=== PATIENT | male | born 1945 | race Caucasian/White ===

== ENCOUNTER 2022-01-10 14:11 | Inpatient (IN) ==
[2022-01-10 14:42] LABS: Basophils # (auto) 0.02 K/uL (0-0.2); Basophils % (auto) 0.2 %; Eosinophils % (auto) 1.1 %; Hematocrit (blood only) 39.7 % (40.1-51.0); Hemoglobin 13.6 g/dl (14.0-18.0); Immature Granulocytes # (auto) 0.04 K/uL (0.00-0.02); Immature Granulocytes % (auto) 0.4 %; Lymphocytes # (auto) 1.36 K/uL (1.2-3.4); Lymphocytes % (auto) 14.9 %; Mean Corpuscular Hemoglobin 31.8 pg (25.0-34.0); Mean Corpuscular Hgb Conc 34.3 g/dL (32.0-36.0); Mean Corpuscular Volume 92.8 fL (80.0-100.0); Mean Platelet Volume 9.6 fL (9.4-12.4); Monocytes # (auto) 0.68 K/uL (0.24-0.82); Monocytes % (auto) 7.5 %; Neutrophils # (auto) 6.92 K/uL (1.4-6.5); Neutrophils % (auto) 75.9 %; Platelet Count 264 K/uL (130-400); RDW Coefficient of Variation 13.1 % (11.5-14.5); RDW Standard Deviation 44.2 fL (36.4-46.3); Red Blood Count 4.28 M/uL (4.63-6.08); White Blood Count 9.12 K/ul (4.8-10.8)
[2022-01-10 15:02] LABS: Albumin Globulin Ratio 1.5 (0.9-2); Albumin Level 4.2 gm/dl (3.4-5.0); BUN Creatinine Ratio 21.1 (10-20); Bilirubin,Total 0.6 mg/dl (0.2-1.0); Calcium 9.7 mg/dl (8.5-10.1); Creatinine Clr Calc Pharmacy 28.6 ml/min; Est GFR (African American) 26.2 ml/min; Est GFR (Non-African American) 22.6 ml/min; Globulin 2.8 gm/dl (2.5-4.0); Potassium 4.6 mmol/L (3.5-5.1)
[2022-01-10] MEDS ORDERED: SODIUM CHLORIDE 0.9% 1000ML 1,000 ML IV ONE (15:07)
[2022-01-10 15:09] LABS: Troponin I High Sensitivity 10.5 pg/ml (0-20)
--- NOTE | 2022-01-10 15:34 | Emergency Department Note ---
Impression & Plan Changes in vision, WILLIAM (acute kidney injury), Dizziness ED Provider Note Provider: Migue Love MD DATE OF SERVICE: 01/10/2022 CHIEF COMPLAINT: Transient visual change, dizziness HISTORY OF PRESENT ILLNESS: Patient is a 76-year-old gentleman history of hypertension on a baby aspirin presenting with today after an episode this afternoon. Around 130 or so for a minute or so had some transient bilateral visual loss with initially some color change and then blacking out. Patient den ies loss of conscious however. There is no slurred speech reported. Patient states this quickly resolved but then had some ongoing dizziness for a period. This is resolved now. Denies any numbness or weakness earlier or now in the extremities. No facial droop or speech issues reported. Denies chest pain or palpitations. Denies other recent illness. No eye pain or headache reported. States he has been eating okay. REVIEW OF SYSTEMS: A total of 10 review of systems was obtained and negative except as stated above in the HPI. PAST MEDICAL HISTORY: As noted above MEDICATIONS: Reviewed home medications. Patient is on a baby aspirin daily. 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 PERRL, EOMI. NECK: Trachea midline. Supple. ENT: Mucous membranes pink and moist. Pharynx without erythema or exudate. LUNGS: Airway patent. No retractions. Breath sounds clear with good air entry bilaterally. HEART: Regular rate and rhythm. No chest wall tenderness ABDOMEN: Soft and non-tender, without guarding or rebound. SKIN: Acyanotic, warm, dry, without rashes EXTREMITIES: Without swelling, tenderness or deformity NEUROLOGICAL: No focal deficits. No aphasia. No facial droop or slurred speech. Tongue midline. Normal strength and tone in the extremities. No leg drift. 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 Sensation to gross touch normal. Ambulatory. EK bpm sinus bradycardia with first-degree AV block. No PVC noted. No acute ST segment elevation or depression. QTc 399. CONTINUOUS CARDIAC MONITORING: was ordered and showed a heart rate of 50s-70s bpm in normal sinus rhythm to sinus bradycardia with a first-degree AV block Patient's laboratory studies and imaging reviewed. Differential includes Infection, dehydration, metabolic abnormality, hypo/hyperglycemia, electrolyte disturbance, anemia, hypoxia, cardiac sources, intracerebral event, toxicologic, neurologic, as well as other pathologies. IMPRESSION/MEDICAL DECISION MAKING: Patient with symptoms concerning for possible TIA given the bilateral visual change noted. CT of the head to be completed. No other significant neurological findings or symptoms at this point. No pain to the eyes or unilateral nature of significance indicative of primary oncological process versus retinal detachment or GCA. Symptoms have resolved at this point. Denies other systemic symptoms such as palpitations or chest pain. Not made a stroke alert because of resolution of symptoms at this point. Blood work here completed without significant abnormality other than significant worsening of his renal function compared to blood work here in September and in the outpatient setting in October. Was recently started on Crestor several weeks ago but no other significant new renal medication started. States he has been drinking okay. Given some IV fluids here. Given worsened renal function in conjunction with the transient neurological visual changes as well as some dizziness although improving and this may represent TIA feel that further evaluation and care here at the hospital was indicated. CT of the head report does interestingly show chronic tiny lacunar infarct in the right cerebellum but no prior CTs are in our system for comparison. DIAGNOSIS: Transient visual changes, dizziness, WILLIAM DISPOSITION: Hospitalist will evaluate Patient was agreeable with this plan. Past Med/Surg History Medical History (Updated 01/10/22 @ 16:20 by Dinah Stanley PA-C) Carotid stenosis DM II (diabetes mellitus, type II), controlled HLD (hyperlipidemia) HTN (hypertension) Surgical History (Updated 01/10/22 @ 16:20 by Dinah Stanley PA-C) History of meniscectomy of left knee Hx laparoscopic cholecystectomy Hx of arthroscopy of shoulder Family History (Updated 01/10/22 @ 16:21 by Dinah Stanley PA-C) Father Cancer Mother Stroke Sister Stroke Social History Smoking Status: Never smoker Preferred Language: Armenian Feels Safe at Home: Yes Allergies Allergies Allergy/AdvReac Type Severity Reaction Status Date / Time No Known Allergies Allergy Mild Verified 01/10/22 16:03 Home Meds Home Medications Medication Instructions Recorded Confirmed amlodipine 5 mg tablet 5 mg PO DAILY 10/15/21 01/10/22 aspirin 81 mg tablet,delayed 81 mg PO DAILY 10/15/21 01/10/22 release lisinopril 20 mg tablet 20 mg PO DAILY 10/15/21 01/10/22 omeprazole 20 mg capsule,delayed 20 mg PO DAILY 10/15/21 01/10/22 release Results & Data (ED) Vital Signs Vital Signs - 24 hr 01/10/22 14:17 01/10/22 15:11 01/10/22 15:11 Temperature 36.8 C Temperature Source Temporal Artery Scan Pulse Rate 85 Pulse Rate [Finger] 77 Pulse Rhythm [Finger] Regular Pulse Strength [Finger] Normal Respiratory Rate 20 18 Respiratory Effort / Characteristics Non-Labored Non-Labored Respiratory Depth Normal Normal Respiratory Pattern Regular Blood Pressure 105/71 Blood Pressure [Right Arm] 107/63 Blood Pressure Mean 82 Blood Pressure Mean [Right Arm] 77 Blood Pressure Position [Right Arm] Lying Pulse Oximetry 96 95 95 Oxygen Delivery Method Room Air Room Air Room Air Sepsis Recent Fever Within 48 Hours No Sepsis New/Unexplained Change in Mental Status N/A Sepsis Action Taken by Nursing No Action Required Laboratory Data Result diagrams: 01/10/22 14:33 01/10/22 14:33 Lab Results 01/10/22 01/10/22 01/10/22 Range/Units 14:32 14:33 14:33 WBC 9.12 (4.8-10.8) K/ul RBC 4.28 L (4.63-6.08) M/uL Hgb 13.6 L (14.0-18.0) g/dl Hct 39.7 L (40.1-51.0) % MCV 92.8 (80.0-100.0) fL MCH 31.8 (25.0-34.0) pg MCHC 34.3 (32.0-36.0) g/dL RDW Std Deviation 44.2 (36.4-46.3) fL RDW Coeff of Yasmine 13.1 (11.5-14.5) % Plt Count 264 (130-400) K/uL MPV 9.6 (9.4-12.4) fL Immature Gran % (Auto) 0.4 % Neut % (Auto) 75.9 % Lymph % (Auto) 14.9 % Sanborn % (Auto) 7.5 % Eos % (Auto) 1.1 % Baso % (Auto) 0.2 % Neut # (Auto) 6.92 H (1.4-6.5) K/uL Lymph # (Auto) 1.36 (1.2-3.4) K/uL Sanborn # (Auto) 0.68 (0.24-0.82) K/uL Eos # (Auto) 0.10 (0-0.50) K/uL Baso # (Auto) 0.02 (0-0.2) K/uL Immature Gran # (Auto) 0.04 H (0.00-0.02) K/uL Sodium 134 L (136-145) mmol/L Potassium 4.6 (3.5-5.1) mmol/L Chloride 104 (98-107) mmol/L Carbon Dioxide 22 (21-32) mmol/L Anion Gap 8 (3-11) BUN 56 H (6-23) mg/dl Creatinine 2.65 H (0.6-1.4) mg/dl Est Cr Clr Drug Dosing 28.6 ml/min Est GFR ( Amer) 26.2 ml/min Est GFR (Non-Af Amer) 22.6 ml/min BUN/Creatinine Ratio 21.1 H (10-20) Glucose 158 H (70-99(Fasting)) mg/dl POC Glucose 166 H (70-99) mg/dl Calcium 9.7 (8.5-10.1) mg/dl Total Bilirubin 0.6 (0.2-1.0) mg/dl AST 22 (13-39) U/L ALT 20 (7-52) U/L Alkaline Phosphatase 54 (34-104) U/L Troponin I High Sens 10.5 (0-20) pg/ml Total Protein 7.0 (6.0-8.3) gm/dl Albumin 4.2 (3.4-5.0) gm/dl Globulin 2.8 (2.5-4.0) gm/dl Albumin/Globulin Ratio 1.5 (0.9-2) TSH (0.300-4.500) uIu/ml SARS-CoV-2, RNA, NAAT (NEGATIVE) 01/10/22 01/10/22 Range/Units 14:33 16:00 WBC (4.8-10.8) K/ul RBC (4.63-6.08) M/uL Hgb (14.0-18.0) g/dl Hct (40.1-51.0) % MCV (80.0-100.0) fL MCH (25.0-34.0) pg MCHC (32.0-36.0) g/dL RDW Std Deviation (36.4-46.3) fL RDW Coeff of Yasmine (11.5-14.5) % Plt Count (130-400) K/uL MPV (9.4-12.4) fL Immature Gran % (Auto) % Neut % (Auto) % Lymph % (Auto) % Sanborn % (Auto) % Eos % (Auto) % Baso % (Auto) % Neut # (Auto) (1.4-6.5) K/uL Lymph # (Auto) (1.2-3.4) K/uL Sanborn # (Auto) (0.24-0.82) K/uL Eos # (Auto) (0-0.50) K/uL Baso # (Auto) (0-0.2) K/uL Immature Gran # (Auto) (0.00-0.02) K/uL Sodium (136-145) mmol/L Potassium (3.5-5.1) mmol/L Chloride (98-107) mmol/L Carbon Dioxide (21-32) mmol/L Anion Gap (3-11) BUN (6-23) mg/dl Creatinine (0.6-1.4) mg/dl Est Cr Clr Drug Dosing ml/min Est GFR ( Amer) ml/min Est GFR (Non-Af Amer) ml/min BUN/Creatinine Ratio (10-20) Glucose (70-99(Fasting)) mg/dl POC Glucose (70-99) mg/dl Calcium (8.5-10.1) mg/dl Total Bilirubin (0.2-1.0) mg/dl AST (13-39) U/L ALT (7-52) U/L Alkaline Phosphatase (34-104) U/L Troponin I High Sens (0-20) pg/ml Total Protein (6.0-8.3) gm/dl Albumin (3.4-5.0) gm/dl Globulin (2.5-4.0) gm/dl Albumin/Globulin Ratio (0.9-2) TSH 0.659 (0.300-4.500) uIu/ml SARS-CoV-2, RNA, NAAT NEGATIVE (NEGATIVE) Administered Medications Discontinued Medications Aspirin (Aspirin 81 Mg Chew) 243 mg PO NOW STA Stop: 01/10/22 15:53 Last Admin: 01/10/22 16:22 Dose: 243 mg Documented By: MINDY Sodium Chloride (Nss 1000ml) 1,000 mls @ 999 mls/hr IV .Q1H1M ONE Stop: 01/10/22 16:07 Last Infusion: 01/10/22 16:19 Dose: 0 mls/hr Documented By: Admin: 01/10/22 15:13 Dose: 999 mls/hr Documented By: [facility] Imaging Data Radiologist's Impression: Head CT 01/10/22 15:07 CT SCAN OF THE BRAIN WITHOUT IV CONTRAST CLINICAL HISTORY: Dizziness. Transient vision loss. COMPARISON STUDY: No priors. TECHNIQUE: Unenhanced axial CT scan of the brain is performed from the vertex to the skull base. A dose lowering technique was utilized adhering to the principles of ALARA. CT DOSE: 2071.62 mGycm FINDINGS: Brain parenchyma: There is age-related involutional change noting mild subcortical and periventricular microangiopathic disease. There is no hemorrhage, mass effect, or evidence of acute territorial ischemia by CT criteria. A tiny chronic lacunar infarct is noted in the right cerebellar hemisphere. Carlson-white matter differentiation is preserved. No extra-axial fluid collection is seen. Ventricles, sulci, cisterns: Prominent secondary to involutional change. Intracranial vasculature: There is atherosclerotic calcification of the cavernous carotid and vertebral arteries. Calvarium: Unremarkable. Sinuses and mastoids: The visualized paranasal sinuses are clear. The mastoid air cells are well pneumatized. Orbits: The bony orbits are grossly intact. IMPRESSION: There is no hemorrhage, mass effect, or evidence of acute territorial ischemia by CT criteria. ACT 112: Negative or not required by law. Electronically signed by: Armando Chandler M.D. 01/10/2022 3:50 PM Discharge Plan Visit Data Chief Complaint: Dizziness Stated Complaint: LOST VISION, DIZZINESS ED Provider: Migue Love Discharge Problem: Changes in vision, WILLIAM (acute kidney injury), Dizziness Patient Disposition: Being Evaluated by Hospitalist Forms Stand Alone Forms: [facility] Prescriptions Prescriptions: No Action lisinopril 20 mg tablet 20 mg PO DAILY amlodipine 5 mg tablet 5 mg PO DAILY aspirin 81 mg Tablet,Delayed Release (Dr/Ec) 81 mg PO DAILY omeprazole 20 mg capsule,delayed release(DR/EC) 20 mg PO DAILY Referrals Referrals: Justin Hanson DO [Primary Care Provider] -
--- NOTE | 2022-01-10 15:51 | CT Scan Report ---
CT SCAN OF THE BRAIN WITHOUT IV CONTRAST CLINICAL HISTORY: Dizziness. Transient vision loss. COMPARISON STUDY: No priors. TECHNIQUE: Unenhanced axial CT scan of the brain is performed from the vertex to the skull base. A do se lowering technique was utilized adhering to the principles of ALARA. CT DOSE: 2071.62 mGycm FINDINGS: Brain parenchyma: There is age-related involutional change noting mild subcortical and periventricula r microangiopathic disease. There is no hemorrhage, mass effect, or evidence of acute territorial isc hemia by CT criteria. A tiny chronic lacunar infarct is noted in the right cerebellar hemisphere. Gra y-white matter differentiation is preserved. No extra-axial fluid collection is seen. Ventricles, sulci, cisterns: Prominent secondary to involutional change. Intracranial vasculature: There is atherosclerotic calcification of the cavernous carotid and vertebr al arteries. Calvarium: Unremarkable. Sinuses and mastoids: The visualized paranasal sinuses are clear. The mastoid air cells are well pneu matized. Orbits: The bony orbits are grossly intact. IMPRESSION: There is no hemorrhage, mass effect, or evidence of acute territorial ischemia by CT ricky stevens. ACT 112: Negative or not required by law. Electronically signed by: Armando Chandler M.D. 01/10/2022 3:50 PM
[2022-01-10] MEDS ORDERED: ASPIRIN 81 MG CHEW PO STA (15:52)
--- NOTE | 2022-01-10 15:54 | Electrocardiogram Report ---
Test Reason : Blood Pressure : / mmHG Vent. Rate : 056 BPM Atrial Rate : 056 BPM P-R Int : 212 ms QRS Dur : 104 ms QT Int : 414 ms P-R-T Axes : 066 016 033 degrees QTc Int : 399 ms Sinus bradycardia with 1st degree A-V block Septal infarct , age undetermined Abnormal ECG When compared with ECG of 15-OCT-2021 21:32, No significant change was found Confirmed by Messi Ferreira ([id number]) on 01/10/2022 3:54:45 PM Referred By: Confirmed By:Messi Ferreira
--- NOTE | 2022-01-10 16:17 | History & Physical Report ---
Date of Service January 10, 2022 History of Present Illness Chief Complaint: Visual loss, dizziness Primary Care Provider: Justin Hanson, This is a 76 yo M with PMHx of HTN Allergies Allergy/AdvReac Type Severity Reaction Status Date / Time No Known Allergies Allergy Mild Verified 01/10/22 16:03 Home Medications Medication Instructions Recorded Confirmed Type amlodipine 5 mg tablet 5 mg PO DAILY 10/15/21 01/10/22 History aspirin 81 mg tablet,delayed 81 mg PO DAILY 10/15/21 01/10/22 History release lisinopril 20 mg tablet 20 mg PO DAILY 10/15/21 01/10/22 History omeprazole 20 mg capsule,delayed 20 mg PO DAILY 10/15/21 01/10/22 History release Past Med/Surg History Social History Smoking Status: Never smoker Preferred Language: Grenadian Feels Safe at Home: Yes Results & Data Results & Data ([facility]) Vital Signs (Past 12 Hours) Vital Signs Temp Pulse Pulse Resp BP BP Pulse Ox 01/10/22 15:11 77 18 107/63 95 01/10/22 15:11 95 01/10/22 14:17 36.8 C 85 20 105/71 96 O2 Del Method 01/10/22 15:11 Room Air 01/10/22 15:11 Room Air 01/10/22 14:17 Room Air
--- NOTE | 2022-01-10 16:27 | History & Physical Report ---
Date of Service January 10, 2022 Assessment & Plan (1) Changes in vision: (2) Dizziness: Plan: - Concern that this is secondary to hypoperfusion TIA due to WILLIAM with Cr increase from 1.10 in September to 2.65, today BUN 56. Trend labs. - Admit to PCU - Stroke order set completed, no indication for thrombolytic - CT head wo contrast reviewed and is negative - MRI brain wo contrast ordered - cannot do with contrast due to WILLIAM - Continue baby aspirin as he is on at home, await neuro recs if need to start another antiplatelet such as plavix - BP is borderline low, continue with NSS at 125 ml/hr - Neurology consulted - Dr. Moss aware - Will keep on bedrest overnight and re-eval in the morning pending BP is improved and Cr./BUN improved - PT/OT consults placed (3) WILLIAM (acute kidney injury): Plan: - Cr. 2.65, BUN 56 compared to 10/15/21 when was 1.10/ - Nephro consulted - Holding nephrotoxins and continue NSS at 125 ml/hr - Trend labs - Consider another alternative for BP meds - may need to discuss with cardiology vs PCP prior to dc (4) HTN (hypertension): Plan: - Ekg reviewed, no chest pain, BP is soft on admission, continue fluids as above - Holding amlodipine, lisinopril, chlorthalidone due to WILLIAM as above (5) HLD (hyperlipidemia): Plan: - Rosuvastain 5 mg daily can continue - monitor response. Pt notes dizziness but this is likely more from diuretic and BP medications - Last lipid panel in September, elevated levels, repeat with AM labs (6) Carotid stenosis: Plan: - hx of such, outpatient is from most recent carotid ultrasound reviewed showing left and right with less than 50% stenosis -No carotid bruits on exam (7) DM II (diabetes mellitus, type II), controlled: Plan: -Last A1c 6.3 in September, recheck with a.m. labs as part of stroke order set -ISS with Rosa MariauLani [facility] -Pt is not on medication outpt, diet controlled DVT ppx: - teds, scds, baby aspirin CODE: Full code Dispo: From home, likely to remain in the hospital x 1-2 days History of Present Illness Chief Complaint: visual changes, dizziness Primary Care Provider: Justin Hanson, This is a 76 yo M with PMHx of HTN, HLD, carotid stenosis less than 50% bilaterally, DM II with last A1C 6.3 on 11/05/21, obesity with BMI of 31.8, who presents to the ER after report of loss of vision bilaterally earlier this afternoon around 1:15 pm. His , Carmel, is present at bedside and supports the history. He developed visual loss in both eyes and dizziness, which lasted about 20-30 seconds. Reports his left eye vision came back first, and then the right eye, which completely resolved within 15 minutes. Denies weakness in his arms, legs, no changes in speech. Around 11:30-12 pm he had just finished participating in the [employer] to salute the . He participates in this about once a day for the past 6 days and it can last 45 min to an hour. Today the service he participated in lasted about 15 minutes. He reports having increased dizziness since the the beginning of the month. The dizziness on and off, and it occurs when he is sitting still. He seems to think this is worse about 3 hours after taking medications including chlorthali done, lisinopril, amlodipine and rosuvastatin. More recently, new medications since the end of November includ the chlorthalidone and rosuvastatin. He is concerned that maybe these medications are causing the dizziness. On a daily basis he takes morning meds at 6am and dizziness occurs nearly daily around 9- 10a since starting them. Pt reports having strong family history of stroke and was very concerned about this, therefore came to the ER. His son from massive stroke at age 43. Mother also of stroke. Allergies Allergy/AdvReac Type Severity Reaction Status Date / Time No Known Allergies Allergy Mild Verified 01/10/22 16:03 Home Medications Medication Instructions Recorded Confirmed Type amlodipine 5 mg tablet 5 mg PO DAILY 10/15/21 01/10/22 History aspirin 81 mg tablet,delayed 81 mg PO DAILY 10/15/21 01/10/22 History release lisinopril 20 mg tablet 20 mg PO DAILY 10/15/21 01/10/22 History omeprazole 20 mg capsule,delayed 20 mg PO DAILY 10/15/21 01/10/22 History release chlorthalidone 25 mg tablet 25 mg PO DAILY 01/10/22 01/10/22 History rosuvastatin 5 mg tablet 5 mg PO DAILY 01/10/22 01/10/22 History Past Med/Surg History Medical History (Updated 01/10/22 @ 16:20 by Dinah Stanley PA-C) Carotid stenosis DM II (diabetes mellitus, type II), controlled HLD (hyperlipidemia) HTN (hypertension) Surgical History (Updated 01/10/22 @ 16:20 by Dinah Stanley PA-C) History of meniscectomy of left knee Hx laparoscopic cholecystectomy Hx of arthroscopy of shoulder Family History (Updated 01/10/22 @ 16:21 by Dinah Stanley PA-C) Father Cancer Mother Stroke Sister Stroke Social History Smoking Status: Never smoker Hx Alcohol Use: No Hx Substance Use: No Preferred Language: Nauruan Assistant Superintendent Required: No Beliefs That Will Affect Care: None Current Living Situation: Spouse Other Information That Helps Us Care for You: No Feels Safe at Home: Yes Safety Concerns: Feels Safe At This Time Assistive Devices: Denture - Upper Review of Systems Review of Systems: Constitutional: No fever, sweats or chills Eyes: As per HPI, currently no visual disturbances, No diplopia, no worsening or blurred vision ENT: normal hearing, no trouble swallowing Respiratory: No cough, sputum, dyspnea at rest or on exertion Cardiovascular: No chest pain, tightness or palpitations Abdomen: No pain, nausea, vomiting, diarrhea or constipation Musculoskeletal: No joint pain, calf pain, swelling Neurologic: No weakness, numbness/tingling, or balance problems Psychiatric: No anxiety or depression Skin: No rash or itch Physical Exam Physical Exam: General: awake, alert, no apparent distress, + appears younger than stated age, physically fit Head: Normocephalic, atraumatic ENT: PERRL, EOMI, visual brown intact, able to see from 20 feet away, no pharyngeal exudate, mucous membranes moist Chest: Clear to auscultation, on room air, no adventitious breath sounds Cardiac: Regular rate and rhythm, no murmur, no JVD, normal peripheral pulses, good capillary refill Abdominal: NABS x 4 quadrants, soft, nondistended, nontender to palpation, no rebound or guarding Extremities: Normal inspection, no peripheral edema or erythema, calfs nontender to palpation Psych: Normal mood and affect Neuro: AAO x 3, strength intact bilaterally and rated 5/5, no motor deficits, speech is clear, no peripheral sensory deficits Results & Data Results & Data ([facility]) Vital Signs (Past 12 Hours) Vital Signs Temp Pulse Pulse Resp BP BP Pulse Ox 01/10/22 15:11 77 18 107/63 95 01/10/22 15:11 95 01/10/22 14:17 36.8 C 85 20 105/71 96 O2 Del Method 01/10/22 15:11 Room Air 01/10/22 15:11 Room Air 01/10/22 14:17 Room Air Laboratory Results 01/10/22 01/10/22 01/10/22 16:00 14:33 14:33 WBC RBC Hgb Hct MCV MCH MCHC RDW Std Deviation RDW Coeff of Yasmine Plt Count MPV Immature Gran % (Auto) Neut % (Auto) Lymph % (Auto) [place] % (Auto) Eos % (Auto) Baso % (Auto) Neut # (Auto) Lymph # (Auto) [place] # (Auto) Eos # (Auto) Baso # (Auto) Immature Gran # (Auto) Sodium 134 L Potassium 4.6 Chloride 104 Carbon Dioxide 22 Anion Gap 8 BUN 56 H Creatinine 2.65 H Est Cr Clr Drug Dosing 28.6 Est GFR ( Amer) 26.2 Est GFR (Non-Af Amer) 22.6 BUN/Creatinine Ratio 21.1 H Glucose 158 H POC Glucose Calcium 9.7 Total Bilirubin 0.6 AST 22 ALT 20 Alkaline Phosphatase 54 Troponin I High Sens 10.5 Total Protein 7.0 Albumin 4.2 Globulin 2.8 Albumin/Globulin Ratio 1.5 TSH 0.659 SARS-CoV-2, RNA, NAAT NEGATIVE 01/10/22 01/10/22 14:33 14:32 WBC 9.12 RBC 4.28 L Hgb 13.6 L Hct 39.7 L MCV 92.8 MCH 31.8 MCHC 34.3 RDW Std Deviation 44.2 RDW Coeff of Yasmine 13.1 Plt Count 264 MPV 9.6 Immature Gran % (Auto) 0.4 Neut % (Auto) 75.9 Lymph % (Auto) 14.9 [place] % (Auto) 7.5 Eos % (Auto) 1.1 Baso % (Auto) 0.2 Neut # (Auto) 6.92 H Lymph # (Auto) 1.36 [place] # (Auto) 0.68 Eos # (Auto) 0.10 Baso # (Auto) 0.02 Immature Gran # (Auto) 0.04 H Sodium Potassium Chloride Carbon Dioxide Anion Gap BUN Creatinine Est Cr Clr Drug Dosing Est GFR ( Amer) Est GFR (Non-Af Amer) BUN/Creatinine Ratio Glucose POC Glucose 166 H Calcium Total Bilirubin AST ALT Alkaline Phosphatase Troponin I High Sens Total Protein Albumin Globulin Albumin/Globulin Ratio TSH SARS-CoV-2, RNA, NAAT Diagnostic Findings Head CT 01/10/22 15:07 CT SCAN OF THE BRAIN WITHOUT IV CONTRAST CLINICAL HISTORY: Dizziness. Transient vision loss. COMPARISON STUDY: No priors. TECHNIQUE: Unenhanced axial CT scan of the brain is performed from the vertex to the skull base. A dose lowering technique was utilized adhering to the principles of ALARA. CT DOSE: 2071.62 mGycm FINDINGS: Brain parenchyma: There is age-related involutional change noting mild subcortical and periventricular microangiopathic disease. There is no hemorrhage, mass effect, or evidence of acute territorial ischemia by CT criteria. A tiny chronic lacunar infarct is noted in the right cerebellar hemisphere. Carlson-white matter differentiation is preserved. No extra-axial fluid collection is seen. Ventricles, sulci, cisterns: Prominent secondary to involutional change. Intracranial vasculature: There is atherosclerotic calcification of the cavernous carotid and vertebral arteries. Calvarium: Unremarkable. Sinuses and mastoids: The visualized paranasal sinuses are clear. The mastoid air cells are well pneumatized. Orbits: The bony orbits are grossly intact. IMPRESSION: There is no hemorrhage, mass effect, or evidence of acute parker torial ischemia by CT criteria. ACT 112: Negative or not required by law. Electronically signed by: Armando Chandler M.D. 01/10/2022 3:50 PM ECG Additional Comments: Test Reason : Blood Pressure : / mmHG Vent. Rate : 056 BPM Atrial Rate : 056 BPM P-R Int : 212 ms QRS Dur : 104 ms QT Int : 414 ms P-R-T Axes : 066 016 033 degrees QTc Int : 399 ms Sinus bradycardia with 1st degree A-V block Septal infarct , age undetermined Abnormal ECG When compared with ECG of 15-OCT-2021 21:32, No significant change was found Confirmed by Messi Ferreira ([id number]) on 01/10/2022 3:54:45 PM Code Status & VTE Plan Code Status Full code Supervising Physician Co-Signing Physician Notes Attending Addendum: care coordinated with [] please refer to her notes for full details, I agree with her notes patient seen and examined, records reviewed by myself as well on exam, patient [] no other symptoms VS noted and reviewed oriented , not in distress, speaks in sentences with no effort nor accessory muscle use normal rate, regular rhythm, no murmurs clear breath sounds bilaterally non distended, soft, nontender no bipedal edema, erythema, warmth no neuro deficits WBC Hg Crea ASSESSMENT AND PLAN other diagnoses and plan of care as per [] Koko Vallejo MD
[2022-01-10] MEDS ORDERED: GLUCAGON FOR INJ 1 MG VIAL SQ PRN (18:14)
[2022-01-10] MEDS ORDERED: PHARMACIST DISCHARGE MED REC CONSULT PRN (18:14)
[2022-01-10] MEDS ORDERED: GLUCOSE 10 TAB/TUBE PO PRN (18:14)
[2022-01-10] MEDS ORDERED: DEXTROSE 50% 50 ML SYRINGE IV PRN (18:14)
[2022-01-10] MEDS ORDERED: GLUCOSE 40% GEL 15 GM TUBE PO PRN (18:14)
[2022-01-10] MEDS ORDERED: CARBOHYDRATES FOR HYPOGLYCEMIA PO PRN (18:14)
[2022-01-10 20:11] LABS: Appearance Urine Clear (Clear); Bilirubin Urine Negative (Negative); Blood Urine Negative (Negative); Color Urine Yellow; Glucose Urine UA Negative (Negative); Ketones Urine Negative (Negative); Leukocyte Esterase Urine Negative (Negative); Nitrite Urine Negative (Negative); Protein Urine Negative (Negative); Specific Gravity Urine 1.011 (1.000-1.030); Urobilinogen Urine Negative (Negative)
--- NOTE | 2022-01-10 20:26 | XRay Report ---
ORBIT RADIOGRAPHS 3 VIEWS HISTORY: pre-MRI screening. COMPARISON: None. FINDINGS: There are no radiopaque foreign bodies identified within the orbits. IMPRESSION: No radiopaque foreign bodies identified within the orbits. ACT 112: Negative or not required by law. Electronically signed by: Peter Flor M.D. 01/10/2022 8:25 PM
--- NOTE | 2022-01-10 21:06 | Magnetic Resonance Report ---
Brain MRI WITHOUT CONTRAST HISTORY: Loss of vision. Assess for stroke. TECHNIQUE: Multiplanar multisequence MRI of the brain was performed without the use of contrast. COMPARISON STUDY: Head CT 01/10/2022. FINDINGS: There is no mass, hematoma, midline shift, or acute infarct. The paranasal sinuses are dina r. The mastoid air cells are clear. The ventricles and sulci demonstrate mild age-related involutiona l changes. Scattered foci of T2 hyperintensity seen within the periventricular and subcortical white matter are nonspecific but suggestive of mild microvascular ischemic changes. The major vascular flow voids at the skull base are well-maintained. There are old punctate lacunar infarcts within the bila teral cerebellar hemispheres. IMPRESSION: No acute intracranial abnormality. ACT 112: Negative or not required by law. Electronically signed by: Peter Flor M.D. 01/10/2022 9:04 PM
[2022-01-10] MEDS: SODIUM CHLORIDE 0.9% 1000ML 1,000 ML IV SCH (21:42)
[2022-01-10] MEDS: INSULIN ASPART PER UNIT SC SCH (21:42)
--- NOTE | 2022-01-10 22:14 | Neurology Consultation ---
Date of Consultation January 10, 2022 Assessment & Plan (1) Changes in vision: Impression: The patient had short lasting binocular vision loss with dizziness, which was likely due to hypotension in temporary cerebral hypoperfusion. The patient reports having episodes of dizziness with blurred vision since he was started on new blood pressure medication, chlorthalidone. He has been on multiple blood pressure medications. He has been also having diarrhea since he was started on rosuvastatin, which might contribute to the patient's symptoms. There is no history or radiologic abnormalities to suggest TIA/CVA. Plan: Adjustment of blood pressure medications. Consider switching to another statin. Management of acute kidney injury. The patient is neurologically stable and can be discharged home after stabilizing medically. (2) WILLIAM (acute kidney injury): Impression: Labs are suggestive of acute kidney injury. (3) Dizziness: Impression: The patient has been having episodes of dizziness, since his blood pressure medications were adjusted. He was started on new blood pressure medication in November 2021. Plan: Adjustment of blood pressure medications. (4) HTN (hypertension): Impression: Patient has long history of hypertension. He is on multiple blood pressure medications and chlorthalidone was added to treatment last month. The patient reports having low blood pressures with low heart rate at times. (5) Carotid stenosis: Impression: Due to symptoms of dizziness, carotid duplex in a year. Study was done recently, which showed less than 50% of stenosis of bilateral carotid arteries. Plan: Follow-up carotid US in a year. Plan As seen above. Thank you for the consultation. We will sign off. History of Present Illness Reason for Consultation: Temporary visual impairment and dizziness Requesting Physician: Dinah Stanley MD Attending Physician: Koko Vallejo MD History of Present Illness The patient is a very pleasant 76-year-old gentleman, who presented emergency d [facility] today, after she had short lasting loss of vision with dizziness. The patient reports that he has been physically more active for last 1 week and today, he did not eat much. He was setting in passenger seat, and suddenly felt dizzy, with impaired vision in both eyes, which lasted for 20 to 30 seconds. Vision resumed back to normal. The patient did not notice diplopia or monocular vision loss. Dizziness lasted for additional 1 hour. The patient denied having additional neurological symptoms. He was not having diaphoresis, dizziness, or sweating. In emergency department, the patient was symptom-free. He was not considered a candidate for thrombolytic treatment. Head CT without contrast was negative for acute event. BUN and creatinine were elevated, suggestive of acute kidney injury. Apparently, the patient has been on multiple blood pressure medications. He reports that after he was started on chlorthalidone and rosuvastatin in November 2021, he has been having episodes of dizziness and diarrhea. The patient has been on daily low-dose aspirin. Since admission, the patient has been symptom-free. Brain MRI was completed recently, which did not show acute pathology including cerebrovascular accident. Reportedly, the patient had carotid Doppler study recently, which showed less than 50% stenosis of bilateral carotid arteries. The patient denies similar symptoms including dizziness, or vision changes prior to starting on new blood pressure medication. I have reviewed the patient's chart and visualized imaging studies personally. I have discussed the case with the patient and answered his questions in detail. Allergies Allergy/AdvReac Type Severity Reaction Status Date / Time No Known Allergies Allergy Mild Verified 01/10/22 16:03 Home Medications Medication Instructions Recorded Confirmed Type amlodipine 5 mg tablet 5 mg PO DAILY 10/15/21 01/10/22 History aspirin 81 mg tablet,delayed 81 mg PO DAILY 10/15/21 01/10/22 History release lisinopril 20 mg tablet 20 mg PO DAILY 10/15/21 01/10/22 History omeprazole 20 mg capsule,delayed 20 mg PO DAILY 10/15/21 01/10/22 History release chlorthalidone 25 mg tablet 25 mg PO DAILY 01/10/22 01/10/22 History rosuvastatin 5 mg tablet 5 mg PO DAILY 01/10/22 01/10/22 History Patient History Medical History Carotid stenosis DM II (diabetes mellitus, type II), controlled HLD (hyperlipidemia) HTN (hypertension) Surgical History History of meniscectomy of left knee Hx laparoscopic cholecystectomy Hx of arthroscopy of shoulder Family History Father Cancer Mother Stroke Sister Stroke Social History Smoking Status: Never smoker Hx Alcohol Use: No Hx Substance Use: No Preferred Language: [place] Islander [employer] Required: No Beliefs That Will Affect Care: None Current Living Situation: Spouse Other Information That Helps Us Care for You: No Feels Safe at Home: Yes Safety Concerns: Feels Safe At This Time Assistive Devices: Denture - Upper Review of Systems Review of Systems: All systems reviewed & are unremarkable except as noted in HPI & below Physical Exam Physical Exam: General Examination: Constitutional: Well developed person in no acute distress. HENT: Normal exam with inspection. CV: Hearth rhtyhm is regular. Neck: Supple, no carotid bruits. Lungs: Non-labored and comfortable breathing. Abdomen: Soft, non-tender, non-distended. Skin: No rash or ecchymosis. Extremities: No edema or cyanosis NEUROLOGICAL EXAMINATION: Mental Status: Alert and oriented to place, person and time. Cranial Nerves: II-XII are intact. No nystagmus. Funduscopy: Normal looking optic discs. Motor: 5/5 in all extremities without asymmetry. Tone: Normal without spasticity or rigidity. Sensory: Intact to all sensory modalities except decreased vibratory sensation in feet. Coordination: No dysmetria with FTN testing. Speech: Fluent. Comprehension is intact. Gait: Normal. No ataxia or abnormal walking pattern. Musculoskeletal: Normal muscle bulk, no atrophy. Results & Data ([facility]) Vital Signs (Past 12 Hours) Vital Signs Temp Pulse Pulse Resp BP BP Pulse Ox 01/10/22 19:29 36.3 C L 54 L 18 128/83 94 01/10/22 18:15 36.7 C 60 16 115/84 94 01/10/22 17:00 79 18 116/78 96 01/10/22 15:11 77 18 107/63 95 01/10/22 15:11 95 01/10/22 14:17 36.8 C 85 20 105/71 96 O2 Del Method 01/10/22 19:29 Room Air 01/10/22 18:15 Room Air 01/10/22 17:00 Room Air 01/10/22 15:11 Room Air 01/10/22 15:11 Room Air 01/10/22 14:17 Room Air Laboratory Results Laboratory Results - last 24 hr 01/10/22 01/10/22 01/10/22 14:32 14:33 14:33 WBC 9.12 RBC 4.28 L Hgb 13.6 L Hct 39.7 L MCV 92.8 MCH 31.8 MCHC 34.3 RDW Std Deviation 44.2 RDW Coeff of Yasmine 13.1 Plt Count 264 MPV 9.6 Immature Gran % (Auto) 0.4 Neut % (Auto) 75.9 Lymph % (Auto) 14.9 Monroe % (Auto) 7.5 Eos % (Auto) 1.1 Baso % (Auto) 0.2 Neut # (Auto) 6.92 H Lymph # (Auto) 1.36 Monroe # (Auto) 0.68 Eos # (Auto) 0.10 Baso # (Auto) 0.02 Immature Gran # (Auto) 0.04 H Sodium 134 L Potassium 4.6 Chloride 104 Carbon Dioxide 22 Anion Gap 8 BUN 56 H Creatinine 2.65 H Est Cr Clr Drug Dosing 28.6 Est GFR ( Amer) 26.2 Est GFR (Non-Af Amer) 22.6 BUN/Creatinine Ratio 21.1 H Glucose 158 H POC Glucose 166 H Calcium 9.7 Total Bilirubin 0.6 AST 22 ALT 20 Alkaline Phosphatase 54 Troponin I High Sens 10.5 Total Protein 7.0 Albumin 4.2 Globulin 2.8 Albumin/Globulin Ratio 1.5 TSH Urine Color Urine Appearance Urine pH Ur Specific Bourbon Urine Protein Urine Glucose (UA) Urine Ketones Urine Blood Urine Nitrite Urine Bilirubin Urine Urobilinogen Ur Leukocyte Esterase SARS-CoV-2, RNA, NAAT 01/10/22 01/10/22 01/10/22 14:33 16:00 17:20 WBC RBC Hgb Hct MCV MCH MCHC RDW Std Deviation RDW Coeff of Yasmine Plt Count MPV Immature Gran % (Auto) Neut % (Auto) Lymph % (Auto) Monroe % (Auto) Eos % (Auto) Baso % (Auto) Neut # (Auto) Lymph # (Auto) Monroe # (Auto) Eos # (Auto) Baso # (Auto) Immature Gran # (Auto) Sodium Potassium Chloride Carbon Dioxide Anion Gap BUN Creatinine Est Cr Clr Drug Dosing Est GFR ( Amer) Est GFR (Non-Af Amer) BUN/Creatinine Ratio Glucose POC Glucose Calcium Total Bilirubin AST ALT Alkaline Phosphatase Troponin I High Sens Total Protein Albumin Globulin Albumin/Globulin Ratio TSH 0.659 Urine Color Yellow Urine Appearance Clear Urine pH 5.0 Ur Specific Bourbon 1.011 Urine Protein Negative Urine Glucose (UA) Negative Urine Ketones Negative Urine Blood Negative Urine Nitrite Negative Urine Bilirubin Negative Urine Urobilinogen Negative Ur Leukocyte Esterase Negative SARS-CoV-2, RNA, NAAT NEGATIVE 01/10/22 21:16 WBC RBC Hgb Hct MCV MCH MCHC RDW Std Deviation RDW Coeff of Yasmine Plt Count MPV Immature Gran % (Auto) Neut % (Auto) Lymph % (Auto) Monroe % (Auto) Eos % (Auto) Baso % (Auto) Neut # (Auto) Lymph # (Auto) Monroe # (Auto) Eos # (Auto) Baso # (Auto) Immature Gran # (Auto) Sodium Potassium Chloride Carbon Dioxide Anion Gap BUN Creatinine Est Cr Clr Drug Dosing Est GFR ( Amer) Est GFR (Non-Af Amer) BUN/Creatinine Ratio Glucose POC Glucose 106 H Calcium Total Bilirubin AST ALT Alkaline Phosphatase Troponin I High Sens Total Protein Albumin Globulin Albumin/Globulin Ratio TSH Urine Color Urine Appearance Urine pH Ur Specific Bour[place] Urine Protein Urine Glucose (UA) Urine Ketones Urine Blood Urine Nitrite Urine Bilirubin Urine Urobilinogen Ur Leukocyte Esterase SARS-CoV-2, RNA, NAAT Diagnostic Findings Head CT 01/10/22 15:07 CT SCAN OF THE BRAIN WITHOUT IV CONTRAST CLINICAL HISTORY: Dizziness. Transient vision loss. COMPARISON STUDY: No priors. TECHNIQUE: Unenhanced axial CT scan of the brain is performed from the vertex to the skull base. A dose lowering technique was utilized adhering to the principles of ALARA. CT DOSE: 2071.62 mGycm FINDINGS: Brain parenchyma: There is age-related involutional change noting mild subcortical and periventricular microangiopathic disease. There is no hemorrhage, mass effect, or evidence of acute territorial ischemia by CT criteria. A tiny chronic lacunar infarct is noted in the right cerebellar hemisphere. Carlson-white matter differentiation is preserved. No extra-axial fluid collection is seen. Ventricles, sulci, cisterns: Prominent secondary to involutional change. Intracranial vasculature: There is atherosclerotic calcification of the cavernous carotid and vertebral arteries. Calvarium: Unremarkable. Sinuses and mastoids: The visualized paranasal sinuses are clear. The mastoid air cells are well pneumatized. Orbits: The bony orbits are grossly intact. IMPRESSION: There is no hemorrhage, mass effect, or evidence of acute territorial ischemia by CT criteria. ACT 112: Negative or not required by law. Electronically signed by: Armando Chandler M.D. 01/10/2022 3:50 PM Brain MRI 01/10/22 17:00 Brain MRI WITHOUT CONTRAST HISTORY: Loss of vision. Assess for stroke. TECHNIQUE: Multiplanar multisequence MRI of the brain was performed without the use of contrast. COMPARISON STUDY: Head CT 01/10/2022. FINDINGS: There is no mass, hematoma, midline shift, or acute infarct. The paranasal sinuses are clear. The mastoid air cells are clear. The ventricles and sulci demonstrate mild age-related involutional changes. Scattered foci of T2 hyperintensity seen within the periventricular and subcortical white matter are nonspecific but suggestive of mild microvascular ischemic changes. The major vascular flow voids at the skull base are well-maintained. 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 IMPRESSION: No acute intracranial abnormality. ACT 112: Negative or not required by law. Electronically signed by: Peter Flor M.D. 01/10/2022 9:04 PM Orbit X-Ray 01/10/22 17:21 ORBIT RADIOGRAPHS 3 VIEWS HISTORY: pre-MRI screening. COMPARISON: None. FINDINGS: There are no radiopaque foreign bodies identified within the orbits. IMPRESSION: No radiopaque foreign bodies identified within the orbits. ACT 112: Negative or not required by law. Electronically signed by: Peter Flor M.D. 01/10/2022 8:25 PM
[2022-01-11] MEDS: SODIUM CHLORIDE 0.9% 1000ML 1,000 ML IV SCH (05:31)
[2022-01-11 06:49] LABS: Basophils # (auto) 0.02 K/uL (0-0.2); Basophils % (auto) 0.3 %; Eosinophils # (auto) 0.21 K/uL (0-0.50); Eosinophils % (auto) 2.9 %; Hematocrit (blood only) 37.1 % (40.1-51.0); Immature Granulocytes # (auto) 0.02 K/uL (0.00-0.02); Immature Granulocytes % (auto) 0.3 %; Lymphocytes # (auto) 1.62 K/uL (1.2-3.4); Lymphocytes % (auto) 22.4 %; Mean Corpuscular Hemoglobin 31.8 pg (25.0-34.0); Mean Corpuscular Volume 90.7 fL (80.0-100.0); Mean Platelet Volume 9.9 fL (9.4-12.4); Monocytes # (auto) 0.59 K/uL (0.24-0.82); Monocytes % (auto) 8.2 %; Neutrophils # (auto) 4.77 K/uL (1.4-6.5); Neutrophils % (auto) 65.9 %; Platelet Count 244 K/uL (130-400); RDW Standard Deviation 42.3 fL (36.4-46.3); Red Blood Count 4.09 M/uL (4.63-6.08); White Blood Count 7.23 K/ul (4.8-10.8)
[2022-01-11 07:12] LABS: BUN Creatinine Ratio 25.3 (10-20); Calcium 9.2 mg/dl (8.5-10.1); Chol HDL Ratio 4.1 (0-5); Creatinine Clr Calc Pharmacy 41.4 ml/min; Est GFR (African American) 41.2 ml/min; Est GFR (Non-African American) 35.5 ml/min; Potassium 4.8 mmol/L (3.5-5.1)
[2022-01-11 08:13] LABS: Estimated Average Glucose 143 mg/dl; Hemoglobin A1C 6.6 % (4.5-5.6)
[2022-01-11] MEDS: INSULIN ASPART PER UNIT SC SCH ×4 (08:45→20:50)
[2022-01-11] MEDS: PANTOprazole 40 MG TAB PO SCH (08:47)
[2022-01-11] MEDS: ASPIRIN 81 MG ECTAB PO SCH (08:47)
--- NOTE | 2022-01-11 10:55 | Hospitalist Progress Note ---
Date of Service January 11, 2022 Assessment & Plan (1) Changes in vision: (2) Dizziness: Plan: - Concern that this is secondary to hypoperfusion TIA - Stroke order set completed, no indication for thrombolytic - CT head wo contrast reviewed and is negative - MRI brain wo contrast ordered - cannot do with contrast due to WILLIAM FINDINGS: There is no mass, hematoma, midline shift, or acute infarct. The paranasal sinuses are clear. The mastoid air cells are clear. The ventricles and sulci demonstrate mild age-related involutional changes. Scattered foci of T2 hyperintensity seen within the periventricular and subcortical white matter are nonspecific but suggestive of mild microvascular ischemic changes. The major vascular flow voids at the skull base are well-maintained. 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 IMPRESSION: No acute intracranial abnormality. - Neurology consulted - Dr. Moss There is no history or radiologic abnormalities to suggest TIA/CVA. The patient had short lasting binocular vision loss with dizziness, which was likely due to hypotension in temporary cerebral hypoperfusion. The patient reports having episodes of dizziness with blurred vision since he was started on new blood pressure medication, chlorthalidone. He has been on multiple blood pressure medications. - Continue baby aspirin - pt's BP still on lower side despite IVF and holding BP meds - cont. to moniotr -clinically pt feels much improved and is inquiring about going home (3) WILLIAM (acute kidney injury): Plan: - Cr. 2.65, BUN 56 compared to 10/15/21 when was 1.10/ - now Cr improved to 1.9 after IVF and holding BP meds - maybe prerenal vs ischemic ATN - Nephrology consulted - Holding nephrotoxins and continue IVF, switch to normosol - monitor BMP - at this point holding BP meds as BP still on lower side - Consider another alternative for BP meds - may need to discuss with cardiology vs PCP (4) HTN (hypertension): Plan: - Ekg reviewed, no chest pain, BP is soft on admission, continue fluids as above - Holding amlodipine, lisinopril, chlorthalidone due to WILLIAM as above (5) HLD (hyperlipidemia): Plan: - Rosuvastain 5 mg daily at home. Pt notes dizziness but this is likely more from diuretic and BP medications - Last lipid panel in September, elevated levels - current LDL 62, TC 112 (6) Carotid stenosis: Plan: - hx of such, outpatient is from most recent carotid ultrasound reviewed showing left and right with less than 50% stenosis - per neuro, recommend to repeat in a year (7) DM II (diabetes mellitus, type II), controlled: Plan: -Last A1c 6.3 in September, current 6.6% -ISS with Accu-Cheks ACHS -Pt is not on medication outpt, diet controlled DVT ppx: - teds, scds, baby aspirin CODE: Full code Dispo: From home, likely to remain in the hospital x 1-2 days Admission and Anticipated Discharge Date Admission Date: January 10, 2022 Subjective Patient is a follow-up of dizziness, vision loss/now resolved, secondary to hypotension, WILLIAM Brain MRI, no CVA/TIA Patient seen by neurology yesterday Cr improved to 1.9 BP still on lower side after IVF Currently lying in bed, in no acute distress Reports symptoms all resolved. No visual disturbances. Denies any headache, chest pain, shortness of breath, dizziness or lightheadedness. Reports that he has been urinating without any difficulty. Review of Systems Review of Systems: All systems reviewed & are unremarkable except as noted in Subjective Physical Exam Physical Exam: General: awake, alert, no apparent distress Head: Normocephalic, atraumatic ENT: PERRL, EOMI, visual brown intact,no pharyngeal exudate, mucous membranes moist Chest: Clear to auscultation, on room air, no adventitious breath sounds Cardiac: Regular rate and rhythm, no murmur, no JVD, normal peripheral pulses, good capillary refill Abdominal: NABS x 4 quadrants, soft, nondistended, nontender to palpation, no rebound or guarding Extremities: Normal inspection, no peripheral edema or erythema, calves nontender to palpation Psych: Normal mood and affect Neuro: AAO x 3, strength intact bilaterally and rated 5/5, no motor deficits, speech is clear, no peripheral sensory deficits Results & Data Results & Data ([facility]) Vital Signs (Past 12 Hours) Vital Signs Temp Pulse Pulse Resp BP Pulse Ox O2 Del Method 01/11/22 08:04 79 01/11/22 07:59 36.6 C 55 L 18 100/67 96 Room Air 01/11/22 03:41 36.7 C 56 L 16 106/68 94 Room Air 01/10/22 23:12 36.5 C 54 L 18 117/76 96 Room Air Laboratory Results 01/11/22 01/11/22 01/11/22 Range/Units 07:41 06:13 06:13 WBC (4.8-10.8) K/ul RBC (4.63-6.08) M/uL Hgb (14.0-18.0) g/dl Hct (40.1-51.0) % MCV (80.0-100.0) fL MCH (25.0-34.0) pg MCHC (32.0-36.0) g/dL RDW Std Deviation (36.4-46.3) fL RDW Coeff of Yasmine (11.5-14.5) % Plt Count (130-400) K/uL MPV (9.4-12.4) fL Immature Gran % (Auto) % Neut % (Auto) % Lymph % (Auto) % Knox % (Auto) % Eos % (Auto) % Baso % (Auto) % Neut # (Auto) (1.4-6.5) K/uL Lymph # (Auto) (1.2-3.4) K/uL Knox # (Auto) (0.24-0.82) K/uL Eos # (Auto) (0-0.50) K/uL Baso # (Auto) (0-0.2) K/uL Immature Gran # (Auto) (0.00-0.02) K/uL Sodium 137 (136-145) mmol/L Potassium 4.8 (3.5-5.1) mmol/L Chloride 108 H (98-107) mmol/L Carbon Dioxide 23 (21-32) mmol/L Anion Gap 6 (3-11) BUN 46 H (6-23) mg/dl Creatinine 1.82 H D (0.6-1.4) mg/dl Est Cr Clr Drug Dosing 41.4 ml/min Est GFR ( Amer) 41.2 ml/min Est GFR (Non-Af Amer) 35.5 ml/min BUN/Creatinine Ratio 25.3 H (10-20) Glucose 103 H (70-99(Fasting)) mg/dl POC Glucose 100 H (70-99) mg/dl Estimat Average Glucose 143 mg/dl Hemoglobin A1c 6.6 H (4.5-5.6) % Calcium 9.2 (8.5-10.1) mg/dl Total Bilirubin (0.2-1.0) mg/dl AST (13-39) U/L ALT (7-52) U/L Alkaline Phosphatase (34-104) U/L Troponin I High Sens (0-20) pg/ml Total Protein (6.0-8.3) gm/dl Albumin (3.4-5.0) gm/dl Globulin (2.5-4.0) gm/dl Albumin/Globulin Ratio (0.9-2) Triglycerides 126 (0-150) mg/dl Cholesterol 115 (0-200) mg/dl LDL Cholesterol, Calc 62 mg/dl VLDL Cholesterol, Calc 25 (0-30) mg/dl HDL Cholesterol 28 mg/dl Cholesterol/HDL Ratio 4.1 (0-5) TSH (0.300-4.500) uIu/ml Urine Color Urine Appearance (Clear) Urine pH (4.5-7.5) Ur Specific Shipman (1.000-1.030) Urine Protein (Negative) Urine Glucose (UA) (Negative) Urine Ketones (Negative) Urine Blood (Negative) Urine Nitrite (Negative) Urine Bilirubin (Negative) Urine Urobilinogen (Negative) Ur Leukocyte Esterase (Negative) SARS-CoV-2, RNA, NAAT (NEGATIVE) 01/11/22 01/10/22 01/10/22 Range/Units 06:13 21:16 17:20 WBC 7.23 (4.8-10.8) K/ul RBC 4.09 L (4.63-6.08) M/uL Hgb 13.0 L (14.0-18.0) g/dl Hct 37.1 L (40.1-51.0) % MCV 90.7 (80.0-100.0) fL MCH 31.8 (25.0-34.0) pg MCHC 35.0 (32.0-36.0) g/dL RDW Std Deviation 42.3 (36.4-46.3) fL RDW Coeff of Yasmine 13.0 (11.5-14.5) % Plt Count 244 (130-400) K/uL MPV 9.9 (9.4-12.4) fL Immature Gran % (Auto) 0.3 % Neut % (Auto) 65.9 % Lymph % (Auto) 22.4 % Knox % (Auto) 8.2 % Eos % (Auto) 2.9 % Baso % (Auto) 0.3 % Neut # (Auto) 4.77 (1.4-6.5) K/uL Lymph # (Auto) 1.62 (1.2-3.4) K/uL Knox # (Auto) 0.59 (0.24-0.82) K/uL Eos # (Auto) 0.21 (0-0.50) K/uL Baso # (Auto) 0.02 (0-0.2) K/uL Immature Gran # (Auto) 0.02 (0.00-0.02) K/uL Sodium (136-145) mmol/L Potassium (3.5-5.1) mmol/L Chloride (98-107) mmol/L Carbon Dioxide (21-32) mmol/L Anion Gap (3-11) BUN (6-23) mg/dl Creatinine (0.6-1.4) mg/dl Est Cr Clr Drug Dosing ml/min Est GFR ( Amer) ml/min Est GFR (Non-Af Amer) ml/min BUN/Creatinine Ratio (10-20) Glucose (70-99(Fasting)) mg/dl POC Glucose 106 H (70-99) mg/dl Estimat Average Glucose mg/dl Hemoglobin A1c (4.5-5.6) % Calcium (8.5-10.1) mg/dl Total Bilirubin (0.2-1.0) mg/dl AST (13-39) U/L ALT (7-52) U/L Alkaline Phosphatase (34-104) U/L Troponin I High Sens (0-20) pg/ml Total Protein (6.0-8.3) gm/dl Albumin (3.4-5.0) gm/dl Globulin (2.5-4.0) gm/dl Albumin/Globulin Ratio (0.9-2) Triglycerides (0-150) mg/dl Cholesterol (0-200) mg/dl LDL Cholesterol, Calc mg/dl VLDL Cholesterol, Calc (0-30) mg/dl HDL Cholesterol mg/dl Cholesterol/HDL Ratio (0-5) TSH (0.300-4.500) uIu/ml Urine Color Yellow Urine Appearance Clear (Clear) Urine pH 5.0 (4.5-7.5) Ur Specific Shipman 1.011 (1.000-1.030) Urine Protein Negative (Negative) Urine Glucose (UA) Negative (Negative) Urine Ketones Negative (Negative) Urine Blood Negative (Negative) Urine Nitrite Negative (Negative) Urine Bilirubin Negative (Negative) Urine Urobilinogen Negative (Negative) Ur Leukocyte Esterase Negative (Negative) SARS-CoV-2, RNA, NAAT (NEGATIVE) 01/10/22 01/10/22 01/10/22 Range/Units 16:00 14:33 14:33 WBC (4.8-10.8) K/ul RBC (4.63-6.08) M/uL Hgb (14.0-18.0) g/dl Hct (40.1-51.0) % MCV (80.0-100.0) fL MCH (25.0-34.0) pg MCHC (32.0-36.0) g/dL RDW Std Deviation (36.4-46.3) fL RDW Coeff of Yasmine (11.5-14.5) % Plt Count (130-400) K/uL MPV (9.4-12.4) fL Immature Gran % (Auto) % Neut % (Auto) % Lymph % (Auto) % Knox % (Auto) % Eos % (Auto) % Baso % (Auto) % Neut # (Auto) (1.4-6.5) K/uL Lymph # (Auto) (1.2-3.4) K/uL Knox # (Auto) (0.24-0.82) K/uL Eos # (Auto) (0-0.50) K/uL Baso # (Auto) (0-0.2) K/uL Immature Gran # (Auto) (0.00-0.02) K/uL Sodium 134 L (136-145) mmol/L Potassium 4.6 (3.5-5.1) mmol/L Chloride 104 (98-107) mmol/L Carbon Dioxide 22 (21-32) mmol/L Anion Gap 8 (3-11) BUN 56 H (6-23) mg/dl Creatinine 2.65 H (0.6-1.4) mg/dl Est Cr Clr Drug Dosing 28.6 ml/min Est GFR ( Amer) 26.2 ml/min Est GFR (Non-Af Amer) 22.6 ml/min BUN/Creatinine Ratio 21.1 H (10-20) Glucose 158 H (70-99(Fasting)) mg/dl POC Glucose (70-99) mg/dl Estimat Average Glucose mg/dl Hemoglobin A1c (4.5-5.6) % Calcium 9.7 (8.5-10.1) mg/dl Total Bilirubin 0.6 (0.2-1.0) mg/dl AST 22 (13-39) U/L ALT 20 (7-52) U/L Alkaline Phosphatase 54 (34-104) U/L Troponin I High Sens 10.5 (0-20) pg/ml Total Protein 7.0 (6.0-8.3) gm/dl Albumin 4.2 (3.4-5.0) gm/dl Globulin 2.8 (2.5-4.0) gm/dl Albumin/Globulin Ratio 1.5 (0.9-2) Triglycerides (0-150) mg/dl Cholesterol (0-200) mg/dl LDL Cholesterol, Calc mg/dl VLDL Cholesterol, Calc (0-30) mg/dl HDL Cholesterol mg/dl Cholesterol/HDL Ratio (0-5) TSH 0.659 (0.300-4.500) uIu/ml Urine Color Urine Appearance (Clear) Urine pH (4.5-7.5) Ur Specific Shipman (1.000-1.030) Urine Protein (Negative) Urine Glucose (UA) (Negative) Urine Ketones (Negative) Urine Blood (Negative) Urine Nitrite (Negative) Urine Bilirubin (Negative) Urine Urobilinogen (Negative) Ur Leukocyte Esterase (Negative) SARS-CoV-2, RNA, NAAT NEGATIVE (NEGATIVE) 01/10/22 01/10/22 Range/Units 14:33 14:32 WBC 9.12 (4.8-10.8) K/ul RBC 4.28 L (4.63-6.08) M/uL Hgb 13.6 L (14.0-18.0) g/dl Hct 39.7 L (40.1-51.0) % MCV 92.8 (80.0-100.0) fL MCH 31.8 (25.0-34.0) pg MCHC 34.3 (32.0-36.0) g/dL RDW Std Deviation 44.2 (36.4-46.3) fL RDW Coeff of Yasmine 13.1 (11.5-14.5) % Plt Count 264 (130-400) K/uL MPV 9.6 (9.4-12.4) fL Immature Gran % (Auto) 0.4 % Neut % (Auto) 75.9 % Lymph % (Auto) 14.9 % Knox % (Auto) 7.5 % Eos % (Auto) 1.1 % Baso % (Auto) 0.2 % Neut # (Auto) 6.92 H (1.4-6.5) K/uL Lymph # (Auto) 1.36 (1.2-3.4) K/uL Knox # (Auto) 0.68 (0.24-0.82) K/uL Eos # (Auto) 0.10 (0-0.50) K/uL Baso # (Auto) 0.02 (0-0.2) K/uL Immature Gran # (Auto) 0.04 H (0.00-0.02) K/uL Sodium (136-145) mmol/L Potassium (3.5-5.1) mmol/L Chloride (98-107) mmol/L Carbon Dioxide (21-32) mmol/L Anion Gap (3-11) BUN (6-23) mg/dl Creatinine (0.6-1.4) mg/dl Est Cr Clr Drug Dosing ml/min Est GFR ( Amer) ml/min Est GFR (Non-Af Amer) ml/min BUN/Creatinine Ratio (10-20) Glucose (70-99(Fasting)) mg/dl POC Glucose 166 H (70-99) mg/dl Estimat Average Glucose mg/dl Hemoglobin A1c (4.5-5.6) % Calcium (8.5-10.1) mg/dl Total Bilirubin (0.2-1.0) mg/dl AST (13-39) U/L ALT (7-52) U/L Alkaline Phosphatase (34-104) U/L Troponin I High Sens (0-20) pg/ml Total Protein (6.0-8.3) gm/dl Albumin (3.4-5.0) gm/dl Globulin (2.5-4.0) gm/dl Albumin/Globulin Ratio (0.9-2) Triglycerides (0-150) mg/dl Cholesterol (0-200) mg/dl LDL Cholesterol, Calc mg/dl VLDL Cholesterol, Calc (0-30) mg/dl HDL Cholesterol mg/dl Cholesterol/HDL Ratio (0-5) TSH (0.300-4.500) uIu/ml Urine Color Urine Appearance (Clear) Urine pH (4.5-7.5) Ur Specific Shipman (1.000-1.030) Urine Protein (Negative) Urine Glucose (UA) (Negative) Urine Ketones (Negative) Urine Blood (Negative) Urine Nitrite (Negative) Urine Bilirubin (Negative) Urine Urobilinogen (Negative) Ur Leukocyte Esterase (Negative) SARS-CoV-2, RNA, NAAT (NEGATIVE) Medications Administered Current Inpatient Medications Aspirin (Aspirin 81 Mg Ectab) 81 mg PO DAILY JESSI Stop: 02/10/22 08:59 Last Admin: 01/11/22 08:47 Dose: 81 mg Dextrose (Dextrose 50% 50 Ml Syringe) 25 - 50 ml IV UD PRN; Protocol PRN Reason: Hypoglycemia Protocol Stop: 02/09/22 18:13 Glucagon (Glucagon For Inj 1 Mg Vial) 1 mg SQ UD PRN; Protocol PRN Reason: Hypoglycemia Protocol Stop: 02/09/22 18:13 Glucose (Glucose 40% Gel 15 Gm Tube) 15 - 30 gm PO UD PRN; Protocol PRN Reason: Hypoglycemia Protocol Stop: 02/09/22 18:13 Glucose (Glucose 10 Tab/Tube) 4 - 8 tab PO UD PRN; Protocol PRN Reason: Hypoglycemia Treatment Stop: 02/09/22 18:13 Insulin Aspart (Insulin Aspart Per Unit) 0 units SC ACHS JESSI Stop: 02/09/22 20:59 Last Admin: 01/11/22 08:45 Dose: 2 units Miscellaneous (Carbohydrates For Hypoglycemia ) 15 - 30 gm PO UD PRN PRN Reason: Hypoglycemia Protocol Stop: 02/09/22 18:13 Miscellaneous Information (Pharmacist Discharge Med Rec Consult) 1 each N/A UD PRN PRN Reason: Consult Stop: 02/09/22 18:13 Pantoprazole Sodium (Pantoprazole 40 Mg Tab) 40 mg PO DAILY JESSI; Protocol Stop: 02/10/22 08:59 Last Admin: 01/11/22 08:47 Dose: 40 mg
--- NOTE | 2022-01-11 15:32 | Nephrology Consultation ---
Date of Consultation January 11, 2022 Assessment & Plan (1) WILLIAM (acute kidney injury): improving nonoliguric stage 2 WILLIAM w/ acceptable chemistries and volume status -cont to hold ACEI, TZ diuretics -monitor bp -daily bmp -continue IVF but change to normosol (2) Dizziness: improved; attributed to lower blood pressures and to transient cerebral hypoperfusion which is plausible. however his blood pressures are no different now than at arrival which is unexpected -at least one -2 sets of positional VS if not already done -carotid duplex per neuro recs History of Present Illness Reason for Consultation: WILLIAM Requesting Physician: Dr Vallejo Attending Physician: Nato Gray MD History of Present Illness 76 y/o M whom I'm asked to see for WILLIAM was admitted yesterday for evaluation of dizziness and transient binocular vision loss. Noted on admission to have WILLIAM w/ creatinine 2.7, up from baseline 1.1 on 2 checks in September. Today his creatinine is down to 1.8. PMH includes HTN, HL, diet controlled DM, obesity, <50% carotid stenosis. Strong FH of stroke: son d/o stroke age 43; M d/o stroke as well. He has been on lisinopril and amlodipine at doses below since at least late September 2021. He was in fact seen x 2 in ER here this spring for uncontrolled HTN. In early November his [facility] [place] die repairer trimmer dies started him on chlorthalidone; the pt noted intermittent but brief spells of dizziness or blurry vision. Dizziness often comes on mid/late morinings. However yesterday he developed malaise and while out driving he lost his vision completely. All of his bp meds were held at admission and he was given NS about 2.5 L. Today his pressures are running in the 100-110s systolic; they have been in this range since presentation. Neurology evaluation favors transient cerebral hypoperfusion and no concerns for TIA or stroke or other active neurologic process at this time. Pt's dizziness/ visual changes have not recurred since admission. he denies gai t instability/falls, sob, chest pain/pressure, palpitations, edema, new/worrisome voiding sx, F or rash. Allergies Allergy/AdvReac Type Severity Reaction Status Date / Time No Known Allergies Allergy Mild Verified 01/10/22 16:03 Home Medications Medication Instructions Recorded Confirmed Type amlodipine 5 mg tablet 5 mg PO DAILY 10/15/21 01/10/22 History aspirin 81 mg tablet,delayed 81 mg PO DAILY 10/15/21 01/10/22 History release lisinopril 20 mg tablet 20 mg PO DAILY 10/15/21 01/10/22 History omeprazole 20 mg capsule,delayed 20 mg PO DAILY 10/15/21 01/10/22 History release chlorthalidone 25 mg tablet 25 mg PO DAILY 01/10/22 01/10/22 History rosuvastatin 5 mg tablet 5 mg PO DAILY 01/10/22 01/10/22 History Patient History Medical History Carotid stenosis DM II (diabetes mellitus, type II), controlled HLD (hyperlipidemia) HTN (hypertension) Surgical History History of meniscectomy of left knee Hx laparoscopic cholecystectomy Hx of arthroscopy of shoulder Family History Father Cancer Mother Stroke Sister Stroke Social History Smoking Status: Never smoker Hx Alcohol Use: No Hx Substance Use: No Preferred Language: Setswana [employer]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 Beliefs That Will Affect Care: None Current Living Situation: Spouse Other Information That Helps Us Care for You: No Feels Safe at Home: Yes Safety Concerns: Feels Safe At This Time Assistive Devices: Denture - Upper Review of Systems Review of Systems: All systems reviewed & are unremarkable except as noted in HPI & below Physical Exam Constitutional: well developed, well nourished and cooperative; no acute distress Eyes: EOM intact bilaterally ENMT: Ears: no external ear abnormality Nose: no external nose abnormality Mouth: + dry oral mucous membranes Neck: no nuchal rigidity Respiratory: normal respiratory effort Auscultation: + diminished lung sounds Cardiovascular: RRR, no murmur, no edema Vessels: no carotid bruit and + abdominal aortic pulse abnormal Gastrointestinal (Abdomen): Inspection/Auscultation: normal bowel sounds Percussion/Palpation: abdomen soft; abdomen nontender Musculoskeletal: Extremities: strength 5/5 throughout Skin: no rashes, warm and dry Neurologic: bah, fluent speech, no tremor Psychiatric: Orientation: oriented x 3 Speech: normal rate/rhythm/volume of speech Insight: good insight Judgement: good judgement Results & Data ([facility]) Vital Signs (Past 12 Hours) Vital Signs Temp Pulse Pulse Resp BP Pulse Ox O2 Del Method 01/11/22 15:08 60 01/11/22 13:09 68 109/71 01/11/22 12:12 36.9 C 56 L 18 116/76 97 Room Air 01/11/22 08:04 79 01/11/22 07:59 36.6 C 55 L 18 100/67 96 Room Air 01/11/22 03:41 36.7 C 56 L 16 106/68 94 Room Air Laboratory Results 01/11/22 06:13 01/11/22 06:13 UA clear yellow 1011 indices negative Diagnostic Findings TTE moderate CLVH, sigmoid septum, grade I diastolic dysfunction, valves/WM ok Head CT/brain MRI ok
[2022-01-11] MEDS: NORMOSOL-R 1,000 ML IV SCH (16:20)
[2022-01-12] MEDS: NORMOSOL-R 1,000 ML IV SCH (04:22)
[2022-01-12 06:15] LABS: Basophils # (auto) 0.01 K/uL (0-0.2); Basophils % (auto) 0.2 %; Eosinophils # (auto) 0.22 K/uL (0-0.50); Eosinophils % (auto) 3.5 %; Hematocrit (blood only) 35.3 % (40.1-51.0); Hemoglobin 12.3 g/dl (14.0-18.0); Immature Granulocytes # (auto) 0.01 K/uL (0.00-0.02); Immature Granulocytes % (auto) 0.2 %; Lymphocytes # (auto) 1.47 K/uL (1.2-3.4); Lymphocytes % (auto) 23.1 %; Mean Corpuscular Hemoglobin 31.9 pg (25.0-34.0); Mean Corpuscular Hgb Conc 34.8 g/dL (32.0-36.0); Mean Corpuscular Volume 91.5 fL (80.0-100.0); Mean Platelet Volume 9.6 fL (9.4-12.4); Monocytes # (auto) 0.56 K/uL (0.24-0.82); Monocytes % (auto) 8.8 %; Neutrophils # (auto) 4.08 K/uL (1.4-6.5); Neutrophils % (auto) 64.2 %; Platelet Count 210 K/uL (130-400); RDW Coefficient of Variation 12.7 % (11.5-14.5); RDW Standard Deviation 42.2 fL (36.4-46.3); Red Blood Count 3.86 M/uL (4.63-6.08); White Blood Count 6.35 K/ul (4.8-10.8)
[2022-01-12 06:44] LABS: BUN Creatinine Ratio 21.5 (10-20); Creatinine Clr Calc Pharmacy 47.7 ml/min; Est GFR (African American) 48.9 ml/min; Est GFR (Non-African American) 42.2 ml/min; Magnesium 1.7 mg/dl (1.7-2.4); Potassium 4.6 mmol/L (3.5-5.1)
[2022-01-12] MEDS: ASPIRIN 81 MG ECTAB PO SCH (08:40)
[2022-01-12] MEDS: INSULIN ASPART PER UNIT SC SCH ×2 (08:47→12:06)
--- NOTE | 2022-01-12 08:51 | Nephrology Progress Note ---
Date of Service January 12, 2022 Assessment & Plan (1) WILLIAM (acute kidney injury): Plan: improving very slowly nonoliguric stage 2 WILLIAM w/ acceptable chemistries and volu me status >> favor ischemic ATN given slowness of his response, minimal improvement w/ IVF >>suspect mild bradycardia has possibly some role in slow recovery yet no cause for this found and on no rate control agents -cont to hold ACEI, TZ diuretics -monitor bp -daily bmp -continue normosol while in house BUT b/c for possible d/c today will stop normosol and observe x 4-6 hrs for bp changes, functional status Will sign off NEPHRO d/c recommendations -hold all bp meds at d/c -HOSPITAL D/C appt w/ Iman Tinajero fruit harvester in 2-3 wks after d/c -weekly bmp to be ordered by nephro RN at d/c x 3 -pt to bring home bp cuff for validation to neph appt -continue home bp log at d/c -plan 24 hr ambulatory bp in 1-2 wks after d/c through nephrology -pcp/hospitalist to consider longer term heart monitor 1-2 wks duration -recommend appropriate MR study of brain/neck blood vessels once renal function further improved as OP Had >10 min discussion w/ pt on above; also coordinated care w/ Dr Gray (2) Dizziness: Plan: improved; attributed to lower blood pressures and to transient cerebral hypoperfusion which is plausible. however his blood pressures are no different now than at arrival which is unexpected. also rather bradycardic on no meds to promote this -low threshold for extended HR/rhythm monitor (such as 1-2 wks rather than 1-2 days) at d/c -at least one -2 sets of positional VS if not already done -carotid duplex per neuro recs Admission and Anticipated Discharge Date Admission Date: January 10, 2022 Subjective no acute interval events; HR remains 50s; ambulates w/o issue; no sob, no edema, no lightheadedness, no further near blackout Review of Systems Review of Systems: All systems reviewed & are unremarkable except as noted in Subjective Physical Exam Constitutional: well developed, well nourished and cooperative; no acute distress Eyes: EOM intact bilaterally ENMT: Ears: no external ear abnormality Nose: no external nose abnormality Mouth: + dry oral mucous membranes Neck: no nuchal rigidity Respiratory: normal respiratory effort Auscultation: + diminished lung sounds Cardiovascular: RRR, no murmur, no edema Vessels: no carotid bruit and + ab dominal aortic pulse abnormal Gastrointestinal (Abdomen): Inspection/Auscultation: normal bowel sounds Percussion/Palpation: abdomen soft; abdomen nontender Musculoskeletal: Extremities: strength 5/5 throughout Skin: no rashes, warm and dry Psychiatric: Orientation: oriented x 3 Speech: normal rate/rhythm/volume of speech Insight: good insight Judgement: good judgement Results & Data ([facility] [place]) Vital Signs (Past 12 Hours) Vital Signs Temp Pulse Pulse Resp BP Pulse Ox O2 Del Method 01/12/22 07:20 36.7 C 53 L 18 122/77 96 Room Air 01/12/22 07:08 55 L 01/12/22 03:00 36.7 C 52 L 18 106/66 97 Room Air 01/11/22 23:25 36.6 C 57 L 16 115/73 97 Room Air 01/11/22 23:15 52 L Laboratory Results 01/12/22 05:41 01/12/22 05:41
[2022-01-12] MEDS: PANTOprazole 40 MG TAB PO SCH (09:20)
--- NOTE | 2022-01-12 09:35 | Hospitalist Progress Note ---
Date of Service January 12, 2022 Assessment & Plan (1) Changes in vision: (2) Dizziness: Plan: - Concern that this is secondary to hypoperfusion vs. TIA - Stroke order set completed, no indication for thrombolytic - CT head wo contrast reviewed and is negative - MRI brain wo contrast ordered - cannot do with contrast due to WILLIAM FINDINGS: There is no mass, hematoma, midline shift, or acute infarct. The paranasal sinuses are clear. The mastoid air cells are clear. The ventricles and sulci demonstrate mild age-related involutional changes. Scattered foci of T2 hyperintensity seen within the periventricular and subcortical white matter are nonspecific but suggestive of mild microvascular ischemic changes. The major vascular flow voids at the skull base are well-maintained. 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 IMPRESSION: No acute intracranial abnormality. - Neurology consulted - Dr. Moss There is no history or radiologic abnormalities to suggest TIA/CVA. The patient had short lasting binocular vision loss with dizziness, which was likely due to hypotension in temporary cerebral hypoperfusion. The patient reports having episodes of dizziness with blurred vision since he was started on new blood pressure medication, chlorthalidone. He has been on multiple blood pressure medications. - Continue baby aspirin - pt's BP still on lower side yesterday despite IVF and holding BP meds -clinically pt feels much improved and is inquiring about going home - given normosol yesterday, now stopped. No IVF for several hrs - BP 122/77 -Orthostatics normal (3) WILLIAM (acute kidney injury): Plan: - Cr. 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 in 2-3 wks after d/c -weekly bmp to be ordered by nephro RN at d/c x 3 -pt to bring home bp cuff for validation to neph appt -continue home bp log at d/c -plan 24 hr ambulatory bp in 1-2 wks after d/c through nephrology -pcp/hospitalist to consider longer term heart monitor 1-2 wks duration -recommend appropriate MR study of brain/neck blood vessels once renal function further improved as OP (4) HTN (hypertension): Plan: - Ekg reviewed, no chest pain, BP is soft on admission, continue fluids as above - Holding amlodipine, lisinopril, chlorthalidone due to WILLIAM as above (5) HLD (hyperlipidemia): Plan: - Rosuvastain 5 mg daily at home. Pt notes dizziness but this is likely more from diuretic and BP medications - Last lipid panel in September, elevated levels - current LDL 62, TC 112 - discuss statin choice w/ PCP/ community outreach coordinator (6) Carotid stenosis: Plan: - hx of such, outpatient is from most recent carotid ultrasound reviewed showing left and right with less than 50% stenosis - per neuro, recommend to repeat in a year (7) DM II (diabetes mellitus, type II), controlled: Plan: -Last A1c 6.3 in September, current 6.6% -ISS with Accu-Cheks ACHS -Pt is not on medication outpt, diet controlled DVT ppx: - teds, scds, baby aspirin CODE: Full code Dispo:Plan to DC home Admission and Anticipated Discharge Date Admission Date: January 10, 2022 Subjective Patient seen in a follow-up of dizziness, vision loss/now resolved, secondary to hypotension, WILLIAM Brain MRI, no CVA/TIA Patient seen by neurology Cr improved to 1.6 Currently sitting up in bed, in no acute distress Pt's at the bedside. Pt reports symptoms all resolved. No visual disturbances. Denies any headache, chest pain, shortness of breath, dizziness or lig htheadedness. Reports that he has been urinating without any difficulty. Review of Systems Review of Systems: All systems reviewed & are unremarkable except as noted in Subjective Physical Exam Physical Exam: General: awake, alert, no apparent distress Head: Normocephalic, atraumatic ENT: PERRL, EOMI, visual brown intact,no pharyngeal exudate, mucous membranes moist Chest: Clear to auscultation, on room air, no adventitious breath sounds Cardiac: Regular rate and rhythm, no murmur, no JVD Abdominal: NABS x 4 quadrants, soft, nondistended, nontender to palpation, no rebound or guarding Extremities: Normal inspection, no peripheral edema or erythema, calves nontender to palpation Psych: Normal mood and affect Neuro: AAO x 3, strength intact bilaterally and rated 5/5, no motor deficits, speech is clear, no peripheral sensory deficits Results & Data Results & Data ([facility]) Vital Signs (Past 12 Hours) Vital Signs Temp Pulse Pulse Resp BP Pulse Ox O2 Del Method 01/12/22 07:20 36.7 C 53 L 18 122/77 96 Room Air 01/12/22 07:08 55 L 01/12/22 03:00 36.7 C 52 L 18 106/66 97 Room Air 01/11/22 23:25 36.6 C 57 L 16 115/73 97 Room Air 01/11/22 23:15 52 L Laboratory Results 01/12/22 01/12/22 01/12/22 Range/Units 07:42 05:41 05:41 WBC 6.35 (4.8-10.8) K/ul RBC 3.86 L (4.63-6.08) M/uL Hgb 12.3 L (14.0-18.0) g/dl Hct 35.3 L (40.1-51.0) % MCV 91.5 (80.0-100.0) fL MCH 31.9 (25.0-34.0) pg MCHC 34.8 (32.0-36.0) g/dL RDW Std Deviation 42.2 (36.4-46.3) fL RDW Coeff of Yasmine 12.7 (11.5-14.5) % Plt Count 210 (130-400) K/uL MPV 9.6 (9.4-12.4) fL Immature Gran % (Auto) 0.2 % Neut % (Auto) 64.2 % Lymph % (Auto) 23.1 % Valencia % (Auto) 8.8 % Eos % (Auto) 3.5 % Baso % (Auto) 0.2 % Neut # (Auto) 4.08 (1.4-6.5) K/uL Lymph # (Auto) 1.47 (1.2-3.4) K/uL Valencia # (Auto) 0.56 (0.24-0.82) K/uL Eos # (Auto) 0.22 (0-0.50) K/uL Baso # (Auto) 0.01 (0-0.2) K/uL Immature Gran # (Auto) 0.01 (0.00-0.02) K/uL Sodium 137 (136-145) mmol/L Potassium 4.6 (3.5-5.1) mmol/L Chloride 107 (98-107) mmol/L Carbon Dioxide 25 (21-32) mmol/L Anion Gap 5 (3-11) BUN 34 H (6-23) mg/dl Creatinine 1.58 H (0.6-1.4) mg/dl Est Cr Clr Drug Dosing 47.7 ml/min Est GFR ( Amer) 48.9 ml/min Est GFR (Non-Af Amer) 42.2 ml/min BUN/Creatinine Ratio 21.5 H (10-20) Glucose 110 H (70-99(Fasting)) mg/dl POC Glucose 111 H (70-99) mg/dl Calcium 9.0 (8.5-10.1) mg/dl Magnesium 1.7 (1.7-2.4) mg/dl 01/11/22 01/11/22 01/11/22 Range/Units 20:17 16:43 11:33 WBC (4.8-10.8) K/ul RBC (4.63-6.08) M/uL Hgb (14.0-18.0) g/dl Hct (40.1-51.0) % MCV (80.0-100.0) fL MCH (25.0-34.0) pg MCHC (32.0-36.0) g/dL RDW Std Deviation (36.4-46.3) fL RDW Coeff of Yasmine (11.5-14.5) % Plt Count (130-400) K/uL MPV (9.4-12.4) fL Immature Gran % (Auto) % Neut % (Auto) % Lymph % (Auto) % Valencia % (Auto) % Eos % (Auto) % Baso % (Auto) % Neut # (Auto) (1.4-6.5) K/uL Lymph # (Auto) (1.2-3.4) K/uL Valencia # (Auto) (0.24-0.82) K/uL Eos # (Auto) (0-0.50) K/uL Baso # (Auto) (0-0.2) K/uL Immature Gran # (Auto) (0.00-0.02) K/uL Sodium (136-145) mmol/L Potassium (3.5-5.1) mmol/L Chloride (98-107) mmol/L Carbon Dioxide (21-32) mmol/L Anion Gap (3-11) BUN (6-23) mg/dl Creatinine (0.6-1.4) mg/dl Est Cr Clr Drug Dosing ml/min Est GFR ( Amer) ml/min Est GFR (Non-Af Amer) ml/min BUN/Creatinine Ratio (10-20) Glucose (70-99(Fasting)) mg/dl POC Glucose 123 H 106 H 109 H (70-99) mg/dl Calcium (8.5-10.1) mg/dl Magnesium (1.7-2.4) mg/dl Medications Administered Current Inpatient Medications Aspirin (Aspirin 81 Mg Ectab) 81 mg PO DAILY JESSI Stop: 02/10/22 08:59 Last Admin: 01/12/22 08:40 Dose: 81 mg Dextrose (Dextrose 50% 50 Ml Syringe) 25 - 50 ml IV UD PRN; Protocol PRN Reason: Hypoglycemia Protocol Stop: 02/09/22 18:13 Glucagon (Glucagon For Inj 1 Mg Vial) 1 mg SQ UD PRN; Protocol PRN Reason: Hypoglycemia Protocol Stop: 02/09/22 18:13 Glucose (Glucose 40% Gel 15 Gm Tube) 15 - 30 gm PO UD PRN; Protocol PRN Reason: Hypoglycemia Protocol Stop: 02/09/22 18:13 Glucose (Glucose 10 Tab/Tube) 4 - 8 tab PO UD PRN; Protocol PRN Reason: Hypoglycemia Treatment Stop: 02/09/22 18:13 Parenteral Electrolytes (Normosol-R) 1,000 mls @ 80 mls/hr IV .[id number] JESSI Stop: 02/10/22 15:59 Last Admin: 01/12/22 04:22 Dose: 80 mls/hr Insulin Aspart (Insulin Aspart Per Unit) 0 units SC ACHS JESSI Stop: 02/09/22 20:59 Last Admin: 01/12/22 08:47 Dose: 3 units Miscellaneous (Carbohydrates For Hypoglycemia ) 15 - 30 gm PO UD PRN PRN Reason: Hypoglycemia Protocol Stop: 02/09/22 18:13 Miscellaneous Information (Pharmacist Discharge Med Rec Consult) 1 each N/A UD PRN PRN Reason: Consult Stop: 02/09/22 18:13 Pantoprazole Sodium (Pantoprazole 40 Mg Tab) 40 mg PO DAILY [facility]; Protocol Stop: 02/10/22 08:59 Last Admin: 01/12/22 09:20 Dose: 40 mg
[2022-01-12] MEDS ORDERED: STROKE PATIENT DISCHARGE STA (16:17)
--- NOTE | 2022-01-12 16:23 | Discharge Summary ---
Date of Service January 12, 2022 Admission HPI Per Admitting Provider This is a 76 yo M with PMHx of HTN, HLD, carotid stenosis less than 50% bilaterally, DM II with last A1C 6.3 on 11/05/21, obesity with BMI of 31.8, who presents to the ER after report of loss of vision bilaterally earlier this afternoon around 1:15 pm. His , Carmel, is present at bedside and supports the history. He developed visual loss in both eyes and dizziness, which lasted about 20-30 seconds. Reports his left eye vision came back first, and then the right eye, which completely resolved within 15 minutes. Denies weakness in his arms, legs, no changes in speech. Around 11:30-12 pm he had just finished participating in the [employer] to salute the . He participates in this about once a day for the past 6 days and it can last 45 min to an hour. Today the service he participated in lasted about 15 minutes. He reports having increased dizziness since the the beginning of the month. The dizziness on and off, and it occurs when he is sitting still. He seems to think this is worse about 3 hours after taking medications including chlorthalidone, lisinopril, amlodipine and rosuvastatin. More recently, new medications since the end of November includ the chlorthalidone and rosuvastatin. He is concerned that maybe these medications are causing the dizziness. On a daily basis he takes morning meds at 6am and dizziness occurs nearly daily around 9-10a since starting them. Pt reports having strong family history of stroke and was very concerned about this, therefore came to the ER. His son from massive stroke at age 43. Mother also of stroke. Admission Exam Per Admitting Provider General: awake, alert, no apparent distress, + appears younger than stated age, physically fit Head: Normocephalic, atraumatic ENT: PERRL, EOMI, visual brown intact, able to see from 20 feet away, no pharyngeal exudate, mucous membranes moist Chest: Clear to auscultation, on room air, no adventitious breath sounds Cardiac: Regular rate and rhythm, no murmur, no JVD, normal peripheral pulses, good capillary refill Abdominal: NABS x 4 quadrants, soft, nondistended, nontender to palpation, no rebound or guarding Extremities: Normal inspection, no peripheral edema or erythema, calfs nontender to palpation Psych: Normal mood and affect Neuro: AAO x 3, strength intact bilaterally and rated 5/5, no motor deficits, speech is clear, no peripheral sensory deficits Principal Diagnosis Temporary visual loss, secondary to hypoperfusion, hypotension, WILLIAM Discharge Exam General: awake, alert, no apparent distress Head: Normocephalic, atraumatic ENT: PERRL, EOMI, visual brown intact,no pharyngeal exudate, mucous membranes moist Chest: Clear to auscultation, on room air, no adventitious breath sounds Cardiac: Regular rate and rhythm, no murmur, no JVD Abdominal: NABS x 4 quadrants, soft, nondistended, nontender to palpation, no rebound or guarding Extremities: Normal inspection, no peripheral edema or erythema, calves nontender to palpation Psych: Normal mood and affect Neuro: AAO x 3, strength intact bilaterally and rated 5/5, no motor deficits, speech is clear, no peripheral sensory deficits Discharge Data Allergies Allergy/AdvReac Type Severity Reaction Status Date / Time No Known Allergies Allergy Mild Verified 01/10/22 16:03 Consultations 01/10/22 16:04 ED Decision to Admit Stat 01/10/22 16:29 Consult Neurology Routine 01/10/22 17:24 Consult Nephrology Routine Ordered Studies 01/10/22 15:07 CT head/brain wo con Stat FINDINGS: Brain parenchyma: There is age-related involutional change noting mild subcortical and periventricular microangiopathic disease. There is no hemorrhage, mass effect, or evidence of acute territorial ischemia by CT criteria. A tiny chronic lacunar infarct is noted in the right cerebellar hemisphere. Carlson-white matter differentiation is preserved. No extra-axial fluid collection is seen. Ventricles, sulci, cisterns: Prominent secondary to involutional change. Intracranial vasculature: There is atherosclerotic calcification of the cavernous carotid and vertebral arteries. Calvarium: Unremarkable. Sinuses and mastoids: The visualized paranasal sinuses are clear. The mastoid air cells are well pneumatized. Orbits: The bony orbits are grossly intact. IMPRESSION: There is no hemorrhage, mass effect, or evidence of acute territorial ischemia by CT criteria. 01/10/22 17:00 MRI Brain [MR brain wo con] Stat FINDINGS: There is no mass, hematoma, midline shift, or acute infarct. The paranasal sinuses are clear. The mastoid air cells are clear. The ventricles and sulci demonstrate mild age-related involutional changes. Scattered foci of T2 hyperintensity seen within the periventricular and subcortical white matter are nonspecific but suggestive of mild microvascular ischemic changes. The major vascular flow voids at the skull base are well-maintained. 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 IMPRESSION: No acute intracranial abnormality. Hospital Course (1) Changes in vision: (2) Dizziness: - Concern that this is secondary to hypoperfusion vs. TIA - Stroke order set completed, no indication for thrombolytic - CT head wo contrast reviewed and is negative - MRI brain wo contrast ordered - cannot do with contrast due to WILLIAM FINDINGS: There is no mass, hematoma, midline shift, or acute infarct. The paranasal sinuses are clear. The mastoid air cells are clear. The ventricles and sulci demonstrate mild age-related involutional changes. Scattered foci of T2 hyperintensity seen within the periventricular and subcortical white matter are nonspecific but suggestive of mild microvascular ischemic changes. The major vascular flow voids at the skull base are well-maintained. 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 IMPRESSION: No acute intracranial abnormality. - Neurology consulted - Dr. Moss There is no history or radiologic abnormalities to suggest TIA/CVA. The patient had short lasting binocular vision loss with dizziness, which was likely due to hypotension in temporary cerebral hypoperfusion. The patient reports having episodes of dizziness with blurred vision since he was started on new blood pressure medication, chlorthalidone. He has been on multiple blood pressure medications. - Continue baby aspirin - pt's BP still on lower side yesterday despite IVF and holding BP meds -clinically pt feels much improved and is inquiring about going home - given normosol yesterday, now stopped. No IVF for several hrs - BP 122/77 -Orthostatics normal (3) WILLIAM (acute kidney injury): - Cr. 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 in 2-3 wks after d/c -weekly bmp to be ordered by nephro RN at d/c x 3 -pt to bring home bp cuff for validation to neph appt -continue home bp log at d/c -plan 24 hr ambulatory bp in 1-2 wks after d/c through nephrology -pcp/hospitalist to consider longer term heart monitor 1-2 wks duration -recommend appropriate MR study of brain/neck blood vessels once renal function further improved as OP (4) HTN (hypertension): - Ekg reviewed, no chest pain, BP is soft on admission, continue fluids as above - Holding amlodipine, lisinopril, chlorthalidone due to WILLIAM as above (5) HLD (hyperlipidemia): - Rosuvastain 5 mg daily at home. Pt notes dizziness but this is likely more from diuretic and BP medications - Last lipid panel in September, elevated levels - current LDL 62, TC 112 - discuss statin choice w/ PCP/ automation operator (6) Carotid stenosis: - hx of such, outpatient is from most recent carotid ultrasound reviewed showing left and right with less than 50% stenosis - per neuro, recommend to repeat in a year (7) DM II (diabetes mellitus, type II), controlled: -Last A1c 6.3 in September, current 6.6% -ISS with Accu-Cheks ACHS -Pt is not on medication outpt, diet controlled DVT ppx: - teds, scds, baby aspirin Total Time Total Time Spent Total Time Spent (In Minutes): 40 Discharge Plan Discharge Items Patient Disposition: Home - Self-Care Reason For Visit: DIZZINESS, VISUAL CHANGES, WILLIAM Discharge Diagnosis: Temporary visual loss, secondary to hypoperfusion, hypotension, WILLIAM Activity: Per Instructions section Non-emergency contact: Primary Care Provider Call non-emergency contact if: you have any medication questions and your symptoms worsen Follow-up/Referrals: Justin Hanson DO [Primary Care Provider] - Diet: Heart Healthy Addtl Attending Provider Instructions: Follow-up with primary care doctor within 1 week. At this point, DO NOT take any of your blood pressure medications, specifically chlorthalidone, amlodipine, lisinopril. Monitor blood pressure at home, write down those numbers. Discuss your numbers with your healthcare providers. Your healthcare providers will tell you if/when you can restart your medications. You will need a blood work, BMP done, to monitor your kidney function. You will also need to follow-up with kidney doctor in 2 to 3 weeks. Pending Studies at Discharge: No Stand-Alone Forms: My [facility], Smoking Cessation Medications and DC Order Prescriptions: Continued chlorthalidone 25 mg tablet 25 mg PO DAILY rosuvastatin 5 mg tablet 5 mg PO DAILY lisinopril 20 mg tablet 20 mg PO DAILY amlodipine 5 mg tablet 5 mg PO DAILY aspirin 81 mg Tablet,Delayed Release (Dr/Ec) 81 mg PO DAILY omeprazole 20 mg capsule,delayed release(DR/EC) 20 mg PO DAILY Discharge Orders: Discharge Order (Routine); Ordered 01/12/22 Ordered By: Nato Gray Admission Data Admit Date/Time: 01/10/22 16:29 Attending Provider: Nato Gray Admit Provider: Koko Vallejo Primary Care Provider: Justin Hanson Other Providers: Koko Vallejo ; Vin Moss
== END 2022-01-12 17:02 | disposition home or self-care (01) | DRG 684 ==
LOC: ED 14:11 → SUATTDRO 16:29 → 2N 16:29
DX: I10 Essential (primary) hypertension; E78.5 Hyperlipidemia, unspecified; E66.9 Obesity, unspecified; I65.23 Occlusion and stenosis of bilateral carotid arteries; Z82.3 Family history of stroke; E11.9 Type 2 diabetes mellitus without complications; Z68.31 Body mass index [BMI] 31.0-31.9, adult; Z79.82 Long term (current) use of aspirin; H53.8 Other visual disturbances; N17.0 Acute kidney failure with tubular necrosis

== ENCOUNTER 2024-04-10 08:54 | Inpatient (IN) ==
--- OUTSIDE RECORDS SUMMARY | 2024-04-10 09:00 | External Medical Summary | Summary of Care ---
Author Name Unknown Organization [facility] Address [address] [place] [address] Phone [phone] Care Team Providers Care Esthetician Name Role Phone Mona Hanson DO Primary Care Provider Reason for Visit * Reason Comments Follow Up Encounter Details Date Type Department Care Team (Late st Contact Info) Description 12/23/2023 9:00 AM EDT Office Visit Urology, [facility] [address] [facility] [place] [address] Tanner Smalls MD [address] [place] [address] Hematuria, gross*; Bladder stones; BPH with obstruction/lower urinary tract symptoms Allergies Active Allergy Reactions Criticality Noted Date Comments Atorvastatin Medium 01/15/2015 Simply felt overall poorly documented as of this encounter (statuses as of 01/06/2024) Medications Medication Sig Dispensed Refills Start Date End Date Status ASPIRIN 81 MG PO TABS 1 TABLET DAILY Active Blood Pressure Cuff cHECK B/P DAILY 1 Each 01/17/2022 Active Sildenafil Citrate 20 MG Oral Tablet (Revatio) Take 3 tablets 1 hour prior to sexual activity 30 Tablet 5 05/29/2022 Active Additional Information Patient not taking.Reported on 12/23/2023 Lisinopril 20 MG Oral Tablet (Prinivil) take 1 tablet by mouth every morning 90 Tablet 3 05/19/2023 Active amLODIPine Besylate 10 MG Oral Tablet (Norvasc) Take 1 Tablet by mouth in the morning. 90 Tablet 3 06/01/2023 Active Rosuvastatin Calcium 10 MG Oral Tablet (Crestor) Take 1 Tablet by mouth daily. 90 Tablet 3 08/27/2023 Active Finasteride 5 MG Oral Tablet (Proscar) take 1 tablet by mouth every morning 90 Tablet 3 12/10/2023 Active Hospital, Clinic, or Other Facility Administered Medication Ordered Dose Route Frequency Start Date End Date Status sulfamethoxazole-trimethopr im DS (Bactrim DS) 800-160 MG 1 TabletIndications:Hematuria , gross,BPH with obstruction/lower urinary tract symptoms 1 Tablet OR ONCE 12/23/2023 12/23/2023 Ended documented as of this encounter (statuses as of 01/06/2024) Active Problems Problem Noted Date Diagnosed Date Aneurysm of ascending aorta without rupture 10/2022 Chronic kidney disease, stage 3a 09/01/2022 Overview: Per CKD protocol 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 08/04/2022 Overview: Per CKD protocol Cerebral microvascular disease 03/18/2022 WILLIAM (acute kidney injury) 01/17/2022 History of agent [place] exposure 01/17/2022 Type 2 diabetes mellitus wit h hemoglobin A1c goal of less than 8.0% 01/02/2021 Dyslipidemia, goal LDL below 70 05/01/2009 Overview: Per Lipid Taxonomy. Essential hypertension with goal blood pressure less than 130/80 03/30/2009 Overview: Modified per HTN Taxonomy. CAROTID STENOSIS, NON-SYMPTOMATIC 11/09/2008 Overview: Modified per Carotid Stenosis protocol #10 ADVANCE DIRECTIVE INFORMATION 03/27/2006 Overview: No, Advance Directive brochure given to patient. HYPERTENSIVE RESPONSE- TREADMILL 02/20/1997 Esophageal reflux Osteoarthritis of spine with radiculopathy, cerv ical region documented as of this encounter (statuses as of 01/06/2024) Resolved Problems Problem Noted Date Diagnosed Date Resolved Date Diabetes mellitus with stage 3 chronic kidney disease 07/07/2022 08/06/2022 Overview: Per CKD protocol Kidney disease, chronic, sta ge III (GFR 30-59 ml/min) 02/14/2022 07/09/2022 Overview: Per CKD protocol Prediabetes 08/30/2018 02/07/2021 Overview: Per Prediabetes protocol #1 Carotid Stenosis, non-symptomatic 09/24/2005 11/09/2008 Overview: Modified per Carotid Stenosis protocol #10 BENIGN HYPERTENSION 02/28/2003 03/30/20 Overview: Modified per HTN Taxonomy. PURE HYPERCHOLESTEROLEM 02/28/200212/2008 Overview: Per Lipid Taxonomy. documented as of this encounter (statuses as of 01/06/2024) Immunizations Name Administration Dates Next Due COVID-19 mRNA, LNP-s, No Pre serve, 2-Dose Series (Moderna) 07/30/2020,07/02/2020 COVID-19, mRNA, LNP-s, PF, B ooster, 100mcg/0.5mg (Moderna) 05/08/2021 Pneumococcal Conjugate Vacc, 13 Valent (Prevnar) 08/19/2016,01/15/2015 Pneumococcal Polysaccharide PPV23 (Pneumovax) 06/24/2012,05/25/2011 Season Influenza, Quad, PF, Adjuvanted, 65+ Yrs, IM (FLUAD) 03/03/2020 Seasonal Influenza, Quadriva lent Hd (Fluzone Hd) 04/28/2023 Seasonal Influenza, Split, I IV3, With Preserve, Inj 03/13/2021 Seasonal Influenza, Trivalen t, Adjuvanted, 65+ yrs 02/26/2022,03/23/2021 TD, Preservative Free 08/26/2004 TDAP (age 10 and older)(Boostrix) 09/01/2023, Varicella Zoster Vaccine (Adult) 12/23/2012,05/2011 Zoster Vaccine Recombinant (Shingrix) 12/18/2020 ,08/18/2020,06/21/2020 documented as of this encounter Social History Tobacco Use Types Packs/Day Years Used Date Smoking Tobacco: Never Smokeless Tobacco: Never Alcohol Use Standard Drinks/Week Comments Yes 0 (1 standard drink = 0.6 oz pur e alcohol) socially/ocasionally PHQ-2 Answer Date Recorded PHQ Adult Total Score 0 01/20/2022 Hunger Vital Sign Answer Date Recorded Within the past 12 months, y ou worried that your food would run out before you got the money to buy more. Never true 01/21/20 22 Within the past 12 months, t he food you bought just didn't last and you didn't have money to get more. Never true 01/20/2022 Sex and Gender Information Value Date Recorded Sex Assigned at Male 01/18/2021 8:02 AM EDT Gender Identity Male 01/18/2021 8:02 AM EDT Sexual Orientation Straight 01/18/2021 8: 02 AM EDT Job Start Date Occupation Industry Not on file Not on file Not on file documented as of this encounter Progress Notes * Tanner Smalls MD - 12/23/2023 9:17 AM EDT Images from the original note were not included. [id number] PCP: MONA HANSON [address] [place] [address] [phone] Yogesh Candelario is a 78 year old male, who presents for six-month follow-up of his history of urinary retention. Patient's past notes are reviewed. It has been a year since his surgical intervention. Renal ultrasound findings reviewed. Radiologist's concern over the possibility of urothelial malignancy, apparently more consistent with BPH regrowth to myself is noted. Patient is satisfied with his voiding. BPH: Patient is being seen for BPH today. He has had the following symptoms: nocturia x 1-2 . Severity is moderate. Bladder stones present. Specimen Source BLADDER STONE Component 1 SEE BELOW Comment: Uric Acid Dihydrate 80% Calcium Oxalate Monohydrate ([place]) 20% He has tried finasteride and tamsulosin, latter stopped since surgery. He has previously had officecystoscopy done. GLTURP and cystolitholapaxy Dec 2022. Male status and dilation February 2023. Problem has been present for years. Problem is getting better. Renal US Nov 2023: IMPRESSION: 1. 19 x 10 x 20 mm irregular posterior bladder lesion concerning for malignancy with follow-up recommended. 2. Subcentimeter nonobstructive right nephrolithiasis. PSA Results: Lab Results Component Value Date/Time PSA - [facility] 1.38 04/13/2023 07:20 AM PSA - [facility] 4.04 11/05/2021 08:30 AM PSA - [facility] 3.11 01/15/2015 10:21 AM PSA - [facility] 1.58 09/28/2002 08:21 AM PSA - [facility] 1.65 08/24/2001 11:08 AM PSA SCREENING 4.15 (H) 12/26/2013 08:29 AM PSA SCREENING 2.18 10/11/2007 08:15 AM PSA SCREENING 1.66 09/28/2006 08:38 AM Creatinine Results: Lab Results Component Value Date/Time CREATININE - [facility] 1.2 09/01/2023 11:29 AM CREATININE - [facility] 1.3 (H) 04/13/2023 07:20 AM CREATININE - [facility] 1.2 10/24/2022 09:49 AM CREATININE - [facility] 1.0 08/27/2018 08:13 AM CREATININE - [facility] 0.9 01/15/2015 10:21 AM CREATININE - [facility] 1.0 12/26/2013 08:29 AM CREATININE, RANDOM URINE - [facility] 78 09/01/2023 11:40 AM CREATININE, RANDOM URINE - [facility] 59 10/24/2022 09:49 AM CREATININE, RANDOM URINE - [facility] 67 04/01/2022 07:26 AM CREATININE-OUTSIDE LAB 1.3 01/20/2022 12:00 AM CREATININE-OUTSIDE LAB 1.2 12/13/2020 12:00 AM Current Outpatient Medications Medication Sig Dispense Refill ASPIRIN 81 MG PO TABS 1 TABLET DAILY Lisinopril 20 MG Oral Tablet (Prinivil) take 1 tablet by mouth every morning 90 Tablet 3 amLODIPine Besylate 10 MG Oral Tablet (Norvasc) Take 1 Tablet by mouth in the morning. 90 Tablet 3 Rosuvastatin Calcium 10 MG Oral Tablet (Crestor) Take 1 Tablet by mouth daily. 90 Tablet 3 Finasteride 5 MG Oral Tablet (Proscar) take 1 tablet by mouth every morning 90 Tablet 3 Blood Pressure Cuff cHECK B/P DAILY 1 Each 0 Sildenafil Citrate 20 MG Oral Tablet (Revatio) Take 3 tablets 1 hour prior to sexual activity (Patient not taking: Reported on 12/23/2023) 30 Tablet 5 No current facility-administered medications for this visit. Review of patient's allergies indicates: Allergen Reactions Atorvastatin Simply felt overall poorly Social History: Social History Tobacco Use Smoking status: Never Smokeless tobacco: Never Substance Use Topics Alcohol use: Yes Comment: socially/ocasionally Vaping/E-Cigarette Use Vaping/E-Cigarette Use Never User Vaping/E-Cigarette Substances Vaping/E-Cigarette Devices Family History Problem Relation Name Age of Onset Cancer Father of lung cancer- age 74 Stroke Mother of CVA in her late 60's Stroke Sister recent CVA- age 58 No Past Hx Sister good health No Past Hx Brother good health Past Surgical History: Procedure Laterality Date COLONOSCOPY 12/28 diverticulae only; repeat in 10 years CYSTOSCOPY 04/17/2009 KNEE ARTHROSCOPY, DIAGNOSTIC Left knee PROSTATE, LASER VAPORIZATION N/A 01/12/2023 LASER VAPORIZATION PROSTATE performed by Tanner Smalls MD at OR [facility] REMOVAL OF PROSTATE (TURP) N/A 01/12/2023 TRANSURETHRAL RESECTION PROSTATE ELECTROSURGICAL performed by Tanner Smalls MD at OR [facility] REMOVE GALLBLADDER Cholecystectomy REMOVE KNEE CARTILAGE, MED/LATERAL Knee meniscectomy, arthroscopic REMOVE LARGE BLADDER STONE, COMPLIC N/A 01/12/2023 LITHOLAPAXY COMPLICATED performed by Tanner Smalls MD at OR [facility] SHOULDER ARTHROSCOPY/REMOVE OBJECT Shoulder Surgery, Arthroscopic VAS DUPLEX CAROTID BILAT 09/27 right: lower end of 16-49%; left- upper end of 16-49% VASC DUPLEX CAROTID BILAT 12/2013 < 50% bilaterally Past Medical History: Diagnosis Date Benign paroxysmal vertigo 01/26/97 SEEN AT [facility] HTN, goal below 140/90 Hypertension, benign Patient Active Problem List Diagnosis Esophageal reflux Osteoarthritis of spine with radiculopathy, cervical region HYPERTENSIVE RESPONSE- TREADMILL ADVANCE DIRECTIVE INFORMATION CAROTID STENOSIS, NON-SYMPTOMATIC Essential hypertension with goal blood pressure less than 130/80 Dyslipidemia, goal LDL below 70 Type 2 diabetes mellitus with hemoglobin A1c goal of less than 8.0% (HCC) WILLIAM (acute kidney injury) (HCC) History of agent [place] exposure Cerebral microvascular disease Type 2 diabetes mellitus with stage 3a chronic kidney disease (HCC) Chronic kidney disease, stage 3a (HCC) Aneurysm of ascending aorta without rupture (HCC) Constitutional: (-) fever and (-) chills Male : see HPI Musculoskeletal: (+) joint pain Neurology: (-) negative: no focal neurologic defect Psychiatry: (-) negative: no depression or anxiety Physical Exam Nursing note reviewed. Constitutional: General: He is not in acute distress. Appearance: Normal appearance. He is obese. He is not ill-appearing or toxic-appearing. HENT: Head: Normocephalic and atraumatic. Right Ear: External ear normal. Left Ear: External ear normal. Nose: Nose normal. Mouth/Throat: Mouth: Mucous membranes are moist. Eyes: Extraocular Movements: Extraocular movements intact. Cardiovascular: Pulses: Normal pulses. Pulmonary: Effort: Pulmonary effort is normal. No respiratory distress. Abdominal: Palpations: Abdomen is soft. Tenderness: There is no abdominal tenderness. Musculoskeletal: Cervical back: Normal range of motion and neck supple. Lymphadenopathy: Cervical: No cervical adenopathy. Skin: Coloration: Skin is not cyanotic or pale. Neurological: Mental Status: He is alert and oriented to person, place, and time. Motor: No weakness. Gait: Gait normal. Psychiatric: Attention and Perception: Attention normal. Mood and Affect: Mood and affect normal. Cystoscopy procedure note Patient was properly identified and appropriate consent was confirmed. Risks and benefits of the procedure were reviewed and the patient was prepped and draped in the standard fashion for the procedure. A well lubricated 16 Croatian flexible cystoscope was introduced through the meatus into the urethra. Urethra demonstrated at risk areas of stricture disease, able to be bypassed with scope . Prostatic urethra demonstrated prior TUR defect and open fossa with some median lobe regrowth at the bladder neck . Bladder neck was visualized and bladder was entered. Sterile saline irrigation was used todistend the bladder which was noted to have no tumors, stones or mucosal abnormalities and excellent emptying with grade 3 trabeculation. Bladder was completely inspected including retroflexion of the scope. Ureteral orifices were noted to be in the normal anatomic position bilaterally. After this was completed the cystoscope was removed. Patient tolerated the procedure well without complicationsor difficulties. Perioperative Bactrim was provided. Impression/Plan: 78-year-old male with history of urinary retention, bladder lesion. Seen the patient's ultrasound findings he is offered cystoscopy today, accepts. Findings as noted above, no urothelial malignancy. We are pleased with the patient's overall progress. Will move out toyearly visits. PSA and repeat renal ultrasound in a year's time. Patient can certainly contact us sooner with any other difficulties. Continue indefinite finasteride. Tanner Smalls MD 9:17 AM 12/23/2023 documented in this encounter Nursing Notes * Franchesca Crockett LPN - 12/23/2023 8:40 AM EDT 6 month ret. Patient presents alone. No complaints. Taking finasteride. Not taking sildenafil. 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 PSA Results: Lab Results Component Value Date/Time PSA - [facility] 1.38 04/13/2023 07:20 AM PSA - [facility] 4.04 11/05/2021 08:30 AM PSA - [facility] 3.11 01/15/2015 10:21 AM PSA - [facility] 1.58 09/28/2002 08:21 AM PSA - [facility] 1.65 08/24/2001 11:08 AM PSA SCREENING 4.15 (H) 12/26/2013 08:29 AM PSA SCREENING 2.18 10/11/2007 08:15 AM PSA SCREENING 1.66 09/28/2006 08:38 AM documented in this encounter Plan of Treatment Upcoming Encounters Date Type Department Care Team (Late st Contact Info) Description 04/26/2024 8:00 AM EST Imaging Radiology [address] [place] [address] 06/16/2024 6:20 PM EST Office Visit Family Practice [facility] [address] [place] [id number] Mona Hanson DO [address] [place] [address] 12/19/2024 8:15 AM EDT Imaging Radiology [facility] [address] [facility] [place] [address] 12/28/2024 8:45 AM EDT Office Visit Urology, [facility] [address] [place] [address] Tanner Smalls MD [address] [place] [address] Scheduled Orders Name Type Priority Associated Diagnoses Orde r Schedule US RENAL Medical Imaging Routine Hematuria, gross BPH with obstruction/lower urinary tract symptoms Expected: 12/19/2024 (Approximate), Expires: 01/22/2025 PSA Lab Routine Hematuria, gross BPH with obstruction/lower urinary tract symptoms Expected: 11/21/2024, Expires: 12/22/2024 CYSTOSCOPY Procedures Routine BPH with obstruction/lower urinary tract symptoms Ordered: 12/23/2023 Health Maintenance Due Date Last Done Comments Diabetic Eye Exam 01/15/2022 01/15/2021 Adult Wellness Visit 01/18/2022 01/18/2021 Depression Screening 01/20/2023 01/20/2022 COVID-19 Vaccine ( season) 2023 05/08/2021, 07/30/2020, 07/02/2020 CKD HGB USE SMARTSET 12473 10/25/202310/24, 10/24/2022, 04/01/2022, Additional history exists Influenza Vaccine (FLU shot) (#1) 2024 04/28/2023, 02/26/2022, 03/23/2021, Additional history exists GFR 03/02/2024 09/01/2023, 03/26, 10/24/2022, Additional history exists HbA1c 03/02/2024 09/01/2023, 03/26, 10/24/2022, Additional history exists Albumin/Creatinine Ratio 08/31/2024 024, 10/24/2022, 04/01/2022, Additional history exists CKD PHOS USE SMARTSET 36663 08/31/2024 04/0 01/2024, 06/26/2022, 04/01/2022 Diabetic Foot Exam 08/31/2024 09/01/2023, 05/12/2022 DTaP,Tdap,and Td Vaccines (3 - Td or Tdap) 08/31/2033 09/01/2023, 06/24/2012, 08/26/2004 Pneumococcal Vaccine: 65+ Years Completed 08/19/2016, 01/15/2015, 06/24/2012, Additional history exists Zoster Vaccines Completed 12/18/2020, 07/24, 06/21/2020, Additional history exists HPV (Gardasil) Vaccine Aged Out No lo nger eligible based on patient's age to complete this topic Hepatitis B Vaccine Aged Out No longe r eligible based on patient's age to complete this topic MENINGOCOCCAL (MENACTRA/MENVEO) Aged Out No longer eligible based on patient's age to complete this topic documented as of this encounter Medical Devices Not on filedocumented as of this encounter Visit Diagnoses Diagnosis Hematuria, gross- Primary Gross hematuria Bladder stones Other calculus in bladder BPH with obstruction/lower urinary tract symptoms Hypertrophy of prostate with urinary obstruction and other lower urinary tract symptoms (LUTS) documented in this encounter Advance Directives * Full Code (Latest Code Status on File) Date Activated Date Inactivated Comments 01/12/2023 12:17 PM 01/12/2023 5:44 PM This order reflects the patients wishes and were consensually agreed upon. Question Answer Comments Discussion of Advance Directives occurred with: Patient * Full Code Date Activated Date Inactivated Comments 01/12/2023 8:37 AM 01/12/2023 12:17 PM This order reflects the patients wishes and were consensually agreed upon. Question Answer Comments Discussion of Advance Directives occurred with: Patient Care Teams Esthetician Relationship Specialty Start Date End Date Mona Hanson DO [address] [place] [address] PCP - General Family Medicine 08/16/18 documented as of this encounter
--- OUTSIDE RECORDS SUMMARY | 2024-04-10 09:01 | External Medical Summary | Summary of Care ---
Author Name Unknown Organization [facility] Address [address] [place] [address] Phone [phone] Care Team Providers Care Circuit Court Clerk Name Role Phone Justin Hanson DO Primary Care Provider Reason for Visit * Reason Onset Date Comments Health Maintenance 12/03/2023 Encounter Details Date Type Department Care Team (Late st Contact Info) Description 12/03/2023 Telephone Family Practice [facility] [address] [place] [address] Justin Hanson DO [address] [place] [address] Health Maintenance Allergies Active Allergy Reactions Criticality Noted Date Comments Atorvastatin Medium 01/15/2015 Simply felt overall poorly documented as of this encounter (statuses as of 12/03/2023) Medications Medication Sig Dispensed Refills Start Date End Date Status ASPIRIN 81 MG PO TABS 1 TABLET DAILY Active Blood Pressure Cuff cHECK B/P DAILY 1 Each 01/17/2022 Active Sildenafil Citrate 20 MG Oral Tablet (Revatio) Take 3 tablets 1 hour prior to sexual activity 30 Tablet 5 05/29/2022 Active Finasteride 5 MG Oral Tablet (Proscar) Take 1 Tablet by mouth in the morning. 90 Tablet 3 12/24/2022 Active Lisinopril 20 MG Oral Tablet (Prinivil) take 1 tablet by mouth every morning 90 Tablet 3 05/19/2023 Active amLODIPine Besylate 10 MG Oral Tablet (Norvasc) Take 1 Tablet by mouth in the morning. 90 Tablet 3 06/01/2023 Active Rosuvastatin Calcium 10 MG Oral Tablet (Crestor) Take 1 Tablet by mouth daily. 90 Tablet 3 08/27/2023 Active Vitamin D3 1.25 MG (39110 UT) Oral Capsule (Cholecalciferol)In dications:Vitamin D deficiency Take 1 Capsule by mouth once a week. 12 Capsule 09/14/2023 12/13/2023 Active documented as of this encounter (statuses as of 12/03/2023) Active Problems Problem Noted Date Diagnosed Date Aneurysm of ascending aorta without rupture 10/2022 Chronic kidney disease, stage 3a 09/01/2022 Overview: Per CKD protocol 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 08/04/2022 Overview: Per CKD protocol Cerebral microvascular disease 03/18/2022 WILLIAM (acute kidney injury) 01/17/2022 History of agent [place] exposure 01/17/2022 Type 2 diabetes mellitus wit [...] as of this encounter (statuses as of 12/03/2023) Resolved Problems Problem Noted Date Diagnosed Date Resolved Date Diabetes mellitus with stage 3 chronic kidney disease 07/07/2022 08/06/2022 Overview: Per CKD protocol Kidney disease, chronic, sta ge III (GFR 30-59 ml/min) 02/14/2022 07/09/2022 Overview: Per CKD protocol Prediabetes 08/30/2018 02/07/2021 Overview: Per Prediabetes protocol #1 Carotid Stenosis, non-symptomatic 09/24/2005 11/09/2008 Overview: Modified per Carotid Stenosis protocol #10 BENIGN HYPERTENSION 02/28/2003 03/30/20 09 Overview: Modified per HTN Taxonomy. PURE HYPERCHOLESTEROLEM 02/28/200212/2008 Overview: Per Lipid Taxonomy. documented as of this encounter (statuses as of 12/03/2023) Immunizations Name Administration Dates Next Due COVID-19 [...] Influenza, Trivalen t, Adjuvanted, 65+ yrs 02/26/2022,03/23/2021 TDAP (age 10 and older)(Boostrix) 09/01/2023, Varicella [...] on file documented as of this encounter Miscellaneous Notes * Telephone Encounter - Annie Matias LPN - 12/03/2023 9:33 AM EDT Care Gaps Comprehensive Care Outreach Last Office/Telemedicine Visit: 09/01/2023 (in office), Visit date not found (telemedicine) Next Office Visit: 06/16/2024 Hemoglobin AIC Results: Lab Results Component Value Date/Time HEMOGLOBIN A1C - [facility] 7.2 (H) 09/01/2023 11:29 AM HEMOGLOBIN A1C - [facility] 6.7 (H) 04/13/2023 07:20 AM HEMOGLOBIN A1C - [facility] 7.0 (H) 10/24/2022 09:49 AM HEMOGLOBIN A1C - [facility] 6.2 (H) 08/27/2018 08:13 AM BP Readings from Last 1 Encounters: 10/26/23 126/80 Reviewed Health Maintenance below: Health Maintenance Topic Date Due Diabetic Eye Exam 01/15/2022 Depression Screening 01/20/2023 COVID-19 Vaccine ( season) 2023 CKD HGB USE SMARTSET 28347 10/25/2023 Influenza Vaccine (FLU shot) (1) 01/24/2024 HbA1c 03/02/2024 GFR 03/02/2024 Labs Eye [facility] Care Gap Outreach Action Taken: Left message documented in this encounter Plan of Treatment Upcoming Encounters Date Type Department Care Team (Late st Contact Info) Description 12/17/2023 7:15 AM EDT Imaging Radiology [facility] 132 [facility] [place] [address] 12/23/2023 9:00 AM EDT Office Visit Urology, [facility] [address] [facility] [place] [address] Tanner Smalls MD [address] [place] [address] 04/26/2024 8:00 AM EST Imaging Radiology [facility] [address] [facility] [address] [facility] [place] [address] 06/16/2024 6:20 PM EST Office Visit Family Practice [facility] [address] [facility] [place] [address] Justin Hanson, 132 [facility] [place] [address] Health Maintenance Due Date Last Done Comments Diabetic Eye Exam 01/15/2022 01/15/2021 Depression Screening 01/20/2023 01/20/2022 COVID-19 Vaccine ( season) 2023 05/08/2021, 07/30/2020, 07/02/2020 CKD HGB USE SMARTSET [id number] 10/25/202310/24, 10/24/2022, 04/01/2022, Additional history exists Influenza Vaccine (FLU shot) (#1) 2024 04/28/2023, 02/26/2022, 03/23/2021, Additional history exists GFR 03/02/2024 09/01/2023, 03/26, 10/24/2022, Additional history exists HbA1c 03/02/2024 09/01/2023, 03/26, 10/24/2022, Additional history exists Albumin/Creatinine Ratio 08/31/2024 024, 10/24/2022, 04/01/2022, Additional history exists CKD PHOS USE SMARTSET 53906 08/31/2024 04/0 01/2024, 06/26/2022, 04/01/2022 Diabetic Foot [...] Not on filedocumented as of this encounter Advance Directives * Full Code [...] Advance Directives occurred with: Patient Care Teams Circuit Court Clerk Relationship Specialty Start Date End Date Justin Hanson DO [address] [place] [address] PCP - General Family Medicine 08/16/18 documented as of this encounter
--- OUTSIDE RECORDS SUMMARY | 2024-04-10 09:01 | External Medical Summary | Summary of Care ---
Author Name Unknown Organization [facility] Address [address] [place] [address] Phone [phone] Care Team Providers Care Automatic Drilling Machine Operator Name Role Phone Mona Hanson DO Primary Care Provider Reason for Visit * Reason Comments Follow Up Encounter Details Date Type Department Care Team (Late st Contact Info) Description 12/23/2023 9:00 AM EDT Office Visit Urology, [facility] [address] [facility] [place] [address] Tanner Smalls MD [address] [place] [id number] Hematuria, gross*; Bladder stones; BPH with obstruction/lower urinary tract symptoms Allergies Active Allergy Reactions Criticality Noted Date Comments Atorvastatin Medium 01/15/2015 Simply felt overall poorly documented as of this encounter (statuses as of 12/23/2023) Medications Medication Sig Dispensed Refills Start Date [...] symptoms 1 Tablet OR ONCE 12/23/2023 12/23/2023 Active documented as of this encounter (statuses as of 12/23/2023) Active Problems Problem Noted Date Diagnosed Date Aneurysm of ascending aorta without rupture 10/2022 Chronic kidney disease, stage 3a 09/01/2022 Overview: Per CKD protocol 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 08/04/2022 Overview: Per CKD protocol Cerebral microvascular disease 03/18/2022 WILLIAM (acute kidney injury) 01/17/2022 History of agent [place] exposure 01/17/2022 Type 2 diabetes mellitus wit [...] as of this encounter (statuses as of 12/23/2023) Resolved Problems Problem Noted Date Diagnosed Date [...] as of this encounter (statuses as of 12/23/2023) Immunizations Name Administration Dates Next Due COVID-19 [...] from the original note were not included. [id number] PCP: MONA HANSON [address] [facility] [place] [address] [phone] Yogesh Candelario is a 78 year old [...] performed by Tanner Smalls MD at OR [facility] REMOVAL OF PROSTATE (TURP) N/A 01/12/2023 TRANSURETHRAL RESECTION PROSTATE ELECTROSURGICAL performed by Tanner Smalls MD at OR [facility] REMOVE GALLBLADDER Cholecystectomy REMOVE KNEE CARTILAGE, MED/LATERAL Knee meniscectomy, arthroscopic REMOVE LARGE BLADDER STONE, COMPLIC N/A 01/12/2023 LITHOLAPAXY COMPLICATED performed by Tanner Smalls MD at OR [facility] SHOULDER ARTHROSCOPY/REMOVE OBJECT Shoulder Surgery, Arthroscopic VASC DUPLEX CAROTID BILAT 09/27 right: lower end of 16-49%; left- upper end of 16-49% VASC DUPLEX CAROTID BILAT 12/2013 < 50% bilaterally Past Medical History: Diagnosis Date Benign paroxysmal vertigo 01/26/97 SEEN AT [facility]-ED HTN, goal below 140/90 Hypertension, benign [...] (acute kidney injury) (HCC) History of agent [place] exposure Cerebral microvascular disease Type 2 diabetes [...] for the procedure. A well lubricated 16 [place] flexible cystoscope was introduced through the meatus [...] No complaints. Taking finasteride. Not taking sildenafil. PSA Results: Lab Results Component Value Date/Time [...] Description 04/26/2024 8:00 AM EST Imaging Radiology [address] [place] [address] 06/16/2024 6:20 PM EST Office Visit Family Practice [facility] [address] [place] [address] Mona Hanson, [address] [place] [address] 12/19/2024 8:15 AM EDT Imaging Radiology [facility] [address] [place] [address] 12/28/2024 8:45 AM EDT Office Visit Urology, [facility] 132 [facility] [place] [address] Tanner Smalls MD [address] [place] [address] Scheduled Orders Name Type Priority Associated Diagnoses [...] 05/08/2021, 07/30/2020, 07/02/2020 CKD HGB USE SMARTSET 89976 10/25/202310/24, 10/24/2022, 04/01/2022, Additional history exists Influenza Vaccine (FLU shot) (#1) 2024 04/28/2023, 02/26/2022, 03/23/2021, Additional history exists GFR 03/02/2024 09/01/2023, 03/26, 10/24/2022, Additional history exists HbA1c 03/02/2024 09/01/2023, 03/26, 10/24/2022, Additional history exists Albumin/Creatinine Ratio 08/31/2024 024, 10/24/2022, 04/01/2022, Additional history exists CKD PHOS USE SMARTSET [id number] 08/31/2024 04/0 01/2024, 06/26/2022, 04/01/2022 Diabetic Foot [...] Advance Directives occurred with: Patient Care Teams Automatic Drilling Machine Operator Relationship Specialty Start Date End Date Mona Hanson DO [address] [place] [address] PCP - General Family Medicine 08/16/18 documented as of this encounter
--- OUTSIDE RECORDS SUMMARY | 2024-04-10 09:01 | External Medical Summary | Summary of Care ---
Author Name Unknown Organization [facility] Address [address] [place] [address] Phone [phone] Care Team Providers Care Golf Range Attendant Name Role Phone Justin Hanson DO Primary Care Provider Reason for Visit * Reason Comments eRx-Medication Refill Encounter Details Date Type Department Care Team (Late st Contact Info) Description 12/10/2023 Refill Urology, [facility] 132 [facility] [place] [address] Tanner Singer MD 27 [facility] [place] [address] Allergies Active Allergy Reactions Criticality Noted Date Comments Atorvastatin Medium 01/15/2015 Simply felt overall poorly documented as of this encounter (statuses as of 12/10/2023) Medications Medication Sig Dispensed Refills Start Date End Date Status ASPIRIN 81 MG PO TABS 1 TABLET DAILY Active Blood Pressure Cuff cHECK B/P DAILY 1 Each 01/17/2022 Active Sildenafil Citrate 20 MG Oral Tablet (Revatio) Take 3 tablets 1 hour prior to sexual activity 30 Tablet 5 05/29/2022 Active Lisinopril 20 MG Oral Tablet (Prinivil) take 1 tablet by mouth every morning 90 Tablet 3 05/19/2023 Active amLODIPine Besylate 10 MG Oral Tablet (Norvasc) Take 1 Tablet by mouth in the morning. 90 Tablet 3 06/01/2023 Active Rosuvastatin Calcium 10 MG Oral Tablet (Crestor) Take 1 Tablet by mouth daily. 90 Tablet 3 08/27/2023 Active Vitamin D3 1.25 MG (04763 UT) Oral Capsule (Cholecalciferol )Indications:Vit villatoro D deficiency Take 1 Capsule by mouth once a week. 12 Capsule 09/14/2023 12/13/2023 Active Finasteride 5 MG Oral Tablet (Proscar) take 1 tablet by mouth every morning 90 Tablet 3 12/10/2023 Active Finasteride 5 MG Oral Tablet (Proscar) Take 1 Tablet by mouth in the morning. 90 Tablet 3 12/24/2022 12/10/2023 Discontinued documented as of this encounter (statuses as of 12/10/2023) Active Problems Problem Noted Date Diagnosed Date Aneurysm of ascending aorta without rupture 10/2022 Chronic kidney disease, stage 3a 09/01/2022 Overview: Per CKD protocol 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 08/04/2022 Overview: Per CKD protocol Cerebral microvascular disease 03/18/2022 WILLIAM (acute kidney injury) 01/17/2022 History of agent [place] exposure 01/17/2022 Type 2 diabetes mellitus wit [...] as of this encounter (statuses as of 12/10/2023) Resolved Problems Problem Noted Date Diagnosed Date [...] as of this encounter (statuses as of 12/10/2023) Immunizations Name Administration Dates Next Due COVID-19 [...] encounter Miscellaneous Notes * Telephone Encounter - Tanner Singer MD - 12/10/2023 1:49 PM EDTSigned Prescriptions: Disp Refills Finasteride 5 MG Oral Tablet (Proscar) 90 Tab*3 Sig: take 1 tablet by mouth every morning Authorizing Provider: TANNER SINGER * Telephone Encounter - Franchesca Crockett LPN - 12/10/2023 9:57 AM EDT Pending Prescriptions: Disp Refills Finasteride 5 MG Oral Tablet [Pharmacy Med*90 Tab*3 Sig: take 1 tablet by mouth every morning * Telephone Encounter - Franchesca Crockett LPN - 12/10/2023 9:57 AM EDT Refill of Finasteride requested. Last appt: 02/03/2023 (in office), Visit date not found (telemedicine) Next appt: 12/23/2023 Review of patient's allergies indicates: Allergen Reactions Atorvastatin Simply felt overall poorly Thank you, Flaca documented in this encounter Plan of Treatment Upcoming Encounters Date Type Department Care Team (Late st Contact Info) Description 12/17/2023 7:15 AM EDT Imaging Radiology [facility] [address] [place] [address] 12/23/2023 9:00 AM EDT Office Visit Urology, [facility] [address] [place] [address] Tanner Singer MD [address] [place] [address] 04/26/2024 8:00 AM EST Imaging Radiology [facility] 1st Floor, [place] [address] [place] [address] 06/16/2024 6:20 PM EST Office Visit Family Practice [facility] [address] [place] [address] Justin Hanson, [address] [place] [address] Health Maintenance Due Date Last Done Comments Diabetic Eye Exam 01/15/2022 01/15/2021 Depression Screening 01/20/2023 01/20/2022 COVID-19 Vaccine ( season) 2023 05/08/2021, 07/30/2020, 07/02/2020 CKD HGB USE SMARTSET 08022 10/25/202310/24, 10/24/2022, 04/01/2022, Additional history exists Influenza Vaccine (FLU shot) (#1) 2024 04/28/2023, 02/26/2022, 03/23/2021, Additional history exists GFR 03/02/2024 09/01/2023, 03/26, 10/24/2022, Additional history exists HbA1c 03/02/2024 09/01/2023, 03/26, 10/24/2022, Additional history exists Albumin/Creatinine Ratio 08/31/2024 024, 10/24/2022, 04/01/2022, Additional history exists CKD PHOS USE SMARTSET [id number] 08/31/2024 040 01/2024, 06/26/2022, 04/01/2022 Diabetic Foot Exam 08/31/2024 [...] Advance Directives occurred with: Patient Care Teams Golf Range Attendant Relationship Specialty Start Date End Date Justin Hanson DO [address] [place] [address] PCP - General Family Medicine 08/16/18 documented as of this encounter
[2024-04-10] MEDS: ASPIRIN 81 MG CHEW PO STA (09:27)
[2024-04-10] MEDS: OPTIRAY 320 125ml IV ONE (09:35)
[2024-04-10 09:42] LABS: Basophils # (auto) 0.03 K/uL (0.00-0.20); Basophils % (auto) 0.3 %; Eosinophils % (auto) 2.1 %; Hematocrit (blood only) 47.2 % (42.0-52.0); Hemoglobin 16.7 g/dl (14.0-18.0); Immature Granulocytes # (auto) 0.03 K/uL (0.01-0.20); Immature Granulocytes % (auto) 0.3 %; Lymphocytes # (auto) 1.79 K/uL (1.20-3.40); Lymphocytes % (auto) 18.7 %; Mean Corpuscular Hemoglobin 31.7 pg (25.0-34.0); Mean Corpuscular Hgb Conc 35.4 g/dL (32.0-36.0); Mean Corpuscular Volume 89.7 fL (80.0-100.0); Mean Platelet Volume 9.8 fL (9.4-12.4); Monocytes # (auto) 0.67 K/uL (0.11-0.59); Neutrophils # (auto) 6.87 K/uL (1.40-6.50); Neutrophils % (auto) 71.6 %; Platelet Count 275 K/uL (130-400); RDW Coefficient of Variation 12.3 % (11.5-14.5); RDW Standard Deviation 40.3 fL (36.4-46.3); Red Blood Count 5.26 M/uL (4.70-6.10); White Blood Count 9.59 K/ul (4.8-10.8)
[2024-04-10 09:43] LABS: iSTAT Creatinine 1.4 mg/dl (0.6-1.3); iSTAT Hemoglobin 16.7 g/dl (14.0-18.0); iSTAT Ionized Calcium 1.17 mmol/l (1.12-1.32); iSTAT Potassium 4.6 mmol/L (3.3-5.0)
--- NOTE | 2024-04-10 09:43 | Emergency Department Note ---
Impression & Plan BELTRAN (dyspnea on exertion) ED Provider Note Provider: Migue Love MD CHIEF COMPLAINT: Shortness of breath, leg heaviness HISTORY OF PRESENT ILLNESS: Patient is a 79-year-old gentleman history of diabetes, hyperlipidemia,, hypertension presenting with stating over the past 2 days since Thursday he has been experiencing some lightheadedness and shortness of breath but with exertion. Maybe little bit indigestion at times no chest pain or indigestion now. No syncope but has felt a little bit dizzy with exertion. No significant cardiac history reported. Denies rolan chest pain at any time. States his legs feel very heavy but then optically swollen. No recent travel outside the area. No fever or cold symptoms reported. No real history of similar. Did take his morning meds including baby aspirin this morning but given symptoms were persisting and even walking up a small grade near his house was causing symptoms came here for evaluation. PAST MEDICAL HISTORY: As noted above MEDICATIONS: Reviewed home medications include baby aspirin SOCIAL HISTORY: Non-smoker PHYSICAL EXAM: GENERAL: alert and oriented in no acute distress on stretcher Head: normocephalic and atraumatic EYES: No injection, discharge or icterus. NECK: Trachea midline. Supple. ENT: Mucous membranes pink and moist. LUNGS: Airway patent. No retractions. Breath sounds clear without crackles in the bases HEART: Regular rate and rhythm. No chest wall tenderness ABDOMEN: Soft and non-tender, without guarding or rebound. SKIN: Acyanotic, warm, dry, without rashes EXTREMITIES: Without swelling, tenderness or deformity NEUROLOGICAL: No focal deficits. No aphasia. No facial droop or slurred speech. Ambulatory. EK bpm normal sinus rhythm little bit artifact but no PVC or PAC. No acute ST segment elevation or depression. QTc 426. CONTINUOUS CARDIAC MONITORING: was ordered and showed a heart rate of 80s-90s bpm in normal sinus rhythm Patient's laboratory studies and imaging reviewed. Differential includes Cardiac ischemia, aortic dissection, pulmonary embolism, pneumothorax, pneumonia, pericarditis, myocarditis, esophageal rupture, GERD, cholecystitis, pancreatitis, musculoskeletal, as well as other pathologies. IMPRESSION/MEDICAL DECISION MAKING: Reviewed EKG and disagree with computer I do not see evidence of ST segment elevation, depression, or reciprocal changes. Is having some concerning history however some shortness of breath and leg heaviness and may be some indigestion at times but not currently. No active chest pain. Blood work obtained. Not hypoxic here tachycardic. Does have per report some history of thoracic aortic aneurysm. Not having significant back or chest pain again. He is somewhat hypertensive. Given full dose aspirin. Will send for CT scan to exclude PE or evaluate for any gross aortic malformation of concern at this time. Doubt any abdominal issues at this point. Additionally we exclude any underlying pulmonary pathology but not having true infectious symptoms. Basic blood work obtained. No significant swelling I doubt CHF at this point Blood work without significant anemia leukocytosis. Doubt infection. No significant electrolyte abnormality signs of renal function creatinine 1.3 appears baseline for him. No significant LFT abnormalities or evidence of hepatitis or pancreatitis. CT of the chest without evidence of PE, pneumonia, pulmonary pathology, or aortic dissection. Troponin returned normal surprisingly. Reassessed the patient is not having any pain or shortness of breath at rest here. Discussed with patient given his symptoms bring in for further cardiac evaluation. Discussed with the patient and he was agreeable and hospitalist team was consulted. Will defer any further anticoagulation to the inpatient team as it seems almost to be an unstable anginal picture. DIAGNOSIS: Dyspnea on exertion DISPOSITION: Hospitalist will evaluate Patient was agreeable with this plan. 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 Urinary retention Carotid stenosis HLD (hyperlipidemia) HTN (hypertension) DM II (diabetes mellitus, type II), controlled Changes in vision (Acute) WILLIAM (acute kidney injury) (Acute) Dizziness (Acute) Surgical History Hx of arthroscopy of shoulder History of meniscectomy of left knee Hx laparoscopic cholecystectomy Family History Father Cancer Mother Stroke Sister Stroke Social History Smoking Status: Never smoker Hx Alcohol Use: No Hx Substance Use: No Preferred Language: Maori Area Counselor Required: No Beliefs That Will Affect Care: None Current Living Situation: Spouse Feels Safe at Home: Yes Assistive Devices: Denture - Upper Allergies Allergies Allergy/AdvReac Type Severity Reaction Status Date / Time No Known Allergies Allergy Mild Verified 04/10/24 11:54 Home Meds Home Medications Medication Instructions Recorded Confirmed aspirin 81 mg tablet,delayed 81 mg PO DAILY 10/15/21 04/10/24 release lisinopril 20 mg tablet 20 mg PO DAILY 10/15/21 04/10/24 amlodipine 10 mg tablet 10 mg PO QAM 04/10/24 04/10/24 finasteride 5 mg tablet 5 mg PO QAM 04/10/24 04/10/24 rosuvastatin 10 mg tablet 10 mg PO HS 04/10/24 04/10/24 Results & Data (ED) Vital Signs Vital Signs - 24 hr 04/10/24 09:06 04/10/24 09:20 04/10/24 09:20 Temperature 37.0 C Temperature Source Temporal Artery Scan Pulse Rate 85 Pulse Rate [Apical] Pulse Rate from SpO2 Sensor Pulse Rhythm Pulse Rhythm [Apical] Pulse Strength [Apical] Respiratory Rate 18 Respiratory Effort / Characteristics Non-Labored Spontaneous Non-Labored Spontaneous Respiratory Depth Normal Normal Respiratory Pattern Regular Blood Pressure 123/85 Blood Pressure [Left Arm] Blood Pressure Mean 97 Blood Pressure Mean [Left Arm] Blood Pressure Position Sitting Blood Pressure Position [Left Arm] Pulse Oximetry 96 99 Oxygen Delivery Method Room Air Room Air Sepsis Recent Fever Within 48 Hours No Sepsis New/Unexplained Change in Mental Status N/A Sepsis Action Taken by Nursing No Action Required 04/10/24 09:20 04/10/24 09:20 04/10/24 09:30 Temperature Temperature Source Pulse Rate 90 99 H Pulse Rate [Apical] 90 Pulse Rate from SpO2 Sensor Pulse Rhythm Regular Pulse Rhythm [Apical] Regular Pulse Strength [Apical] Normal Respiratory Rate 22 22 24 Respiratory Effort / Characteristics Non-Labored Spontaneous Respiratory Depth Normal Respiratory Pattern Regular Blood Pressure 125/102 H Blood Pressure [Left Arm] 140/102 H Blood Pressure Mean 108 Blood Pressure Mean [Left Arm] 114 Blood Pressure Position Blood Pressure Position [Left Arm] Lying Pulse Oximetry 96 98 95 Oxygen Delivery Method Room Air Room Air Sepsis Recent Fever Within 48 Hours Sepsis New/Unexplained Change in Mental Status Sepsis Action Taken by Nursing 04/10/24 09:37 04/10/24 10:00 04/10/24 10:30 Temperature Temperature Source Pulse Rate 93 H 89 88 Pulse Rate [Apical] Pulse Rate from SpO2 Sensor 85 83 Pulse Rhythm Pulse Rhythm [Apical] Pulse Strength [Apical] Respiratory Rate 16 23 Respiratory Effort / Characteristics Respiratory Depth Respiratory Pattern Blood Pressure 137/100 130/103 H Blood Pressure [Left Arm] Blood Pressure Mean 108 111 Blood Pressure Mean [Left Arm] Blood Pressure Position Blood Pressure Position [Left Arm] Pulse Oximetry 95 95 Oxygen Delivery Method Sepsis Recent Fever Within 48 Hours Sepsis New/Unexplained Change in Mental Status Sepsis Action Taken by Nursing 04/10/24 10:40 04/10/24 10:45 04/10/24 11:00 Temperature Temperature Source Pulse Rate 88 89 Pulse Rate [Apical] 85 Pulse Rate from SpO2 Sensor 87 83 Pulse Rhythm Pulse Rhythm [Apical] Regular Pulse Strength [Apical] Normal Respiratory Rate 20 15 26 H Respiratory Effort / Characteristics Non-Labored Spontaneous Respiratory Depth Normal Respiratory Pattern Regular Blood Pressure 133/96 135/103 H Blood Pressure [Left Arm] 130/103 H Blood Pressure Mean 108 111 Blood Pressure Mean [Left Arm] 112 Blood Pressure Position Blood Pressure Position [Left Arm] Semi-fowlers Pulse Oximetry 96 94 96 Oxygen Delivery Method Room Air Sepsis Recent Fever Within 48 Hours Sepsis New/Unexplained Change in Mental Status Sepsis Action Taken by Nursing 04/10/24 11:30 04/10/24 12:00 04/10/24 12:52 Temperature Temperature Source Pulse Rate 90 95 H Pulse Rate [Apical] 98 H Pulse Rate from SpO2 Sensor 89 90 Pulse Rhythm Pulse Rhythm [Apical] Regular Pulse Strength [Apical] Normal Respiratory Rate 24 23 23 Respiratory Effort / Characteristics Non-Labored Respiratory Depth Normal Respiratory Pattern Regular Blood Pressure 137/101 H 138/94 Blood Pressure [Left Arm] 142/100 H Blood Pressure Mean 110 115 Blood Pressure Mean [Left Arm] 114 Blood Pressure Position Blood Pressure Position [Left Arm] Lying Pulse Oximetry 96 99 98 Oxygen Delivery Method Sepsis Recent Fever Within 48 Hours Sepsis New/Unexplained Change in Mental Status Sepsis Action Taken by Nursing Laboratory Data 04/10/24 09:25 04/10/24 09:25 Lab Results 04/10/24 04/10/24 Range/Units 09:25 09:31 WBC 9.59 (4.8-10.8) K/ul RBC 5.26 (4.70-6.10) M/uL Hgb 16.7 (14.0-18.0) g/dl POC Hgb 16.7 (14.0-18.0) g/dl Hct 47.2 (42.0-52.0) % POC Hct 49 (42-52) % MCV 89.7 (80.0-100.0) fL MCH 31.7 (25.0-34.0) pg MCHC 35.4 (32.0-36.0) g/dL RDW Std Deviation 40.3 (36.4-46.3) fL RDW Coeff of Yasmine 12.3 (11.5-14.5) % Plt Count 275 (130-400) K/uL MPV 9.8 (9.4-12.4) fL Immature Gran % (Auto) 0.3 % Neut % (Auto) 71.6 % Lymph % (Auto) 18.7 % [place] % (Auto) 7.0 % Eos % (Auto) 2.1 % Baso % (Auto) 0.3 % Neut # (Auto) 6.87 H (1.40-6.50) K/uL Lymph # (Auto) 1.79 (1.20-3.40) K/uL [place] # (Auto) 0.67 H (0.11-0.59) K/uL Eos # (Auto) 0.20 (0.00-0.50) K/uL Baso # (Auto) 0.03 (0.00-0.20) K/uL Immature Gran # (Auto) 0.03 (0.01-0.20) K/uL PT 10.9 (9.0-12.0) Seconds INR 1.0 (0.9-1.1) APTT 28 (21-31) Seconds PTT Ratio 1.0 POC Sodium 137 (135-144) mmol/L Sodium 135 L (136-145) mmol/L POC Potassium 4.6 (3.3-5.0) mmol/L Potassium 4.7 (3.5-5.1) mmol/L POC Chloride 101 (101-112) mmol/L Chloride 104 (98-107) mmol/L Carbon Dioxide 24 (21-32) mmol/L POC Total CO2 21 L (24-31) mmol/L Anion Gap 7 (3-11) POC Anion Gap 20.0 (16-25) mmol/L POC BUN 24 H (7-18) mg/dl BUN 22 (6-23) mg/dl Creatinine 1.37 (0.6-1.4) mg/dl POC Creatinine 1.4 H (0.6-1.3) mg/dl Est Cr Clr Drug Dosing 53.0 ml/min eGFR 52.80 BUN/Creatinine Ratio 16.1 (10-20) Glucose 256 H (70-99(Fasting)) mg/dl POC Glucose (other) 249 H (70-99) mg/dl Estimat Average Glucose 209 mg/dl Hemoglobin A1c 8.9 H (4.5-5.6) % Calcium 9.7 (8.6-10.3) mg/dl POC Ioniz Calcium Lianet 1.17 (1.12-1.32) mmol/l Total Bilirubin 0.7 (0.2-1.0) mg/dl AST 24 (13-39) U/L ALT 24 (7-52) U/L Alkaline Phosphatase 70 (34-104) U/L Troponin I High Sens 10.5 (0-20) pg/ml Total Protein 7.1 (6.0-8.3) gm/dl Albumin 4.3 (3.4-5.0) gm/dl Globulin 2.8 (2.5-4.0) gm/dl Albumin/Globulin Ratio 1.5 (0.9-2) Lipase 25 (11-82) U/L Administered Medications Discontinued Medications Aspirin (Aspirin 81 Mg Chew) 243 mg PO NOW STA Stop: 04/10/24 09:22 Last Admin: 04/10/24 09:27 Dose: 243 mg Documented By: Hydralazine HCl (Hydralazine 10 Mg Tab) 10 mg PO NOW STA Stop: 04/10/24 11:38 Last Admin: 04/10/24 12:25 Dose: 10 mg Documented By: KARAN Ioversol (Optiray 320 125ml) 112 ml IV ONCE ONE Stop: 04/10/24 09:36 Last Admin: 04/10/24 09:35 Dose: 112 ml Documented By: NIMA Imaging Data Radiologist's Impression: Chest CTA 04/10/24 09:20 CT angio chest PE protocol CT DOSE: 1038.35 mGy.cm HISTORY: 79 years-old Male with PE, SOB, CP, hx of ascending aneurysm. Acute chest pain and shortness of breath TECHNIQUE: Multiple CTA images of the chest were obtained after the intravenous administration of 112 ml Optiray. Coronal and sagittal MIPS were obtained from the axial data set and were submitted for review. All measurements were obtained according to NASCET criteria. A dose lowering technique was utilized adhering to the principles of ALARA. COMPARISON: Chest radiograph 11/27/2023 FINDINGS: CTA: Mild cardiomegaly. Moderate coronary artery calcifications. Fusiform dilation of the ascending thoracic aorta at the level of main pulmonary artery, 4.5 x 4.5 cm without dissection. There is patency of the imaged vessels. No pulmonary emboli identified, however respiratory motion artifact limits the segmental and subsegmental branches. CT CHEST: Multinodular thyroid goiter. No pathologically enlarged lymph nodes. There is no pneumothorax, pleural effusion, airspace consolidation or pulmonary edema. There is mild subsegmental bibasilar atelectasis. No suspicious pulmonary nodules or masses. Central airways appear patent. Calcified granulomata of the spleen. Small hiatal hernia with mild mid to distal esophageal wall thickening. Cholecystectomy. Asymmetric mild atrophy of the right kidney. Unremarkable soft tissues. No acute fracture identified. IMPRESSION: 1. Mild cardiomegaly with fusiform aneurysmal dilation of the ascending thoracic aorta, 4.5 x 4.5 cm. No dissection identified. 2. No pulmonary emboli. 3. No pleural effusion or airspace consolidation typical for pneumonia. ACT 112: Negative or not required by law. The above report was generated using voice recognition software. It may contain grammatical, syntax or spelling errors. Electronically signed by: Irwin Kwok M.D. 04/10/2024 10:00 AM Discharge Plan Visit Data Chief Complaint: Shortness of Breath/Dyspnea Stated Complaint: DIZZY, LEGS FEEL VERY HEAVY, SOB ED Provider: Migue Love Discharge Problem: BELTRAN (dyspnea on exertion) Patient Disposition: Being Evaluated by Hospitalist Forms Stand Alone Forms: My [facility] Summer Set NextUser Prescriptions Prescriptions: No Action lisinopril 20 mg tablet 20 mg PO DAILY aspirin 81 mg Tablet,Delayed Release (Dr/Ec) 81 mg PO DAILY amlodipine 10 mg tablet 10 mg PO QAM finasteride 5 mg tablet 5 mg PO QAM rosuvastatin 10 mg tablet 10 mg PO HS Referrals Referrals: Justin Hanson DO [Primary Care Provider] -
--- NOTE | 2024-04-10 10:01 | CT Scan Report ---
CT angio chest PE protocol CT DOSE: 1038.35 mGy.cm HISTORY: 79 years-old Male with PE, SOB, CP, hx of ascending aneurysm. Acute chest pain and shortne ss of breath TECHNIQUE: Multiple CTA images of the chest were obtained after the intravenous administration of 112 ml Optiray. Coronal and sagittal MIPS were obtained from the axial data set and were submitted for review. All measurements were obtained according to NASCET criteria. A dose lowering technique was u tilized adhering to the principles of ALARA. COMPARISON: Chest radiograph 11/27/2023 FINDINGS: CTA: Mild cardiomegaly. Moderate coronary artery calcifications. Fusiform dilation of the ascending thorac ic aorta at the level of main pulmonary artery, 4.5 x 4.5 cm without dissection. There is patency of the imaged vessels. No pulmonary emboli identified, however respiratory motion artifact limits the se gmental and subsegmental branches. CT CHEST: Multinodular thyroid goiter. No pathologically enlarged lymph nodes. There is no pneumothorax, pleura l effusion, airspace consolidation or pulmonary edema. There is mild subsegmental bibasilar atelectas is. No suspicious pulmonary nodules or masses. Central airways appear patent. Calcified granulomata of the spleen. Small hiatal hernia with mild mid to distal esophageal wall thic kening. Cholecystectomy. Asymmetric mild atrophy of the right kidney. Unremarkable soft tissues. No a cute fracture identified. IMPRESSION: 1. Mild cardiomegaly with fusiform aneurysmal dilation of the ascending thoracic aorta, 4.5 x 4.5 cm. No dissection identified. 2. No pulmonary emboli. 3. No pleural effusion or airspace consolidation typical for pneumonia. ACT 112: Negative or not required by law. The above report was generated using voice recognition software. It may contain grammatical, syntax o r spelling errors. Electronically signed by: Irwin Kwok M.D. 04/10/2024 10:00 AM
[2024-04-10 10:04] LABS: Albumin Globulin Ratio 1.5 (0.9-2); Albumin Level 4.3 gm/dl (3.4-5.0); BUN Creatinine Ratio 16.1 (10-20); Bilirubin,Total 0.7 mg/dl (0.2-1.0); Calcium 9.7 mg/dl (8.6-10.3); Globulin 2.8 gm/dl (2.5-4.0); Potassium 4.7 mmol/L (3.5-5.1); Total Protein 7.1 gm/dl (6.0-8.3)
[2024-04-10 10:05] LABS: Partial Thromboplastin Time 28 Seconds (21-31); Prothrombin Time 10.9 Seconds (9.0-12.0)
[2024-04-10 10:18] LABS: Troponin I High Sensitivity 10.5 pg/ml (0-20)
--- NOTE | 2024-04-10 10:53 | History & Physical Report ---
Date of Service April 10, 2024 Assessment & Plan (1) BELTRAN (dyspnea on exertion): Plan: Concern for anginal equivalent Will repeat EKG and troponin Will schedule Lexiscan nuclear stress test for tomorrow. Continue albuteral prn. Not sure why he is on that per review of hi medical record in [facility] Last Echo was done in August of this year. I can't see the full report. His EF was 60%. Given the pt has a hx of and now rather severe BELTRAN and dizziness will repeat the TTE. Consult Cardiology (2) Carotid stenosis: Plan: After review of records cannot see when the last duplex scan was. We will repeat given his dizziness (3) HLD (hyperlipidemia): Plan: Continue his statin. His last LDL was 59, Chol 130 and HDL 45 on 09/01/23 (4) HTN (hypertension): Plan: BP up in ED. He is a bit stressed. He did take his meds today. Continue to monitor. Hydralzine given x 1 (5) DM II (diabetes mellitus, type II), controlled: Plan: He says he is diet controlled. His last Hb A1C was 7.2 on 09/01/23. 4 mos prior it was 6.7. Continue HHD, CCD Repeat Hgb A1c (6) Dizziness: Plan: W/U as above Plan Pt is a full code VTE prevention: Lovenox A total of 78 minutes spent in the care, review of data, examination and care coordination of this patient. History of Present Illness Chief Complaint: BELTRAN, CP and epigastric pain with exertion Primary Care Provider: DO Germain Bourgeois Kodak is is a 79-year-old male with a PMHX significant for DM II with neuropath(diet controlled), hyperlipidemia, carotid stenosis, (last echo done 07/09/23 with LVEF of 60%), hypertension presenting with stating over the past 2 days since Thursday he has been experiencing some lightheadedness and shortness of breath with exertion. He has some indigestion with this but no rolan chest pain He denies indigestion or CP now. No syncope but has feels dizzy with exertion. No true subjective or objective vertigo. No associated brenda phoresis, nausea or radiation of discomfort. No significant cardiac history reported. His risk factors are DM and HTN. Also has a family hx of CAD. Denies rolan chest pain at any time. States his legs feel very heavy when ambulating the last two days. No edema. Has a hx of neuropathy. No fever or cold symptoms reported. No real history of similar. Did take his morning meds including baby aspirin this morning but given symptoms were persisting and even walking up a small grade near his house was causing symptoms came to the ED for evaluation. BPs have been elevated in the ED. Troponin is negative. EKG reviewed. Agree with the ED provider. I do not see ST elevation as per the computer reading. Computer notes junctional rhythm but monitor is showing SR. Allergies Allergy/AdvReac Type Severity Reaction Status Date / Time No Known Allergies Allergy Mild Verified 04/10/24 11:54 Home Medications Medication Instructions Recorded Confirmed Type aspirin 81 mg tablet,delayed 81 mg PO DAILY 10/15/21 04/10/24 History release lisinopril 20 mg tablet 20 mg PO DAILY 10/15/21 04/10/24 History amlodipine 10 mg tablet 10 mg PO QAM 04/10/24 04/10/24 History finasteride 5 mg tablet 5 mg PO QAM 04/10/24 04/10/24 History rosuvastatin 10 mg tablet 10 mg PO HS 04/10/24 04/10/24 History 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 Urinary retention Carotid stenosis HLD (hyperlipidemia) HTN (hypertension) DM II (diabetes mellitus, type II), controlled Changes in vision (Acute) WILLIAM (acute kidney injury) (Acute) Dizziness (Acute) Surgical History Hx of arthroscopy of shoulder History of meniscectomy of left knee Hx laparoscopic cholecystectomy Family History Father Cancer Mother Stroke Sister Stroke Social History Smoking Status: Never smoker Hx Alcohol Use: No Hx Substance Use: No Preferred Language: Salvadorean Prototype Carpenter Required: No Beliefs That Will Affect Care: None Current Living Situation: Spouse Feels Safe at Home: Yes Assistive Devices: Denture - Upper Review of Systems Review of Systems: As per HPI. All other ROS are negative Physical Exam Physical Exam: General- adult male seen at ED bedside. His is present. Head- atraumatic Eyes- PERRL, EOMI, anicteric ENT- oropharynx clear Neck- supple, no JVD, no adenopathy, no thyromegaly; carotids +2/2, no bruits appreciated Lungs- clear to auscultation and percussion Heart- regular rhythm; no murmur, no gallop, no rub appreciated Abdomen- normal bowel sounds, soft, nontender, no masses or hepatosplenomegaly Extremities- no pretibial edema, no calf tenderness; peripheral pulses intact Neuro- alert, oriented x 3; PERRL, EOMI; no facial palsy; no dysarthria; motor 5/5 bilaterally; Skin- warm & dry Results & Data Results & Data Vital Signs (Past 12 Hours) Vital Signs Temp Pulse Pulse Resp BP BP Pulse Ox 04/10/24 10:40 85 20 130/103 H 96 04/10/24 09:37 93 H 04/10/24 09:20 90 22 98 04/10/24 09:20 90 22 140/102 H 96 04/10/24 09:20 99 04/10/24 09:06 37.0 C 85 18 123/85 96 O2 Del Method 04/10/24 10:40 Room Air 04/10/24 09:37 04/10/24 09:20 Room Air 04/10/24 09:20 Room Air 04/10/24 09:20 Room Air 04/10/24 09:06 Room Air Diagnostic Findings Laboratory Results WBC 9.59 K/ul (4.8-10.8) 04/10/24 09:25 RBC 5.26 M/uL (4.70-6.10) 04/10/24 09:25 Hgb 16.7 g/dl (14.0-18.0) 04/10/24 09:25 POC Hgb 16.7 g/dl (14.0-18.0) 04/10/24 09:31 Hct 47.2 % (42.0-52.0) 04/10/24 09:25 POC Hct 49 % (42-52) 04/10/24 09:31 MCV 89.7 fL (80.0-100.0) 04/10/24 09:25 MCH 31.7 pg (25.0-34.0) 04/10/24 09: MCHC 35.4 g/dL (32.0-36.0) 04/10/24 09:25 RDW Std Deviation 40.3 fL (36.4-46.3) 04/10/24: RDW Coeff of Yasmine 12.3 % (11.5-14.5) 04/10/24 09:25 Plt Count 275 K/uL (130-400) 04/10/24 09:25 MPV 9.8 fL (9.4-12.4) 04/10/24:25 Immature Gran % (Auto) 0.3 % 04/10/24 09:25 Neut % (Auto) 71.6 % 04/10/24:25 Lymph % (Auto) 18.7 % 04/10/24 09:25 [place] % (Auto) 7.0 % 04/10/24:25 Eos % (Auto) 2.1 % 04/10/24 09:25 Baso % (Auto) 0.3 % 04/10/24:25 Neut # (Auto) 6.87 K/uL (1.40-6.50) H 04/10/24 09:25 Lymph # (Auto) 1.79 K/uL (1.20-3.40) 04/10/24 09:25 [place] # (Auto) 0.67 K/uL (0.11-0.59) H 04/10/24 09:25 Eos # (Auto) 0.20 K/uL (0.00-0.50) 04/10/24 09:25 Baso # (Auto) 0.03 K/uL (0.00-0.20) 04/10/24 09:25 Immature Gran # (Auto) 0.03 K/uL (0.01-0.20) 04/10/24 09:25 PT 10.9 Seconds (9.0-12.0) 04/10/24 09:25 INR 1.0 (0.9-1.1) 04/10/24:25 APTT 28 Seconds (21-31) 04/10/24 09:25 PTT Ratio 1.0 04/10/24 09:25 POC Sodium 137 mmol/L (135-144) 04/10/24 09:31 Sodium 135 mmol/L (136-145) L 04/10/24 09:25 POC Potassium 4.6 mmol/L (3.3-5.0) 04/10/24 09:31 Potassium 4.7 mmol/L (3.5-5.1) 04/10/24 09:25 POC Chloride 101 mmol/L (101-112) 04/10/24 09: Chloride 104 mmol/L (98-107) 04/10/24 09:25 Carbon Dioxide 24 mmol/L (21-32) 04/10/24 09:25 POC Total CO2 21 mmol/L (24-31) L 04/10/24 09:31 Anion Gap 7 (3-11) 04/10/24 09:25 POC Anion Gap 20.0 mmol/L (16-25) 04/10/24 09:31 POC BUN 24 mg/dl (7-18) H 04/10/24 09:31 BUN 22 mg/dl (6-23) 04/10/24 09:25 Creatinine 1.37 mg/dl (0.6-1.4) 04/10/24 09:25 POC Creatinine 1.4 mg/dl (0.6-1.3) H 04/10/24 09:31 Est Cr Clr Drug Dosing 53.0 ml/min 04/10/24 09:25 eGFR 52.80 04/10/24 09:25 BUN/Creatinine Ratio 16.1 (10-20) 04/10/24 09:25 Glucose 256 mg/dl (70-99(Fasting)) H 04/10/24 09:25 POC Glucose (other) 249 mg/dl (70-99) H 04/10/24 09:31 Calcium 9.7 mg/dl (8.6-10.3) 04/10/24 09:25 POC Ioniz Calcium Lianet 1.17 mmol/l (1.12-1.32) 04/10/24 09:31 Total Bilirubin 0.7 mg/dl (0.2-1.0) 04/10/24 09:25 AST 24 U/L (13-39) 04/10/24 09:25 ALT 24 U/L (7-52) 11/17/24 09:25 Alkaline Phosphatase 70 U/L (34-104) 04/10/24 09:25 Troponin I High Sens 10.5 pg/ml (0-20) 04/10/24 09:25 Total Protein 7.1 gm/dl (6.0-8.3) 04/10/24 09:25 Albumin 4.3 gm/dl (3.4-5.0) 04/10/24 09:25 Globulin 2.8 gm/dl (2.5-4.0) 04/10/24 09:25 Albumin/Globulin Ratio 1.5 (0.9-2) 04/10/24 09:25 Lipase 25 U/L (11-82) 04/10/24 09:25 Impressions Chest CTA 04/10/24 09:20 CT angio chest PE protocol CT DOSE: 1038.35 mGy.cm HISTORY: 79 years-old Male with PE, SOB, CP, hx of ascending aneurysm. Acute chest pain and shortness of breath TECHNIQUE: Multiple CTA images of the chest were obtained after the intravenous administration of 112 ml Optiray. Coronal and sagittal MIPS were obtained from the axial data set and were submitted for review. All measurements were obtained according to NASCET criteria. A dose lowering technique was utilized adhering to the principles of ALARA. COMPARISON: Chest radiograph 11/27/2023 FINDINGS: CTA: Mild cardiomegaly. Moderate coronary artery calcifications. Fusiform dilation of the ascending thoracic aorta at the level of main pulmonary artery, 4.5 x 4.5 cm without dissection. There is patency of the imaged vessels. No pulmonary emboli identified, however respiratory motion artifact limits the segmental and subsegmental branches. CT CHEST: Multinodular thyroid goiter. No pathologically enlarged lymph nodes. There is no pneumothorax, pleural effusion, airspace consolidation or pulmonary edema. There is mild subsegmental bibasilar atelectasis. No suspicious pulmonary nodules or masses. Central airways appear patent. Calcified granulomata of the spleen. Small hiatal hernia with mild mid to distal esophageal wall thickening. Cholecystectomy. Asymmetric mild atrophy of the right kidney. Unremarkable soft tissues. No acute fracture identified. IMPRESSION: 1. Mild cardiomegaly with fusiform aneurysmal dilation of the ascending thoracic aorta, 4.5 x 4.5 cm. No dissection identified. 2. No pulmonary emboli. 3. No pleural effusion or airspace consolidation typical for pneumonia. ACT 112: Negative or not required by law. The above report was generated using voice recognition software. It may contain grammatical, syntax or spelling errors. Electronically signed by: Irwin Kwok M.D. 04/10/2024 10:00 AM
[2024-04-10] MEDS: hydrALAZINE 10 MG TAB PO STA (12:25)
[2024-04-10 12:53] LABS: Estimated Average Glucose 209 mg/dl; Hemoglobin A1C 8.9 % (4.5-5.6)
[2024-04-10] MEDS ORDERED: PHARMACY GLYCEMIC MGMT CONSULT PRN (14:14)
[2024-04-10] MEDS ORDERED: POLYETHYLENE (MIRALAX) 17 GM PACK PO PRN (14:14)
[2024-04-10] MEDS ORDERED: CARBOHYDRATES FOR HYPOGLYCEMIA PO PRN (14:14)
[2024-04-10] MEDS ORDERED: NITROGLYCERIN SL 0.4 MG/TAB TAB SL PRN (14:14)
[2024-04-10] MEDS ORDERED: GLUCAGON FOR INJ 1 MG VIAL SQ PRN (14:14)
[2024-04-10] MEDS ORDERED: ALBUTEROL HFA 8 GM INHALER INH PRN (14:14)
[2024-04-10] MEDS ORDERED: MAGNESIUM HYDROXIDE SUSP 30 ML UDC PO PRN (14:14)
[2024-04-10] MEDS ORDERED: GLUCOSE 40% GEL 15 GM TUBE PO PRN (14:14)
[2024-04-10] MEDS ORDERED: DEXTROSE 50% 50 ML SYRINGE IV PRN (14:14)
[2024-04-10] MEDS ORDERED: GLUCOSE 10 TAB/TUBE PO PRN (14:14)
[2024-04-10] MEDS ORDERED: ACETAMINOPHEN 325 MG TAB PO PRN (14:14)
[2024-04-10 14:49] LABS: Hematocrit (blood only) 42.8 % (42.0-52.0); Hemoglobin 15.5 g/dl (14.0-18.0); Mean Corpuscular Hgb Conc 36.2 g/dL (32.0-36.0); Mean Corpuscular Volume 88.4 fL (80.0-100.0); Mean Platelet Volume 9.9 fL (9.4-12.4); Platelet Count 242 K/uL (130-400); RDW Coefficient of Variation 12.2 % (11.5-14.5); RDW Standard Deviation 39.9 fL (36.4-46.3); Red Blood Count 4.84 M/uL (4.70-6.10); White Blood Count 7.69 K/ul (4.8-10.8)
[2024-04-10 15:04] LABS: BUN Creatinine Ratio 16.1 (10-20); Calcium 9.2 mg/dl (8.6-10.3); Creatinine Clr Calc Pharmacy 57.8 ml/min; Potassium 4.4 mmol/L (3.5-5.1)
[2024-04-10 15:11] LABS: Troponin I High Sensitivity 8.9 pg/ml (0-20)
[2024-04-10] MEDS: ENOXAPARIN INJ 40 MG/0.4 ML SYR SQ SCH (15:20)
--- NOTE | 2024-04-10 15:41 | Cardiology Consultation ---
Date of Consultation April 10, 2024 Assessment & Plan (1) Crescendo angina: (2) BELTRAN (dyspnea on exertion): (3) HLD (hyperlipidemia): (4) HTN (hypertension): (5) DM II (diabetes mellitus, type II), controlled: (6) Obesity: Plan 79-year-old male admitted to [facility] with complaints of exertional chest tightness associated with shortness of breath, dizziness, leg weakness. History suggests crescendo angina. Patient with multiple cardiac risk factors including hypertension, dyslipidemia, type 2 diabetes mellitus, carotid artery stenosis. Imaging this admission notable for CTA revealing coronary atherosclerosis at least in the LAD and left circumflex. EKG without acute change. Troponin negative thus far. Echo as detailed below. Options of management discussed with patient. We specifically discussed medical management, referral for stress testing, and referral for diagnostic cardiac catheterization. Risks and benefits discussed. Via shared decision making, will proceed with diagnostic cardiac catheterization in AM. NPO after midnight. Add beta-ang. Initiate IV heparin. Continue aspirin and statin. Pending inpatient workup, may need to consider referral for outpatient Cardiac MRI noting echo findings. Supervising Physician Co-Signing Physician Notes I spent a total of 50 minutes on the date of service in preparation, delivery, and documentation of the care provided to this patient, excluding any time spent in the performance of separately billed services. I have personally performed a history and physical examination on the patient. I have reviewed the advance practitioner's documentation, and I agree with, and take responsibility for the plan of care. History of Present Illness Reason for Consultation: Worsening dyspnea on exertion. History of aortic stenosis. Requesting Physician: Dr. Neeraj Solo DO Attending Physician: Dr. Neeraj Solo DO History of Present Illness Mr. Yogesh Candelario is a 79 year old male who, for the past 2 weeks has been experiencing exertional chest tightness associated with shortness of breath, dizziness, and leg heaviness. Symptoms are brought on by activity and relieved by rest. No resting or nocturnal symptoms. Patient concern regarding possible " blockage." EKG on presentation revealed sinus rhythm with a first-degree AV block, without acute ST segment change. High-sensitivity troponin negative x 2. Resting echocardiography with preserved LV systolic function, without regional wall motion abnormality. Chest x-ray without acute process. CTA notable for coronary atherosclerosis involving the left anterior descending and left circumflex (RCA not well-visualized, degraded by motion artifact), 4.5 x 4.5 cm ascending thoracic aortic aneurysm without dissection. No pulmonary emboli observed. No pleural effusion or airspace consolidation typical for pneumonia. Past Medical and Surgical History Hypertension Ascending aortic aneurysm Abdominal aortic ectasia Dyslipidemia Type 2 diabetes mellitus Mild bilateral carotid artery disease GERD Vertigo Osteoarthritis Laser vaporization of the prostate TURP Gallbladder Arthroscopic knee surgery Shoulder surgery Family History: Father with CAD, passing with lung cancer, black lung. Mother following a CVA. Social History: Never smoker. No smokeless tobacco. No illegal drug use. No significant alcohol. [place] , [employer], with exposure to agent orange. x 34 years. 1 living child. 1 son had a stroke at 44, later shot by his . Lives in [place]. Allergies Allergy/AdvReac Type Severity Reaction Status Date / Time No Known Allergies Allergy Mild Verified 04/10/24 11:54 Home Medications Medication Instructions Recorded Confirmed Type aspirin 81 mg tablet,delayed 81 mg PO DAILY 10/15/21 04/10/24 History release lisinopril 20 mg tablet 20 mg PO DAILY 10/15/21 04/10/24 History amlodipine 10 mg tablet 10 mg PO QAM 04/10/24 04/10/24 History finasteride 5 mg tablet 5 mg PO QAM 04/10/24 04/10/24 History rosuvastatin 10 mg tablet 10 mg PO HS 04/10/24 04/10/24 History Patient History Surgical History Hx of arthroscopy of shoulder History of meniscectomy of left knee Hx laparoscopic cholecystectomy Family History Father Cancer Mother Stroke Sister Stroke Social History Smoking Status: Unknown if ever smoked Hx Alcohol Use: No Hx Substance Use: No Preferred Language: St Helenian Communication Ability: Effective M1 Armor Crewman Required: No Beliefs That Will Affect Care: None Current Living Situation: Spouse Other Information That Helps Us Care for You: No Feels Safe at Home: Yes Safety Concerns: Feels Safe At This Time Assistive Devices: Denture - Upper Review of Systems Review of Systems: Complete Review of System is as stated above, negative, or noncontributory. Physical Exam Physical Exam: General: A&Ox3. NAD. HENT: Normocephalic. Atraumatic. Eyes: PER. Conjunctiva pink, sclera clear. Neck: Bilateral carotid bruits. No JVD. No HJR. Heart: RRR, 90 bpm. Soft systolic murmur. No diastolic murmur. No rub. Lungs: Clear to auscultation. Abdomen: +BS. Soft. Nontender. No masses or organomegaly. Extremities: No clubbing, cyanosis, or edema. Limited neurological examination is without focal deficits. Pulses: radial=2/4, posterior tibial=2/4. Results & Data Vital Signs (Past 12 Hours) Vital Signs Temp Pulse Pulse Resp BP BP Pulse Ox 04/10/24 14:18 36.9 C 92 H 18 131/95 95 04/10/24 14:14 36.9 C 92 H 17 131/95 95 04/10/24 13:30 87 04/10/24 12:52 98 H 23 142/100 H 98 04/10/24 12:00 95 H 23 138/94 99 04/10/24 11:30 90 24 137/101 H 96 04/10/24 11:00 89 26 H 135/103 H 96 04/10/24 10:45 88 15 133/96 94 04/10/24 10:40 85 20 130/103 H 96 04/10/24 10:30 88 23 130/103 H 95 04/10/24 10:00 89 16 137/100 95 04/10/24 09:37 93 H 04/10/24 09:30 99 H 24 125/102 H 95 04/10/24 09:20 90 22 98 04/10/24 09:20 90 22 140/102 H 96 04/10/24 09:20 99 04/10/24 09:06 37.0 C 85 18 123/85 96 O2 Del Method 04/10/24 14:18 Room Air 04/10/24 14:14 Room Air 04/10/24 13:30 04/10/24 12:52 04/10/24 12:00 04/10/24 11:30 04/10/24 11:00 04/10/24 10:45 04/10/24 10:40 Room Air 04/10/24 10:30 04/10/24 10:00 04/10/24 09:37 04/10/24 09:30 04/10/24 09:20 Room Air 04/10/24 09:20 Room Air 04/10/24 09:20 Room Air 04/10/24 09:06 Room Air Laboratory Results Cardiac Enzymes 04/10/24 04/10/24 Range/Units 09:25 14:23 AST 24 (13-39) U/L Troponin I High Sens 10.5 8.9 (0-20) pg/ml Coagulation 04/10/24 Range/Units 09:25 PT 10.9 (9.0-12.0) Seconds APTT 28 (21-31) Seconds CBC 04/10/24 04/10/24 Range/Units 09:25 14:23 WBC 9.59 7.69 (4.8-10.8) K/ul RBC 5.26 4.84 (4.70-6.10) M/uL Hgb 16.7 15.5 (14.0-18.0) g/dl Hct 47.2 42.8 (42.0-52.0) % Plt Count 275 242 (130-400) K/uL Neut # (Auto) 6.87 H (1.40-6.50) K/uL Lymph # (Auto) 1.79 (1.20-3.40) K/uL [place] # (Auto) 0.67 H (0.11-0.59) K/uL Eos # (Auto) 0.20 (0.00-0.50) K/uL Baso # (Auto) 0.03 (0.00-0.20) K/uL Comprehensive Metabolic Panel 04/10/24 04/10/24 Range/Units 09:25 14:23 Sodium 135 L 136 (136-145) mmol/L Potassium 4.7 4.4 (3.5-5.1) mmol/L Chloride 104 106 (98-107) mmol/L Carbon Dioxide 24 23 (21-32) mmol/L BUN 22 20 (6-23) mg/dl Creatinine 1.37 1.24 (0.6-1.4) mg/dl Glucose 256 H 166 H (70-99(Fasting)) mg/dl Calcium 9.7 9.2 (8.6-10.3) mg/dl AST 24 (13-39) U/L ALT 24 (7-52) U/L Alkaline Phosphatase 70 (34-104) U/L Total Protein 7.1 (6.0-8.3) gm/dl Albumin 4.3 (3.4-5.0) gm/dl Intake and Output 04/10/24 04/10/24 04/10/24 06:59 14:59 22:59 Other: Weight 98.759 kg Weight Measurement Method Built in [facility] Patient Weight 04/11/24 06:59 Weight 98.759 kg Diagnostic Findings April 10, 2024 TTE ([facility]): EF 55-60%. Moderate LVH with asymmetric component in the basal septum suggestive of possible sigmoid septum versus hypertrophic cardiomyopathy (no resting gradient is noted) normal RV size and function noted. Aortic valve sclerosis observed without significant stenosis. Telemetry: Sinus/sinus tachycardia, occasional PVC's
--- NOTE | 2024-04-10 17:15 | Ultrasound Report ---
EXAM: US Duplex Bilateral Extracranial Arteries INDICATION: Dizziness. TECHNIQUE: Real-time duplex ultrasound scan of the extracranial arteries integrating B-mode two-dimensional vascular structure, Doppler spectral analysis and color flow Doppler imaging. COMPARISON: None. FINDINGS: Right common carotid artery: Peak systolic velocity 50 cm/s. No occlusion or segmental stenosis on color flow and spectral Doppler imaging. Mild distal plaque. Right internal carotid artery moderate to severe mixed: Largely calcified proximal plaque noted. Peak systolic velocity 70 cm/s. No occlusion or segmental stenosis on color flow and spectral Doppler imaging. Right external carotid artery: No abnormality noted. No occlusion or segmental stenosis on color flow and spectral Doppler imaging. Right vertebral artery: No abnormality noted. Antegrade flow. Right ICA/CCA ratio: 1.4. Left common carotid artery: Peak systolic velocity 55 cm/s. No occlusion or segmental stenosis on color flow and spectral Doppler imaging. Left internal carotid artery: Peak systolic velocity 78 cm/s tortuous. No occlusion or segmental stenosis on color flow and spectral Doppler imaging. Left external carotid artery: No abnormality noted. No occlusion or segmental stenosis on color flow and spectral Doppler imaging. Left vertebral artery: No abnormality noted. Antegrade flow. Left ICA/CCA ratio: No abnormality noted. 1.4 moderate mixed proximal plaque. Lymph nodes: No abnormality noted. No lymphadenopathy. CAROTID STENOSIS REFERENCE USING SRU CRITERIA: Mild - <50% stenosis. ICA PSV is less than 125 cm/second and plaque or intimal thickening is visible. Moderate - 50-69% stenosis. ICA PSV is 125 to 230 cm/second and plaque is visible. Severe - 70-94% stenosis. ICA PSV is more than 230 cm/second and visible plaque with lumen narrowing is seen. Near occlusion - 95-99% stenosis. ICA PSV is variable and significant plaque with luminal narrowing is seen. Occluded - 100% stenosis. No flow identified. IMPRESSION: 1. There is less than 50% bilateral internal carotid stenosis. 2. Distal carotid and internal carotid atherosclerosis moderate to severe in degree most notably involving the right proximal ICA. ACT 112: Negative or not required by law. Electronically signed by Mag Lu 04-10-2024 5:15 PM
[2024-04-10] MEDS: HEPARIN SODIUM/DEXTROSE 25,000 UNITS/500 ML BAG IV SCH (17:20)
[2024-04-10] MEDS: Heparin IV Adult Wt-Based Low-Dose *NO* INITIAL Bolus Protocol IV STA (17:22)
[2024-04-10] MEDS: INSULIN ASPART PER UNIT CHARGE SC SCH (17:27)
[2024-04-10] MEDS: METOPROLOL SUCC 25MG EXT REL TAB PO SCH (17:34)
[2024-04-10] MEDS: LANTUS PER UNIT CHARGE SC SCH (20:48)
[2024-04-11 00:20] LABS: ANTI-Xa, UFH(UnfractionatedHep 0.61 IU/ml (0.3-0.7)
[2024-04-11] MEDS: INSULIN ASPART PER UNIT CHARGE SC SCH ×2 (06:00→17:37)
--- NOTE | 2024-04-11 06:20 | Electrocardiogram Report ---
Test Reason : Blood Pressure : */* mmHG Vent. Rate : 86 BPM Atrial Rate : 86 BPM P-R Int : 216 ms QRS Dur : 86 ms QT Int : 356 ms P-R-T Axes : * -4 -3 degrees QTcB Int : 426 ms Poor data quality, interpretation may be adversely affected Sinus rhythm with 1st degree A-V block Possible Septal infarct When compared with ECG of 27-Nov-2023 16:13, Possible Septal infarct is now Present Confirmed by Dennis Skinner ([id number]) on 04/11/2024 6:19:30 AM Referred By: Confirmed By: Dennis Skinner
[2024-04-11 07:00] LABS: Hematocrit (blood only) 43.5 % (42.0-52.0); Hemoglobin 15.1 g/dl (14.0-18.0); Mean Corpuscular Hemoglobin 31.1 pg (25.0-34.0); Mean Corpuscular Hgb Conc 34.7 g/dL (32.0-36.0); Mean Corpuscular Volume 89.5 fL (80.0-100.0); Mean Platelet Volume 10.1 fL (9.4-12.4); Platelet Count 250 K/uL (130-400); RDW Coefficient of Variation 12.4 % (11.5-14.5); RDW Standard Deviation 40.2 fL (36.4-46.3); Red Blood Count 4.86 M/uL (4.70-6.10); White Blood Count 7.76 K/ul (4.8-10.8)
--- NOTE | 2024-04-11 07:06 | Pre Anesthesia Assessment ---
Date of Service April 11, 2024 Pre Sedation Assessment Vital Signs Temp Pulse Pulse Resp BP BP Pulse Ox 04/11/24 03:06 98.2 F 89 18 120/81 94 04/10/24 22:43 98.2 F 96 H 18 117/65 96 04/10/24 22:03 94 H 04/10/24 19:44 98.1 F 86 18 123/83 93 04/10/24 14:18 98.4 F 92 H 18 131/95 95 04/10/24 14:14 98.4 F 92 H 17 131/95 95 04/10/24 13:30 87 04/10/24 12:52 98 H 23 142/100 H 98 04/10/24 12:00 95 H 23 138/94 99 04/10/24 11:30 90 24 137/101 H 96 04/10/24 11:00 89 26 H 135/103 H 96 04/10/24 10:45 88 15 133/96 94 04/10/24 10:40 85 20 130/103 H 96 04/10/24 10:30 88 23 130/103 H 95 04/10/24 10:00 89 16 137/100 95 04/10/24 09:37 93 H 04/10/24 09:30 99 H 24 125/102 H 95 04/10/24 09:20 90 22 98 04/10/24 09:20 90 22 140/102 H 96 04/10/24 09:20 99 04/10/24 09:06 98.6 F 85 18 123/85 96 O2 Del Method 04/11/24 03:06 Room Air 04/10/24 22:43 Room Air 04/10/24 22:03 04/10/24 19:44 Room Air 04/10/24 14:18 Room Air 04/10/24 14:14 Room Air 04/10/24 13:30 04/10/24 12:52 04/10/24 12:00 04/10/24 11:30 04/10/24 11:00 04/10/24 10:45 04/10/24 10:40 Room Air 04/10/24 10:30 04/10/24 10:00 04/10/24 09:37 04/10/24 09:30 04/10/24 09:20 Room Air 04/10/24 09:20 Room Air 04/10/24 09:20 Room Air 04/10/24 09:06 Room Air Cardiovascular + regular rate Respiratory + respiratory effort normal Pre-Sedation Airway Assessment Smoking Status: Unknown if ever smoked Hx Sleep Apnea: No Hx Difficult Intubation: No Short, Thick Neck: No Thyromental Distance: < 3.5 Finger Breadths Oral Cavity: + WNL Mallampati Class: III ASA: ASA3 Procedure Planning Contraindications for Sedation: none Current Medications Reviewed: Yes Notes The planned sedation has been discussed with the patient. Informed Consent was obtained. I have identified the patient, determined the appropriateness of sedation and have assessed the patient immediately prior to the procedure. All medicine(s) and interventions are by my order.
[2024-04-11 07:16] LABS: BUN Creatinine Ratio 15.1 (10-20); Creatinine Clr Calc Pharmacy 49.1 ml/min; Potassium 4.7 mmol/L (3.5-5.1)
[2024-04-11 07:23] LABS: ANTI-Xa, UFH(UnfractionatedHep 0.55 IU/ml (0.3-0.7)
[2024-04-11] MEDS: LIDOCAINE 1% LOCAL 20 ML VIAL ONE (07:28)
[2024-04-11] MEDS: NITROGLYCERIN/D5W 100MCG/ML 20ML SYR ONE (07:29)
[2024-04-11] MEDS: niCARdipine 2,000 MCG/20 ML SYR ONE (07:29)
[2024-04-11] MEDS: ASPIRIN 81 MG CHEW ONE (07:32)
[2024-04-11 07:54] LABS: Estimated Average Glucose 212 mg/dl
[2024-04-11] MEDS: fentaNYL citrate PF 100 MCG/2 ML VIAL ONE (09:01)
[2024-04-11] MEDS: HEPARIN (PORCINE) 1000 UNIT/ML 10 ML (CATH LAB USE ONLY) ONE (09:01)
[2024-04-11] MEDS: ADENOSINE IV SOLN 3 MG/ML 20 ML VIAL IV ONE (09:01)
[2024-04-11] MEDS: MIDAZOLAM HCL 1 MG/ML 2ML VIAL ONE (09:01)
[2024-04-11] MEDS: CLOPIDOGREL BISULFATE 300 MG TAB ONE (09:02)
[2024-04-11] MEDS: IODIXANOL (VISIPAQUE) 320 MG/ML 100ML IV ONE (09:03)
--- NOTE | 2024-04-11 09:26 | Post Anesthesia Assessment ---
Date of Service April 11, 2024 Post Sedation Assessment Vital Signs Temp Pulse Pulse Resp BP BP Pulse Ox 04/11/24 09:13 92 H 14 126/92 98 04/11/24 05:32 88 04/11/24 03:06 98.2 F 89 18 120/81 94 04/10/24 22:43 98.2 F 96 H 18 117/65 96 04/10/24 22:03 94 H 04/10/24 19:44 98.1 F 86 18 123/83 93 04/10/24 14:18 98.4 F 92 H 18 131/95 95 04/10/24 14:14 98.4 F 92 H 17 131/95 95 04/10/24 13:30 87 04/10/24 12:52 98 H 23 142/100 H 98 04/10/24 12:00 95 H 23 138/94 99 04/10/24 11:30 90 24 137/101 H 96 04/10/24 11:00 89 26 H 135/103 H 96 04/10/24 10:45 88 15 133/96 94 04/10/24 10:40 85 20 130/103 H 96 04/10/24 10:30 88 23 130/103 H 95 04/10/24 10:00 89 16 137/100 95 04/10/24 09:37 93 H 04/10/24 09:30 99 H 24 125/102 H 95 O2 Del Method 04/11/24 09:13 Room Air 04/11/24 05:32 04/11/24 03:06 Room Air 04/10/24 22:43 Room Air 04/10/24 22:03 04/10/24 19:44 Room Air 04/10/24 14:18 Room Air 04/10/24 14:14 Room Air 04/10/24 13:30 04/10/24 12:52 04/10/24 12:00 04/10/24 11:30 04/10/24 11:00 04/10/24 10:45 04/10/24 10:40 Room Air 04/10/24 10:30 04/10/24 10:00 04/10/24 09:37 04/10/24 09:30 Recovery Score Activity: Moves 4 extremities Respiration: Deep Breath/Cough Circulation: +/-20% PreAnes Value Consciousness: Fully Awake Oxygen Saturation: > 92% On Room Air Post Anesthesia Score: 10 Discharge Sedation Level of Care: Fast Track Phase II Post Sedation Plan On clinical assessment, the patient appears to have tolerated the sedation without complications. Patient is recovering as anticipated. Patient will continue to be monitored by nursing and may be discharged when sedation discharge criteria are met per below protocol. Upon Completions of procedure up to 15 minutes continue every 5 minute vital signs and the P.A.R. score; then discharge to a Phase I or Fast Track to Phase II per the following guidelines: * Discharge Patient to appropriate Phase II area if PAR is 8 or greater or return to pre- procedure baseline. The post - procedure orders will be as directed. * If PAR score is less than 8 or not return to pre-procedure baseline then patient will follow Phase I monitoring till PAR is reached for Phase II. The Phase I may be done in procedure room or may call to secure a Phase I area. * If naloxone or flumazenil are used for reversal, hold in Phase I for continued monitoring from when last reversal dose was given for a minimum of 60 minutes or longer pending the nurse and/or physician discretion of patient condition before discharge to Phase II. Please call the Sedation Physician to re-evaluate and complete post-note for discharge to Phase II area. Do NOT discharge from procedure sedation or Phase 1 until post- sedation evaluation note is complete by procedure /sedation MD Sedation Discharge Instructions to be given to the patient at discharge to home.
--- NOTE | 2024-04-11 09:31 | Cardiac Catheterization ---
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 Cardiac Status Clinical evaluation leading to the procedure CAD Presenation: Unstable angina Anginal Classification: CCS III Diagnostic Physicians Name: Edwin Patel MD Closure Device Recommendations: PCI without planned CABG Cardiac Cath Procedure Full Procedure Date April 11, 2024 Pre-Procedure Diagnosis Pre-Procedure Diagnosis: Acute Coronary Syndrome and Angina AUC Score AUC Score: 7 Post-Procedure Diagnosis Post-Procedure Diagnosis: Severe CAD, Successful PCI and Normal Intracardiac Pressures Procedure(s) Performed Procedure(s) Performed: Coronary Angiography, Left Heart Cath, Drug Eluting Stent and Fractional Flow [place] [employer] Technician Edwin Patel MD Estimated Blood Loss Estimated Blood Loss: 20 Medication(s) Medication(s): Adenosine, Clopidogrel, Fentanyl, Heparin, Lidocaine 1%, Nicardipine, Nitroglycerin and Versed Summary of Findings Indication: Accelerating angina Access: 6 Fr slender right radial artery Catheters: [place], diagnostic JL 4, JR4 guide, EBU 3.5 guide Findings: LM -normal caliber, no significant disease LAD -medium caliber, calcified, 70% earlymid at takeoff of D2. Remainder of mid/distal vessel without significant disease, tapers prior to apex. Small D1 without disease. Small to medium caliber D2 with 70% proximal stenosis. Circumflex -medium caliber mid segment luminal irregularities. 100% proximal OM 3. Fills retrograde via left to left and right to left collaterals. RCA -dominant, large caliber, 50% latemid stenosis at crux into distal segment. 30% distal stenosis right before PDA. PDA without luminal regularities. Large PLB with 30% proximal stenosis LVEDP -5 IFR of RCA RCA cannulated with JR4 guide Choudhary Omni wire placed into distal vessel IFR 0.97 Wire removed and no apparent complications. IFR/FFR of LAD Left main cannulated with EBU 3.5 guide Choudhary Omni wire placed into distal vessel IFR 0.92 Adenosine administered and FFR <0.77 Decision to proceed with PCI -- PCI -- Antithrombotic therapy: Heparin, clopidogrel Procedure: Pre-procedure flow VIGNESH 3 Pressure Dispatcher 50 wire passed across lesion into distal LAD Pressure wire redirected into D2 Mid LAD lesion predilated with 2.5 compliant balloon Dilated lesion stented with 3.0 x 18 mm Elvin drug-eluting stent Stent post-dilated with 3.5 noncompliant balloon IC vasodilators administered for spasm Post procedure VIGNESH 3 flow, stent well expanded with minimal residual stenosis and no apparent cardiac complications. Severe residual ostial stenosis of D2 but VIGNESH-3 flow. Attempt made at passing wire across OM 3 occlusion Multiple wires used (whisper, police pilot 50) and OTW support balloon but no channel across occlusion, behave more chronic in nature. Wires removed and no apparent complications. Arterial Closure: TR band Summary: 1. Multivessel vessel coronary artery disease -70% earlymid LAD. 60-70% proximal small to medium D2 100% proximal OM 3 chronic total occlusion. Left to left and right to left collaterals 50% latemid into distal RCA (IFR negative 0.97) 2. Normal intracardiac filling pressure 3. Successful PCI of mid LAD with single drug-eluting stent (3.0 x 18 mm Elvin; postdilated with 3.5 NC). Recommendations: To PCU for continued monitoring Loaded with clopidogrel 600 mg in Border Machine Operator Continue dual-antiplatelet therapy for at least 6 months Continue statin, and ASCVD risk factor modification Consult cardiac Rehab Hemodynamics Rest Ao:: 105/83/92 Final Ao: 109/81/93 LV: 109/5 Recommendations Recommendations: PCI without planned CABG Specimens Specimens: None Radiation Exposure (mGy) 5339 Contrast (mls) 145 Anesthesia Moderate 2401-9779 Procedural Complication(s) None Disposition PCU I attest to the content of the Intraoperative Record and any orders documented therein. Any exceptions are noted below. [facility] Card Cath Procedure Codes Cardiac Catheterization Procedure 1: Cardiovascular Cath Procedures: 40846 Coronaries and LHC (+/-LV) Procedure 2: Cardiovascular Cath Procedures: 94294 (Doppler) Pressure Wire Procedure 3: Cardiovascular Cath Procedures: 82649 (Doppler) Pressure Wire Addl vessel Moderate Sedation Procedure 1: Sedation/Anesthesia: 52300 Mod Sedation by the same physician;Init15 Min Child Age 5 & Up Procedure 2: Sedation/Anesthesia: 13070 Mod Sedation by the same physician; Ea [id number] Minutes Stenting Procedure 1: Cardiovascular Stent Procedures: 96398 Perc transcatheter placement of intracoronary stent(s), with ang PG Care Time/CCT Total # of Minutes Spent Total Time Spent with Patient: Total time spent is greater than 50% in coordination of care (as documented) at patient's floor/unit and/or counseling patient:
[2024-04-11] MEDS: ASPIRIN 81 MG ECTAB PO SCH (10:17)
[2024-04-11] MEDS: amLODIPine BESYLATE 5 MG TAB PO SCH (10:17)
[2024-04-11] MEDS: PANTOprazole 40 MG TAB PO SCH (10:17)
[2024-04-11] MEDS: ROSUVASTATIN CALCIUM 10 MG TAB PO SCH (10:18)
[2024-04-11] MEDS: lisinopril 10 MG TAB PO SCH (10:18)
--- NOTE | 2024-04-11 10:54 | Cardiology Progress Note ---
Date of Service April 11, 2024 Assessment & Plan (1) Crescendo angina: (2) BELTRAN (dyspnea on exertion): (3) HLD (hyperlipidemia): (4) HTN (hypertension): (5) DM II (diabetes mellitus, type II), controlled: (6) Obesity: Plan 79-year-old male admitted to [facility] on 04/10/2024 with complaints of exertional chest tightness associated with shortness of breath, dizziness, leg weakness - crescendo angina Risk factors: Hypertension. Dyslipidemia. Type 2 diabetes mellitus. Carotid artery stenosis. Imaging this admission included a CTA with coronary atherosclerosis April 11, 2024 catheterization with multivessel CAD (70% earlymid LAD. 60- 70% proximal small to medium D2. 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 L-L and R-L collaterals. 50% latemid into distal RCA (IFR negative 0.97) Normal intracardiac filling pressure Status post successful PCI of mid LAD with single 3.0 x 18 mm [place] drug-eluting stent Recommendations: PCU for continued monitoring, possible discharge on 04/12/2024 Continue dual-antiplatelet therapy with ASA and Clopidogrel for at least the next 6 months Increase beta-ang therapy (new this admission), metoprolol succinate Continue statin (rosuvastatin), ACEI (lisinopril), and amlodipine Consult Cardiac Rehabilitation Repeat resting echocardiography as an outpatient, ? referral for Cardiac MRI Admission and Anticipated Discharge Date Admission Date: April 11, 2024 Supervising Physician Co-Signing Physician Notes Attending attestation: Case reviewed with the advanced practitioner. I have personally performed a history and physical examination on the patient. I have reviewed the advanced practitioner's documentation on the date of service referenced in note, and I agree with, and take responsibility for the plan of care. I spent a total of 20 minutes coordinating, documenting, and providing care for this patient excluding time spent in the performance of separately billed services or time spent by another provider. Jayme Herrera, DO Subjective Patient evaluated post catheterization. at bedside. Telemetry: Sinus with ectopy, heart rates in the 80's and 90's April 11, 2024 Coronary Angiography ([facility], Dr. Patel): LM - normal caliber, no significant disease LAD - medium caliber, calcified, 70% earlymid at takeoff of D2. Remainder of mid/distal vessel without significant disease, tapers prior to apex. Small D1 without disease. Small to medium caliber D2 with 70% proximal stenosis. Circumflex -medium caliber mid segment luminal irregularities. 100% proximal OM 3. Fills retrograde via left to left and right to left collaterals. RCA - dominant, large caliber, 50% latemid stenosis at crux into distal segment. 30% distal stenosis right before PDA. PDA without luminal regularities. Large PLB with 30% proximal stenosis LVEDP -5 Status post successful PCI of the mid LAD with single 3.0 x 18 mm Elvin drug- eluting stent Review of Systems Review of Systems: Complete Review of System is as stated above, negative, or noncontributory. Physical Exam Physical Exam: General: A&Ox3. NAD. HENT: Normocephalic. Atraumatic. Eyes: PER. Conjunctiva pink, sclera clear. Neck: Bilateral carotid bruits. No JVD. Heart: RRR, 80 bpm. Soft systolic murmur. No diastolic murmur. No rub. Lungs: Clear to auscultation. Abdomen: +BS. No organomegaly. Extremities: No clubbing, cyanosis, or edema. Limited neurological examination is without focal deficits. Results & Data Vital Signs (Past 12 Hours) Vital Signs Temp Pulse Pulse Resp BP Pulse Ox O2 Del Method 04/11/24 10:01 36.6 C 83 16 140/89 95 Room Air 04/11/24 09:30 90 14 120/90 96 Room Air 04/11/24 09:13 92 H 14 126/92 98 Room Air 04/11/24 05:32 88 04/11/24 03:06 36.8 C 89 18 120/81 94 Room Air Laboratory Results Cardiac Enzymes 04/10/24 Range/Units 14:23 Troponin I High Sens 8.9 (0-20) pg/ml CBC 04/10/24 04/11/24 Range/Units 14:23 06:16 WBC 7.69 7.76 (4.8-10.8) K/ul RBC 4.84 4.86 (4.70-6.10) M/uL Hgb 15.5 15.1 (14.0-18.0) g/dl Hct 42.8 43.5 (42.0-52.0) % Plt Count 242 250 (130-400) K/uL Comprehensive Metabolic Panel 04/10/24 04/11/24 Range/Units 14:23 06:16 Sodium 136 140 (136-145) mmol/L Potassium 4.4 4.7 (3.5-5.1) mmol/L Chloride 106 107 (98-107) mmol/L Carbon Dioxide 23 26 (21-32) mmol/L BUN 20 22 (6-23) mg/dl Creatinine 1.24 1.46 H (0.6-1.4) mg/dl Glucose 166 H 184 H (70-99(Fasting)) mg/dl Calcium 9.2 9.0 (8.6-10.3) mg/dl Intake and Output 04/10/24 04/11/24 04/11/24 22:59 06:59 14:59 Intake Total 241 / 340.333 99.333 / 340.333 Balance 241 / 340.333 99.333 / 340.333 Intake: IV 41 / 140.333 99.333 / 140.333 Heparin Sodium/Dextrose 25,000 41 / 140.333 99.333 / 140.333 units In 500 ml @ 1,000 UNITS/ HR 20 mls/hr IV .Q24H JESSI Rx#: [id number] Oral 200 / 200 Other: Other Intake Source NPO # Unmeasured Voids 1 2
--- NOTE | 2024-04-11 11:34 | Hospitalist Progress Note ---
Date of Service April 11, 2024 Assessment & Plan (1) Crescendo angina: (2) Coronary artery disease due to type 2 diabetes mellitus: (3) DM II (diabetes mellitus, type II), controlled: (4) WILLIAM (acute kidney injury): (5) HTN (hypertension): (6) HLD (hyperlipidemia): Plan Patient presented emergency room with history consistent with unstable/crescendo angina. Underwent cardiac catheterization with significant disease in multiple vessels and stent placed in the LAD Continue postcardiac cath care Adjust medications per cardiology recommendations Dual antiplatelet therapy for minimum of 6 months Recommend starting oral medications for diabetes upon discharge and follow-up with PCP Continue statin therapy Admission and Anticipated Discharge Date Admission Date: April 11, 2024 Subjective Patient seen postcardiac catheterization. No chest pain or shortness of breath. Physical Exam Physical Exam: Constitutional: Alert, no acute distress HEENT: Mucous membranes moist. Lungs: Clear to auscultation, decreased, no wheezes rales or rhonchi CV: S1-S2, regular Abdomen: Soft, nontender, nondistended Extremities: No significant edema, wrist tourniquet still in place. Neuro: No focal deficits Psych: Cooperative, normal mood Results & Data Results & Data Vital Signs (Past 12 Hours) Vital Signs Temp Pulse Pulse Resp BP Pulse Ox O2 Del Method 04/11/24 10:46 36.3 C L 89 19 131/99 96 Room Air 04/11/24 10:01 36.6 C 83 16 140/89 95 Room Air 04/11/24 09:30 90 14 120/90 96 Room Air 04/11/24 09:13 92 H 14 126/92 98 Room Air 04/11/24 05:32 88 04/11/24 03:06 36.8 C 89 18 120/81 94 Room Air Diagnostic Findings Reviewed imaging, laboratory and diagnostic studies. Pertinent findings as below. CBC within normal range Electrolytes within normal range Creatinine 1.46 Glucose 184 Hemoglobin A1c 9.0% Troponins unremarkable Cardiac catheterization report reviewed, 70% LAD with stent placement, 100% OM occlusion with collaterals, I refer you to the full report for details
[2024-04-11] MEDS ORDERED: Nursing to Pharmacy Communication SCH (12:30)
--- NOTE | 2024-04-11 14:12 | Pharmacy Report ---
Pharmacy Glycemic Short Note 2 - Date of Service April 11, 2024 - Glycemic Short BSG Results (Last 24 hours): 04/10/24 04/10/24 04/10/24 14:23 16:43 20:25 Glucose 166 H POC Glucose 275 H 176 H 04/11/24 04/11/24 04/11/24 05:57 06:16 10:17 Glucose 184 H POC Glucose 184 H 146 H 04/11/24 11:26 Glucose POC Glucose 176 H OUTPATIENT ANTIDIABETIC REGIMEN: NA ASSESSMENT: 04/11 * patient received 17 units of insulin on 04/10 (9 units basal and 8 units bolus). * Fasting blood glucose trending down so continue 9 units basal insulin. PLAN FOR INPATIENT GLYCEMIC CONTROL: * Hold outpatient oral diabetes medications * Basal insulin * Lantus 9 units SQ hs * Bolus insulin * NovoLog per scale ACHS or Q6hrs while NPO * Goal Range: Low 110 mg/dL - High 140 mg/dL * Correction Factor: 30 mg/dL/unit * Nutritional / Prandial insulin per carb ratio of 1 unit per 12 grams CHO consumed
[2024-04-11] MEDS: LANTUS PER UNIT CHARGE SC SCH (20:58)
--- NOTE | 2024-04-11 21:53 | Electrocardiogram Report ---
Test Reason : Blood Pressure : */* mmHG Vent. Rate : 87 BPM Atrial Rate : 87 BPM P-R Int : 180 ms QRS Dur : 98 ms QT Int : 380 ms P-R-T Axes : -11 -14 -2 degrees QTcB Int : 457 ms Normal sinus rhythm Normal ECG When compared with ECG of 10-Apr-2024 09:12, No significant change Confirmed by Dennis Skinner ([id number]) on 04/11/2024 9:52:42 PM Referred By: REFERRED SELF Confirmed By: Dennis Skinner
[2024-04-12 06:19] LABS: Hematocrit (blood only) 42.6 % (42.0-52.0); Mean Corpuscular Hemoglobin 31.3 pg (25.0-34.0); Mean Corpuscular Hgb Conc 35.2 g/dL (32.0-36.0); Mean Corpuscular Volume 88.9 fL (80.0-100.0); Mean Platelet Volume 9.8 fL (9.4-12.4); Platelet Count 225 K/uL (130-400); RDW Coefficient of Variation 12.4 % (11.5-14.5); RDW Standard Deviation 40.9 fL (36.4-46.3); Red Blood Count 4.79 M/uL (4.70-6.10)
[2024-04-12 06:36] LABS: BUN Creatinine Ratio 14.6 (10-20); Calcium 8.9 mg/dl (8.6-10.3); Creatinine Clr Calc Pharmacy 49.6 ml/min; Potassium 4.5 mmol/L (3.5-5.1)
[2024-04-12] MEDS: CLOPIDOGREL BISULFATE 75 MG TAB PO SCH (08:31)
[2024-04-12] MEDS: METOPROLOL SUCC 50MG EXT REL TAB PO SCH (08:31)
--- NOTE | 2024-04-12 10:21 | Cardiology Progress Note ---
Date of Service April 12, 2024 Assessment & Plan (1) Crescendo angina: (2) BELTRAN (dyspnea on exertion): (3) HLD (hyperlipidemia): (4) HTN (hypertension): (5) DM II (diabetes mellitus, type II), controlled: (6) Obesity: Plan 79-year-old male admitted to [facility] on 04/10/2024 with complaints of exertional chest tightness associated with shortness of breath, dizziness, leg weakness - crescendo angina Risk factors: Hypertension. Dyslipidemia. Type 2 diabetes mellitus. Carotid artery stenosis. Imaging with coronary atherosclerosis April 11, 2024 catheterization with multivessel CAD (70% earlymid LAD. 60- 70% proximal small to medium D2. 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 L-L and R-L collaterals. 50% latemid into distal RCA (IFR negative 0.97) Normal intracardiac filling pressure Status post successful PCI of mid LAD with single 3.0 x 18 mm [place] drug-eluting stent Recommendations: Continue dual-antiplatelet therapy with ASA and Clopidogrel for at least the next 6 months Metoprolol succinate prescribed this admission, increased to 50 mg/day starting on 04/12 Continue statin (rosuvastatin), ACEI (lisinopril), and amlodipine Refer for Cardiac Rehabilitation Repeat resting echocardiography as an outpatient, ? referral for Cardiac MRI Outpatient cardiology follow-up in 2-3 weeks (Addendum: , April 28, 2024, 10:15 patient arrival time) Admission and Anticipated Discharge Date Admission Date: April 11, 2024 Supervising Physician Co-Signing Physician Notes Agree with findings and plan as outlined by Solis Plummer PA-C. Case reviewed with Solis Plummer PA-C. Patient discharged prior to pa having the opportunity to examine him in person. Cha Herrera, Subjective Patient seen and examined. Chart, medications, telemetry reviewed. Feeling well. No complaints or concerns. Anxious for discharge. Telemetry: Sinus in the 90s; metoprolol initiated this hospitalization, increased to 50 mg/day starting this morning. Review of Systems Review of Systems: Complete Review of System is as stated above, negative, or noncontributory. Physical Exam Physical Exam: General: A&Ox3. NAD. HENT: Normocephalic. Atraumatic. Eyes: PER. Conjunctiva pink, sclera clear. Neck: Bilateral carotid bruits. No JVD. Heart: RRR, 86 bpm. Soft systolic murmur. No diastolic murmur. No rub. Lungs: Clear to auscultation. Abdomen: +BS. No organomegaly. Extremities: No clubbing, cyanosis, or edema. Limited neurological examination is without focal deficits. Results & Data Vital Signs (Past 12 Hours) Vital Signs Temp Pulse Pulse Resp BP Pulse Ox O2 Del Method 04/12/24 07:28 36.6 C 89 18 107/76 95 Room Air 04/12/24 03:54 36.8 C 90 18 111/80 96 Room Air 04/11/24 23:36 87 04/11/24 23:26 36.8 C 91 H 18 104/77 93 Room Air Laboratory Results CBC 04/12/24 Range/Units 05:40 WBC 8.70 (4.8-10.8) K/ul RBC 4.79 (4.70-6.10) M/uL Hgb 15.0 (14.0-18.0) g/dl Hct 42.6 (42.0-52.0) % Plt Count 225 (130-400) K/uL Comprehensive Metabolic Panel 04/12/24 Range/Units 05:40 Sodium 136 (136-145) mmol/L Potassium 4.5 (3.5-5.1) mmol/L Chloride 105 (98-107) mmol/L Carbon Dioxide 23 (21-32) mmol/L BUN 21 (6-23) mg/dl Creatinine 1.44 H (0.6-1.4) mg/dl Glucose 152 H (70-99(Fasting)) mg/dl Calcium 8.9 (8.6-10.3) mg/dl Intake and Output 04/11/24 04/12/24 04/12/24 22:59 06:59 14:59 Intake Total 700 / 1768.333 200 / 1768.333 Balance 700 / 1768.333 200 / 1768.333 Intake: Oral 700 / 1550 200 / 1550 Other: # Unmeasured Voids 1 Weight 98 kg Weight Measurement Method Standing Scale Diagnostic Findings April 11, 2024 Coronary Angiography ([facility], Dr. Patel): LM - normal caliber, no significant disease LAD - medium caliber, calcified, 70% earlymid at takeoff of D2. Remainder of mid/distal vessel without significant disease, tapers prior to apex. Small D1 without disease. Small to medium caliber D2 with 70% proximal stenosis. Circumflex -medium caliber mid segment luminal irregularities. 100% proximal OM 3. Fills retrograde via left to left and right to left collaterals. RCA - dominant, large caliber, 50% latemid stenosis at crux into distal segment. 30% distal stenosis right before PDA. PDA without luminal regularities. Large PLB with 30% proximal stenosis LVEDP -5 Status post successful PCI of the mid LAD with single 3.0 x 18 mm Elvin drug- eluting stent
[2024-04-12 10:56] VITALS: BP 112/83; PULSE 86; RESP 17; TEMP 97.3; O2SAT 93
--- NOTE | 2024-04-12 11:13 | Discharge Summary ---
Discharge Summary Date of Service April 12, 2024 Principal Dx & Hospital Course #1 = Principal Diagnosis (1) Crescendo angina: (2) Coronary artery disease due to type 2 diabetes mellitus: (3) DM II (diabetes mellitus, type II), controlled: (4) WILLIAM (acute kidney injury): (5) HTN (hypertension): (6) HLD (hyperlipidemia): Plan Patient presented to the emergency room with increasing dyspnea on exertion. Patient had numerous risk factors for coronary artery disease. Patient was admitted to the hospital. Monitor on telemetry and troponins trended. There is no evidence of acute coronary syndrome. Cardiology consultation was obtained. Due to the patient's history and risk factors high concern he is having unstable angina. Cardiac catheterization was recommended. Patient underwent cardiac catheterization with stenting of the LAD. His metoprolol was titrated upward and his postcardiac cath course was uneventful. Patient also had increasing hemoglobin A1c. Was seen by diabetic education. He will be started on metformin at time of discharge. And will be given a glucometer. He will follow-up with cardiology post cardiac cath in the office, may need updated echocardiogram and possible cardiac imaging with MRI that will be coordinated outpatient through cardiology. To follow-up with his PCP for management of his other medical issues including his diabetes. Notes For Next Care Provider May need additional intervention for his diabetes Medication Changes From Visit Metoprolol dose increased Lisinopril increased Statin dose increased Plavix added to aspirin for cardiac stent Admission HPI Per Admitting Provider Germain Candelario is is a 79-year-old male with a PMHX significant for DM II with neuropath(diet controlled), hyperlipidemia, carotid stenosis, (last echo done 07/09/23 with LVEF of 60%), hypertension presenting with stating over the past 2 days since Thursday he has been experiencing some lightheadedness and shortness of breath with exertion. He has some indigestion with this but no rolan chest pain He denies indigestion or CP now. No syncope but has feels dizzy with exertion. No true subjective or objective vertigo. No associated diaphoresis, nausea or radiation of discomfort. No significant cardiac history reported. His risk factors are DM and HTN. Also has a family hx of CAD. Denies rolan chest pain at any time. States his legs feel very heavy when ambulating the last two days. No edema. Has a hx of neuropathy. No fever or cold symptoms reported. No real history of similar. Did take his morning meds including baby aspirin this morning but given symptoms were persisting and even walking up a small grade near his house was causing symptoms came to the ED for evaluation. BPs have been elevated in the ED. Troponin is negative. EKG reviewed. Agree with the ED provider. I do not see ST elevation as per the computer reading. Computer notes junctional rhythm but monitor is showing SR. Admission Exam Per Admitting Provider See H&P Discharge Exam Constitutional: Alert HEENT: Mucous membranes moist. Lungs: Clear to auscultation, decreased, no wheezes rales or rhonchi CV: S1-S2, regular Abdomen: Soft, nontender, nondistended Extremities: No significant edema, right wrist cardiac cath site soft without significant ecchymosis or swelling. Neuro: No focal deficits Psych: Cooperative, normal mood Updated Medication List Medication Instructions Recorded Confirmed Type aspirin 81 mg tablet,delayed 81 mg PO DAILY 10/15/21 04/10/24 History release lisinopril 20 mg tablet 20 mg PO DAILY 10/15/21 04/10/24 History amlodipine 10 mg tablet 10 mg PO QAM 04/10/24 04/10/24 History finasteride 5 mg tablet 5 mg PO QAM 04/10/24 04/10/24 History rosuvastatin 10 mg tablet 10 mg PO HS 04/10/24 04/10/24 History blood-glucose meter (Blood Glucose #1 ea 04/12/24 Rx Monitoring kit) clopidogrel 75 mg tablet 75 mg PO QAM #30 tabs 04/12/24 Rx lisinopril 10 mg tablet 30 mg (3 x 10 mg) PO DAILY #90 tabs 04/12/24 Rx metformin 500 mg tablet 500 mg PO BIDWMEAL #60 tabs 04/12/24 Rx metoprolol succinate 50 mg 50 mg PO QAM #30 tabs 04/12/24 Rx tablet,extended release 24 hr pantoprazole 40 mg tablet,delayed 40 mg PO DAILY #30 tabs 04/12/24 Rx release rosuvastatin 10 mg tablet 10 mg PO DAILY #30 tabs 04/12/24 Rx Hospital Stay Data Consultations 04/10/24 11:15 ED Decision to Admit Stat 04/10/24 12:24 Consult Cardiology Routine Procedures Performed Operation Date: 04/11/24 07:00 Actual Procedures p Cineradiography w/Routine Exam - Edwin Patel MD s Cath, Left with Cors and Vent - Edwin Patel MD s Fraction Flow [place] SGL Ves - Edwin Patel MD s Drug Eluting Stent SGl Vessel - Edwin Patel MD Diagnostic Imagining Performed 04/10/24 09:20 CT angio chest PE protocol Stat 04/10/24 12:02 Carotid duplex [US carotid doppler BI] Routine 04/11/24 07:03 CL Cath Imgs for PACS use only Routine Reviewed imaging, laboratory and diagnostic studies. Pertinent findings as below. Cardiac cath showed significant disease of the LAD and OM1. Stent placed in the LAD, OM 1 completely occluded. I refer you to full report for details Echocardiogram showed ejection fraction of 55 to 60% with some left ventricular hypertrophy. I refer you to full report for details CBC stable and within normal limits Electrolytes within normal ranges Creatinine 1.44 Glucose 148 Hemoglobin A1c 9.0% Pending Results Patient Have Any Pending Studies at Discharge: No Discharge Instructions Given to Patient (Per Discharging Provider) Follow-up with cardiology as coordinated through their office on April 28, 2024 at 10:15 AM Discussed with your PCP ongoing management of diabetes Total Time Total Time Spent Total Time Spent (In Minutes): 35
== END 2024-04-12 12:21 | disposition home or self-care (01) | DRG 322 ==
LOC: ED 08:54 → 4W 08:54 → SUATTDRO 11:34 → 4W 13:43

== ENCOUNTER 2024-05-12 16:44 | Observation (INO) ==
--- NOTE | 2024-05-12 16:50 | ED Triage Note ---
Date of Service May 12, 2024 Provider in Triage Author: Frannie Leiva History of Present Illness This patient was briefly evaluated while in triage. An abbreviated physical exam was performed. This patient is a 79-year-old Male who presents to the ED for evaluation of chest pain. He had a stent placed a month ago. He states he had an episode of chest pain about 4.5 hours ago. He describes this as a burning pain which came and went quickly. Unable to quantify amount of time. Physical Exam GENERAL: Non-toxic and in no acute distress. HEENT: Pupils equal. No obvious scleral icterus. HEART: Regular rate and rhythm. LUNGS: Clear to auscultation. No accessory muscle use. NEURO: Alert and oriented. No obvious neurological deficits on quick neuro exam. Initial orders for labs and / or imaging were placed and patient was placed in the waiting area until a bed is available. Please see further documentation for the full ED course. MDM / Impression Impression Impression: Chest pain, Elevated troponin
[2024-05-12 17:13] LABS: Basophils # (auto) 0.02 K/uL (0.00-0.20); Basophils % (auto) 0.3 %; Eosinophils # (auto) 0.15 K/uL (0.00-0.50); Eosinophils % (auto) 2.1 %; Hematocrit (blood only) 39.3 % (42.0-52.0); Hemoglobin 13.6 g/dl (14.0-18.0); Immature Granulocytes # (auto) 0.02 K/uL (0.01-0.20); Immature Granulocytes % (auto) 0.3 %; Lymphocytes # (auto) 1.44 K/uL (1.20-3.40); Mean Corpuscular Hemoglobin 31.3 pg (25.0-34.0); Mean Corpuscular Hgb Conc 34.6 g/dL (32.0-36.0); Mean Corpuscular Volume 90.3 fL (80.0-100.0); Mean Platelet Volume 9.6 fL (9.4-12.4); Monocytes % (auto) 8.3 %; Neutrophils # (auto) 4.98 K/uL (1.40-6.50); Platelet Count 226 K/uL (130-400); RDW Coefficient of Variation 12.5 % (11.5-14.5); RDW Standard Deviation 40.6 fL (36.4-46.3); Red Blood Count 4.35 M/uL (4.70-6.10); White Blood Count 7.21 K/ul (4.8-10.8)
[2024-05-12 17:31] LABS: Albumin Globulin Ratio 1.4 (0.9-2); Albumin Level 3.9 gm/dl (3.4-5.0); BUN Creatinine Ratio 19.7 (10-20); Bilirubin,Total 0.4 mg/dl (0.2-1.0); Calcium 9.3 mg/dl (8.6-10.3); Creatinine Clr Calc Pharmacy 59.1 ml/min; Globulin 2.8 gm/dl (2.5-4.0); Potassium 4.6 mmol/L (3.5-5.1); Total Protein 6.7 gm/dl (6.0-8.3)
--- NOTE | 2024-05-12 17:40 | XRay Report ---
EXAM: X-ray chest one-view portable CLINICAL HISTORY: Sharp upper left anterior chest pain PRIORS: 11/27/2023, chest CT 04/10/2024 TECHNIQUE: PA and lateral views chest FINDINGS: Large body habitus is noted. The chest is well-expanded. No airspace consolidation, effusion or congestive changes. Heart size is normal. No pneumothorax. Trachea is patent. Osseous structures demonstrate no acute abnormality. No radiopaque foreign body. No subdiaphragmatic gas. IMPRESSION: No plain film evidence of an acute cardiopulmonary process. Electronically signed by Izzy Boyer 05-12-2024 5:40 PM
[2024-05-12] MEDS: ASPIRIN 81 MG CHEW PO STA (17:56)
--- NOTE | 2024-05-12 18:04 | History & Physical Report ---
Date of Service May 12, 2024 Assessment & Plan (1) Chest pain: (2) Elevated troponin: (3) CAD (coronary artery disease): (4) S/P cardiac catheterization: (5) DM II (diabetes mellitus, type II), controlled: (6) HTN (hypertension): (7) HLD (hyperlipidemia): (8) BPH (benign prostatic hyperplasia): Plan This is a 79yo M with PMH of multi-vessel CAD with EASTON to mid-LAD in Mar 2024, Type 2 diabetes, dyslipidemia, hypertension, aneurysm of ascending aorta without rupture, CKD 3 and other medical problems listed below who presents with chest pain starting this afternoon around 1300. Chest pain Multi-vessel CAD with recent EASTON to mid-LAD CP etiology cardiac vs GI - brief sharp L sided CP that resolved, now back to more typical indigestion pain EKG without acute changes, HS trop 55 Recent EASTON to LAD on 04/10 at [facility] ("70% earlymid LAD. 60-70% proximal small to medium D2. 100% proximal OM 3 LEAD GENERATOR. L-L and R-L collaterals. 50% latemid into distal RCA") Continue aspirin, plavix, statin, Toprol Trend trops, tele overnight Routine cardiology consult Enlarged Ascending Aorta Known diagnosis with recent imaging - continue annual monitoring with cardiology Carotid stenosis Asymptomatic Continue aspirin, plavix, statin DM II A1c 9.0 Hold home agents SSI while in-patient BSG AC HS HTN Normotensive Continue amlodipine, lisinopril, Toprol CKD III Cr 1.22 (at baseline) Monitor with daily BMP BPH Continue finasteride, bladder scan PRN DVT Ppx: SQ heparin Code status: FULL PCP: Valentin Dispo: observation PCU Patient seen in collaboration with Dr. Lee. Please see addendum. I spent a total of 75 minutes coordinating, documenting, and providing care for this patient excluding time spent in the performance of separately billed services. History of Present Illness Chief Complaint: CP Primary Care Provider: Justin Hanson, DO This is a 79yo M with PMH of multi-vessel CAD with EASTON to mid-LAD in Mar 2024, Type 2 diabetes, dyslipidemia, hypertension, aneurysm of ascending aorta without rupture, CKD 3 and other medical problems listed below who presents with chest pain starting this afternoon around 1300. Pain is burning, left sided and feels like "someone laid a hot poker on my chest". This severe pain only lasts a few seconds and then resolves for a bit. Also having intermittent indigestion. Feels similar to chest pain on previous admission but does not have the same "heavy" feeling in his limbs today. Endorses intermittent lightheadedness over the past week and feels he looks pale. Has had influenza A since cath but feels recovered at this point. No F/C, headache, palpitations, wheezing, N/V, abd pain, dysuria, diarrhea or constipation. Was recently admitted in mid March and due to concern for unstable angina, underwent cardiac catheterization with stenting of the LAD on 04/10 ("70% earlymid LAD. 60-70% proximal small to medium D2. 100% proximal OM 3 LEAD GENERATOR. L-L and R-L collaterals. 50% latemid into distal RCA". Metoprolol dose was uptitrated and was set up with cardiology follow up for possible cardiac MRI. Also started on metformin for a1c of 9. Allergies Allergy/AdvReac Type Severity Reaction Status Date / Time No Known Allergies Allergy Mild Verified 04/10/24 11:54 Home Medications Medication Instructions Recorded Confirmed Type aspirin 81 mg tablet,delayed 81 mg PO DAILY 10/15/21 05/12/24 History release amlodipine 10 mg tablet 10 mg PO QAM 04/10/24 05/12/24 History finasteride 5 mg tablet 5 mg PO QAM 04/10/24 05/12/24 History blood-glucose meter (Blood Glucose #1 ea 04/12/24 05/12/24 Rx Monitoring kit) clopidogrel 75 mg tablet 75 mg PO QAM #30 tabs 04/12/24 05/12/24 Rx metformin 500 mg tablet 500 mg PO BIDWMEAL #60 tabs 04/12/24 05/12/24 Rx metoprolol succinate 50 mg 50 mg PO QAM #30 tabs 04/12/24 05/12/24 Rx tablet,extended release 24 hr pantoprazole 40 mg tablet,delayed 40 mg PO DAILY #30 tabs 04/12/24 05/12/24 Rx release lisinopril 10 mg tablet 20 mg PO DAILY 05/12/24 05/12/24 History rosuvastatin 10 mg tablet 20 mg PO HS 05/12/24 05/12/24 History Past Med/Surg History Problem List (Updated 05/12/24 @ 20:19 by Alessia Rosales PA-C) Elevated troponin (Acute) Chest pain (Acute) Medical History (Updated 05/12/24 @ 20:19 by Alessia Rosales PA-C) DM (diabetes mellitus), type 2 CAD (coronary artery disease) BPH (benign prostatic hyperplasia) Obesity Urinary retention Carotid stenosis HLD (hyperlipidemia) HTN (hypertension) Surgical History (Updated 05/12/24 @ 20:19 by Alessia Rosales PA-C) S/P cardiac catheterization EASTON to LAD 04/10/24 @ [facility] Hx of arthroscopy of shoulder History of meniscectomy of left knee Hx laparoscopic cholecystectomy Family History Father Cancer Mother Stroke Sister Stroke Social History Smoking Status: Unknown if ever smoked Hx Alcohol Use: No Hx Substance Use: No Preferred Language: Malawian Communication Ability: Effective 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 Physical Exam Physical Exam: Please see Dr. Lee's addendum for physical exam. Results & Data Results & Data Vital Signs (Past 12 Hours) Vital Signs Temp Pulse Pulse Resp BP BP Pulse Ox 05/12/24 17:21 05/12/24 17:19 95 05/12/24 17:19 63 18 109/82 94 05/12/24 17:18 62 05/12/24 16:48 36.9 C 63 16 130/88 97 O2 Del Method 05/12/24 17:21 Room Air 05/12/24 17:19 Room Air 05/12/24 17:19 Room Air 05/12/24 17:18 05/12/24 16:48 Room Air Laboratory Results Short CBC 05/12/24 Range/Units 16:57 WBC 7.21 (4.8-10.8) K/ul Hgb 13.6 L (14.0-18.0) g/dl Hct 39.3 L (42.0-52.0) % Plt Count 226 (130-400) K/uL BMP 05/12/24 16:57 Sodium 139 Potassium 4.6 Chloride 107 Carbon Dioxide 25 BUN 24 H Creatinine 1.22 Glucose 131 H Calcium 9.3 Liver Function 05/12/24 Range/Units 16:57 Total Bilirubin 0.4 (0.2-1.0) mg/dl AST 23 (13-39) U/L ALT 21 (7-52) U/L Alkaline Phosphatase 58 (34-104) U/L Albumin 3.9 (3.4-5.0) gm/dl Diagnostic Findings Chest X-Ray 05/12/24 16:50 EXAM: X-ray chest one-view portable CLINICAL HISTORY: Sharp upper left anterior chest pain PRIORS: 11/27/2023, chest CT 04/10/2024 TECHNIQUE: PA and lateral views chest FINDINGS: Large body habitus is noted. The chest is well-expanded. No airspace consolidation, effusion or congestive changes. Heart size is normal. No pneumothorax. Trachea is patent. Osseous structures demonstrate no acute abnormality. No radiopaque foreign body. No subdiaphragmatic gas. IMPRESSION: No plain film evidence of an acute cardiopulmonary process. Electronically signed by Izzy Boyer 05-12-2024 5:40 PM ECG Additional Comments: SR with 1st degree AV block, PVCs Supervising Physician Co-Signing Physician Notes Patient seen and examined Reports he has been having indigestion since last hospitalization during which he had [facility] with stent placement However, today he had a brief episode of sharp left sided chest pain that quickly resolved reported he was quite pale at the time, was worried and started telling her what to do if something happens to him General: In no distress Eyes: PERRL, conjunctivae normal, not pale, anicteric sclerae, EOM intact bilaterally ENMT: External ear and nose normal, oropharynx normal Respiratory: Normal respiratory effort, no respiratory distress, lungs clear to auscultation, no crackles and no wheezes Cardiovascular: RRR S1 S2 Gastrointestinal (Abdomen): Abdomen is not distended, soft, non-tender to palpation, no guarding, no palpable hepatosplenomegaly, normal bowel sounds Musculoskeletal: No pedal edema Neurologic: Alert and oriented x 3, No focal weakness, sensation grossly intact Psychiatric: Euthymic affect Chest pain Recent cardiac cath showing multivessel CAD with stent to LAD Trop mildly elevated at 55 Will trend trop Get Cards eval Continue DAPT, rosuvastatin, toprol XL I spent a total of 40 minutes coordinating, documenting and providing care for this patient excluding time spent in performance of separately billed services
--- NOTE | 2024-05-12 18:43 | Emergency Department Note ---
History of Present Illness General Chief Complaint: Chest Pain Stated Complaint: CHEST PAIN OFF AND ON, HAD STENT PUT IN Time Seen by Provider: 05/12/24 17:19 History of Present Illness Provider Complaint: chest pain Time: 13:00 Duration: intermittent Onset: during rest Pain Location: left chest Pain Radiation: none Severity: mild Quality: + sharp and + other (Burning) Relieved By: + nothing Exacerbated By: + nothing Context: no recent illness, no recent surgery, no recent travel, no trauma/injury or no history of DVT/PE Associated symptoms: + dyspnea; no nausea, no vomiting, no palpitations, no fever or no cough Home Medications Medication Instructions Recorded Confirmed Type aspirin 81 mg tablet,delayed 81 mg PO DAILY 10/15/21 05/12/24 History release amlodipine 10 mg tablet 10 mg PO QAM 04/10/24 05/12/24 History finasteride 5 mg tablet 5 mg PO QAM 04/10/24 05/12/24 History blood-glucose meter (Blood Glucose #1 ea 04/12/24 05/12/24 Rx Monitoring kit) clopidogrel 75 mg tablet 75 mg PO QAM #30 tabs 04/12/24 05/12/24 Rx metformin 500 mg tablet 500 mg PO BIDWMEAL #60 tabs 04/12/24 05/12/24 Rx metoprolol succinate 50 mg 50 mg PO QAM #30 tabs 04/12/24 05/12/24 Rx tablet,extended release 24 hr pantoprazole 40 mg tablet,delayed 40 mg PO DAILY #30 tabs 04/12/24 05/12/24 Rx release lisinopril 10 mg tablet 20 mg PO DAILY 05/12/24 05/12/24 History rosuvastatin 10 mg tablet 20 mg PO HS 05/12/24 05/12/24 History Allergies Allergy/AdvReac Type Severity Reaction Status Date / Time No Known Allergies Allergy Mild Verified 04/10/24 11:54 Past Med/Surg History Problem List (Updated 05/12/24 @ 18:43 by Raghu Ellis MD) Elevated troponin (Acute) Chest pain (Acute) Coronary artery disease due to type 2 diabetes mellitus Obesity Crescendo angina BELTRAN (dyspnea on exertion) (Acute) 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 Urinary retention Carotid stenosis HLD (hyperlipidemia) HTN (hypertension) DM II (diabetes mellitus, type II), controlled Changes in vision (Acute) WILLIAM (acute kidney injury) (Acute) Dizziness (Acute) Surgical History Hx of arthroscopy of shoulder History of meniscectomy of left knee Hx laparoscopic cholecystectomy Family History Father Cancer Mother Stroke Sister Stroke Social History Smoking Status: Unknown if ever smoked Hx Alcohol Use: No Hx Substance Use: No Preferred Language: Maltese Communication Ability: Effective Gumming Machine Operator Required: No Beliefs That Will Affect Care: None Current Living Situation: Spouse Feels Safe at Home: Yes Assistive Devices: None Physical Exam Vital Signs Vital Signs - 24 hr 05/12/24 16:48 05/12/24 17:18 05/12/24 17:19 Temperature 36.9 C Temperature Source Temporal Artery Scan Pulse Rate 63 62 Pulse Rate [Apical] 63 Respiratory Rate 16 18 Respiratory Effort / Characteristics Non-Labored Non-Labored Respiratory Depth Normal Normal Blood Pressure 130/88 Blood Pressure [Right Arm] 109/82 Blood Pressure Mean 102 Blood Pressure Mean [Right Arm] 91 Pulse Oximetry 97 94 Oxygen Delivery Method Room Air Room Air Sepsis Recent Fever Within 48 Hours No Sepsis New/Unexplained Change in Mental Status N/A Sepsis Action Taken by Nursing No Action Required 05/12/24 17:19 05/12/24 17:21 Temperature Temperature Source Pulse Rate Pulse Rate [Apical] Respiratory Rate Respiratory Effort / Characteristics Respiratory Depth Blood Pressure Blood Pressure [Right Arm] Blood Pressure Mean Blood Pressure Mean [Right Arm] Pulse Oximetry 95 Oxygen Delivery Method Room Air Room Air Sepsis Recent Fever Within 48 Hours Sepsis New/Unexplained Change in Mental Status Sepsis Action Taken by Nursing Physical Exam GENERAL: oriented to person, place, and time. appears well-developed and well- nourished. HENT: Exam performed. - Head: Normocephalic and atraumatic. EYES: Conjunctivae and EOM are normal. Right eye exhibits no discharge. Left eye exhibits no discharge. No scleral icterus. NECK: Normal range of motion. Neck supple. No JVD present. CV: Normal rate, regular rhythm, normal heart sounds and intact distal pulses. There is no peripheral edema. Palpable radial pulses bue. PULM/CHEST: Effort normal and breath sounds normal. No respiratory distress. No stridor. no wheezes. no rales. ABD: The abdomen is soft. There is no tenderness. NEURO: Motor and sensation grossly intact. SKIN: Skin is warm and dry. He is not diaphoretic. PSYCH: normal mood and affect. Behavior is normal. Judgment and thought content normal. Course Course 1718: The patient was evaluated in room B12. A complete history and physical exam was performed Cardiac monitoring: An order was placed for continuous cardiac monitoring. The monitor shows a rate of 60 with sinus rhythm interpreted by me 1750: Vital signs stable. Labs are significant for an increase high-sensitivity troponin of 55. Chest x-ray negative. [facility] rule out ACS. Administered Medications Discontinued Medications Aspirin (Aspirin 81 Mg Chew) 324 mg PO NOW STA Stop: 05/12/24 17:52 Last Admin: 05/12/24 17:56 Dose: 324 mg Documented By: SILVIA Medical Decision Making Medical Records Attestation: I reviewed the patient's medical records. Medical records narrative: External medical records reviewed. Patient was admitted from April 10 to April 12, 2024. He was admitted for exertional dyspnea. Cardiology evaluated the patient and he was determined to have angina, a cardiac catheterization was performed and the patient is stent put in his LAD. Laboratory Data Attestation: I reviewed the patient's lab results. 05/12/24 16:57 05/12/24 16:57 Labs: Lab Results 05/12/24 Range/Units 16:57 WBC 7.21 (4.8-10.8) K/ul RBC 4.35 L (4.70-6.10) M/uL Hgb 13.6 L (14.0-18.0) g/dl Hct 39.3 L (42.0-52.0) % MCV 90.3 (80.0-100.0) fL MCH 31.3 (25.0-34.0) pg MCHC 34.6 (32.0-36.0) g/dL RDW Std Deviation 40.6 (36.4-46.3) fL RDW Coeff of Yasmine 12.5 (11.5-14.5) % Plt Count 226 (130-400) K/uL MPV 9.6 (9.4-12.4) fL Immature Gran % (Auto) 0.3 % Neut % (Auto) 69.0 % Lymph % (Auto) 20.0 % [place]insett % (Auto) 8.3 % Eos % (Auto) 2.1 % Baso % (Auto) 0.3 % Neut # (Auto) 4.98 (1.40-6.50) K/uL Lymph # (Auto) 1.44 (1.20-3.40) K/uL [place] # (Auto) 0.60 H (0.11-0.59) K/uL Eos # (Auto) 0.15 (0.00-0.50) K/uL Baso # (Auto) 0.02 (0.00-0.20) K/uL Immature Gran # (Auto) 0.02 (0.01-0.20) K/uL Sodium 139 (136-145) mmol/L Potassium 4.6 (3.5-5.1) mmol/L Chloride 107 (98-107) mmol/L Carbon Dioxide 25 (21-32) mmol/L Anion Gap 7 (3-11) BUN 24 H (6-23) mg/dl Creatinine 1.22 (0.6-1.4) mg/dl Est Cr Clr Drug Dosing 59.1 ml/min eGFR 60.68 BUN/Creatinine Ratio 19.7 (10-20) Glucose 131 H (70-99(Fasting)) mg/dl Calcium 9.3 (8.6-10.3) mg/dl Total Bilirubin 0.4 (0.2-1.0) mg/dl AST 23 (13-39) U/L ALT 21 (7-52) U/L Alkaline Phosphatase 58 (34-104) U/L Troponin I High Sens 55.0 H* (0-20) pg/ml Total Protein 6.7 (6.0-8.3) gm/dl Albumin 3.9 (3.4-5.0) gm/dl Globulin 2.8 (2.5-4.0) gm/dl Albumin/Globulin Ratio 1.4 (0.9-2) Imaging Data Chest x-ray: Attestation: I personally reviewed and interpreted this imaging study as follows: My impression: Chest x-ray negative. Airway clear. No pneumothorax. No consolidation. No cardiomegaly or cephalization.. No free air under the diaphragm. No fractures of the skeletal structures. Radiologist's impression: Chest X-Ray 05/12/24 16:50 EXAM: X-ray chest one-view portable CLINICAL HISTORY: Sharp upper left anterior chest pain PRIORS: 11/27/2023, chest CT 04/10/2024 TECHNIQUE: PA and lateral views chest FINDINGS: Large body habitus is noted. The chest is well-expanded. No airspace consolidation, effusion or congestive changes. Heart size is normal. No pneumothorax. Trachea is patent. Osseous structures demonstrate no acute abnormality. No radiopaque foreign body. No subdiaphragmatic gas. IMPRESSION: No plain film evidence of an acute cardiopulmonary process. Electronically signed by Izzy Boyer 05-12-2024 5:40 PM ECG Data Attestation: I personally reviewed and interpreted this ECG as follows: Additional Comments: EKG #1 at 1654: Sinus rhythm with rate 62. AL 212 QRS [address] elevation or ST depression. There is diffuse artifact and baseline wander. EKG #2 at 1814: Sinus rhythm with rate of 56. AL 204 QRS [address] elevation or ST depression. First-degree AV block present. [facility] Narrative 1719: The patient was evaluated in room B12. A complete history and physical exam was performed Cardiac monitoring: An order was placed for continuous cardiac monitoring. The monitor shows a rate of 60 with sinus rhythm interpreted by me 1750: Vital signs stable. Labs are significant for an increase high-sensitivity troponin of 55. Chest x-ray negative. [facility] pain rule out ACS. Impression & Plan Chest pain, Elevated troponin Discharge Plan Visit Data Chief Complaint: Chest Pain Stated Complaint: CHEST PAIN OFF AND ON, HAD STENT PUT IN ED Provider: Raghu Ellis Discharge Problem: Chest pain, Elevated troponin Patient Disposition: Admitted As Inpatient Forms Stand Alone Forms: My [facility] Prescriptions Prescriptions: No Action aspirin 81 mg Tablet,Delayed Release (Dr/Ec) 81 mg PO DAILY amlodipine 10 mg tablet 10 mg PO QAM finasteride 5 mg tablet 5 mg PO QAM metoprolol succinate 50 mg Tablet Extended Release 24 Hr 50 mg PO QAM Qty: 30 0RF clopidogrel 75 mg Tablet 75 mg PO QAM Qty: 30 0RF pantoprazole 40 mg Tablet,Delayed Release (Dr/Ec) 40 mg PO DAILY Qty: 30 0RF metformin 500 mg tablet 500 mg PO BIDWMEAL Qty: 60 0RF (DME) blood-glucose meter [Blood Glucose Monitoring] Kit See Rx Instructions .Route Qty: 1 0RF Rx Instructions: 2 times daily- before breakfanst and dinner lisinopril 10 mg tablet 20 mg PO DAILY rosuvastatin 10 mg tablet 20 mg PO HS Referrals Referrals: Justin Hanson DO [Primary Care Provider] -
[2024-05-12] MEDS ORDERED: DEXTROSE 50% 50 ML SYRINGE IV PRN (18:56)
[2024-05-12] MEDS ORDERED: GLUCAGON FOR INJ 1 MG VIAL SQ PRN (18:56)
[2024-05-12] MEDS ORDERED: GLUCOSE 40% GEL 15 GM TUBE PO PRN (18:56)
[2024-05-12] MEDS ORDERED: CARBOHYDRATES FOR HYPOGLYCEMIA PO PRN (18:56)
[2024-05-12] MEDS ORDERED: GLUCOSE 10 TAB/TUBE PO PRN (18:56)
[2024-05-12] MEDS: INSULIN ASPART PER UNIT CHARGE SC SCH (20:06)
[2024-05-12] MEDS ORDERED: ACETAMINOPHEN 325 MG TAB PO PRN (21:18)
[2024-05-12] MEDS ORDERED: POLYETHYLENE (MIRALAX) 17 GM PACK PO PRN (21:18)
[2024-05-12] MEDS ORDERED: ONDANSETRON INJ 2 MG/ML 2 ML VIAL IV PRN (21:18)
[2024-05-12] MEDS: ROSUVASTATIN CALCIUM 20 MG TAB PO SCH (21:50)
[2024-05-13 07:25] LABS: Hematocrit (blood only) 37.2 % (42.0-52.0); Mean Corpuscular Hemoglobin 31.3 pg (25.0-34.0); Mean Corpuscular Hgb Conc 34.9 g/dL (32.0-36.0); Mean Corpuscular Volume 89.6 fL (80.0-100.0); Mean Platelet Volume 9.8 fL (9.4-12.4); Platelet Count 206 K/uL (130-400); RDW Coefficient of Variation 12.5 % (11.5-14.5); RDW Standard Deviation 40.6 fL (36.4-46.3); Red Blood Count 4.15 M/uL (4.70-6.10); White Blood Count 6.25 K/ul (4.8-10.8)
[2024-05-13 07:36] LABS: BUN Creatinine Ratio 18.6 (10-20); Potassium 4.4 mmol/L (3.5-5.1)
[2024-05-13] MEDS: FINASTERIDE 5 MG TAB PO SCH (08:23)
[2024-05-13] MEDS: PANTOprazole 40 MG TAB PO SCH (08:23)
[2024-05-13] MEDS: ASPIRIN 81 MG ECTAB PO SCH (08:23)
[2024-05-13] MEDS: CLOPIDOGREL BISULFATE 75 MG TAB PO SCH (08:24)
[2024-05-13] MEDS: METOPROLOL SUCC 50MG EXT REL TAB PO SCH (08:24)
[2024-05-13] MEDS: amLODIPine BESYLATE 5 MG TAB PO SCH (08:24)
--- OUTSIDE RECORDS SUMMARY | 2024-05-13 08:40 | External Medical Summary | Summary of Care ---
Author Name Unknown Organization [facility] Address [address] [place] [address] Phone [phone] Care Team Providers Care Doctor Of Nurse Anesthesia Name Role Phone Justin Hanson Primary Care Provider Reason for Visit * Reason Onset Date Comments Test Results 04/27/2024 Encounter Details Date Type Department Care Team (Late st Contact Info) Description 04/27/2024 Telephone Family Practice [facility] [address] [facility] [place] [address] Joann Mason CRNP [address] [facility] [place] [address] Test Results Allergies Active Allergy Reactions Criticality Noted Date Comments Atorvastatin Medium 01/15/2015 Simply felt overall poorly documented as of this encounter (statuses as of 04/28/2024) Medications ASPIRIN 81 MG PO TABS 1 TABLET DAILY Active Blood Pressure Cuff cHECK B/P DAILY 1 Each 01/17/2022 Active Sildenafil Citrate 20 MG Oral Tablet (Revatio) Take 3 tablets 1 hour prior to sexual activity 30 Tablet 5 05/29/2022 Active amLODIPine Besylate 10 MG Oral Tablet (Norvasc) Take 1 Tablet by mouth in the morning. 90 Tablet 3 06/01/2023 Active Rosuvastatin Calcium 10 MG Oral Tablet (Crestor) Take 1 Tablet by mouth daily. 90 Tablet 3 08/27/2023 Active Finasteride 5 MG Oral Tablet (Proscar) take 1 tablet by mouth every morning 90 Tablet 3 12/10/2023 Active Metoprolol Succinate ER 50 MG Oral Tablet Extended Release 24 Hour (toPROL XL) Take 1 Tablet by mouth in the morning. 04/12/2024 Active metFORMIN HCl 500 MG Oral Tablet (Glucophage) Take 1 Tablet by mouth in the morning and 1 Tablet before bedtime. 04/12/2024 Active Clopidogrel Bisulfate 75 MG Oral Tablet (pLAVix) Take 1 Tablet by mouth in the morning. 04/12/2024 Active OneTouch Ultra 2 w/Device Kit 2 times a day. 04/13/2024 Active Pantoprazole Sodium 40 MG Oral Tablet Delayed Release (Protonix) Take 1 Tablet by mouth in the morning. 04/12/2024 Active guaiFENesin-Cod eine 100-10 MG/5ML Oral Solution (Robitussin AC)Indications: Viral URI with cough Take 5 mL by mouth every 4 hours as needed for Cough. 120 mL 2 04/25/2024 Active predniSONE 20 MG Oral Tablet (Deltasone)Rubi cations:Viral URI with cough Take 1 Tablet by mouth in the morning for 5 days. 5 Tablet 04/25/2024 04/30/20 24 Active documented as of this encounter (statuses as of 04/28/2024) Active Problems Problem Noted Date Diagnosed Date Aneurysm of ascending aorta without rupture 10/2022 Chronic kidney disease, stage 3a 09/01/2022 Overview: Per CKD protocol 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 08/04/2022 Overview: Per CKD protocol Cerebral microvascular disease 03/18/2022 WILLIAM (acute kidney injury) 01/17/2022 History of agent [place] exposure 01/17/2022 Type 2 diabetes mellitus wit h hemoglobin A1c goal of less than 8.0% 01/02/2021 Dyslipidemia, goal LDL below 70 05/01/2009 Overview (05/01/2009): Per Lipid Taxonomy. Essential hypertension with goal blood pressure less than 130/80 03/30/2009 Overview (03/30/2009): Modified per HTN Taxonomy. CAROTID STENOSIS, NON-SYMPTOMATIC 11/09/2008 Overview (11/09/2008): Modified per Carotid Stenosis protocol #10 HYPERTENSIVE RESPONSE- TREADMILL 02/20/1997 Esophageal reflux Osteoarthritis of spine with radiculopathy, cerv ical region documented as of this encounter (statuses as of 04/28/2024) Resolved Problems Problem Noted Date Diagnosed Date Resolved Date Diabetes mellitus with stage 3 chronic kidney disease 07/07/2022 08/06/2022 Overview: Per CKD protocol Kidney disease, chronic, sta ge III (GFR 30-59 ml/min) 02/14/2022 07/09/2022 Overview: Per CKD protocol Prediabetes 08/30/2018 02/07/2021 Overview: Per Prediabetes protocol #1 ADVANCE DIRECTIVE INFORMATION 03/27/2006 03/28/2024 Overview (03/27/2006): No, Advance Directive brochure given to patient. Carotid Stenosis, non-symptomatic 09/24/2005 11/09/2008 Overview (11/09/2008): Modified per Carotid Stenosis protocol #10 BENIGN HYPERTENSION 02/28/2003 03/30/20 09 Overview (03/30/2009): Modified per HTN Taxonomy. PURE HYPERCHOLESTEROLEM 02/28/2002 12/0 12/2008 Overview (05/01/2009): Per Lipid Taxonomy. documented as of this encounter (statuses as of 04/28/2024) Immunizations Name Administration Dates Next Due COVID-19 mRNA, LNP-s, No Pre serve, 2-Dose Series (Moderna) 07/30/2020,07/02/2020 COVID-19, mRNA, LNP-s, PF, B ooster, 100mcg/0.5mg (Moderna) 05/08/2021 Pneumococcal Conjugate Vacc, 13 Valent (Prevnar) 08/19/2016,01/15/2015 Pneumococcal Polysaccharide PPV23 (Pneumovax) 06/24/2012,05/25/2011 Season Influenza, Quad, PF, Adjuvanted, 65+ Yrs, IM (FLUAD) 03/03/2020 Seasonal Influenza Vac., MDV , IM, 0.5 mL (Fluzone) 03/13/2021 Seasonal Influenza, Quadriva lent Hd (Fluzone Hd) 04/28/2023 Seasonal Influenza, Trivalen t, Adjuvanted, 65+ YRS, PF, (Fluad) 02/26/2022,03/23/2021 TD, Preservative Free 08/26/2004 TDAP (age [...] Assigned at Male 01/18/2021 8:02 AM EDT Legal Sex Male 5:27 AM EST Gender Identity Male 01/18/2021 8:02 AM EDT Sexual Orientation Straight 01/18/2021 8: 02 AM EDT 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 Inboxologist Covering Provider All replies or additional communication must be routed to the PCP * Telephone Encounter - Aleena Rojas LPN - 04/27/2024 4:56 PM EST Patient's EC Reema aware and verbalized understanding, will comply * Telephone Encounter - Nazia Zarate RN - 04/27/2024 3:05 PM EST Provider to address: Attempted to reach patient regarding test results. Message left with reason for call and call back number. If patient returns call, please inform him of test results below. Reason for Call: Test Results Contact: Telephone Call Contact Type: Test Results Provider In-Basket: Yes Outcome: see above Face to face time spent with Patient (minutes): 0 Total Time including non face to face (minutes): 10 * Telephone Encounter - Joann Mason CRNP - 04/27/2024 2:49 PM EST Inboxologist Covering Provider Chest x ray clear Viral testing is positive for influenza A. It is recommended to start tamiflu within 2 days of symptoms. At this point he is contagious and recommend supportive care as prescribed by Dr. Hanson. All replies or additional communication must be routed to the PCP documented in this encounter Plan of Treatment Upcoming Encounters Date Type Department Care Team (Late st Contact Info) Description 04/28/2024 10:30 AM EST Office Visit Cardiology, [facility] [address] [place] [id number] Cy Espino MD [address] [place] [id number] 06/16/2024 6:20 PM EST Office Visit Family Practice [facility] [address] [place] [address] Justin Hanson, [address] [place] [id number] 12/19/2024 8:15 AM EDT Imaging Radiology [facility] [address] [place] [address] 12/28/2024 8:45 AM EDT Office Visit Urology, [facility] [address] [place] [address] Tanner Smalls MD [address] [place] [address] [id number] Health Maintenance Due Date Last Done Comments Diabetic Eye Exam 01/15/2022 01/15/2021 Adult Wellness Visit 01/18/2022 01/18/2021 Depression Screening 01/20/2023 01/20/2022 CKD HGB USE SMARTSET 80504 10/25/202310/24, 10/24/2022, 04/01/2022, Additional history exists COVID-19 Vaccine ( season) 2024 05/08/2021, 07/30/2020, 07/02/2020 GFR 03/02/2024 09/01/2023, 03/26, 10/24/2022, Additional history exists Albumin/Creatinine Ratio 08/31/2024 024, 10/24/2022, 04/01/2022, Additional history exists CKD PHOS USE SMARTSET [id number] 08/31/2024 04/0 01/2024, 06/26/2022, 04/01/2022 Diabetic Foot Exam 08/31/2024 09/01/2023, 05/12/2022 HbA1c 10/08/2024 04/10/2024, 01/2024, 04/13/2023, Additional history exists DTap/Tdap Vaccines (3 - Td or Tdap) 08/31/2033 09/01/2023, 06/24/2012, 08/26/2004 Pneumococcal Vaccine: 65+ Years Completed 08/19/2016, 01/15/2015, 06/24/2012, Additional history exists Zoster Vaccines Completed 12/18/2020, 07/24, 06/21/2020, Additional history exists Influenza Vaccine (FLU shot) Completed 05/2023, 04/28/2023, 02/26/2022, Additional history exists HPV (Gardasil) Vaccine Aged [...] Not on filedocumented as of this encounter Additional Health Concerns Infection Onset Date Last Indicated Resolved Time Influenza (seasonal) 04/25/2024 04/25/2024 documented as of this encounter Advance Directives * [...] Advance Directives occurred with: Patient Care Teams Doctor Of Nurse Anesthesia Relationship Specialty Start Date End Date Jsutin Hanson DO [address] [place] [id number] PCP - General Family Medicine 08/16/18 documented as of this encounter
--- OUTSIDE RECORDS SUMMARY | 2024-05-13 08:40 | External Medical Summary | Summary of Care ---
Author Name Unknown Organization [facility] Address [address] [facility] [place] [address] Phone [phone] Care Team Providers Care Automotive Painter Name Role Phone Justin Hanson DO Primary Care Provider Reason for Visit * Reason Comments eRx-Medication Refill Encounter Details Date Type Department Care Team (Late st Contact Info) Description 05/10/2024 Refill Cardiology, [facility] [address] [place] [address] Oumar Singleton PA-C [address] [place] [address] Allergies Active Allergy Reactions Criticality Noted Date Comments Atorvastatin Medium 01/15/2015 Simply felt overall poorly documented as of this encounter (statuses as of 05/11/2024) Medications ASPIRIN 81 MG PO TABS 1 TABLET DAILY Active Blood Pressure Cuff cHECK B/P DAILY 1 Each 01/18/20 22 Active Sildenafil Citrate 20 MG Oral Tablet (Revatio) Take 3 tablets 1 hour prior to sexual activity 30 Tablet 5 05/29/19 23 Active Finasteride 5 MG Oral Tablet (Proscar) take 1 tablet by mouth every morning 90 Tablet 3 12/10/19 24 Active OneTouch Ultra 2 w/Device Kit 2 times a day. 04/13/20 24 Active guaiFENesin-Codei ne 100-10 MG/5ML Oral Solution (Robitussin AC)Indications:Vi ral URI with cough Take 5 mL by mouth every 4 hours as needed for Cough. 120 mL 2 04/25/20 24 Active Lisinopril 20 MG Oral Tablet (Prinivil) Take 1 Tablet by mouth in the morning. 30 Tablet 5 05/05/20 24 Active Rosuvastatin Calcium 20 MG Oral Tablet (Crestor) Take 1 Tablet by mouth in the morning. 90 Tablet 3 05/05/20 24 Active amLODIPine Besylate 10 MG Oral Tablet (Norvasc) take 1 tablet by mouth every morning 90 Tablet 1 05/11/20 24 Active metFORMIN HCl 500 MG Oral Tablet (Glucophage)Indic ations:Type 2 diabetes mellitus with stage 3a chronic kidney disease, with long-term current use of insulin (HCC) Take 1 Tablet by mouth in the morning and 1 Tablet before bedtime. 180 Tablet 3 05/10/20 24 Active Metoprolol Succinate ER 50 MG Oral Tablet Extended Release 24 Hour (toPROL XL)Indications:An eurysm of ascending aorta without rupture (HCC) Take 1 Tablet by mouth in the morning. 90 Tablet 3 05/10/20 24 Active Clopidogrel Bisulfate 75 MG Oral Tablet (pLAVix)Indicatio ns:Cerebral microvascular disease Take 1 Tablet by mouth in the morning. 90 Tablet 3 05/10/20 24 Active Pantoprazole Sodium 40 MG Oral Tablet Delayed Release (Protonix)Indicat ions:Gastroesopha geal reflux disease without esophagitis Take 1 Tablet by mouth in the morning. 90 Tablet 3 05/10/20 24 Active amLODIPine Besylate 10 MG Oral Tablet (Norvasc) Take 1 Tablet by mouth in the morning. 90 Tablet 3 06/01/19 24 024 Discontinued documented as of this encounter (statuses as of 05/11/2024) Active Problems Problem Noted Date Diagnosed Date Aneurysm of ascending aorta without rupture 10/2022 Chronic kidney disease, stage 3a 09/01/2022 Overview: Per CKD protocol 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 08/04/2022 Overview: Per CKD protocol Cerebral microvascular disease 03/18/2022 WILLIAM (acute kidney injury) 01/17/2022 History of agent [place] exposure 01/17/2022 Type 2 diabetes mellitus wit [...] as of this encounter (statuses as of 05/11/2024) Resolved Problems Problem Noted Date Diagnosed Date [...] (03/30/2009): Modified per HTN Taxonomy. PURE HYPERCHOLESTEROLEM 02/28/200212/2008 Overview (05/01/2009): Per Lipid Taxonomy. documented as of this encounter (statuses as of 05/11/2024) Immunizations Name Administration Dates Next Due COVID-19 [...] t, Adjuvanted, 65+ YRS, PF, (Fluad) 02/26/2022,03/23/2021 TDAP (age 10 and older)(Boostrix) 09/01/2023, [...] encounter Miscellaneous Notes * Telephone Encounter - Joan Schaeffer RPh - 05/11/2024 3:23 PM ESTSigned Prescriptions: Disp Refills amLODIPine Besylate 10 MG Oral Tablet (Nor*90 Tab*1 Sig: take 1 tablet by mouth every morningAuthorizing Provider: OUMAR SINGLETON User: JOAN SCHAEFFER documented in this encounter Plan of Treatment Upcoming Encounters Date Type Department Care Team (Late st Contact Info) Description 06/16/2024 6:20 PM EST Office Visit Family Practice [facility] [address] [facility] [place] [address] Justin Hanson DO [address] [facility] [place] [address] 08/04/2024 8:30 AM EDT Office Visit Cardiology, [facility] [address] [facility] [place] [address] Yesica Garces, IN STORE BANKER [address] [facility] [place] [address] 12/19/2024 8:15 AM EDT Imaging Radiology [facility] [address] [facility] [place] [address] 12/28/2024 8:45 AM EDT Office Visit Urology, [facility] [address] [facility] [place] [address] Tanner Smalls MD [address] [place] [id number] Health Maintenance Due Date Last Done Comments Diabetic Eye Exam 01/15/2022 01/15/2021 Adult Wellness Visit 01/18/2022 01/18/2021 Depression Screening 01/20/2023 01/20/2022 CKD HGB USE SMARTSET 46928 10/25/202310/24, 10/24/2022, 04/01/2022, Additional history exists COVID-19 Vaccine ( season) 2024 05/08/2021, 07/30/2020, 07/02/2020 GFR 03/02/2024 09/01/2023, 03/26, 10/24/2022, Additional history exists Albumin/Creatinine Ratio 08/31/2024 024, 10/24/2022, 04/01/2022, Additional history exists CKD PHOS USE SMARTSET 07201 08/31/2024 04/0 01/2024, 06/26/2022, 04/01/2022 Diabetic Foot Exam 08/31/2024 09/01/2023, 05/12/2022 HbA1c 10/08/2024 04/10/2024, 04/0 01/2024, 04/13/2023, Additional history exists DTap/Tdap Vaccines [...] Advance Directives occurred with: Patient Care Teams Automotive Painter Relationship Specialty Start Date End Date Justin Hanson DO [address] [place] [address] PCP - General Family Medicine 08/16/18 documented as of this encounter
--- OUTSIDE RECORDS SUMMARY | 2024-05-13 08:40 | External Medical Summary | Summary of Care ---
Author Name Unknown Organization [facility] Address [address] [place] [address] Phone [phone] Care Team Providers Care Complaint Clerk Name Role Phone Justin Hanson Primary Care Provider Reason for Visit * Reason Onset Date Comments Test Results 04/27/2024 Encounter Details Date Type Department Care Team (Late st Contact Info) Description 04/27/[address] [facility] [address] [facility] [place] [address] Joann Mason CRNP [address] [facility] [place] [address] Test Results Allergies Active Allergy Reactions Criticality Noted Date Comments Atorvastatin Medium 01/15/2015 Simply felt overall poorly documented as of this encounter (statuses as of 04/27/2024) Medications ASPIRIN 81 MG PO TABS 1 [...] as of this encounter (statuses as of 04/27/2024) Active Problems Problem Noted Date Diagnosed Date Aneurysm of ascending aorta without rupture 10/2022 Chronic kidney disease, stage 3a 09/01/2022 Overview: Per CKD protocol 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 [address] [place] [address] Cy Espino MD [address] [place] [address] 06/16/2024 6:20 PM EST Office Visit Family Practice [facility] [address] [place] [address] Justin Hanson DO [address] [place] [address] 12/19/2024 8:15 AM EDT Imaging Radiology [facility] [address] [place] [address] 12/28/2024 8:45 AM EDT Office Visit Urology, [facility] [address] [place] [address] Tanner Smalls MD [address] [place] [address] Health Maintenance Due Date Last Done Comments Diabetic Eye Exam 01/15/2022 01/15/2021 Adult Wellness Visit 01/18/2022 01/18/2021 Depression Screening 01/20/2023 01/20/2022 CKD HGB USE SMARTSET 50166 10/25/202310/24, 10/24/2022, 04/01/2022, Additional history exists COVID-19 Vaccine ( season) 2024 05/08/2021, 07/30/2020, 07/02/2020 GFR 03/02/2024 09/01/2023, 03/26, 10/24/2022, Additional history exists Albumin/Creatinine Ratio 08/31/2024 024, 10/24/2022, 04/01/2022, Additional history exists CKD PHOS USE SMARTSET 74269 08/31/2024 04/0 01/2024, 06/26/2022, 04/01/2022 Diabetic Foot [...] Advance Directives occurred with: Patient Care Teams Complaint Clerk Relationship Specialty Start Date End Date Justin Hanson DO [address] [place] [address] PCP - General Family Medicine 08/16/18 documented as of this encounter
--- OUTSIDE RECORDS SUMMARY | 2024-05-13 08:40 | External Medical Summary | Summary of Care ---
Author Name Unknown Organization [facility] Address [address] [place] [address] Phone [phone] Care Team Providers Care Flyer Repairer Name Role Phone Justin Hanson DO Primary Care Provider Reason for Visit * Reason Onset Date Comments Appointment 05/04/2024 Encounter Details Date Type Department Care Team (Late st Contact Info) Description 05/04/2024 Telephone Cardiology, [facility] [address] [place] [address] Cy Espino MD [address] [employer] [place] [address] Appointment Allergies Active Allergy Reactions Criticality Noted Date Comments Atorvastatin Medium 01/15/2015 Simply felt overall poorly documented as of this encounter (statuses as of 05/04/2024) Medications ASPIRIN 81 MG PO TABS 1 [...] for Cough. 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 Please put on at 9:30 am 05/05/24. * Telephone Encounter - Cy Espino MD - 05/04/2024 4:44 PM EST I can see patient tomorrow April if he can make the appointment * Telephone Encounter - Kristofer Moy LPN - 05/04/2024 3:35 PM EST Patient's spouse called and is requesting HD appointment from 04/28/24 be rescheduled. She had spoken to someone to let us know patient was not going to make 04/28/24 due to a respiratory illness and that the appointment was to be scheduled. Please assist. documented in this encounter Plan of Treatment Upcoming Encounters Date Type Department Care Team (Late st Contact Info) Description 06/16/2024 6:20 PM EST Office Visit Family Practice [facility] [address] [place] [address] Justin Hanson DO [address] [place] [address] 12/19/2024 8:15 AM EDT Imaging Radiology [facility] [address] [place] [address] 12/28/2024 8:45 AM EDT Office Visit Urology, [facility] [address] [place] [address] Tanner Smalls MD [address] [place] [address] Health Maintenance Due Date Last Done Comments Diabetic Eye Exam 01/15/2022 01/15/2021 Adult Wellness Visit 01/18/2022 01/18/2021 Depression Screening 01/20/2023 01/20/2022 CKD HGB USE SMARTSET 33568 10/25/202310/24, 10/24/2022, 04/01/2022, Additional history exists COVID-19 Vaccine ( season) 2024 05/08/2021, 07/30/2020, 07/02/2020 GFR 03/02/2024 09/01/2023, 03/26, 10/24/2022, Additional history exists Albumin/Creatinine Ratio 08/31/2024 024, 10/24/2022, 04/01/2022, Additional history exists CKD PHOS USE SMARTSET 03222 08/31/2024 04/0 01/2024, 06/26/2022, 04/01/2022 Diabetic Foot Exam 08/31/2024 09/01/2023, 05/12/2022 HbA1c 10/08/2024 04/10/2024, 040 01/2024, 04/13/2023, Additional history exists DTap/Tdap Vaccines [...] Advance Directives occurred with: Patient Care Teams Flyer Repairer Relationship Specialty Start Date End Date Justin Hanson DO [address] [place] [address] PCP - General Family Medicine 08/16/18 documented as of this encounter
--- OUTSIDE RECORDS SUMMARY | 2024-05-13 08:40 | External Medical Summary | Summary of Care ---
Author Name Unknown Organization [facility] Address [address] [place] [address] Phone [phone] Care Team Providers Care Occupational Therapy Program Director Name Role Phone Justin Hanson Primary Care Provider Reason for Visit * Reason Onset Date Comments Test Results 04/27/2024 Encounter Details Date Type Department Care Team (Late st Contact Info) Description 04/27/2024 Telephone Family Practice [facility] [address] [facility] [place] [address] Joann Mason CRNP [address] [facility] [place] [address] Test Results Allergies Active Allergy [...] (acute kidney injury) 01/17/2022 History of agent [place] exposure 01/17/2022 Type 2 diabetes mellitus wit [...] encounter Miscellaneous Notes * Telephone Encounter - Nazia Zarate RN [...] 04/28/2024 10:30 AM EST Office Visit Cardiology, [facility] [address] [place] [address] Cy Espino MD [address] [address] 06/16/2024 6:20 PM EST Office Visit Family Practice [facility] [address] [place] [address] Justin Hanson DO [address] [place] [address] 12/19/2024 8:15 AM EDT Imaging Radiology [facility] [address] [place] [address] 12/28/2024 8:45 AM EDT Office Visit Urology, [facility] [address] [place] [address] Tanner Smalls MD [address] [place] [address] Health Maintenance Due Date Last Done Comments Diabetic Eye Exam 01/15/2022 01/15/2021 Adult Wellness Visit 01/18/2022 01/18/2021 Depression Screening 01/20/2023 01/20/2022 CKD HGB USE SMARTSET 02415 10/25/202310/24, 10/24/2022, 04/01/2022, Additional history exists COVID-19 Vaccine ( season) 2024 05/08/2021, 07/30/2020, 07/02/2020 GFR 03/02/2024 09/01/2023, 03/26, 10/24/2022, Additional history exists Albumin/Creatinine Ratio 08/31/2024 024, 10/24/2022, 04/01/2022, Additional history exists CKD PHOS USE SMARTSET 48302 08/31/2024 04/0 01/2024, 06/26/2022, 04/01/2022 Diabetic Foot [...] Advance Directives occurred with: Patient Care Teams Occupational Therapy Program Director Relationship Specialty Start Date End Date Justin Hanson DO [address] [place] [address] PCP - General Family Medicine 08/16/18 documented as of this encounter
--- OUTSIDE RECORDS SUMMARY | 2024-05-13 08:40 | External Medical Summary | Summary of Care ---
Author Name Unknown Organization [facility] Address [address] [facility] [place] [address] Phone [phone] Care Team Providers Care Treating Plant Pumper Name Role Phone Justin Hanson Primary Care Provider Encounter Details Date Type Department Care Team (Late st Contact Info) Description 04/26/2024 Orders Only PATIENT PORTAL DO NOT DELETE THIS DEPT USED BY [place] [address] Allergies Active Allergy Reactions Criticality Noted Date Comments Atorvastatin Medium 01/15/2015 Simply felt overall poorly documented as of this encounter (statuses as of 04/26/2024) Medications ASPIRIN 81 MG PO TABS 1 [...] as of this encounter (statuses as of 04/26/2024) Active Problems Problem Noted Date Diagnosed Date Aneurysm of ascending aorta without rupture 10/2022 Chronic kidney disease, stage 3a 09/01/2022 Overview: Per CKD protocol 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 08/04/2022 Overview: Per CKD protocol Cerebral microvascular disease 03/18/2022 WILLIAM (acute kidney injury) 01/17/2022 History of agent [place] exposure 01/17/2022 Type 2 diabetes mellitus wit [...] as of this encounter (statuses as of 04/26/2024) Resolved Problems Problem Noted Date Diagnosed Date [...] as of this encounter (statuses as of 04/26/2024) Immunizations Name Administration Dates Next Due COVID-19 [...] on file documented as of this encounter Plan of Treatment Upcoming Encounters Date Type Department Care Team (Late st Contact Info) Description 04/28/2024 10:30 AM EST Office Visit Cardiology, [facility] [address] [place] [address] Cy Espino MD [address] [place] [address] 06/16/2024 6:20 PM EST Office Visit Family Practice [facility] [address] [place] [address] Justin Hanson DO [address] [place] [address] 12/19/2024 8:15 AM EDT Imaging Radiology [facility] [address] [facility] [place] [address] 12/28/2024 8:45 AM EDT Office Visit Urology, [facility] [address] [facility] [place] [address] Tanner Smalls MD [address] [place] [address] Health Maintenance Due Date Last Done Comments Diabetic Eye Exam 01/15/2022 01/15/2021 Adult Wellness Visit 01/18/2022 01/18/2021 Depression Screening 01/20/2023 01/20/2022 CKD HGB USE SMARTSET 86796 10/25/202310/24, 10/24/2022, 04/01/2022, Additional history exists COVID-19 Vaccine ( season) 2024 05/08/2021, 07/30/2020, 07/02/2020 GFR 03/02/2024 09/01/2023, 03/26, 10/24/2022, Additional history exists Albumin/Creatinine Ratio 08/31/2024 024, 10/24/2022, 04/01/2022, Additional history exists CKD PHOS USE SMARTSET 01381 08/31/2024 04/0 01/2024, 06/26/2022, 04/01/2022 Diabetic Foot [...] Advance Directives occurred with: Patient Care Teams Treating Plant Pumper Relationship Specialty Start Date End Date Justin Hanson DO [address] [place] [address] PCP - General Family Medicine 08/16/18 documented as of this encounter
--- OUTSIDE RECORDS SUMMARY | 2024-05-13 08:40 | External Medical Summary | Summary of Care ---
Author Name Unknown Organization [facility] Address [address] [place] [place] [address] Phone [phone] Care Team Providers Care Organizational Development Consultant Name Role Phone Justin Hanson DO Primary Care Provider Reason for Visit * Reason Comments Cough Cough noted x 4 days , productive phlegm of yellow color began yesterday. Fever on/off x 2 days. Pt concerned as he had heart stent placed approx 2 wks ago. Encounter Details Date Type Department Care Team (Latest Contact Info) Description 04/25/2024 9:00 AM EST Office Visit Family [facility] [address] [place] [address] Justin Hanson, [address] [place] [address] Viral URI with cough*; Person under investigation for COVID-19; Type 2 diabetes mellitus with stage 3a chronic kidney disease, with long-term current use of insulin ([facility]); Aneurysm of ascending aorta without rupture ([facility]); Chronic kidney disease, stage 3a ([facility]) Allergies Active Allergy Reactions Criticality Noted Date Comments Atorvastatin Medium 01/15/2015 Simply felt overall poorly documented as of this encounter (statuses as of 04/25/2024) Medications ASPIRIN 81 MG PO TABS 1 [...] as of this encounter (statuses as of 04/25/2024) Active Problems Problem Noted Date Diagnosed Date Aneurysm of ascending aorta without rupture 10/2022 Chronic kidney disease, stage 3a 09/01/2022 Overview: Per CKD protocol 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 08/04/2022 Overview: Per CKD protocol Cerebral microvascular disease 03/18/2022 WILLIAM (acute kidney injury) 01/17/2022 History of agent [place] exposure 01/17/2022 Type 2 diabetes mellitus wit [...] as of this encounter (statuses as of 04/25/2024) Resolved Problems Problem Noted Date Diagnosed Date [...] as of this encounter (statuses as of 04/25/2024) Immunizations Name Administration Dates Next Due COVID-19 [...] on file documented as of this encounter Last Filed Vital Signs Vital Sign Reading Time Taken Comments Blood Pressure 110/70 04/25/2024 8:40 AM EST Pulse 71 04/25/2024 8:40 AM EST Temperature 36.1 C (97 F) 04/25/2024 8:40 AM EST Respiratory Rate 16 04/25/2024 8:40 AM EST Oxygen Saturation 95% 04/25/2024 8:40 AM EST Inhaled Oxygen Concentration - - Weight 100.7 kg (222 lb) 04/25/2024 8:40 AM EST Height - - Body Mass Index 31.85 04/28/2023 7:54 AM EST documented in this encounter Progress Notes * Vinay Hansonvoajay Melgardarryl, DO - 04/25/2024 8:43 AM EST Images from the original note were not included. Assessment and Plan Assessment & Plan Upper Respiratory Infection with Cough -rule out covid with swab Patient presents with a persistent cough causing strain. No signs of pneumonia on physical exam, but due to the prevalence of atypical pneumonia, a chest x-ray is warranted. -Order chest x-ray to rule out atypical pneumonia. -Prescribe codeine cough syrup to suppress cough. -Prescribe a small dose of prednisone to decrease lung inflammation and aid in cough suppression. Potential Pneumonia Despite no signs of pneumonia on physical exam, the patient's persistent cough and the prevalence of atypical pneumonia warrant further investigation. -If chest x-ray shows signs of pneumonia, prescribe an antibiotic. General Health Maintenance -Advise patient to continue drinking pineapple juice to help break up phlegm. -Advise patient to monitor sugar intake due to the high sugar content in pineapple juice. History of Present Illness Yogesh Candelario is a 79 year old male that presents for Cough (Cough noted x 4 days, productive phlegm of yellow color began yesterday. Fever on/off x 2 days. Pt concerned as he had heart stent placed approx 2 wks ago.) History of Present Illness The patient, with a history of cardiovascular disease and a stent, presents with a persistent and strenuous cough. The cough has been causing discomfort and strain, particularly around the waist. Despite taking cough medicine with codeine, the cough persists. The patient's family member expresses concern about the patient's inability to rest due to the cough. The patient also mentions a recent cold and stress, which may have contributed to the current symptoms. Physical Exam Vitals: 04/25/24 0840 Temp: 97 F (36.1 C) Pulse: 71 Resp: 16 SpO2: 95% BP: 110/70 Physical Exam Constitutional: Appearance: Normal appearance. HENT: Head: Normocephalic and atraumatic. Right Ear: Tympanic membrane normal. Left Ear: Tympanic membrane normal. Nose: Congestion and rhinorrhea present. Eyes: Extraocular Movements: Extraocular movements intact. Pupils: Pupils are equal, round, and reactive to light. Cardiovascular: Rate and Rhythm: Normal rate. Pulmonary: Effort: Pulmonary effort is normal. No respiratory distress. Breath sounds: No wheezing or rhonchi. Neurological: General: No focal deficit present. Mental Status: He is alert and oriented to person, place, and time. Psychiatric: Mood and Affect: Mood normal. Behavior: Behavior normal. Wrap-Up Time: Total time today was 26 minutes excluding any time spent in the performance of separately billed services. Text in this note was generated using an ambient documentation service. I discussed the use of a device to record and summarize our discussion today. All persons present during the encounter consented to its use. documented in this encounter Plan of Treatment Upcoming Encounters Date Type Department Care Team (Late st Contact Info) Description 04/28/2024 10:30 AM EST Office Visit Cardiology, [facility] [address] [place] [id number] Cy Espino MD [address] [place] [address] 06/16/2024 6:20 PM EST Office Visit Family Practice [facility] [address] [place] [address] Justin Hanson DO [address] [place] [address] 12/19/2024 8:15 AM EDT Imaging Radiology [facility] [address] [place] [address] 12/28/2024 8:45 AM EDT Office Visit Urology, [facility] [address] [facility] [place] [address] Tanner Smalls MD [address] [place] [address] Pending Results Name Type Priority Associated Diagnoses Date /Time INFLUENZA A/B RSV SARS-COV2,PCR Lab Routine Person under investigation for COVID-19 04/25/2024 8:56 AM EST Scheduled Orders Name Type Priority Associated Diagnoses Orde r Schedule INFLUENZA A/B RSV SARS-COV2,PCR Lab Routine Person under investigation for COVID-19 Expected: 04/25/2024 (Approximate), Expires: 04/25/2025 Health Maintenance Due Date Last Done Comments Diabetic Eye Exam 01/15/2022 01/15/2021 Adult Wellness Visit 01/18/2022 01/18/2021 Depression Screening 01/20/2023 01/20/2022 CKD HGB USE SMARTSET 32659 10/25/202310/24, 10/24/2022, 04/01/2022, Additional history exists COVID-19 Vaccine ( season) 2024 05/08/2021, 07/30/2020, 07/02/2020 GFR 03/02/2024 09/01/2023, 03/26, 10/24/2022, Additional history exists Albumin/Creatinine Ratio 08/31/2024 024, 10/24/2022, 04/01/2022, Additional history exists CKD PHOS USE SMARTSET 62811 08/31/2024 04/0 01/2024, 06/26/2022, 04/01/2022 Diabetic Foot [...] Not on filedocumented as of this encounter Procedures Procedure Name Priority Date/Time Associated Diagnosis Comments XR CHEST 2 VIEWS STAT 04/25/2024 9:03 AM EST Viral URI with cough documented in this encounter Results * XR CHEST 2 VIEWS (04/25/2024 9:03 AM EST) Anatomical Region Laterality Modality Chest Computed Radiogr aphy 04/25/2024 9:40 AM EST Impressions 04/25/2024 9:38 AM EST IMPRESSION No consolidation or pleural effusion. Narrative 04/25/2024 9:38 AM EST EXAM XR CHEST 2 VIEWS-04/25/2024 9:03 am HISTORY concern for pneumonia COMPARISON Chest CT 10/07/2023, chest x-ray 12/30/2022 TECHNIQUE Frontal and lateral views of the chest. FINDINGS The lungs are clear. No pleural effusion or pneumothorax. The pulmonary vasculature is within normal limits. Prominence of the cardiomediastinal silhouette corresponding to dilated thoracic aorta correlating with recent CT. The osseous structures are unremarkable. Procedure Note Tess Chatterjee MD - 04/25/2024 EXAM XR CHEST 2 VIEWS-04/25/2024 9:03 am HISTORY concern for pneumonia COMPARISON Chest CT 10/07/2023, chest x-ray 12/30/2022 TECHNIQUE Frontal and lateral views of the chest. FINDINGS The lungs are clear. No pleural effusion or pneumothorax. The pulmonaryvasculature is within normal limits. Prominence of the cardiomediastinalsilhouette corresponding to dilated thoracic aorta correlating with recentCT. The osseous structures are unremarkable. IMPRESSION IMPRESSION No consolidation or pleural effusion. Justin Hanson DO RADIOLOGY ([facility]) Final Result documented in this encounter Visit Diagnoses Diagnosis Viral URI with cough- Primary Acute upper respiratory infections of unspecified site Person under investigation for COVID-19 Type 2 diabetes mellitus with stage 3a chronic kidney disease, with long-term current use of insulin (HCC) Aneurysm of ascending aorta without rupture ([facility]CC) Chronic kidney disease, stage 3a ([facility]CC) documented in this encounter Advance Directives * [...] Advance Directives occurred with: Patient Care Teams Organizational Development Consultant Relationship Specialty Start Date End Date Justin Hanson DO [address] [place] [address] PCP - General Family Medicine 08/16/18 documented as of this encounter
--- OUTSIDE RECORDS SUMMARY | 2024-05-13 08:40 | External Medical Summary | Summary of Care ---
Author Name Unknown Organization [facility] Address [address] [place] [address] Phone [phone] Care Team Providers Care Pewter Caster Name Role Phone Justin Hanson DO Primary Care Provider Reason for Visit * Reason Onset Date Comments Appointment 05/04/2024 Encounter Details Date Type Department Care Team (Late st Contact Info) Description 05/04/2024 Telephone Cardiology, [facility] [address] [place] [address] Cy Espino MD [address] [place] [address] Appointment Allergies Active Allergy Reactions Criticality Noted Date Comments Atorvastatin Medium 01/15/2015 Simply felt overall poorly documented as of this encounter (statuses as of 05/05/2024) Medications ASPIRIN 81 MG PO TABS 1 TABLET DAILY Active Blood Pressure Cuff cHECK B/P DAILY 1 Each 2 Active Sildenafil Citrate 20 MG Oral Tablet (Revatio) Take 3 tablets 1 hour prior to sexual activity 30 Tablet 5 3 Active amLODIPine Besylate 10 MG Oral Tablet (Norvasc) Take 1 Tablet by mouth in the morning. 90 Tablet 3 4 Active Finasteride 5 MG Oral Tablet (Proscar) take 1 tablet by mouth every morning 90 Tablet 3 4 Active Metoprolol Succinate ER 50 MG Oral Tablet Extended Release 24 Hour (toPROL XL) Take 1 Tablet by mouth in the morning. 4 Active metFORMIN HCl 500 MG Oral Tablet (Glucophage) Take 1 Tablet by mouth in the morning and 1 Tablet before bedtime. 4 Active Clopidogrel Bisulfate 75 MG Oral Tablet (pLAVix) Take 1 Tablet by mouth in the morning. 4 Active OneTouch Ultra 2 w/Device Kit 2 times a day. 4 Active Pantoprazole Sodium 40 MG Oral Tablet Delayed Release (Protonix) Take 1 Tablet by mouth in the morning. 4 Active guaiFENesin-Cod eine 100-10 MG/5ML Oral Solution (Robitussin AC)Indications: Viral URI with cough Take 5 mL by mouth every 4 hours as needed for Cough. 120 mL 2 4 Active Rosuvastatin Calcium 10 MG Oral Tablet (Crestor) Take 1 Tablet by mouth daily. 90 Tablet 3 4 05/05/20 24 Discontinu ed(Medicat ion/Dose Changed) documented as of this encounter (statuses as of 05/05/2024) Active Problems Problem Noted Date Diagnosed Date Aneurysm of ascending aorta without rupture 10/2022 Chronic kidney disease, stage 3a 09/01/2022 Overview: Per CKD protocol 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 08/04/2022 Overview: Per CKD protocol Cerebral microvascular disease 03/18/2022 WILLIAM (acute kidney injury) 01/17/2022 History of agent [place] exposure 01/17/2022 Type 2 diabetes mellitus wit [...] as of this encounter (statuses as of 05/05/2024) Resolved Problems Problem Noted Date Diagnosed Date [...] as of this encounter (statuses as of 05/05/2024) Immunizations Name Administration Dates Next Due COVID-19 [...] encounter Miscellaneous Notes * Telephone Encounter - Peter Blum OSA - 05/05/2024 10:30 AM EST Patient has been added, for 05/05/24 at 930 am * Telephone Encounter - Kristofer Moy LPN [...] 6:20 PM EST Office Visit Family Practice [facility] [address] [facility] [place] [address] Justin Hanson DO [address] [facility] [place] [address] 08/04/2024 8:30 AM EDT Office Visit Cardiology, [facility] [address] [facility] [place] [address] Yesica Garces CRNP [address] [place] [address] [place] [address] 12/19/2024 8:15 AM EDT Imaging Radiology [facility] [address] [facility] [place] [address] 12/28/2024 8:45 AM EDT Office Visit Urology, [facility] [address] [facility] [place] [address] Tanner Smalls MD [address] [place] [address] Health Maintenance Due Date Last Done Comments Diabetic Eye Exam 01/15/2022 01/15/2021 Adult Wellness Visit 01/18/2022 01/18/2021 Depression Screening 01/20/2023 01/20/2022 CKD HGB USE SMARTSET 52428 10/25/202310/24, 10/24/2022, 04/01/2022, Additional history exists COVID-19 Vaccine ( season) 2024 05/08/2021, 07/30/2020, 07/02/2020 GFR 03/02/2024 09/01/2023, 03/26, 10/24/2022, Additional history exists Albumin/Creatinine Ratio 08/31/2024 024, 10/24/2022, 04/01/2022, Additional history exists CKD PHOS USE SMARTSET 22283 08/31/2024 04/0 01/2024, 06/26/2022, 04/01/2022 Diabetic Foot [...] Advance Directives occurred with: Patient Care Teams Pewter Caster Relationship Specialty Start Date End Date Justin Hanson DO [address] [place] [address] PCP - General Family Medicine 08/16/18 documented as of this encounter
--- OUTSIDE RECORDS SUMMARY | 2024-05-13 08:40 | External Medical Summary | Summary of Care ---
Author Name Unknown Organization [facility] Address [address] [place] [address] Phone [phone] Care Team Providers Care Internet Cafe Manager Name Role Phone Mona Hanson Primary Care Provider Reason for Referral * Evaluate & Treat - Unlimited Visits (Within 10 days (routine)) - Authorized Specialty Diagnoses / Procedures Referred By Contac t Referred To Contact CARDIAC REHAB / Cardiology Diagnoses Aneurysm of ascending aorta without rupture (HCC) Atherosclerosis of lower brule coronary artery of lower brule heart without angina pectoris Cy Espino MD [address] [place] [address] Phone: tel: fax: Referral ID Status Reason Start Date Expiration Date Visits Requested Visits Authorized [id number] Authorized Specialty Services Required 4 [phone] Question Answer Referral Priority Within 10 days (routine) Where should this appointment be scheduled? External Cardiac Rehabilitation Modality Center Based Cardiac Rehab Only Identify Cardiac Risk Low to Moderate Risk Comments [place] Reason for Visit * Reason Comments Follow Up Hospital Follow-Up Encounter Details Date Type Department Care Team (Late st Contact Info) Description 05/05/2024 9:30 AM EST Office Visit Cardiology, 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 4 Active Deck[place]uch Ultra 2 w/Device Kit 2 times a day. 4 Active Pantoprazole Sodium 40 MG Oral Tablet Delayed Release (Protonix) Take 1 Tablet by mouth in the morning. 4 Active guaiFENesin-Cod eine 100-10 MG/5ML Oral Solution (Robitussin AC)Indications: Viral URI with cough Take 5 mL by mouth every 4 hours as needed for Cough. 120 mL 2 4 Active Lisinopril 20 MG Oral Tablet (Prinivil) Take 1 Tablet by mouth in the morning. 30 Tablet 5 4 Active Rosuvastatin Calcium 20 MG Oral Tablet (Crestor) Take 1 Tablet by mouth in the morning. 90 Tablet 3 4 Active Rosuvastatin Calcium 10 MG Oral Tablet (Crestor) Take 1 Tablet by mouth daily. 90 Tablet 3 4 05/05/20 24 Discontinu ed(Medicat ion/Dose Changed) Lisinopril 30 MG Oral Tablet Take 1 Tablet by mouth in the morning. 05/05/20 24 Discontinu ed(Medicat ion/Dose Changed) documented [...] (acute kidney injury) 01/17/2022 History of agent [place] exposure 01/17/2022 Type 2 diabetes mellitus wit [...] Sign Reading Time Taken Comments Blood Pressure 122/82 05/05/2024 9:38 AM EST Pulse 76 05/05/2024 9:38 AM EST Temperature - - Respiratory Rate 14 05/05/2024 9:38 AM EST Oxygen Saturation - - Inhaled Oxygen Concentration - - Weight 98 kg (216 lb) 05/05/2024 9:38 AM EST Height - - Body Mass Index 30.99 04/28/2023 7:54 AM EST documented in this encounter Progress Notes * Cy Espino MD - 05/05/2024 9:30 AM EST Cardiology Consultation [facility] 05/05/2024 Reason for Consultation: Post hospital follow-up, admission for crescendo angina Provider Requesting Consultation: PCP: MONA HANSON [address] [place] [address] [phone] History of Present Illness: Yogesh Candelario is a 79 year old year old male with ongoing cardiac concerns 1. Acute hospitalization on April 10, 2024 with crescendo angina 2. Multivessel coronary artery disease 70% early-mid LAD. 60-70% proximal small to medium D2. 100% proximal OM 3 RN GERIATRIC. L-L and R-L collaterals. 50% late-mid into distal RCA (IFR negative 0.97) 3. Status post drug-eluting stent mid left anterior descending 4. Hypertension 5. Hyperlipidemia 6. Ascending aortic aneurysm 7. Atherosclerotic carotid artery disease , mild bilateral History of Present Illness The patient, a 79-year-old with a recent hospitalization, presents with a history of cardiac disease and recent influenza A infection. He reports a severe cough associated with the influenza, which has since resolved. However, he notes a lingering feeling of not being back to his normal health. He describes occasional chest discomfort and episodes of lightheadedness, particularly upon standing. Prior to his hospitalization, the patient experienced significant shortness of breath, lightheadedness, and heaviness in his legs. These symptoms prompted a visit to his primary care provider, which led to a cardiac catheterization. The procedure revealed a blockage in the left anterior descending artery, which was treated with stent placement. Other vessels showed branch vessel narrowings, but these were not deemed concerning at the time. The patient's medication regimen was adjusted during his hospital stay, including an increase in his lisinopril dosage. He also reports taking metoprolol succinate, amlodipine, and rosuvastatin. The patient has a history of carotid artery narrowing and enlargement of the ascending aorta. He denies any history of smoking. 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 The patient lives in [place] and has been considering participating in a cardiac rehabilitation program. He expresses a desire to increase his activity level and improve his overall health. A Complete Review of Systems is as stated above or negative. Past Medical History: Patient Active Problem List Diagnosis Esophageal reflux Osteoarthritis of spine with radiculopathy, cervical region HYPERTENSIVE RESPONSE- TREADMILL CAROTID STENOSIS, NON-SYMPTOMATIC Essential hypertension with goal blood pressure less than 130/80 Dyslipidemia, goal LDL below 70 Type 2 diabetes mellitus with hemoglobin A1c goal of less than 8.0% (HCC) WILLIAM (acute kidney injury) (HCC) History of agent [place] exposure Cerebral microvascular disease Type 2 diabetes mellitus with stage 3a chronic kidney disease (HCC) Chronic kidney disease, stage 3a (HCC) Aneurysm of ascending aorta without rupture (HCC) Past Surgical History: Procedure Laterality Date COLONOSCOPY 12/28 diverticulae only; repeat in 10 years CYSTOSCOPY 04/17/2009 KNEE ARTHROSCOPY, DIAGNOSTIC Left knee PROSTATE, LASER VAPORIZATION N/A 01/12/2023 LASER VAPORIZATION PROSTATE performed by Tanner Smalls MD at OR [facility] REMOVAL OF PROSTATE (TURP) N/A 01/12/2023 TRANSURETHRAL RESECTION PROSTATE ELECTROSURGICAL performed by Tanner Smalls MD at OR [facility] REMOVE GALLBLADDER Cholecystectomy REMOVE KNEE CARTILAGE, MED/LATERAL Knee meniscectomy, arthroscopic REMOVE LARGE BLADDER STONE, COMPLIC N/A 01/12/2023 LITHOLAPAXY COMPLICATED performed by Tanner Smalls MD at OR [facility] SHOULDER ARTHROSCOPY/REMOVE OBJECT Shoulder Surgery, Arthroscopic VASC DUPLEX CAROTID BILAT 09/27 right: lower end of 16-49%; left- upper end of 16-49% VASC DUPLEX CAROTID BILAT 12/2013 < 50% bilaterally Family History: Family History Problem Relation Name Age of Onset Cancer Father of lung cancer- age 74 Stroke Mother of CVA in her late 60's Stroke Sister recent CVA- age 58 No Past Hx Sister good health No Past Hx Brother good health Social History: Social History Socioeconomic History Marital status: Spouse name: Not on file Number of children: Not on file Years of education: Not on file Highest education level: Not on file Occupational History 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: [employer]- 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 [employer] Tobacco Use Smoking status: Never Smokeless tobacco: Never Vaping Use Vaping status: Never Used Substance and Sexual Activity Alcohol use: Yes Comment: socially/ocasionally Drug use: No Sexual activity: Yes Other Topics Concern Not on file Social History Narrative Not on file Social Needs Financial Resource Strain: Not on file Food Insecurity: No Food Insecurity (01/20/2022) Hunger Vital Sign Worried About Running Out of Food in the Last Year: Never true Ran Out of Food in the Last Year: Never true Transportation Needs: Not on file Social Connections: Not on file Housing Stability: Not on file Allergies: Atorvastatin Medications: Current Outpatient Medications Medication Sig Dispense Refill ASPIRIN 81 MG PO TABS 1 TABLET DAILY Sildenafil Citrate 20 MG Oral Tablet (Revatio) Take 3 tablets 1 hour prior to sexual activity 30 Tablet 5 amLODIPine Besylate 10 MG Oral Tablet (Norvasc) Take 1 Tablet by mouth in the morning. 90 Tablet 3 Finasteride 5 MG Oral Tablet (Proscar) take 1 tablet by mouth every morning 90 Tablet 3 Metoprolol Succinate ER 50 MG Oral Tablet Extended Release 24 Hour (toPROL XL) Take 1 Tablet by mouth in the morning. metFORMIN HCl 500 MG Oral Tablet (Glucophage) Take 1 Tablet by mouth in the morning and 1 Tablet before bedtime. Clopidogrel Bisulfate 75 MG Oral Tablet (pLAVix) Take 1 Tablet by mouth in the morning. Pantoprazole Sodium 40 MG Oral Tablet Delayed Release (Protonix) Take 1 Tablet by mouth in the morning. guaiFENesin-Codeine 100-10 MG/5ML Oral Solution (Robitussin AC) Take 5 mL by mouth every 4 hours asneeded for Cough. 120 mL 2 Lisinopril 20 MG Oral Tablet (Prinivil) Take 1 Tablet by mouth in the morning. 30 Tablet 5 Rosuvastatin Calcium 20 MG Oral Tablet (Crestor) Take 1 Tablet by mouth in the morning. 90 Tablet 3 Blood Pressure Cuff cHECK B/P DAILY 1 Each 0 DocumentCloud 2 w/Device Kit 2 times a day. (Patient not taking: Reported on 04/25/2024) No current facility-administered medications for this visit. OBJECTIVE/PHYSICAL EXAMINATION: BP 122/82 | Pulse 76 | Resp 14 | Wt 98 kg (216 lb) | BMI 30.99 kg/m | BSA 2.2 m General: Age-appropriate male in no acute distress Head: normocephalic, no masses, lesions, tenderness or abnormalities Eyes: conjunctiva are pink and non-injected, sclera clear Throat: clear Nares: without discharge Neck: supple, no adenopathy, normal jugular venous pulse, no hepatojugular reflux, no carotid bruits Chest: normal shape and normal respiratory effort Lungs: clear to auscultation and percussion Cardiac Exam: - regular rate & rhythm, no murmur, gallop or rub - normal S-1, normal S-2 Abdomen: abdomen soft, non-tender, no abnormal masses, no hepatosplenomegaly, no abdominal bruit, no femoral bruit Musculoskeletal: no gait disturbance, no joint inflammation, no deforming arthritis Extremities: no edema, no cyanosis, pulses intact 2+/4 right radial access site well healed Neuro: grossly normal exam Data: April 11, 2024 Coronary Angiography ([facility], Dr. Patel): LM - normal caliber, no significant disease LAD - medium caliber, calcified, 70% early-mid at takeoff of D2. Remainder of mid/distal vessel without significant disease, tapers prior to apex. Small D1 without disease. Small to medium caliber D2with 70% proximal stenosis. Circumflex -medium caliber mid segment luminal irregularities. 100% proximal OM 3. Fills retrogradevia left to left and right to left collaterals. RCA - dominant, large caliber, 50% late-mid stenosis at crux into distal segment. 30% distal stenosis right before PDA. PDA without luminal regularities. Large PLB with 30% proximal stenosis LVEDP -5 Status post successful PCI of the mid LAD with single 3.0 x 18 mm [place] drug- eluting stent Lab Results Component Value Date/Time BUN - [facility] 20 09/01/2023 11:29 AM BUN - [facility] 14 08/27/2018 08:13 AM Lab Results Component Value Date/Time CREATININE - [facility] 1.2 09/01/2023 11:29 AM CREATININE - [facility] 1.3 01/20/2022 12:00 AM CREATININE - [facility] 1.0 08/27/2018 08:13 AM CREATININE, RANDOM URINE - [facility] 78 09/01/2023 11:40 AM No components found for: "[id number]" IMPRESSION: 79 year old year old male seen after recent hospitalization for crescendo angina and subsequent coronary intervention Assessment & Plan Post-Acute Coronary Syndrome Recent hospitalization for crescendo angina, treated with stent placement in the left anterior descending artery. Currently experiencing mild chest discomfort and lightheadedness. -Reduce Lisinopril to 20mg daily due to low blood pressure. -Continue dual antiplatelet therapy with Aspirin and Clopidogrel for at least 6 months to 1 year. -Increase Rosuvastatin to 20mg daily for further cholesterol control. -Enroll in cardiac rehabilitation program in [place]. Influenza A Recent infection with residual cough. -Continue current management and monitor for resolution. Enlarged Ascending Aorta Known diagnosis with recent imaging. -Continue annual monitoring. Carotid Artery Narrowing Known diagnosis with non-significant narrowing. -Continue current management and monitor for progression. Follow-up in a few months to reassess symptoms and medication adjustments. Patient advised to call with any questions or concerns and to report to the ER with any and all emergencies. Disposition: Return 3 months Cy Espino MD Cardiology, [address] [place] [address] I spent a total of 40-54 minutes (exact time 45 mins) on the date of service in preparation, delivery, and documentation of the care provided to Yogesh Candelario excluding any time spent in the performance of separately billed services. This visit involved medical care services related to at least one serious condition or complex condition requiring ongoing care. This chart was completed in part utilizing [employer] Speech Voice Recognition Software. Grammatical errors, random word insertions, prounoun errors, and incomplete sentences are an occasional consequence of this system due to software limitations, ambient noise, and hardware issues. Any formal questions or concerns about the content, text, or information contained within the body of this dictation should be directly addressed to the provider for clarification. Text in this note was generated using an ambient documentation service. I discussed the use of a device to record and summarize our discussion today. All persons present during the encounter consented to its use. documented in this encounter Nursing Notes * Maria Isabel Delgado LPN - 05/05/2024 9:37 AM EST Examination Room: 14 Name: Yogesh Candelario Date of : 1945 Reason for Visit: Follow up/hosp follow up Problems/Concerns: Feeing better, some SOB, good days/bad days. Interim Hosp(s): Denies since 04/11/24 Chest Pain/SOB: Denies CP MyChart Discussed: DECLINES Patient was instructed to not get up on the exam table until directed and assisted by their provider; patient is to remain seated in the chair/ wheelchair/ exam table for fall prevention and safety reasons. Patient is aware staff will assist stepping down off exam table with personnel. documented in this encounter Plan of Treatment Upcoming Encounters Date Type Department Care Team (Late st Contact Info) Description 06/16/2024 6:20 PM EST Office Visit [facility] [address] [place] [address] Mona Hanson DO [address] [address] 08/04/2024 8:30 AM EDT Office Visit Cardiology, [facility] 132 [facility] [place] [address] Yesica Garces CRNP [address] [facility] [place] [address] 12/19/2024 8:15 AM EDT Imaging Radiology [facility] 132 [facility] [place] [address] 12/28/2024 8:45 AM EDT Office Visit Urology, [facility] 132 [facility] [place] [address] Tanner Smalls MD [address] [place] [address] [place] [address] Scheduled Referrals Name Type Priority Associated Diagnoses Orde r Schedule CARDIAC REHAB REFERRAL OP Referral Within 10 days (routine) Aneurysm of ascending aorta without rupture (HCC) Atherosclerosis of lower brule coronary artery of lower brule heart without angina pectoris Ordered: 05/05/2024 Health Maintenance Due Date Last Done Comments Diabetic Eye Exam 01/15/2022 01/15/2021 Adult Wellness Visit 01/18/2022 01/18/2021 Depression Screening 01/20/2023 01/20/2022 CKD HGB USE SMARTSET 03839 10/25/202310/24, 10/24/2022, 04/01/2022, Additional history exists COVID-19 Vaccine ( season) 2024 05/08/2021, 07/30/2020, 07/02/2020 GFR 03/02/2024 09/01/2023, 03/26, 10/24/2022, Additional history exists Albumin/Creatinine Ratio 08/31/2024 024, 10/24/2022, 04/01/2022, Additional history exists CKD PHOS USE SMARTSET 00711 08/31/2024 04/0 01/2024, 06/26/2022, 04/01/2022 Diabetic Foot [...] as of this encounter Visit Diagnoses Diagnosis Aneurysm of ascending aorta without rupture (HCC)- Primary Atherosclerosis of lower brule coronary artery of lower brule heart without angina pectoris documented in this encounter Additional Health Concerns Infection Onset [...] Advance Directives occurred with: Patient Care Teams Internet Cafe Manager Relationship Specialty Start Date End Date Mona Hanson DO [address] [address] PCP - General Family Medicine 08/16/18 documented as of this encounter
--- OUTSIDE RECORDS SUMMARY | 2024-05-13 08:40 | External Medical Summary | Summary of Care ---
Author Name Unknown Organization [facility] Address [address] [place] [address] Phone [phone] Care Team Providers Care Ese Teacher Name Role Phone Justin Hanson DO Primary Care Provider Reason for Visit * Reason Onset Date Comments Appointment 05/04/2024 Encounter Details Date Type Department Care Team (Late st Contact Info) Description 05/04/2024 Telephone Cardiology, [facility] [address] [place] [address] Cy Espino MD [address] [place] [address] Appointment Allergies Active Allergy Reactions Criticality Noted [...] (acute kidney injury) 01/17/2022 History of agent [place] exposure 01/17/2022 Type 2 diabetes mellitus wit [...] 6:20 PM EST Office Visit Family Practice [facility] [address] [place] [address] Jutsin Hanson DO [address] [address] 12/19/2024 8:15 AM EDT Imaging Radiology [facility] [address] [address] 12/28/2024 8:45 AM EDT Office Visit Urology, [facility] [address] [place] [address] Tanner Smalls MD [address] [place] [address] Health Maintenance Due Date Last Done Comments Diabetic Eye Exam 01/15/2022 01/15/2021 Adult Wellness Visit 01/18/2022 01/18/2021 Depression Screening 01/20/2023 01/20/2022 CKD HGB USE SMARTSET 01583 10/25/202310/24, 10/24/2022, 04/01/2022, Additional history exists COVID-19 Vaccine ( season) 2024 05/08/2021, 07/30/2020, 07/02/2020 GFR 03/02/2024 09/01/2023, 03/26, 10/24/2022, Additional history exists Albumin/Creatinine Ratio 08/31/2024 024, 10/24/2022, 04/01/2022, Additional history exists CKD PHOS USE SMARTSET 11132 08/31/2024 04/0 01/2024, 06/26/2022, 04/01/2022 Diabetic Foot [...] Advance Directives occurred with: Patient Care Teams Ese Teacher Relationship Specialty Start Date End Date Justin Hanson DO [address] [place] [address] PCP - General Family Medicine 08/16/18 documented as of this encounter
--- OUTSIDE RECORDS SUMMARY | 2024-05-13 08:41 | External Medical Summary | Summary of Care ---
Author Name Unknown Organization [facility] Address [address] [facility] [place] [address] Phone [phone] Care Team Providers Care S Iron Worker Name Role Phone Justin Hanson DO Primary Care Provider Reason for Visit * Reason Onset Date Comments Appointment 04/12/2024 Encounter Details Date Type Department Care Team ([facility] st Contact Info) Description 04/12/2024 Telephone Cardiology, [facility] [address] [place] [address] Solis Plummer PA-C [address] [facility] [place] [address] Appointment Allergies Active Allergy Reactions Criticality Noted Date Comments Atorvastatin Medium 01/15/2015 Simply felt overall poorly documented as of this encounter (statuses as of 04/12/2024) Medications ASPIRIN 81 MG PO TABS 1 TABLET DAILY Activ e Blood Pressure Cuff cHECK B/P DAILY 1 Each 2 Active Sildenafil Citrate 20 MG Oral Tablet (Revatio) Take 3 tablets 1 hour prior to sexual activity 30 Tablet 5 3 Active Additional Information Patient not taking.Reported on 12/23/2023 Lisinopril 20 MG Oral Tablet (Prinivil) take 1 tablet by mouth every morning 90 Tablet 3 3 Active amLODIPine Besylate 10 MG Oral Tablet (Norvasc) Take 1 Tablet by mouth in the morning. 90 Tablet 3 4 Active Rosuvastatin Calcium 10 MG Oral Tablet (Crestor) Take 1 Tablet by mouth daily. 90 Tablet 3 04/04/202 4 Active Finasteride 5 MG Oral Tablet (Proscar) take 1 tablet by mouth every morning 90 Tablet 3 4 Active documented as of this encounter (statuses as of 04/12/2024) Active Problems Problem Noted Date Diagnosed Date Aneurysm of ascending aorta without rupture 10/2022 Chronic kidney disease, stage 3a 09/01/2022 Overview: Per CKD protocol 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 08/04/2022 Overview: Per CKD protocol Cerebral microvascular disease 03/18/2022 WILLIAM (acute kidney injury) 01/17/2022 History of agent [place] exposure 01/17/2022 Type 2 diabetes mellitus wit [...] as of this encounter (statuses as of 04/12/2024) Resolved Problems Problem Noted Date Diagnosed Date [...] Modified per HTN Taxonomy. PURE HYPERCHOLESTEROLEM 02/28/2002 1212/2008 Overview (05/01/2009): Per Lipid Taxonomy. documented as of this encounter (statuses as of 04/12/2024) Immunizations Name Administration Dates Next Due COVID-19 [...] Telephone Encounter - Peter Blum OSA - 04/12/2024 10:36 AM EST I currently do not have any appts with Alondra or Solis, the patient has been scheduled with Dr. Espino on: RETURN CARDIOLOGY at 10:30 AM (30 min)Arrive by 10:15 AM April Appointment Provider:Cy Espino MD in CARDIOLOGY [facility] * Telephone Encounter - Yarely Rosa CMA - 04/12/2024 10:28 AM EST Received call from Solis Plummer PA-C at [facility] -- patient needs hospital follow up in 2-3 weeks -- patient previously seen by Alondra Uribe PA-C, but ok to schedule with Solis as well. Please book appointment and route to Solis Plummer PA-C with information to pass to patient. documented in this encounter Plan of Treatment Upcoming Encounters Date Type Department Care Team (Late st Contact Info) Description 04/18/2024 2:20 PM EST Office Visit Family Practice [facility] [address] [facility] [place] [address] Justin Hanson, DO [address] [place] [address] 04/28/2024 10:30 AM EST Office Visit Cardiology, [facility] [address] [facility] [place] [address] Cy Espino MD [address] [place] [address] 06/16/2024 6:20 PM EST Office Visit [facility] Practice [facility] [place] [address] Justin Hanson, DO [address] [place] [address] 12/19/2024 8:15 AM EDT Imaging Radiology [facility] [address] [facility] [place] [address] 12/28/2024 8:45 AM EDT Office Visit Urology, [facility] [address] [facility] [place] [address] Tanner Smalls MD [address] [place] [address] Health Maintenance Due Date Last Done Comments Diabetic Eye Exam 01/15/2022 01/15/2021 Adult Wellness Visit 01/18/2022 01/18/2021 Depression Screening 01/20/2023 01/20/2022 CKD HGB USE SMARTSET 98597 10/25/202310/24, 10/24/2022, 04/01/2022, Additional history exists COVID-19 Vaccine ( season) 2024 05/08/2021, 07/30/2020, 07/02/2020 Influenza Vaccine (FLU shot) (#1) 2024 04/28/2023, 02/26/2022, 03/23/2021, Additional history exists GFR 03/02/2024 09/01/2023, 03/26, 10/24/2022, Additional history exists Albumin/Creatinine Ratio 08/31/2024 024, 10/24/2022, 04/01/2022, Additional history exists CKD PHOS USE SMARTSET 01284 08/31/2024 04/0 01/2024, 06/26/2022, 04/01/2022 Diabetic Foot [...] Advance Directives occurred with: Patient Care Teams S Iron Worker Relationship Specialty Start Date End Date Justin Hanson DO [address] [place] [address] PCP - General Family Medicine 08/16/18 documented as of this encounter
--- OUTSIDE RECORDS SUMMARY | 2024-05-13 08:41 | External Medical Summary | Summary of Care ---
Author Name Unknown Organization [facility] Address [address] [facility] [address] Phone [phone] Care Team Providers Care Conveyor Installer Name Role Phone Justin Hanson DO Primary Care Provider Reason for Visit * Reason Comments Hospital Follow-Up Pt here for Hosp F/U . Pt admitted to [facility] on 04/11/24 and DC on 04/12/2024 due to Crescendo Angina, heart cath done and stenting of LAD. Pt to see Cards next week. Occasional bouts of momentary "fuzziness", pt questions if due to medication changes. Denies SOB. Encounter Details Date Type Department Care Team (Late st Contact Info) Description 04/18/2024 2:20 PM EST Office Visit Family [facility] [address] [place] [address] Justin Hanson DO [address] [place] [address] Type 2 diabetes mellitus with stage 3a chronic kidney disease, without long-term current use of insulin (HCC)*; Dyslipidemia, goal LDL below 70; Essential hypertension with goal blood pressure less than 130/80; HTN, goal below 140/90; Other polyneuropathy; Vitamin D deficiency; Type 2 diabetes mellitus with hemoglobin A1c goal of less than 8.0% (HCC) Allergies Active Allergy Reactions Criticality Noted Date Comments Atorvastatin Medium 01/15/2015 Simply felt overall poorly documented as of this encounter (statuses as of 04/18/2024) Medications ASPIRIN 81 MG PO TABS 1 [...] by mouth daily. 90 Tablet 3 4 Active Finasteride 5 [...] by mouth in the morning. 4 Active ImmunGene Ultra 2 w/Device Kit 2 times a day. 4 Active Pantoprazole Sodium 40 MG Oral Tablet Delayed Release (Protonix) Take 1 Tablet by mouth in the morning. 4 Active Lisinopril 20 MG Oral Tablet (Prinivil) take 1 tablet by mouth every morning 90 Tablet 3 3 024 Discontinued Lisinopril 10 MG Oral Tablet (Prinivil) Take 3 Tablets by mouth in the morning. 4 024 Discontinued documented as of this encounter (statuses as of 04/18/2024) Active Problems Problem Noted Date Diagnosed Date Aneurysm of ascending aorta without rupture 10/2022 Chronic kidney disease, stage 3a 09/01/2022 Overview: Per CKD protocol 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 08/04/2022 Overview: Per CKD protocol Cerebral microvascular disease 03/18/2022 WILLIAM (acute kidney injury) 01/17/2022 History of agent [place] exposure 01/17/2022 Type 2 diabetes mellitus wit [...] as of this encounter (statuses as of 04/18/2024) Resolved Problems Problem Noted Date Diagnosed Date [...] Stenosis protocol #10 BENIGN HYPERTENSION 02/28/2003 03/30/20 Overview (03/30/2009): Modified per HTN Taxonomy. PURE HYPERCHOLESTEROLEM 02/28/2002 1212/2008 Overview (05/01/2009): Per Lipid Taxonomy. documented as of this encounter (statuses as of 04/18/2024) Immunizations Name Administration Dates Next Due COVID-19 [...] Sign Reading Time Taken Comments Blood Pressure 112/72 04/18/2024 2:11 PM EST Pulse 57 04/18/2024 2:11 PM EST Temperature 35.6 C (96 F) 04/18/2024 2:11 PM EST Respiratory Rate 16 04/18/2024 2:11 PM EST Oxygen Saturation 95% 04/18/2024 2:11 PM EST Inhaled Oxygen Concentration - - Weight 101.2 kg (223 lb) 04/18/2024 2:11 PM EST Height - - Body Mass Index 32 04/28/2023 7:54 AM EST documented in this encounter Progress Notes * Justin Hanson, DO - 04/18/2024 2:27 PM EST Images from the original note were not included. Assessment and Plan Assessment & Plan Hospital discharge/Coronary Artery Disease/CAD/s/p stent placement Recent stent placement for unstable angina. Currently asymptomatic with occasional lightheadedness possibly due to increased Metoprolol dose. -Continue current medications including Metoprolol, Lisinopril, and Rosuvastatin. -Advise against strenuous activities such as weightlifting and hunting for 4-6 weeks to allow stentincorporation. -Consider dose adjustment if lightheadedness worsens or does not improve. Type 2 Diabetes Mellitus Recent increase in HbA1c from 7.2 to 8.9. Currently on Metformin 500mg twice daily. -Continue Metformin 500mg twice daily. -Encourage increased physical activity. -Check HbA1c in 3 months to assess response to Metformin. Benign Prostatic Hyperplasia Asymptomatic, currently on Finasteride. -Continue Finasteride. Peripheral Neuropathy Intermittent symptoms in both legs, possibly related to spinal stenosis. -Consider further evaluation for spinal stenosis. -Encourage use of [place] benefits for physical therapy. Follow-up in May 2024 with labs to monitor blood sugar control and response to Metformin. History of Present Illness Yogesh Candelario is a 79 year old male that presents for Hospital Follow-Up (Pt here for Hosp F/U.Pt admitted to [facility] on 04/11/24 and [place] on 04/12/2024 due to Crescendo Angina, heart cath done and stenting of LAD. Pt to see Cards next week. Occasional bouts of momentary "fuzziness", pt questions if due to medication changes. Denies SOB.) History of Present Illness The patient, with a history of unstable angina, kidney issues, diabetes, and neuropathy, recently underwent a cardiac catheterization procedure. Post- procedure, the patient reports feeling lightheaded, which he attributes to an increase in his metoprolol dosage. He also experiences intermittent neuropathy in his legs, with symptoms varying from feeling like his legs are on fire to having no symptoms at all for several days. The patient's notes that he has been feeling down and frustrated due to his health issues and limitations. The patient is also concerned about his elevated blood sugar levels and is taking metformin to manage his diabetes. Physical Exam Vitals: 04/18/24 1411 Temp: 96 F (35.6 C) Pulse: 57 Resp: 16 SpO2: 95% BP: 112/72 Physical Exam Constitutional: Appearance: Normal appearance. HENT: Head: Normocephalic and atraumatic. Eyes: Extraocular Movements: Extraocular movements intact. Pupils: Pupils are equal, round, and reactive to light. Cardiovascular: Rate and Rhythm: Normal rate and regular rhythm. Pulmonary: Effort: Pulmonary effort is normal. Breath sounds: Normal breath sounds. Neurological: General: No focal deficit present. Mental Status: He is alert and oriented to person, place, and time. Psychiatric: Mood and Affect: Mood normal. Behavior: Behavior normal. Wrap-Up Follow-up: Return in about 3 months (around 07/19/2024). | Check-out note: 3 month f/u Time: Total time today was 42 minutes excluding any time spent in the performance of separately billed services. Text in this note was generated using an [employer] documentation service. I discussed the use of a device to record and summarize our discussion today. All persons present during the encounter consented to its use. documented in this encounter Plan of Treatment Upcoming Encounters Date Type Department Care Team (Late st Contact Info) Description 04/28/2024 10:30 AM EST Office Visit Cardiology, [facility] [address] [address] Cy Espino MD [address] [address] 06/16/2024 6:20 PM EST Office Visit Family Practice [facility] [address] [place] [address] Justin Hanson, [address] [place] [address] 12/19/2024 8:15 AM EDT Imaging Radiology [facility] [address] [place] [address] 12/28/2024 8:45 AM EDT Office Visit Urology, [facility] [address] [place] [address] Tanner Smalls MD [address] [place] [address] Scheduled Orders Name Type Priority Associated Diagnoses Orde r Schedule CBC WITH WBC DIFFERENTIAL Lab Routine HTN, goal below 140/90 Expected: 04/18/2024 (Approximate), Expires: 04/18/2025 COMPREHENSIVE METABOLIC PANEL Lab Routine Type 2 diabetes mellitus with stage 3a chronic kidney disease, without long-term current use of insulin (HCC) Dyslipidemia, goal LDL below 70 Expected: 04/18/2024 (Approximate), Expires: 04/18/2025 HEMOGLOBIN A1C Lab Routine Type 2 diabetes mellitus with stage 3a chronic kidney disease, without long-term current use of insulin (HCC) Expected: 04/18/2024 (Approximate), Expires: 04/18/2025 ALBUMIN / CREATININE RATIO, URINE Lab Routine HTN, goal below 140/90 Expected: 04/18/2024 (Approximate), Expires: 04/18/2025 LIPID PANEL WITH DIRECT LDL IF TG IS HIGH Lab Routine Dyslipidemia, goal LDL below 70 Expected: 04/18/2024, Expires: 04/18/2025 25-HYDROXY VITAMIN D Lab Routine Vitamin D deficiency Expected: 04/18/2024 (Approximate), Expires: 04/18/2025 Health Maintenance Due Date Last Done Comments Diabetic Eye Exam 01/15/2022 01/15/2021 Adult Wellness Visit 01/18/2022 01/18/2021 Depression Screening 01/20/2023 01/20/2022 CKD HGB USE SMARTSET 24223 10/25/202310/24, 10/24/2022, 04/01/2022, Additional history exists COVID-19 Vaccine ( season) 2024 05/08/2021, 07/30/2020, 07/02/2020 GFR 03/02/2024 09/01/2023, 03/26, 10/24/2022, Additional history exists Albumin/Creatinine Ratio 08/31/2024 024, 10/24/2022, 04/01/2022, Additional history exists CKD PHOS USE SMARTSET 30230 08/31/2024 04/0 01/2024, 06/26/2022, 04/01/2022 Diabetic Foot [...] as of this encounter Visit Diagnoses Diagnosis Type 2 diabetes mellitus with stage 3a chronic kidney disease, without long-term current use of insulin (HCC)- Primary Dyslipidemia, goal LDL below 70 Other and unspecified hyperlipidemia Essential hypertension with goal blood pressure less than 130/80 HTN, goal below 140/90 Unspecified essential hypertension Other polyneuropathy Vitamin D deficiency Unspecified vitamin D deficiency Type 2 diabetes mellitus with hemoglobin A1c goal of less than 8.0% (HCC) documented in this encounter Advance Directives [...] Advance Directives occurred with: Patient Care Teams Conveyor Installer Relationship Specialty Start Date End Date Justin Hanson DO [address] [place] [address] PCP - General Family Medicine 08/16/18 documented as of this encounter
--- OUTSIDE RECORDS SUMMARY | 2024-05-13 08:41 | External Medical Summary | Summary of Care ---
Author Name Unknown Organization [facility] Address [address] [place] [address] Phone [phone] Care Team Providers Care Extruder Name Role Phone Justin Hanson Primary Care Provider Encounter Details Date Type Department Care Team ([facility] st Contact Info) Description 04/10/2024 Result Scan Unspecified Department <No scans attached> Allergies Active Allergy Reactions Criticality Noted Date Comments Atorvastatin Medium 01/15/2015 Simply felt overall poorly documented as of this encounter (statuses as of 04/11/2024) Medications ASPIRIN 81 MG PO TABS 1 [...] as of this encounter (statuses as of 04/11/2024) Active Problems Problem Noted Date Diagnosed Date Aneurysm of ascending aorta without rupture 12/0 10/2022 Chronic kidney disease, stage 3a 09/01/2022 Overview: Per CKD protocol 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 08/04/2022 Overview: Per CKD protocol Cerebral microvascular disease 03/18/2022 WILLIAM (acute kidney injury) 01/17/2022 History of agent [place] exposure 01/17/2022 Type 2 diabetes mellitus wit [...] as of this encounter (statuses as of 04/11/2024) Resolved Problems Problem Noted Date Diagnosed Date [...] Modified per HTN Taxonomy. PURE HYPERCHOLESTEROLEM 02/28/2002 120 12/2008 Overview (05/01/2009): Per Lipid Taxonomy. documented as of this encounter (statuses as of 04/11/2024) Immunizations Name Administration Dates Next Due COVID-19 [...] Description 04/26/2024 8:00 AM EST Imaging Radiology [facility] [address] [place] [address] 06/16/2024 6:20 PM EST Office Visit Family Practice [facility] [address] [address] Justin Hanson, [address] [place] [address] 12/19/2024 8:15 AM EDT Imaging Radiology [facility] [address] [place] [address] 12/28/2024 8:45 AM EDT Office Visit Urology, [facility] [address] [place] [address] Tanner Smalls MD [address] [place] [address] Health Maintenance Due Date Last Done Comments Diabetic Eye Exam 01/15/2022 01/15/2021 Adult Wellness Visit 01/18/2022 01/18/2021 Depression Screening 01/20/2023 01/20/2022 CKD HGB USE SMARTSET 64188 10/25/202310/24, 10/24/2022, 04/01/2022, Additional history exists COVID-19 Vaccine ( season) 2024 05/08/2021, 07/30/2020, 07/02/2020 Influenza Vaccine (FLU shot) (#1) 2024 04/28/2023, 02/26/2022, 03/23/2021, Additional history exists GFR 03/02/2024 09/01/2023, 03/26, 10/24/2022, Additional history exists Albumin/Creatinine Ratio 08/31/2024 024, 10/24/2022, 04/01/2022, Additional history exists CKD PHOS USE SMARTSET 81148 08/31/2024 04/0 01/2024, 06/26/2022, 04/01/2022 Diabetic Foot [...] Procedure Name Priority Date/Time Associated Diagnosis Comments RADIOLOGY SCANNED RESULT 04/10/2024 documented in this encounter Results * RADIOLOGY SCANNED RESULT (04/10/2024) 04/10/2024 us No Physician Data Unknown DIAGNOSTIC RADIOLOGY S ERVICES Final Result documented in this encounter Advance Directives * [...] Advance Directives occurred with: Patient Care Teams Extruder Relationship Specialty Start Date End Date Justin Hanson DO [address] [address] PCP - General Family Medicine 08/16/18 documented as of this encounter
--- OUTSIDE RECORDS SUMMARY | 2024-05-13 08:41 | External Medical Summary | Summary of Care ---
Author Name Unknown Organization [facility] Address [address] [facility] [place] [address] Phone [phone] Care Team Providers Care Business Continuity Strategy Director Name Role Phone Justin Hanson DO Primary Care Provider Encounter Details Date Type Department Care Team (Late st Contact Info) Description 04/11/2024 Orders Only Family Practice [facility] [address] [place] [address] Justin Hanson DO [address] [place] [address] Allergies Active Allergy Reactions Criticality Noted Date [...] (acute kidney injury) 01/17/2022 History of agent [place] exposure 01/17/2022 Type 2 diabetes mellitus wit [...] Description 04/26/2024 8:00 AM EST Imaging Radiology [facility] [place] [address] [address] 06/16/2024 6:20 PM EST Office Visit Family Practice [facility] [address] [address] Justin Hanson DO [address] [place] [address] [address] 12/19/2024 8:15 AM EDT Imaging Radiology [facility] [address] [address] 12/28/2024 8:45 AM EDT Office Visit Urology, [facility] [address] [address] Tanner Smalls MD [address] [place] [address] [address] Health Maintenance Due Date Last Done Comments Diabetic Eye Exam 01/15/2022 01/15/2021 Adult Wellness Visit 01/18/2022 01/18/2021 Depression Screening 01/20/2023 01/20/2022 CKD HGB USE SMARTSET 26493 10/25/202310/24, 10/24/2022, 04/01/2022, Additional history exists COVID-19 Vaccine ( season) 2024 05/08/2021, 07/30/2020, 07/02/2020 Influenza Vaccine (FLU shot) (#1) 2024 04/28/2023, 02/26/2022, 03/23/2021, Additional history exists GFR 03/02/2024 09/01/2023, 03/26, 10/24/2022, Additional history exists HbA1c 03/02/2024 04/10/2024, 0 01/2024, 04/13/2023, Additional history exists Albumin/Creatinine Ratio 08/31/2024 024, 10/24/2022, 04/01/2022, Additional history exists CKD PHOS USE SMARTSET 18280 08/31/2024/0 01/2024, 06/26/2022, 04/01/2022 Diabetic Foot Exam 08/31/2024 09/01/2023, 05/12/2022 DTap/Tdap Vaccines (3 - Td or Tdap) [...] Procedure Name Priority Date/Time Associated Diagnosis Comments CHEMISTRY-OUTSIDE Routine 04/10/2024 documented in this encounter Results * (ABNORMAL) CHEMISTRY-OUTSIDE (04/10/2024) Not all results display below - see scan for full detail OUTSIDE LAB (SEE SCANNED REPORT) Comment:[facility] ED-HGBA1C CREATININE OUTSIDE L AB (SEE SCANNED REPORT) EGFR OUTSIDE LA B (SEE SCANNED REPORT) POTASSIUM OUTSIDE LA B (SEE SCANNED REPORT) GLUCOSE OUTSIDE LA B (SEE SCANNED REPORT) HOURS FASTING OUTSID E LAB (SEE SCANNED REPORT) TRIGLYCERIDES-OUT SIDE LAB OUTSIDE LAB (SEE SCANNED REPORT) CHOLESTEROL-OUTSI DE LAB OUTSIDE LAB (SEE SCANNED REPORT) HDL-OUTSIDE LAB OUTS [facility] (SEE SCANNED REPORT) CHOL/HDL RATIO-OUTSIDE LAB OUTSIDE LA B (SEE SCANNED REPORT) LDL (CALCULATED)-OUTS [facility] OUTSIDE LAB (SEE SCANNED REPORT) LDL (DIRECT MEASURE)-OUTSIDE LAB OUTSIDE LAB (SEE SCANNED REPORT) HEMOGLOBIN, M9Z-[id number] LAB 8.9(A) 4.5 - 5.6 % OUTSIDE LAB (SEE SCANNED REPORT) PHOSPHORUS-OUTSID E LAB OUTSIDE LAB (SEE SCANNED REPORT) PTH-OUTSIDE LAB OUTS [facility] LAB (SEE SCANNED REPORT) MICROALBUMIN RATIO-OUTSIDE LAB OUTSIDE LA B (SEE SCANNED REPORT) PROTEIN, UA-OUTSIDE LAB OUTSIDE LAB (SEE SCANNED REPORT) HGB OUTSIDE LA B (SEE SCANNED REPORT) 04/10/2024 Neearj Solo DO LABORATORY Final Result OUTSIDE LAB (SEE SCANNED REPORT) documented in this encounter Advance Directives * [...] Advance Directives occurred with: Patient Care Teams Business Continuity Strategy Director Relationship Specialty Start Date End Date Justin Hanson DO [address] [place] [address] PCP - General Family Medicine 08/16/18 documented as of this encounter
--- OUTSIDE RECORDS SUMMARY | 2024-05-13 08:41 | External Medical Summary ---
Author Name Unknown Address Unknown Organization [id number]:[facility] [address] [place] [address] Laboratory Report Ordering Provider Test Date Status HIEN DUNN 04/25/2024 08:56:11 Final Observation Date Value Abnormality Reference (Units ) Status SARS Coronavirus 2 04/25/2024 08:56:11 Negative N egative Final No SARS-CoV2 Coronavirus RNA detected by PCR (amplified probe).
This express test was developed and its performance characteristics determined by [facility]. It has not been cleared or approved by the U.S. Food and Drug Administration (FDA). FDA does not require this test to go thru premarket FDA review. This test is used for clinical purposes. It should not be regarded as investigational or for research. This laboratory is certified under the Clinical Laboratory Improvement Amendments (CLIA) as qualified to perform high complexity clinical laboratory testing.

This test is a nucleic acid amplification test (NAAT), a reverse transcriptase polymerase chain reaction (RT-PCR) test, or a Centers for Disease Control-acceptable equivalent. The test is performed in a high complexity Clinical Laboratory Improvement Amendments-(CLIA) certified laboratory. The test is acceptable for SARS-CoV-2 diagnosis, surveillance, and travel within the [place] and to most countries. Please check with local testing authorities about requirements before travel.

The validation of bronchial specimens, tracheal aspirates, and sputum for this assay was developed and performance characteristics determined by [facility]. The validation of alternate specimen types has not been cleared or approved by the U.S. Food and Drug Administration (FDA). It has been determined that such clearance is not necessary. Influenza virus A RNA [Prese nce] in Specimen by DINA with probe detection 04/25/2024 08:56:11 Positive Abnormal Negative Final Influenza A RNA detected by PCR (amplified probe). Test results reported to [facility]. Influenza virus B RNA [Prese nce] in Specimen by DINA with probe detection 04/25/2024 08:56:11 Negative Negative Final No Influenza B RNA detected by PCR (amplified probe) Respiratory syncytial virus RNA [Identifier] in Specimen by DINA with probe detection 04/25/2024 08:56:11 Negative Negative Final No Respiratory Syncytial Vir us RNA detected by PCR (amplified probe) Performing Location [facility]AT[facility] [address] [place] [address]
[2024-05-13] MEDS: HEPARIN SOD 5,000 UNIT/0.5 ML VIAL SQ SCH (08:42)
--- NOTE | 2024-05-13 09:19 | Cardiology Consultation ---
Date of Consultation May 13, 2024 Assessment & Plan (1) Chest pain: (2) Elevated troponin: (3) ASCVD (arteriosclerotic cardiovascular disease): (4) Asymptomatic PVCs: (5) Indigestion: (6) HTN, goal below 130/80: (7) Dyslipidemia, goal LDL below 70: Plan 79-year-old male admitted in March with unstable angina symptoms. Diagnostic cardiac catheterization on 04/11/2024 diffuse diabetic multivessel coronary artery disease, patient undergoing PCI of the mid LAD with a drug-eluting stent. 60-70% proximal small to medium D2 stenosis noted along with a 100% proximal OM 3 chronic total occlusion with left to left and right to left collaterals and a 50% latemid into distal RCA (IFR negative 0.97). Normal intracardiac filling pressure noted. Patient returns to [facility] May 12, 2024 noting recent interim influenza A illness, presenting now with atypical chest discomfort - burning left mid to upper chest pain associated with burping and rifting, symptoms aided by antacids (Rolaids) and a glass of water. EKG without acute change. High-sensitivity troponin minimally elevated and flat. Chest x-ray and telemetry benign. Options of management discussed. Plan as outlined below. Recommendations: * Increase pantoprazole to 40 mg twice per day * Consider GI evaluation, referral for EGD * Continue medical management of CAD * Add Imdur 30 mg daily in the morning * Decrease lisinopril to 10 mg/day * Continue dual-antiplatelet therapy with ASA and Clopidogrel for at least 6 months post PCI and preferably 1 year (March 2025) * Continue metoprolol, amlodipine, and rosuvastatin as prescribed * Refer for resting echocardiography Supervising Physician Co-Signing Physician Notes I have personally performed a history and physical examination on the patient. I have reviewed the advance practitioner's documentation, and I agree with, and take responsibility for the plan of care. 79-year-old male presents for evaluation of atypical chest discomfort. Symptoms unlike prior angina. Mildly elevated high-sensitivity troponin noted without ischemic ECG changes. Denies exertional chest pain or unusual shortness of breath. Recent PCI of left circumflex and influenza A infection noted. Recommend conservative medical management of CAD including addition of low-dose isosorbide monohydrate 30 mg daily. Continue dual antiplatelet therapy with aspirin and clopidogrel for minimum of 6 months post percutaneous intervention, preferably 1 year. Other cardiovascular medications including metoprolol, amlodipine, and rosuvastatin will be continued as previously ordered. Preliminary review of bedside echocardiogram demonstrates preserved LV systolic function and normal wall motion. There is asymmetric left ventricular hypertrophy involving the base septum. Proceed with outpatient cardiac MRI for further evaluation. Romero Daley DO, [facility] History of Present Illness Reason for Consultation: CP, recent cath with EASTON to LAD 04/10 Requesting Physician: [facility] Hospitalist Service, Alessia Rosales PA-C [facility] Jerry MD History of Present Illness Mr. Yogesh Candelario is a very pleasant 79-year-old male who recently presented to [facility] in March 2024 with complaints of exertional chest tightness associated with shortness of breath, dizziness, bilateral leg weakness, crescendo/unstable angina. Diagnostic cardiac catheterization on April 11, 2024 revealed multivessel coronary artery disease. Patient status post PCI of the mid LAD with a single 3.0 x 18 mm [place] drug-eluting stent. Following hospitalization at [facility] in March patient contracted influenza A. He describes significant symptoms at that time, coughing so much that he was s ore from his lower ribs to his waist for days. He describes still having a lingering cough that is nonproductive, without fevers or chills. He notes having good days and bad days. Notes recent outpatient evaluation by Dr. Espino on 05/05 with reduction in lisinopril dosing in an attempt to aid lightheadedness complaint. Patient presented to [facility] on May 12, 2024 for e valuation of chest discomfort. Patient notes that for the past 3 to 4 days he has been experiencing a quick burning sensation in the left mid to upper chest that is associated with burping and lifting. Notes symptoms are similar to those previously associated with indigestion. Rolaids as well as drinking a glass of water will relieve the discomfort. Symptoms are unlike those leading to hospitalization in March. Patient describes improvement in exercise tolerance, exertional dyspnea, exertional leg weakness following percutaneous coronary intervention. Patient describes walking up to half a mile without difficulty. EKG on presentation revealed sinus rhythm at [address] segment change. Occasional ectopy noted. A second EKG on May 12 revealed sinus bradycardia at 56 bpm, also without acute ST segment change. EKG this morning reveals sinus bradycardia 55 with a first-degree AV block, without ST segment change. High-sensitivity troponin elevated as follows: 55.0 -> 59.2 -> 56.3 -> 41.0. Plain film evaluation of the chest on admission showed no acute cardiopulmonary process. Past Medical and Surgical History ASCVD, multivessel CAD, status post PCI of the mid LAD with a drug-eluting stent on April 11, 2024 Hypertension 4.5 cm ascending aortic aneurysm Abdominal aortic ectasia Dyslipidemia Type 2 diabetes mellitus Stage III chronic kidney disease Bilateral carotid artery disease GERD Vertigo Osteoarthritis Laser vaporization of the prostate TURP Gallbladder Arthroscopic knee surgery Shoulder surgery Family History: Father with CAD, passing with lung cancer, black lung. Mother following a CVA. Social History: Never smoker. No smokeless tobacco. No illegal drug use. No significant alcohol. [place] , [employer], with exposure to agent orange. x 34 years. 1 living child. 1 son had a stroke at 44, later shot by his . Originally from [place]. Lives in [place]. Allergies Allergy/AdvReac Type Severity Reaction Status Date / Time No Known Allergies Allergy Mild Verified 04/10/24 11:54 Home Medications Medication Instructions Recorded Confirmed Type aspirin 81 mg tablet,delayed 81 mg PO DAILY 10/15/21 05/12/24 History release amlodipine 10 mg tablet 10 mg PO QAM 04/10/24 05/12/24 History finasteride 5 mg tablet 5 mg PO QAM 04/10/24 05/12/24 History blood-glucose meter (Blood Glucose #1 ea 04/12/24 05/12/24 Rx Monitoring kit) clopidogrel 75 mg tablet 75 mg PO QAM #30 tabs 04/12/24 05/12/24 Rx metformin 500 mg tablet 500 mg PO BIDWMEAL #60 tabs 04/12/24 05/12/24 Rx metoprolol succinate 50 mg 50 mg PO QAM #30 tabs 04/12/24 05/12/24 Rx tablet,extended release 24 hr pantoprazole 40 mg tablet,delayed 40 mg PO DAILY #30 tabs 04/12/24 05/12/24 Rx release lisinopril 10 mg tablet 20 mg PO DAILY 05/12/24 05/12/24 History rosuvastatin 10 mg tablet 20 mg PO HS 05/12/24 05/12/24 History Patient History Medical History DM (diabetes mellitus), type 2 CAD (coronary artery disease) BPH (benign prostatic hyperplasia) Obesity Urinary retention Carotid stenosis HLD (hyperlipidemia) HTN (hypertension) Surgical History S/P cardiac catheterization EASTON to LAD 04/10/24 @ [facility] Hx of arthroscopy of shoulder History of meniscectomy of left knee Hx laparoscopic cholecystectomy Family History Father Cancer Mother Stroke Sister Stroke Social History Smoking Status: Never smoker Hx Alcohol Use: No Hx Substance Use: No Preferred Language: Khmer Communication Ability: Effective 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 HEENT: No history of amaurosis fugax. Pulmonary: See above. No history of PE. Cardiac: See above. GI/Abd: Indigestion. GERD. No melana or hematochezia. Vascular: Carotid disease. AAA. No lower extremity claudication. Hematologic: No abnormal bleeding. Musculoskeletal: Arthritis. Skin: No rash. Neurologic: No history of seizure disorder. Endocrine: Diabetes mellitus. Complete Review of Systems is as stated above, negative, or noncontributory Physical Exam Physical Exam: General: A&Ox3. NAD. HENT: Normocephalic. Atraumatic. Eyes: PER. Conjunctiva pink, sclera clear. Neck: Bilateral carotid bruits. No JVD. Heart: RRR, 66 bpm. Soft systolic murmur. No diastolic murmur. No rub. Lungs: Clear to auscultation. Abdomen: +BS. No organomegaly. Extremities: No clubbing, cyanosis, or edema. Limited neurological examination is without focal deficits. Results & Data Vital Signs (Past 12 Hours) Vital Signs Temp Pulse Pulse Resp BP Pulse Ox O2 Del Method 05/13/24 07:23 36.7 C 72 18 115/76 93 Room Air 05/13/24 03:45 36.8 C 55 L 18 125/71 95 Room Air 05/12/24 23:17 36.5 C 56 L 18 118/77 95 Room Air 05/12/24 22:06 59 L Laboratory Results Cardiac Enzymes 05/12/24 05/12/24 05/13/24 Range/Units 16:57 18:40 00:44 AST 23 (13-39) U/L Troponin I High Sens 55.0 H* 59.2 H* 56.3 H* (0-20) pg/ml 05/13/24 Range/Units 06:52 AST (13-39) U/L Troponin I High Sens 41.0 H D (0-20) pg/ml CBC 05/12/24 05/13/24 Range/Units 16:57 06:52 WBC 7.21 6.25 (4.8-10.8) K/ul RBC 4.35 L 4.15 L (4.70-6.10) M/uL Hgb 13.6 L 13.0 L (14.0-18.0) g/dl Hct 39.3 L 37.2 L (42.0-52.0) % Plt Count 226 206 (130-400) K/uL Neut # (Auto) 4.98 (1.40-6.50) K/uL Lymph # (Auto) 1.44 (1.20-3.40) K/uL [place] # (Auto) 0.60 H (0.11-0.59) K/uL Eos # (Auto) 0.15 (0.00-0.50) K/uL Baso # (Auto) 0.02 (0.00-0.20) K/uL Comprehensive Metabolic Panel 05/12/24 05/13/24 Range/Units 16:57 06:52 Sodium 139 139 (136-145) mmol/L Potassium 4.6 4.4 (3.5-5.1) mmol/L Chloride 107 108 H (98-107) mmol/L Carbon Dioxide 25 22 (21-32) mmol/L BUN 24 H 22 (6-23) mg/dl Creatinine 1.22 1.18 (0.6-1.4) mg/dl Glucose 131 H 130 H (70-99(Fasting)) mg/dl Calcium 9.3 9.0 (8.6-10.3) mg/dl AST 23 (13-39) U/L ALT 21 (7-52) U/L Alkaline Phosphatase 58 (34-104) U/L Total Protein 6.7 (6.0-8.3) gm/dl Albumin 3.9 (3.4-5.0) gm/dl Intake and Output 05/12/24 05/13/24 05/13/24 22:59 06:59 14:59 Intake Total 200 / 200 Balance 200 / 200 Intake: Oral 200 / 200 Other: # Unmeasured Voids 2 Weight 99.79 kg 96.2 kg Weight Measurement Method Standing Scale Built in [facility] Diagnostic Findings April 11, 2024 Coronary Angiography ([facility], Dr. Patel): LM - normal caliber, no significant disease LAD - medium caliber, calcified, 70% earlymid at takeoff of D2. Remainder of mid/distal vessel without significant disease, tapers prior to apex. Small D1 without disease. Small to medium caliber D2 with 70% proximal stenosis. Circumflex -medium caliber mid segment luminal irregularities. 100% proximal OM 3. Fills retrograde via left to left and right to left collaterals. RCA - dominant, large caliber, 50% latemid stenosis at crux into distal s egment. 30% distal stenosis right before PDA. PDA without luminal regularities. Large PLB with 30% proximal stenosis LVEDP -5 Status post successful PCI of the mid LAD with single 3.0 x 18 mm [place] drug- eluting stent April 10, 2024 TTE ([facility]): EF 55-60%. Moderate LVH with asymmetric component in the basal septum suggestive of possible sigmoid septum versus hypertrophic cardiomyopathy (no resting gradient is noted) normal RV size and function noted. Aortic valve sclerosis observed without significant stenosis. Telemetry: Sinus/sinus bradycardia, first-degree AV block, occasional PVC; heart rates predominantly in the 50s to 70s
[2024-05-13] MEDS: lisinopril 20 MG TAB PO SCH (09:53)
--- NOTE | 2024-05-13 11:18 | Hospitalist Progress Note ---
Date of Service May 13, 2024 Assessment & Plan (1) Chest pain: (2) Elevated troponin: (3) CAD (coronary artery disease): (4) S/P cardiac catheterization: (5) DM II (diabetes mellitus, type II), controlled: (6) HTN (hypertension): (7) HLD (hyperlipidemia): (8) BPH (benign prostatic hyperplasia): Plan This is a 79yo M with PMH of multi-vessel CAD with EASTON to mid-LAD in Mar 2024, Type 2 diabetes, dyslipidemia, hypertension, aneurysm of ascending aorta without rupture, CKD 3 and other medical problems listed below who presents with chest pain starting this afternoon around 1300. Chest pain Multi-vessel CAD with recent EASTON to mid-LAD CP etiology cardiac vs GI - brief sharp L sided CP that resolved, now back to more typical indigestion pain EKG without acute changes, HS trop 55 Recent EASTON to LAD on 04/10 at [facility] ("70% earlymid LAD. 60-70% proximal small to medium D2. 100% proximal OM 3 [employer]. L-L and R-L collaterals. 50% latemid into distal RCA") Continue aspirin, plavix, statin, Toprol Remains free from any chest pain since admission and did not have any arrhythmias on monitor Serial troponins trended down and the EKG did not show any significant ST-T wave changes Appreciate cardiology input and recommendation The pain seems to be secondary to peptic ulcer disease and has been improving with appropriate management Likely discharge this afternoon Enlarged Ascending Aorta Known diagnosis with recent imaging - continue annual monitoring with cardiology Denies any pain suggestive of aortic origin Carotid stenosis Asymptomatic Continue aspirin, plavix, statin No signs and or symptoms of TIA DM II A1c 9.0 Hold home agents SSI while in-patient BSG AC HS HTN Normotensive Continue amlodipine, lisinopril, Toprol CKD III Cr 1.22 (at baseline) Monitor with daily BMP BPH Continue finasteride, bladder scan PRN DVT Ppx: SQ heparin Code status: FULL PCP: Valentin Dispo: observation PCU Admission and Anticipated Discharge Date Admission Date: May 12, 2024 Subjective 05/13/2024 The patient was seen and examined in telemetry unit He was admitted with precordial/epigastric pain relieved with Tums and related medications with history of CAD and recent stent placement Remains free from any pain since admission Evaluated by rose grader this morning Review of Systems Review of Systems: All systems reviewed and are unremarkable except as noted below Physical Exam Physical Exam: Lying in bed without any acute distress Constitutional: well developed, + acute distress and + obese; not ill appearing Eyes: PERRL, conjunctivae normal, anicteric sclerae ENMT: external ear and nose normal, oropharynx normal Neck: trachea midline, no thyromegaly Respiratory: no respiratory distress Auscultation: lungs clear to auscultation bilaterally Cardiovascular: Rate/Rhythm: regular rate, regular rhythm and + bradycardic Heart Sounds: normal S1 and normal S2; no murmur Extremities: no edema Gastrointestinal (Abdomen): Inspection/Auscultation: normal bowel sounds; abdomen not distended Percussion/Palpation: abdomen soft; abdomen nontender Musculoskeletal: No acute arthritis involving any of the joint Neurologic: normal touch/pain/proprioception and moves all extremities; no focal motor deficits Psychiatric: A+Ox3, euthymic affect Lymphatic: no cervical or axillary lymphadenopathy Results & Data Results & Data Vital Signs (Past 12 Hours) Vital Signs Temp Pulse Pulse Resp BP Pulse Ox O2 Del Method 05/13/24 08:00 55 L 05/13/24 07:23 36.7 C 72 18 115/76 93 Room Air 05/13/24 03:45 36.8 C 55 L 18 125/71 95 Room Air 05/12/24 23:17 36.5 C 56 L 18 118/77 95 Room Air Laboratory Results Short CBC 05/12/24 05/13/24 Range/Units 16:57 06:52 WBC 7.21 6.25 (4.8-10.8) K/ul Hgb 13.6 L 13.0 L (14.0-18.0) g/dl Hct 39.3 L 37.2 L (42.0-52.0) % Plt Count 226 206 (130-400) K/uL BMP 05/12/24 05/13/24 16:57 06:52 Sodium 139 139 Potassium 4.6 4.4 Chloride 107 108 H Carbon Dioxide 25 22 BUN 24 H 22 Creatinine 1.22 1.18 Glucose 131 H 130 H Calcium 9.3 9.0 Liver Function 05/12/24 Range/Units 16:57 Total Bilirubin 0.4 (0.2-1.0) mg/dl AST 23 (13-39) U/L ALT 21 (7-52) U/L Alkaline Phosphatase 58 (34-104) U/L Albumin 3.9 (3.4-5.0) gm/dl Medications Administered Current Inpatient Medications Acetaminophen (Acetaminophen 325 Mg Tab) 650 mg PO Q4H PRN PRN Reason: Pain or Fever Stop: 06/11/24 21:17 Amlodipine Besylate (Amlodipine Besylate 5 Mg Tab) 10 mg PO [facility] Stop: 06/12/24 08:59 Last Admin: 05/13/24 08:24 Dose: 10 mg Aspirin (Aspirin 81 Mg Ectab) 81 mg PO DAILY [facility] Stop: 06/12/24 08:59 Last Admin: 05/13/24 08:23 Dose: 81 mg Clopidogrel Bisulfate (Clopidogrel Bisulfate 75 Mg Tab) 75 mg PO [facility] Stop: 06/12/24 08:59 Last Admin: 05/13/24 08:24 Dose: 75 mg Dextrose (Dextrose 50% 50 Ml Syringe) 25 - 50 ml IV UD PRN; Protocol PRN Reason: Hypoglycemia Protocol Stop: 06/11/24 18:55 Finasteride (Finasteride 5 Mg Tab) 5 mg PO [facility] Stop: 06/12/24 08:59 Last Admin: 05/13/24 08:23 Dose: 5 mg Glucagon (Glucagon For Inj 1 Mg Vial) 1 mg SQ UD PRN; Protocol PRN Reason: Hypoglycemia Protocol Stop: 06/11/24 18:55 Glucose (Glucose 40% Gel 15 Gm Tube) 15 - 30 gm PO UD PRN; Protocol PRN Reason: Hypoglycemia Protocol Stop: 06/11/24 18:55 Glucose (Glucose 10 Tab/Tube) 4 - 8 tab PO UD PRN; Protocol PRN Reason: Hypoglycemia Protocol Stop: 06/11/24 18:55 Heparin Sodium (Porcine) (Heparin Sod 5,000 Unit/0.5 Ml Vial) 5,000 units SQ Q8 [facility] Stop: 06/12/24 08:59 Last Admin: 05/13/24 08:42 Dose: 5,000 units Insulin Aspart (Insulin Aspart Per Unit Charge) 0 units SC ACHS [facility] Stop: 06/11/24 20:59 Last Admin: 05/13/24 08:41 Dose: 6 units Isosorbide Mononitrate (Isosorbide [place] Extended Rel 30 Mg Tabcr) 30 mg PO [facility] Stop: 06/13/24 08:59 Lisinopril (Lisinopril 10 Mg Tab) 10 mg PO DAILY [facility] Stop: 06/13/24 08:59 Metoprolol Succinate (Metoprolol Succ 50mg Ext Rel Tab) 50 mg PO QAM [facility] Stop: 06/12/24 08:59 Last Admin: 05/13/24 08:24 Dose: 50 mg Miscellaneous (Carbohydrates For Hypoglycemia ) 15 - 30 gm PO UD PRN PRN Reason: Hypoglycemia Protocol Stop: 06/11/24 18:55 Ondansetron HCl (Ondansetron Inj 2 Mg/Ml 2 Ml Vial) 4 mg IV Q6H PRN PRN Reason: Nausea Stop: 06/11/24 21:17 Pantoprazole Sodium (Pantoprazole 40 Mg Tab) 40 mg PO BID [facility] Stop: 06/12/24 20:59 Polyethylene Glycol (Polyethylene (Miralax) 17 Gm Pack) 17 gm PO DAILY PRN PRN Reason: Constipation Stop: 06/11/24 21:17 Rosuvastatin Calcium (Rosuvastatin Calcium 20 Mg Tab) 20 mg PO HS [facility] Stop: 06/11/24 21:29 Last Admin: 05/12/24 21:50 Dose: 20 mg
[2024-05-13 11:45] VITALS: BP 127/86; PULSE 60; RESP 16; TEMP 98.4; O2SAT 96
[2024-05-13] MEDS ORDERED: PANTOprazole 40 MG TAB PO SCH (21:00)
--- NOTE | 2024-05-13 22:19 | Electrocardiogram Report ---
Test Reason : Blood Pressure : */* mmHG Vent. Rate : 55 BPM Atrial Rate : 55 BPM P-R Int : 212 ms QRS Dur : 90 ms QT Int : 438 ms P-R-T Axes : 45 10 41 degrees QTcB Int : 419 ms Poor data quality, interpretation may be adversely affected Sinus rhythm with 1st degree A-V block Otherwise normal ECG When compared with ECG of 11-Apr-2024 09:56, SD interval has increased Nonspecific T wave abnormality has replaced inverted T waves in Inferior leads Confirmed by Dennis Skinner ([id number]) on 05/13/2024 10:19:14 PM Referred By: REFERRED SELF Confirmed By: Dennis Skinner
--- NOTE | 2024-05-13 22:19 | Electrocardiogram Report ---
Test Reason : Blood Pressure : */* mmHG Vent. Rate : 56 BPM Atrial Rate : 56 BPM P-R Int : 204 ms QRS Dur : 100 ms QT Int : 446 ms P-R-T Axes : 10 3 36 degrees QTcB Int : 430 ms Sinus bradycardia Otherwise normal ECG When compared with ECG of 12-May-2024 16:54, No significant change Confirmed by Dennis Skinner ([id number] on 05/13/2024 10:19:33 PM Referred By: REFERRED SELF Confirmed By: Dennis Skinner
--- NOTE | 2024-05-13 22:19 | Electrocardiogram Report ---
Test Reason : Blood Pressure : */* mmHG Vent. Rate : 55 BPM Atrial Rate : 55 BPM P-R Int : 226 ms QRS Dur : 92 ms QT Int : 446 ms P-R-T Axes : 15 7 31 degrees QTcB Int : 426 ms Sinus bradycardia with 1st degree A-V block Otherwise normal ECG When compared with ECG of 12-May-2024 18:14, No significant change was found Confirmed by Dennis Skinner ([id number]) on 05/13/2024 10:19:48 PM Referred By: REFERRED SELF Confirmed By: Dennis Skinner
--- NOTE | 2024-05-14 08:35 | Discharge Summary ---
Date of Service May 14, 2024 Admission HPI Per Admitting Provider This is a 79yo M with PMH of multi-vessel CAD with EASTON to mid-LAD in Mar 2024, Type 2 diabetes, dyslipidemia, hypertension, aneurysm of ascending aorta without rupture, CKD 3 and other medical problems listed below who presents with chest pain starting this afternoon around 1300. Pain is burning, left sided and feels like "someone laid a hot poker on my chest". This severe pain only lasts a few seconds and then resolves for a bit. Also having intermittent indigestion. Feels similar to chest pain on previous admission but does not have the same "heavy" feeling in his limbs today. Endorses intermittent lightheadedness over the past week and feels he looks pale. Has had influenza A since cath but feels recovered at this point. No F/C, headache, palpitations, wheezing, N/V, abd pain, dysuria, diarrhea or constipation. Was recently admitted in mid March and due to concern for unstable angina, underwent cardiac catheterization with stenting of the LAD on 04/10 ("70% earlymid LAD. 60-70% proximal small to medium D2. 100% proximal OM 3 ECOTHERAPIST. L-L and R-L collaterals. 50% latemid into distal RCA". Metoprolol dose was uptitrated and was set up with cardiology follow up for possible cardiac MRI. Al so started on metformin for a1c of 9. Admission Exam Per Admitting Provider General: In no distress Eyes: PERRL, conjunctivae normal, not pale, anicteric sclerae, EOM intact bilaterally ENMT: External ear and nose normal, oropharynx normal Respiratory: Normal respiratory effort, no respiratory distress, lungs clear to auscultation, no crackles and no wheezes Cardiovascular: RRR S1 S2 Gastrointestinal (Abdomen): Abdomen is not distended, soft, non-tender to palpation, no guarding, no palpable hepatosplenomegaly, normal bowel sounds Musculoskeletal: No pedal edema Neurologic: Alert and oriented x 3, No focal weakness, sensation grossly intact Psychiatric: Euthymic affect Principal Diagnosis Chest pain likely secondary to peptic ulcer disease, multivessel CAD with recent EASTON to mid LAD, type 2 diabetes, hypertension Discharge Exam Lying in bed without any acute distress Constitutional well developed, + acute distress and + obese; not ill appearing Eyes PERRL, conjunctivae normal, anicteric sclerae ENMT external ear and nose normal, oropharynx normal Neck trachea midline, no thyromegaly Respiratory no respiratory distress Auscultation: lungs clear to auscultation bilaterally Cardiovascular Rate/Rhythm: regular rate, regular rhythm and + bradycardic Heart Sounds: normal S1 and normal S2; no murmur Extremities: no edema Gastrointestinal (Abdomen) Inspection/Auscultation: normal bowel sounds; abdomen not distended Percussion/Palpation: abdomen soft; abdomen nontender Neurologic normal touch/pain/proprioception and moves all extremities; no focal motor deficits Psychiatric A+Ox3, euthymic affect Lymphatic no cervical or axillary lymphadenopathy Discharge Data Allergies Allergy/AdvReac Type Severity Reaction Status Date / Time No Known Allergies Allergy Mild Verified 04/10/24 11:54 Consultations 05/12/24 17:49 ED Decision to Admit Stat 05/12/24 20:27 Consult Cardiology Routine Hospital Course (1) Chest pain: (2) Elevated troponin: (3) CAD (coronary artery disease): (4) S/P cardiac catheterization: (5) DM II (diabetes mellitus, type II), controlled: (6) HTN (hypertension): (7) HLD (hyperlipidemia): (8) BPH (benign prostatic hyperplasia): Plan This is a 79yo M with PMH of multi-vessel CAD with EASTON to mid-LAD in Mar 2024, Type 2 diabetes, dyslipidemia, hypertension, aneurysm of ascending aorta without rupture, CKD 3 and other medical problems listed below who presents with chest pain starting this afternoon around 1300. Chest pain Multi-vessel CAD with recent EASTON to mid-LAD CP etiology cardiac vs GI - brief sharp L sided CP that resolved, now back to more typical indigestion pain EKG without acute changes, HS trop 55 Recent EASTON to LAD on 04/10 at [facility] ("70% earlymid LAD. 60-70% proximal small to medium D2. 100% proximal OM 3 ECOTHERAPIST. L-L and R-L collaterals. 50% latemid into distal RCA") Continue aspirin, plavix, statin, Toprol Remains free from any chest pain since admission and did not have any arrhythmia s on monitor Serial troponins trended down and the EKG did not show any significant ST-T wave changes Appreciate cardiology input and recommendation The pain seems to be secondary to peptic ulcer disease and has been improving with appropriate management Likely discharge this afternoon Enlarged Ascending Aorta Known diagnosis with recent imaging - continue annual monitoring with cardiology Denies any pain suggestive of aortic origin Carotid stenosis Asymptomatic Continue aspirin, plavix, statin No signs and or symptoms of TIA DM II A1c 9.0 Hold home agents SSI while in-patient BSG AC HS HTN Normotensive Continue amlodipine, lisinopril, Toprol CKD III Cr 1.22 (at baseline) Monitor with daily BMP BPH Continue finasteride, bladder scan PRN DVT Ppx: SQ heparin Code status: FULL PCP: Valentin Dispo: observation PCU Total Time Total Time Spent Total Time Spent (In Minutes): 35 minutes Discharge Plan Discharge Items Patient Disposition: Home - Self-Care Reason For Visit: CP, RECENT EASTON TO LAD Discharge Diagnosis: Chest pain likely secondary to peptic ulcer disease, multivessel CAD with recent EASTON to mid LAD, type 2 diabetes, hypertension Condition on Discharge: Good Activity: Resume your previous activity Non-emergency contact: Primary Care Provider Call non-emergency contact if: you have any medication questions and your symptoms worsen Follow-up/Referrals: Justin Hanson, [Primary Care Provider] - 05/16/24 12:20 pm (Your appointment will be with MONAE Walker in [facility]) Diet: Heart Healthy Addtl Attending Provider Instructions: Please take your medications as advised Please keep appointment with your healthcare provider Pending Studies at Discharge: No Stand-Alone Forms: [facility] [employer], Smoking Cessation Medications and DC Order Prescriptions: New isosorbide mononitrate 30 mg Tablet Extended Release 24 Hr 30 mg PO QAM Qty: 30 0RF pantoprazole 40 mg Tablet,Delayed Release (Dr/Ec) 40 mg PO BID Qty: 60 0RF Continued aspirin 81 mg Tablet,Delayed Release (Dr/Ec) 81 mg PO DAILY amlodipine 10 mg tablet 10 mg PO QAM finasteride 5 mg tablet 5 mg PO QAM metoprolol succinate 50 mg Tablet Extended Release 24 Hr 50 mg PO QAM Qty: 30 0RF clopidogrel 75 mg Tablet 75 mg PO QAM Qty: 30 0RF metformin 500 mg tablet 500 mg PO BIDWMEAL Qty: 60 0RF (DME) blood-glucose meter [Blood Glucose Monitoring] Kit See Rx Instructions .Route Qty: 1 0RF Rx Instructions: 2 times daily- before breakfanst and dinner rosuvastatin 10 mg tablet 20 mg PO HS Changed lisinopril 10 mg tablet 10 mg PO DAILY Qty: 0 0RF Discontinued pantoprazole 40 mg Tablet,Delayed Release (Dr/Ec) 40 mg PO DAILY Qty: 30 0RF Discharge Orders: Discharge Order (Routine); Ordered 05/13/24 Ordered By: Symone Jerry Admission Data Admit Date/Time: 05/12/24 18:56 Attending Provider: Symone Jerry Admit Provider: Brenda Lee I. Primary Care Provider: Justin Hanson Other Providers: Brenda Lee I.; Romero Daley Other Interventions: Discharge Summary Assessment (RN) Last Done: 05/13/24 16:10
[2024-05-14] MEDS ORDERED: ISOSORBIDE MONO EXTENDED REL 30 MG TABCR PO SCH (09:00)
[2024-05-14] MEDS ORDERED: lisinopril 10 MG TAB PO SCH (09:00)
== END 2024-05-13 16:38 | disposition home or self-care (01) ==
LOC: ED 16:44 → 2E 16:44 → SUATTDRO 18:56 → 2E 20:58

== ENCOUNTER 2024-11-13 08:40 | Inpatient (IN) ==
--- NOTE | 2024-11-13 08:51 | Emergency Department Note ---
Impression & Plan Chest pain, Elevated troponin, History of coronary artery disease ED Provider Note NAME: JAGRUTI SNOW AGE: 79 SEX: M : 1945 ARRIVES VIA: Walk-In INFORMANT: Patient, ED PROVIDER(S): Feliciano Gallardo MD CHIEF COMPLAINT: Chest pain MEDICAL DECISION MAKING: Patient presents due to concern for chest pain. IV was established and blood work was obtained. The patient did take Tums with relief this morning and initial EKG is unremarkable. Chest x-ray obtained. Patient without current chest pains. Patient was ordered IV Pepcid and GI cocktail. Patient's blood work shows a normal white count hemoglobin and platelet count. Kidney function unremarkable. The patient's initial troponin 20.7. Given the patient's known history of CAD with positive troponin [place] the patient would benefit from further evaluation treatment and monitoring. Patient was ordered full dose aspirin. No active chest pain upon reassessment. I did speak with Dr. Jerry and the patient was admitted to the medicine service. Discussion w/ other healthcare providers: Dr. Jerry inpatient medicine service chest x-ray unremarkable. Prior /Outside records reviewed: I reviewed part of discharge summary from April [address] Jerry. Patient with a known history of CAD with EASTON to mid LAD in March history of type 2 diabetes hyperlipidemia hypertension aneurysm of the ascending aorta CKD 3. Differential diagnosis: Cardiac ischemia, aortic dissection, pulmonary embolism, pneumothorax, pneumonia, pericarditis, myocarditis, GERD, cholecystitis, pancreatitis, musculoskeletal, as well as other pathologies were considered. Diagnostics, as interpreted by me: ECG: Sinus bradycardia with first-degree AV block, rate of 48 prolonged SC normal QRS normal axis T wave inversion in lead III no ST elevations. Cardiac monitoring: An order was placed for continuous cardiac monitoring. The monitor shows a rate of 53 with sinus rhythm. Patient was placed on pulse oximetry Medical decision rules: Wells score Imaging studies: I informally interpreted the patient's chest x-ray does not show obvious pneumonia with formal report to follow. HPI: Patient presents due to concern for chest pains. The patient states that he began having them last evening, centralized nonradiating occasionally sharp and dull does wax and wane and will last from 1 to 2 hours in duration. Prior history of CAD with a stent placed back in March reports being compliant with his medications and did take all of them this morning. He did take some Tums and states that his chest discomfort resolved. Patient states that this pain does not feel similar to when he required a stent back in March. He does follow with Dr. Espino. No leg swelling or calf pain no history of DVT or PE. No recent surgeries procedures or hospitalizations no recent prolonged car plane travel denies any fever or cough. PAST MEDICAL HISTORY: See Below PAST SURGICAL HISTORY: See Below SOCIAL HISTORY: See Below HOME MEDICATIONS: See Below ALLERGIES: See Below VITALS: See Below PHYSICAL EXAMINATION: GENERAL: NAD, non-toxic. EYE EXAM: Normal conjunctiva. PERRL, no anisocoria and EOM's grossly intact w/o pain. OROPHARYNX: Moist mucus membranes, grossly normal dentition. NECK: Trachea midline, no stridor. LUNGS: Clear to auscultation. Normal chest wall mechanics. HEART: NSR, no MRG. ABDOMEN: Abdomen soft, non-tender, no masses, no rebound or guarding. BACK: No CVA TTP. SKIN: No rashes and no bruising. UPPER EXTREMITIES: Upper extremities are grossly normal. LOWER EXTREMITIES: Grossly normal, no edema. Negative Homans' sign bilaterally. NEURO EXAM: Awake and alert, follows commands, no obvious facial asymmetry, normal speech, moves all 4 extremities. Past Med/Surg History Problem List (Updated 11/13/24 @ 11:09 by Feliciano Gallardo MD) History of coronary artery disease (Acute) Dyslipidemia, goal LDL below 70 HTN, goal below 130/80 Indigestion Asymptomatic PVCs ASCVD (arteriosclerotic cardiovascular disease) Elevated troponin (Acute) Chest pain (Acute) Medical History DM (diabetes mellitus), type 2 CAD (coronary artery disease) BPH (benign prostatic hyperplasia) Obesity Urinary retention Carotid stenosis HLD (hyperlipidemia) HTN (hypertension) Surgical History S/P cardiac catheterization EASTON to LAD 04/10/24 @ [facility] Hx of arthroscopy of shoulder History of meniscectomy of left knee Hx laparoscopic cholecystectomy Family History Father Cancer Mother Stroke Sister Stroke Social History Smoking Status: Never smoker Hx Alcohol Use: No Hx Substance Use: No Preferred Language: Kyrgyz Communication Ability: Effective Greeting Card Writer Required: No Beliefs That Will Affect Care: None Current Living Situation: Spouse Feels Safe at Home: Yes Assistive Devices: Lift Chair, Walker and Wheelchair Allergies Allergies Allergy/AdvReac Type Severity Reaction Status Date / Time No Known Allergies Allergy Mild Verified 04/10/24 11:54 Home Meds Home Medications Medication Instructions Recorded Confirmed aspirin 81 mg tablet,delayed 81 mg PO DAILY 10/15/21 11/13/24 release amlodipine 10 mg tablet 10 mg PO QAM 04/10/24 11/13/24 finasteride 5 mg tablet 5 mg PO QAM 04/10/24 11/13/24 rosuvastatin 10 mg tablet 20 mg PO HS 05/12/24 11/13/24 Tums 1 tab PO DIRECTED PRN heartburn 11/13/24 11/13/24 clopidogrel 75 mg tablet 75 mg PO UD 11/13/24 11/13/24 metformin 500 mg tablet 500 mg PO DAILY 11/13/24 11/13/24 metoprolol succinate 50 mg 100 mg PO QAM 11/13/24 11/13/24 tablet,extended release 24 hr pantoprazole 40 mg tablet,delayed 40 mg PO DAILY 11/13/24 11/13/24 release rivaroxaban 20 mg tablet (Xarelto) 20 mg PO UD 11/13/24 11/13/24 Previous Rx's Medication Instructions Recorded blood-glucose meter (Blood Glucose #1 ea 04/12/24 Monitoring kit) isosorbide mononitrate 30 mg 30 mg PO QAM #30 tabs 05/13/24 tablet,extended release 24 hr lisinopril 10 mg tablet 10 mg PO DAILY #0 tabs 05/13/24 Results & Data (ED) Vital Signs Vital Signs - 24 hr 11/13/24 08:46 11/13/24 08:51 11/13/24 08:52 Temperature 36.4 C L Temperature Source Oral Pulse Rate 49 L Pulse Rate from SpO2 Sensor Respiratory Rate 16 Blood Pressure Blood Pressure Mean Pulse Oximetry 97 Oxygen Delivery Method Room Air Room Air Sepsis Recent Fever Within 48 Hours No Sepsis New/Unexplained Change in Mental Status N/A Sepsis Action Taken by Nursing No Action Required 11/13/24 09:11 11/13/24 09:15 11/13/24 09:30 Temperature Temperature Source Pulse Rate 48 L 53 L 50 L Pulse Rate from SpO2 Sensor 52 L 51 L Respiratory Rate 17 24 Blood Pressure 142/89 H 138/79 Blood Pressure Mean 106 105 Pulse Oximetry 94 94 Oxygen Delivery Method Room Air Sepsis Recent Fever Within 48 Hours Sepsis New/Unexplained Change in Mental Status Sepsis Action Taken by Nursing 11/13/24 10:45 Temperature Temperature Source Pulse Rate 48 L Pulse Rate from SpO2 Sensor 48 L Respiratory Rate 21 Blood Pressure 109/66 Blood Pressure Mean 80 Pulse Oximetry 94 Oxygen Delivery Method Room Air Sepsis Recent Fever Within 48 Hours Sepsis New/Unexplained Change in Mental Status Sepsis Action Taken by [facility] Medications Current Medication List: was personally reviewed by me Laboratory Data Attestation: I reviewed the patient's lab results. 11/13/24 08:52 11/13/24 08:52 Lab Results 11/13/24 11/13/24 Range/Units 08:52 09:54 WBC 7.86 (4.8-10.8) K/ul RBC 4.63 L (4.70-6.10) M/uL Hgb 14.4 (14.0-18.0) g/dl Hct 41.4 L (42.0-52.0) % MCV 89.4 (80.0-100.0) fL MCH 31.1 (25.0-34.0) pg MCHC 34.8 (32.0-36.0) g/dL RDW Std Deviation 42.8 (36.4-46.3) fL RDW Coeff of Yasmine 13.2 (11.5-14.5) % Plt Count 259 (130-400) K/uL MPV 9.7 (9.4-12.4) fL Immature Gran % (Auto) 0.3 % Neut % (Auto) 77.0 % Lymph % (Auto) 15.1 % [place] % (Auto) 5.7 % Eos % (Auto) 1.8 % Baso % (Auto) 0.1 % Neut # (Auto) 6.05 (1.40-6.50) K/uL Lymph # (Auto) 1.19 L (1.20-3.40) K/uL [place] # (Auto) 0.45 (0.11-0.59) K/uL Eos # (Auto) 0.14 (0.00-0.50) K/uL Baso # (Auto) 0.01 (0.00-0.20) K/uL Immature Gran # (Auto) 0.02 (0.01-0.20) K/uL Sodium 138 (136-145) mmol/L Potassium 4.3 (3.5-5.1) mmol/L Chloride 109 H (98-107) mmol/L Carbon Dioxide 23 (21-32) mmol/L Anion Gap 6 (3-11) BUN 24 H (6-23) mg/dl Creatinine 1.20 (0.6-1.4) mg/dl Est Cr Clr Drug Dosing 60.9 ml/min eGFR 61.90 BUN/Creatinine Ratio 20.0 (10-20) Glucose 165 H (70-99(Fasting)) mg/dl Calcium 9.4 (8.6-10.3) mg/dl Total Bilirubin 0.5 (0.2-1.0) mg/dl AST 17 (13-39) U/L ALT 17 (7-52) U/L Alkaline Phosphatase 66 (34-104) U/L Troponin I High Sens 20.7 H 19.2 (0-20) pg/ml Total Protein 6.9 (6.0-8.3) gm/dl Albumin 4.2 (3.4-5.0) gm/dl Globulin 2.7 (2.5-4.0) gm/dl Albumin/Globulin Ratio 1.6 (0.9-2) Lipase 31 (11-82) U/L Administered Medications Discontinued Medications Aspirin (Aspirin Chew 324 Mg) 324 mg PO NOW STA Stop: 11/13/24 09:44 Last Admin: 11/13/24 09:52 Dose: 324 mg Documented By: Imaging Data Radiologist's Impression: Chest X-Ray 11/13/24 08:51 XR chest 1V portable CLINICAL HISTORY: Chest pain, nonspecific COMPARISON STUDY: 05/12/2024 FINDINGS: Stable moderate cardiomegaly without pulmonary vascular congestion. No effusion, consolidation, or pneumothorax. IMPRESSION: No acute findings. ACT 112: Negative or not required by law. Electronically signed by: Cody Culver M.D. 11/13/2024 9:20 AM Discharge Plan Visit Data Chief Complaint: Chest Pain Stated Complaint: CHEST PAIN,IDIGESTION,PRESSURE ED Provider: Feliciano Gallardo Discharge Problem: Chest pain, Elevated troponin, History of coronary artery disease Patient Disposition: Admitted As Inpatient Condition: Good Forms Stand Alone Forms: My [facility] Prescriptions Prescriptions: No Action aspirin 81 mg Tablet,Delayed Release (Dr/Ec) 81 mg PO DAILY Rx Instructions: 11/13-otc unable to verify amlodipine 10 mg tablet 10 mg PO QAM finasteride 5 mg tablet 5 mg PO QAM (DME) blood-glucose meter [Blood Glucose Monitoring] Kit See Rx Instructions .Route Qty: 1 0RF Rx Instructions: 2 times daily- before breakfanst and dinner rosuvastatin 10 mg tablet 20 mg PO HS isosorbide mononitrate 30 mg Tablet Extended Release 24 Hr 30 mg PO QAM Qty: 30 0RF lisinopril 10 mg tablet 10 mg PO DAILY Qty: 0 0RF Xarelto 20 mg tablet 20 mg PO UD Rx Instructions: original: 20 mg po daily 11/13- filled 10/28 30 day supply #30 metformin 500 mg tablet 500 mg PO DAILY metoprolol succinate 50 mg tablet extended release 24 hr 100 mg PO QAM clopidogrel 75 mg tablet 75 mg PO UD Rx Instructions: original: 75mg po qam 620-filled 10/28 90 day supply #90 pantoprazole 40 mg tablet,delayed release (DR/EC) 40 mg PO DAILY Tums 1 tab PO DIRECTED PRN (Reason: heartburn ) Referrals Referrals: Justin Hanson DO [Primary Care Provider] - Discharge Problem: Chest pain Qualifiers: Chest pain type: unspecified Qualified Code(s): R07.9 - Chest pain, unspecified
[2024-11-13 09:09] LABS: Basophils # (auto) 0.01 K/uL (0.00-0.20); Basophils % (auto) 0.1 %; Eosinophils # (auto) 0.14 K/uL (0.00-0.50); Eosinophils % (auto) 1.8 %; Hematocrit (blood only) 41.4 % (42.0-52.0); Hemoglobin 14.4 g/dl (14.0-18.0); Immature Granulocytes # (auto) 0.02 K/uL (0.01-0.20); Immature Granulocytes % (auto) 0.3 %; Lymphocytes # (auto) 1.19 K/uL (1.20-3.40); Lymphocytes % (auto) 15.1 %; Mean Corpuscular Hemoglobin 31.1 pg (25.0-34.0); Mean Corpuscular Hgb Conc 34.8 g/dL (32.0-36.0); Mean Corpuscular Volume 89.4 fL (80.0-100.0); Mean Platelet Volume 9.7 fL (9.4-12.4); Monocytes # (auto) 0.45 K/uL (0.11-0.59); Monocytes % (auto) 5.7 %; Neutrophils # (auto) 6.05 K/uL (1.40-6.50); Platelet Count 259 K/uL (130-400); RDW Coefficient of Variation 13.2 % (11.5-14.5); RDW Standard Deviation 42.8 fL (36.4-46.3); Red Blood Count 4.63 M/uL (4.70-6.10); White Blood Count 7.86 K/ul (4.8-10.8)
--- NOTE | 2024-11-13 09:23 | XRay Report ---
XR chest 1V portable CLINICAL HISTORY: Chest pain, nonspecific COMPARISON STUDY: 05/12/2024 FINDINGS: Stable moderate cardiomegaly without pulmonary vascular congestion. No effusion, consolidat ion, or pneumothorax. IMPRESSION: No acute findings. ACT 112: Negative or not required by law. Electronically signed by: Cody Culver M.D. 11/13/2024 9:20 AM
[2024-11-13 09:33] LABS: Albumin Globulin Ratio 1.6 (0.9-2); Albumin Level 4.2 gm/dl (3.4-5.0); Bilirubin,Total 0.5 mg/dl (0.2-1.0); Calcium 9.4 mg/dl (8.6-10.3); Creatinine Clr Calc Pharmacy 60.9 ml/min; Globulin 2.7 gm/dl (2.5-4.0); Potassium 4.3 mmol/L (3.5-5.1); Total Protein 6.9 gm/dl (6.0-8.3)
[2024-11-13 09:38] LABS: Troponin I High Sensitivity 20.7 pg/ml (0-20)
[2024-11-13] MEDS: ASPIRIN CHEW 324 MG PO STA (09:52)
--- NOTE | 2024-11-13 11:13 | History & Physical Report ---
Date of Service November 13, 2024 Assessment & Plan (1) Chest pain: Plan: Patient is a 79 year old M with a past medical history of CAD s/p stent 03/2024, Afib s/p DCCV 07/05/24, HTN, HLD, non-insulin dependent DM Type II, BPH presenting with chest pain. Chest pain began last evening around 5pm while watching the ball game, characterized as intermittent, lasting a few second, resolved, and then he went to bed without issue overnight. Chest pain returned with same quality this morning. Patient had a ORAL at [facility] 07/05/24 showing EF 55-60%; Normal RV systolic function; No evidence of thrombus in atrial cavity or appendage. New onset Afib on 06/2024, admitted to [facility] s/p DCCV. Also noted have have AAA without rupture, found incidentally on Echo per patient report, sometime last fall. Scheduled to have Cardiac MRI this coming Thursday at [facility]. Most recent Echo completed at [facility] in 04/2024 showing asymmetric left ventricular hypertrophy involving the basal septum. Chest Pain Elevated Troponin * Admit to PCU for telemetry * Trop elev 20.7, down to 19 with recheck; continue to trend * Aspirin started in ED--> continue daily dosing for now and defer to Cardiology for further recs * Continue home Indur and consider increasing dose- defer to Cardiology * Cardiology routine consult placed #CAD s/p cardiac cath with [facility] 03/2024 #ASCVD * Continue home plavix and xarelto * NPO after MN for possible cardiac cath tomorrow #Atrial Fibrillation * Noted to have DCCV on 07/05/2024 at [facility] per external record * EKG with sinus giovanni- Rate control with Metoprolol 100 mg XR daily; consider adjusting dose but defer to Cardiology for further recs * Tele monitoring * On Xarelto #Hypertension * BP Goal 130/80- controlled with multiple agents * Continue home Amlodipine, lisinopril #Dyslipidemia * Continue home statin * At LDL Goal <70 per external record last LDL 58 #Diabetes Type II * Most recent A1C 6.7 per outside record * Hold home Metformin * Sliding scale insulin while inpatient with goal BSG 110-140 * Accucheck ACHS ordered DVT Ppx: On Xarelto; started Aspirin while inpatient Code status: Full PCP: Dr. Justin Hanson Dispo: Admit to PCU for further monitoring Patient seen in collaboration with Dr. Jerry. Please see addendum.I spent a total of 65 minutes coordinating, documenting and providing care for this patient excluding time spent in the performance of separately billed services or time spent by another provider/QHP. (2) Elevated troponin: (3) History of coronary artery disease: (4) S/P cardiac catheterization: (5) ASCVD (arteriosclerotic cardiovascular disease): (6) HTN, goal below 130/80: (7) Dyslipidemia, goal LDL below 70: (8) DM (diabetes mellitus), type 2: History of Present Illness Primary Care Provider: Justin Hanson DO Patient is a 79 year old M with a past medical history of CAD s/p stent 03/2024, Afib s/p DCCV 07/05/24, HTN, HLD, non-insulin dependent DM Type II, BPH presenting with chest pain. Chest pain began last evening around 5pm while watching the ball game, characterized as intermittent, lasting a few second, resolved, and then he went to bed without issue overnight. Chest pain returned with same quality this morning. He took his morning meds prior to coming to the hospital. Denies syncope, fever, chills, weight loss, weakness, headache, cognitive changes, vision/hearing changes, SOB, swelling, difficulty breathing, urinary concerns, N/V/D, joint swelling/pain, ambulation difficulty, skin rashes, lesions, bleeding, bruising. In the emergency department, EKG showed sinus giovanni with 1st degree A-V block, vent rate 48 bpm, QTc 414. Trop 20.7. Aspirin given in ED. Bradycardia to 40's and asymptomatic at rest. Reports having periodic dizziness at home, but at baseline. No evidence of sepsis. Chest XRay without acute disease. As per external chart review, patient was seen by Cardiology on 10/11/2024. Patient had a ORAL at [facility] 07/05/24 showing EF 55-60%; Normal RV systolic function; No evidence of thrombus in atrial cavity or appendage. New onset Afib on 06/2024, admitted to [facility] s/p DCCV. Also noted have have AAA without rupture, found incidentally on Echo per patient report, sometime last fall. Scheduled to have Cardiac MRI this coming Thursday at [facility]. Most recent Echo completed at [facility] in 04/2024 showing asymmetric left ventricular hypertrophy involving the basal septum. History obtained primarily from the patient and via hospitalization record. The patient's was at the bedside and assisted with past medical history and current illness. External chart review obtained from [facility]. Allergies Allergy/AdvReac Type Severity Reaction Status Date / Time No Known Allergies Allergy Mild Verified 04/10/24 11:54 Home Medications Medication Instructions Recorded Confirmed Type aspirin 81 mg tablet,delayed 81 mg PO DAILY 10/15/21 11/13/24 History release amlodipine 10 mg tablet 10 mg PO QAM 04/10/24 11/13/24 History finasteride 5 mg tablet 5 mg PO QAM 04/10/24 11/13/24 History blood-glucose meter (Blood Glucose #1 ea 04/12/24 05/12/24 Rx Monitoring kit) rosuvastatin 10 mg tablet 20 mg PO HS 05/12/24 11/13/24 History isosorbide mononitrate 30 mg 30 mg PO QAM #30 tabs 05/13/24 11/13/24 Rx tablet,extended release 24 hr lisinopril 10 mg tablet 10 mg PO DAILY #0 tabs 05/13/24 11/13/24 Rx Tums 1 tab PO DIRECTED PRN heartburn 11/13/24 11/13/24 History clopidogrel 75 mg tablet 75 mg PO UD 11/13/24 11/13/24 History metformin 500 mg tablet 500 mg PO DAILY 11/13/24 11/13/24 History metoprolol succinate 50 mg 100 mg PO QAM 11/13/24 11/13/24 History tablet,extended release 24 hr pantoprazole 40 mg tablet,delayed 40 mg PO DAILY 11/13/24 11/13/24 History release rivaroxaban 20 mg tablet (Xarelto) 20 mg PO UD 11/13/24 11/13/24 History Past Med/Surg History Problem List History of coronary artery disease (Acute) Dyslipidemia, goal LDL below 70 HTN, goal below 130/80 Indigestion Asymptomatic PVCs ASCVD (arteriosclerotic cardiovascular disease) Elevated troponin (Acute) Chest pain (Acute) Medical History DM (diabetes mellitus), type 2 CAD (coronary artery disease) BPH (benign prostatic hyperplasia) Obesity Urinary retention Carotid stenosis HLD (hyperlipidemia) HTN (hypertension) Surgical History S/P cardiac catheterization [facility] 04/10/24 @ [facility] Hx of arthroscopy of shoulder History of meniscectomy of left knee Hx laparoscopic cholecystectomy Family History Father Cancer Mother Stroke Sister Stroke Social History Smoking Status: Never smoker Hx Alcohol Use: No Hx Substance Use: No Preferred Language: Tunisian Communication Ability: Effective Linderman Operator Required: No Beliefs That Will Affect Care: None Current Living Situation: Spouse Feels Safe at Home: Yes Assistive Devices: Lift Chair, Walker and Wheelchair Review of Systems Review of Systems: All systems reviewed & are unremarkable except as noted in HPI & below Physical Exam Physical Exam: VITALS: Reviewed. Igovanni 40's GEN: Healthy appearing, well-developed, NAD. PSYCH: AOx4. Normal memory, mood, and affect. HEENT -Head: NC/AT; -Eyes: PERRL, EOMI. No discharge or redn ess; -Ears: External ears are normal. -Nose: Normal nares. -Mouth and throat: MMM. Normal gums, muc rachell, palate,. Good dentition. NECK: Supple, with no masses. CV: Distant heart tones, no murmurs, extra beats, carotids without bruit, no swelling, BLE cool, pulses +2 LUNGS: CTAB, no w/r/c. ABD: Soft, NT/ND, NBS, no masses or organomegaly. : N/A SKIN: Warm, well perfused. No skin rashes or abnormal lesions. MSK: No deformities, Normal gait. EXT: No clubbing, cyanosis, or edema. NEURO: Ambulating with no limitations. Normal muscle strength and tone. No focal deficits. Results & Data Results & Data Vital Signs (Past 12 Hours) Vital Signs Temp Pulse Resp Pulse Ox O2 Del Method 11/13/24 09:11 48 L 11/13/24 08:52 Room Air 11/13/24 08:51 97 Room Air 11/13/24 08:46 36.4 C L 49 L 16 Laboratory Results Short CBC 11/13/24 Range/Units 08:52 WBC 7.86 (4.8-10.8) K/ul Hgb 14.4 (14.0-18.0) g/dl Hct 41.4 L (42.0-52.0) % Plt Count 259 (130-400) K/uL BMP 11/13/24 08:52 Sodium 138 Potassium 4.3 Chloride 109 H Carbon Dioxide 23 BUN 24 H Creatinine 1.20 Glucose 165 H Calcium 9.4 Liver Function 11/13/24 Range/Units 08:52 Total Bilirubin 0.5 (0.2-1.0) mg/dl AST 17 (13-39) U/L ALT 17 (7-52) U/L Alkaline Phosphatase 66 (34-104) U/L Albumin 4.2 (3.4-5.0) gm/dl Diagnostic Findings Chest X-Ray 11/13/24 08:51 XR chest 1V portable CLINICAL HISTORY: Chest pain, nonspecific COMPARISON STUDY: 05/12/2024 FINDINGS: Stable moderate cardiomegaly without pulmonary vascular congestion. No effusion, consolidation, or pneumothorax. IMPRESSION: No acute findings. ACT 112: Negative or not required by law. Electronically signed by: Cody Culver M.D. 11/13/2024 9:20 AM Code Status & VTE Plan VTE Prophylaxis Plan VTE Prophylaxis will be ordered: Yes Supervising Physician Co-Signing Physician Notes Attending addendum: The patient was seen and examined in the emergency room in presence of the He has significant history of CAD status post stent last fall and coming in with chest pain at rest He had chest pain last evening lasted for few seconds and also this morning when he decided to come to the emergency room Denies any associated symptoms of shortness of breath, did have some swelling, no nausea or vomiting and no radiation of the pain On examination Hemodynamically stable in the emergency room and free from any pain Noted to have bradycardia of around 50s Chest was clear to auscultation bilaterally HeartS1-S2 with a 2/6 ESM over precordium Abdomenbenign Extremitiestrace edema bilaterally which seems to be chronic CNSalert, awake and oriented x 3 and no focal sensory or motor deficit appreciated His admission labs, EKG and imaging studies reviewed History of CAD status post stent with type 2 diabetes and A-fib on Xarelto-he was supposed to have cardiac MRI this Thursday as an outpatient Troponin was initially elevated with elevated but that became normalized with retesting 1 hour Remains free from any pain since admission Will rule out with serial cardiac enzymes and an echocardiogram Cardiology consult for possible stress test/cardiac cath Will continue his current medications Agree with the assessment and plan as outlined above by MONAE Mast and take the full responsibility of care in the hospital Dr Miguelito Jerry (1) Chest pain Chest pain type: unspecified Qualified Code(s): R07.9 - Chest pain, unspecified
[2024-11-13] MEDS: CLOPIDOGREL BISULFATE 75 MG TAB PO SCH (11:34)
[2024-11-13] MEDS: ROSUVASTATIN CALCIUM 20 MG TAB PO SCH (11:35)
[2024-11-13] MEDS ORDERED: MAGNESIUM HYDROXIDE SUSP 30 ML UDC PO PRN (13:18)
[2024-11-13] MEDS ORDERED: CARBOHYDRATES FOR HYPOGLYCEMIA PO PRN (13:18)
[2024-11-13] MEDS ORDERED: PHARMACY GLYCEMIC MGMT CONSULT PRN (13:18)
[2024-11-13] MEDS ORDERED: ACETAMINOPHEN 325 MG TAB PO PRN (13:18)
[2024-11-13] MEDS ORDERED: GLUCAGON FOR INJ 1 MG VIAL SQ PRN (13:18)
[2024-11-13] MEDS ORDERED: GLUCOSE 40% GEL 15 GM TUBE PO PRN (13:18)
[2024-11-13] MEDS ORDERED: GLUCOSE 10 TAB/TUBE PO PRN (13:18)
[2024-11-13] MEDS ORDERED: ONDANSETRON INJ 2 MG/ML 2 ML VIAL IV PRN (13:18)
[2024-11-13] MEDS ORDERED: NITROGLYCERIN SL 0.4 MG/TAB TAB SL PRN (13:18)
[2024-11-13] MEDS ORDERED: ALUMINUM/MAGNESIUM SUSP 30 ML UDC PO PRN (13:18)
[2024-11-13] MEDS ORDERED: DEXTROSE 50% 50 ML SYRINGE IV PRN (13:18)
[2024-11-13] MEDS ORDERED: POLYETHYLENE (MIRALAX) 17 GM PACK PO PRN (13:18)
--- NOTE | 2024-11-13 13:37 | Pharmacy Report ---
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 * Will hold basal for now pending NPO status-reassess in AM PLAN FOR INPATIENT GLYCEMIC CONTROL: * Hold outpatient oral diabetes medications * Basal insulin * hold * Bolus insulin * NovoLog per scale ACHS or Q6hrs while NPO * Goal Range: Low 110 mg/dL - High 140 mg/dL * Correction Factor: 30 mg/dL/unit * Nutritional / Prandial insulin per carb ratio of 1 unit per 10 grams CHO consumed
--- NOTE | 2024-11-13 13:48 | Cardiology Consultation ---
Date of Consultation November 13, 2024 Assessment & Plan (1) Atypical chest pain: (2) History of coronary artery disease: (3) Dyslipidemia, goal LDL below 70: (4) HTN, goal below 130/80: (5) Sinus bradycardia: (6) Paroxysmal atrial fibrillation: Plan Patient is a 79-year-old male with history of coronary disease status post stent to the LAD in March 2024 with residual chronic total occlusion of the OM and 50% stenosis of the RCA, admitted with intermittent chest pain, described as sharp/stabbing pain, only lasting a few seconds each time. Non exertional. Symptoms improved with Rolaids last night, but returned this morning. Chest pain with history of coronary artery disease Upon admission, troponin initially 20, repeat 19. -Trend serial troponin -EKG demonstrating Sinus eldon without ischemic changes. -Echo results pending -Continue Plavix, statin, lisinopril, metoprolol (dose reduced from 100 to 50 mg given bradycardia) and isosorbide. -Symptoms are atypical for cardiac origin and not consistent with his prior anginal equivalent. -Consider GI etiology - PPI initiated. -Aspirin prescribed on admission. Per review of outpatient chart - Plavix and Xarelto were recommended. Will stop ASA to avoid triple therapy during admission. -At this point, no indication for invasive procedure with cardiac catheterization. -will monitor Possible GERD -PPI initiated. PAF -currently Sinus bradycardia on admission -intermittent dizziness reported -Metoprolol reduced from 100 to 50 mg daily -Continue Xarelto -IF patient develops worsening anginal symptoms or troponin trends higher - hold Xarelto for possible cath. LVH with asymmetric septal hypertrophy on past echo -he is scheduled for Cardiac MRI for further evaluation later this week. Further recommendations pending discussion and evaluation with Dr. Herrera I spent a total of 60 minutes on the date of service in preparation, delivery, and documentation of the care provided to this patient, excluding any time spent in the performance of separately billed services. Alondra Uribe PA-C Department of Cardiology, [facility] This chart was completed in part utilizing Speech Voice Recognition Software. Grammatical errors, random word insertions, pronoun errors, and incomplete sentences are an occasional consequence of this system due to software limitations, ambient noise, and hardware issues. Any formal questions or concerns about the content, text, or information contained within the body of this dictation should be directly addressed to the provider for clarification. Supervising Physician Co-Signing Physician Notes Attending attestation: Case reviewed with the advanced practitioner. I have personally performed a history and physical examination on the patient. I have reviewed the advanced practitioner's documentation on the date of service referenced in note, and I agree with, and take responsibility for the plan of care. Subjective: Symptoms atypical for angina, sharp and stabbing in character, lasts only a few seconds, not typically with aerobic exertion. Does note occasionally breaking out in heavy perspiration when sitting still. Marked sinus bradycardia noted on EKG and telemetry. Exam: Cardiovascular: Bradycardic, regular, no edema, no murmur Data: EKG performed 11/13/2024 at 8:47 AM revealed sinus bradycardia 48 bpm with first- degree block. No significant repolarization abnormalities. Echocardiogram reveals no regional wall motion abnormalities, LVEF 6065% with asymmetric hypertrophy of the basal septum. Impression: As noted above Plan: Trend troponin levels. Reduce metoprolol succinate from 100 mg to 50 mg daily. Continue chronic clopidogrel plus Xarelto, no aspirin. Continue plans for cardiac MRI as an outpatient this week. N.p.o. after midnight in case clinical status changes. I spent a total of 20 minutes coordinating, documenting, and providing care for this patient excluding time spent in the performance of separately billed services or time spent by another provider. Jayme Herrera DO History of Present Illness Reason for Consultation: Chest pain; CAD Requesting Physician: Sherine Winters Attending Physician: Dr. Herrera History of Present Illness Patient is a 79-year-old male Who presented to [facility] emergency department with complaints of intermittent sharp stabbing chest pain. Symptoms began last night after eating a hamburger. He describes intermittent stabbing chest pain located substernally lasting several seconds at a time and resolving spontaneously. He felt this was related to heartburn and took Rolaids last night with resolution of his symptoms. No pain through the night. When he awakened this morning he had several quick episodes of the sharp pain. He also noted increased "burping". He feels this is significantly different than his prior anginal equivalent. He did not try sublingual nitro as the sharp pains were very quick. Prior to this starting yesterday evening, patient was walking/hiking at [facility] several miles without exertional complaints. No exertional cp or Sob. Upon arrival to ER, EKG Demonstrated sinus bradycardia with a heart rate of 48 bpm but no ischemic changes noted. HS troponin on admission to ER minimally elevated at 20.7. Repeat 1 hour later 19.2. Patient reports he has recently had a sinus infection and was using Flonase but no [id number] medications. He feels he has significant sinus drainage into his stomach which he believes has irritated his esophagus causing his symptoms. At time of consult, patient sitting at edge of bed feeling well. at bedside. He denies recurrent chest pain. He had 1 quick episode while in the ER but again only lasted a second.No radiation of the pain. No associated sympt oms of shortness of breath, diaphoresis, palpitations. He does report intermittent dizziness particularly with positional changes. Near syncope. No sense of palpitations or tachypalpitations. History includes: CAD, 70% earlymid LAD. 60-70% proximal small to medium D2. 100% proximal OM 3 [employer]. L-L and R-L collaterals. 50% latemid into distal RCA (IFR negative 0.97) s/p PCI LAD 03/2024 pAF, new dx 06/2024 Dx at cardiac rehab and admitted to [facility] s/p DCCV Mild concentric LVH asymmetric septum? Sigmoid septum versus HOCM - awaiting cardiac MRI. HTN HLD AAA measuring 2.9 cm per duplex in 04/2023 - repeat study in 5 years recommended NICOLASA, nonsymptomatic bilaterally Dilated ascending aorta measuring 4.6 cm Allergies Allergy/AdvReac Type Severity Reaction Status Date / Time No Known Allergies Allergy Mild Verified 04/10/24 11:54 Home Medications Medication Instructions Recorded Confirmed Type aspirin 81 mg tablet,delayed 81 mg PO DAILY 10/15/21 11/13/24 History release amlodipine 10 mg tablet 10 mg PO QAM 04/10/24 11/13/24 History finasteride 5 mg tablet 5 mg PO QAM 04/10/24 11/13/24 History blood-glucose meter (Blood Glucose #1 ea 04/12/24 05/12/24 Rx Monitoring kit) rosuvastatin 10 mg tablet 20 mg PO HS 05/12/24 11/13/24 History isosorbide mononitrate 30 mg 30 mg PO QAM #30 tabs 05/13/24 11/13/24 Rx tablet,extended release 24 hr lisinopril 10 mg tablet 10 mg PO DAILY #0 tabs 05/13/24 11/13/24 Rx Tums 1 tab PO DIRECTED PRN heartburn 11/13/24 11/13/24 History clopidogrel 75 mg tablet 75 mg PO UD 11/13/24 11/13/24 History metformin 500 mg tablet 500 mg PO DAILY 11/13/24 11/13/24 History metoprolol succinate 50 mg 100 mg PO QAM 11/13/24 11/13/24 History tablet,extended release 24 hr pantoprazole 40 mg tablet,delayed 40 mg PO DAILY 11/13/24 11/13/24 History release rivaroxaban 20 mg tablet (Xarelto) 20 mg PO UD 11/13/24 11/13/24 History Patient History Medical History DM (diabetes mellitus), type 2 CAD (coronary artery disease) BPH (benign prostatic hyperplasia) Obesity Urinary retention Carotid stenosis HLD (hyperlipidemia) HTN (hypertension) Surgical History S/P cardiac catheterization [place] to LAD 04/10/24 @ [facility] Hx of arthroscopy of shoulder History of meniscectomy of left knee Hx laparoscopic cholecystectomy Family History Father Cancer Mother Stroke Sister Stroke Social History Smoking Status: Never smoker Second Hand Exposure: No; Do You Dip or Chew Tobacco: No; Tobacco Cessation Education Requested by Patient: No Hx Alcohol Use: No Hx Substance Use: No Preferred Language: Turkish Communication Ability: Effective Staff Radiologist Required: No Beliefs That Will Affect Care: None Current Living Situation: Spouse Other Information That Helps Us Care for You: No Feels Safe at Home: Yes Safety Concerns: Feels Safe At This Time Assistive Devices: None Review of Systems Review of Systems: All systems reviewed & are unremarkable except as noted in HPI & below Physical Exam Constitutional: WD/WN, vitals as above average body habitus; no acute distress Neck: normal visual inspection Respiratory: normal respiratory effort, lungs clear to auscultation Cardiovascular: Rate/Rhythm: regular rate and regular rhythm Heart Sounds: no murmur Vessels: no JVD Extremities: no edema Gastrointestinal (Abdomen): normal bowel sounds, soft, nontender, no hepatosplenomegaly Musculoskeletal: no cyanosis or clubbing, extremities motor strength 5/5 Neurologic: PERRL, EOMI, accommodation nl, no face palsy, no dysarthria Results & Data Vital Signs (Past 12 Hours) Vital Signs Temp Pulse Pulse Resp BP BP Pulse Ox 11/13/24 12:24 36.5 C 51 L 14 140/84 97 11/13/24 11:30 50 L 23 129/79 96 11/13/24 11:00 55 L 20 138/77 96 11/13/24 10:45 48 L 21 109/66 94 11/13/24 09:30 50 L 24 138/79 94 11/13/24 09:15 53 L 17 142/89 H 94 11/13/24 09:11 48 L 11/13/24 08:52 11/13/24 08:51 97 11/13/24 08:46 36.4 C L 49 L 16 O2 Del Method 11/13/24 12:24 Room Air 11/13/24 11:30 Room Air 11/13/24 11:00 Room Air 11/13/24 10:45 Room Air 11/13/24 09:30 Room Air 11/13/24 09:15 11/13/24 09:11 11/13/24 08:52 Room Air 11/13/24 08:51 Room Air 11/13/24 08:46 Laboratory Results Cardiac Enzymes 11/13/24 11/13/24 Range/Units 08:52 09:54 AST 17 (13-39) U/L Troponin I High Sens 20.7 H 19.2 (0-20) pg/ml CBC 11/13/24 Range/Units 08:52 WBC 7.86 (4.8-10.8) K/ul RBC 4.63 L (4.70-6.10) M/uL Hgb 14.4 (14.0-18.0) g/dl Hct 41.4 L (42.0-52.0) % Plt Count 259 (130-400) K/uL Neut # (Auto) 6.05 (1.40-6.50) K/uL Lymph # (Auto) 1.19 L (1.20-3.40) K/uL [place] # (Auto) 0.45 (0.11-0.59) K/uL Eos # (Auto) 0.14 (0.00-0.50) K/uL Baso # (Auto) 0.01 (0.00-0.20) K/uL Comprehensive Metabolic Panel 11/13/24 Range/Units 08:52 Sodium 138 (136-145) mmol/L Potassium 4.3 (3.5-5.1) mmol/L Chloride 109 H (98-107) mmol/L Carbon Dioxide 23 (21-32) mmol/L BUN 24 H (6-23) mg/dl Creatinine 1.20 (0.6-1.4) mg/dl Glucose 165 H (70-99(Fasting)) mg/dl Calcium 9.4 (8.6-10.3) mg/dl AST 17 (13-39) U/L ALT 17 (7-52) U/L Alkaline Phosphatase 66 (34-104) U/L Total Protein 6.9 (6.0-8.3) gm/dl Albumin 4.2 (3.4-5.0) gm/dl Intake and Output 11/12/24 11/13/24 11/13/24 22:59 06:59 14:59 Intake Total 200 / 200 Balance 200 / 200 Intake: Oral 200 / 200 Other: # Unmeasured Voids 1 Weight 97.522 kg Weight Measurement Method Built in [facility] Patient Weight 11/14/24 06:59 Weight 97.522 kg Diagnostic Findings Telemetry reviewed: Sinus bradycardia with heart rates predominantly in the 50s. Occasional PVC. No symptomatic bradycardia. Echocardiogram report - pending EKG reviewed from admission dated 11/13/24: Sinus bradycardia at 48 bmp with 1st degree AV block No acute ischemic changes. Chest X-Ray 11/13/24 08:51 XR chest 1V portable CLINICAL HISTORY: Chest pain, nonspecific COMPARISON STUDY: 05/12/2024 FINDINGS: Stable moderate cardiomegaly without pulmonary vascular congestion. No effusion, consolidation, or pneumothorax. IMPRESSION: No acute findings. Prior data reviewed: cardiac cath report reviewed from Mar 2024: Summary: 1. Multivessel vessel coronary artery disease -70% earlymid LAD. 60-70% proximal small to medium D2 100% proximal OM 3 chronic total occlusion. Left to left and right to left collaterals 50% latemid into distal RCA (IFR negative 0.97) 2. Normal intracardiac filling pressure 3. Successful PCI of mid LAD with single drug-eluting stent (3.0 x 18 mm [place]; postdilated with 3.5 NC). Medications Administered Current Inpatient Medications Acetaminophen (Acetaminophen 325 Mg Tab) 650 mg PO Q4H PRN PRN Reason: Pain or Fever Stop: 12/13/24 13:17 Al Hydrox/Mg Hydrox/Simethicone (Aluminum/Magnesium Susp 30 Ml Udc) 15 ml PO Q4H PRN PRN Reason: Dyspepsia Stop: 12/13/24 13:17 Amlodipine Besylate (Amlodipine Besylate 5 Mg Tab) 10 mg PO QAM [facility] Stop: 12/14/24 08:59 Aspirin (Aspirin 81 Mg Ectab) 81 mg PO DAILY [facility] Stop: 12/14/24 08:59 Clopidogrel Bisulfate (Clopidogrel Bisulfate 75 Mg Tab) 75 mg PO DAILY [facility] Stop: 12/13/24 10:59 Last Admin: 11/13/24 11:34 Dose: Not Given Dextrose (Dextrose 50% 50 Ml Syringe) 25 - 50 ml IV UD PRN; Protocol PRN Reason: Hypoglycemia Protocol Stop: 12/13/24 13:17 Finasteride (Finasteride 5 Mg Tab) 5 mg PO QAM [facility] Stop: 12/14/24 08:59 Glucagon (Glucagon For Inj 1 Mg Vial) 1 mg SQ UD PRN; Protocol PRN Reason: Hypoglycemia Protocol Stop: 12/13/24 13:17 Glucose (Glucose 40% Gel 15 Gm Tube) 15 - 30 gm PO UD PRN; Protocol PRN Reason: Hypoglycemia Protocol Stop: 12/13/24 13:17 Glucose (Glucose 10 Tab/Tube) 4 - 8 tab PO UD PRN; Protocol PRN Reason: Hypoglycemia Protocol Stop: 12/13/24 13:17 Insulin Aspart (Insulin Aspart Per Unit Charge) 0 units SC ACHS [facility] Stop: 12/13/24 13:29 Last Admin: 11/13/24 14:16 Dose: Not Given Isosorbide Mononitrate (Isosorbide [place] Extended Rel 30 Mg Tabcr) 30 mg PO QAM [facility] Stop: 12/14/24 08:59 Lisinopril (Lisinopril 10 Mg Tab) 10 mg PO DAILY [facility] Stop: 12/14/24 08:59 Magnesium Hydroxide (Magnesium Hydroxide Susp 30 Ml Udc) 30 ml PO Q12H PRN PRN Reason: Constipation Stop: 12/13/24 13:17 Metoprolol Succinate (Metoprolol Succ 50mg Ext Rel Tab) 50 mg PO QAM [facility] Stop: 12/14/24 08:59 Miscellaneous (Carbohydrates For Hypoglycemia ) 15 - 30 gm PO UD PRN PRN Reason: Hypoglycemia Protocol Stop: 12/13/24 13:17 Miscellaneous Information (Pharmacy Glycemic Mgmt Consult) 1 each N/A UD PRN PRN Reason: Consult Stop: 12/13/24 13:17 Nitroglycerin (Nitroglycerin Sl 0.4 Mg/Tab Tab) 0.4 mg SL Q5M PRN PRN Reason: Chest Pain Stop: 12/13/24 13:17 Ondansetron HCl (Ondansetron Inj 2 Mg/Ml 2 Ml Vial) 4 mg IV Q6H PRN PRN Reason: Nausea Stop: 12/13/24 13:17 Pantoprazole Sodium (Pantoprazole 40 Mg Tab) 40 mg PO DAILY [facility] Stop: 12/14/24 08:59 Polyethylene Glycol (Polyethylene (Miralax) 17 Gm Pack) 17 gm PO DAILY PRN PRN Reason: Constipation Stop: 12/13/24 13:17 Rivaroxaban (Rivaroxaban 20 Mg Tab) 20 mg PO TODAY@1730 [facility] Stop: 12/13/24 17:29 Rosuvastatin Calcium (Rosuvastatin Calcium 20 Mg Tab) 20 mg PO TODAY@1200 [facility] Stop: 12/13/24 11:59 Last Admin: 11/13/24 11:35 Dose: Not Given
[2024-11-13] MEDS: INSULIN ASPART PER UNIT CHARGE SC SCH (14:16)
[2024-11-13] MEDS ORDERED: CALCIUM CARBONATE 500 MG CHEWABLE TAB PO PRN (17:10)
[2024-11-13] MEDS: SIMETHICONE 80 MG CHEW PO PRN (17:29)
[2024-11-13] MEDS: RIVAROXABAN 20 MG TAB PO SCH (17:30)
[2024-11-13] MEDS: PANTOprazole 40 MG TAB PO SCH (21:38)
[2024-11-14] MEDS: amLODIPine BESYLATE 5 MG TAB PO ONE (05:38)
[2024-11-14 05:51] LABS: Basophils # (auto) 0.01 K/uL (0.00-0.20); Basophils % (auto) 0.2 %; Eosinophils # (auto) 0.19 K/uL (0.00-0.50); Eosinophils % (auto) 2.9 %; Hematocrit (blood only) 40.1 % (42.0-52.0); Hemoglobin 13.8 g/dl (14.0-18.0); Immature Granulocytes # (auto) 0.01 K/uL (0.01-0.20); Immature Granulocytes % (auto) 0.2 %; Lymphocytes # (auto) 1.26 K/uL (1.20-3.40); Lymphocytes % (auto) 19.3 %; Mean Corpuscular Hemoglobin 30.7 pg (25.0-34.0); Mean Corpuscular Hgb Conc 34.4 g/dL (32.0-36.0); Mean Corpuscular Volume 89.3 fL (80.0-100.0); Mean Platelet Volume 9.5 fL (9.4-12.4); Monocytes # (auto) 0.48 K/uL (0.11-0.59); Monocytes % (auto) 7.4 %; Neutrophils # (auto) 4.57 K/uL (1.40-6.50); Platelet Count 215 K/uL (130-400); RDW Standard Deviation 42.3 fL (36.4-46.3); Red Blood Count 4.49 M/uL (4.70-6.10); White Blood Count 6.52 K/ul (4.8-10.8)
[2024-11-14 06:07] LABS: BUN Creatinine Ratio 15.3 (10-20); Calcium 8.9 mg/dl (8.6-10.3); Potassium 4.2 mmol/L (3.5-5.1)
[2024-11-14 06:16] LABS: Partial Thromboplastin Ratio 1.6; Partial Thromboplastin Time 43 Seconds (21-31); Troponin I High Sensitivity 15.3 pg/ml (0-20)
[2024-11-14] MEDS ORDERED: Nursing to Pharmacy Communication SCH ×2 (08:00→11:45)
[2024-11-14 08:05] VITALS: O2SAT 94
[2024-11-14] MEDS: ISOSORBIDE MONO EXTENDED REL 30 MG TABCR PO SCH (08:20)
[2024-11-14] MEDS: FINASTERIDE 5 MG TAB PO SCH (08:20)
[2024-11-14] MEDS: lisinopril 10 MG TAB PO SCH ×2 (08:21→11:55)
[2024-11-14] MEDS: METOPROLOL SUCC 50MG EXT REL TAB PO SCH (08:24)
--- NOTE | 2024-11-14 08:40 | Cardiology Progress Note ---
Date of Service November 14, 2024 Assessment & Plan (1) Atypical chest pain: (2) History of coronary artery disease: (3) Dyslipidemia, goal LDL below 70: (4) HTN, goal below 130/80: (5) Sinus bradycardia: (6) Paroxysmal atrial fibrillation: Plan Assessment: 79-year-old male with H/o of CAD s/p stent to the LAD in March 2024 with residual chronic total occlusion of the OM and 50% stenosis of the RCA. He was admitted with intermittent CP. Cardiology was consulted for recommendations. Chest pain with history of CAD: -Patient with no acute cardiac complaints at time of evaluation. -Troponin HS 20 on admission 11/13/24; 19, 18 on repeat. 15.3 on 11/14/24. -Continue to trend serial troponin -Echo 11/13/24: LVEF 60-65%, moderated concentric LV hypertrophy. Asymmetric LV hypertrophy involving the basal septum. No LVOT gradient. Mild AV sclerosis without stenosis. LA mildly dilated. Aortic root mildly dilated at 4.1 cm. -EKG 11/14/24: Sinus bradycardia, HR 53 bpm, QTc 441. 1st degree AV block. -Telemetry reviewed: sinus bradycardia, HR 50s-60s with PVCs. -Continue Plavix, xarelto, rosuvastatin, lisinopril, metoprolol, and isosorbide. -Patient's symptoms do not seem to be cardiac in origin, per review of labs, imaging, and his description of quality, timing, alleviating methods, and comparison to his prior experience with angina. Thus likely GI in origin. States he is on PPI at home for GERD. Continue PPI. -Continue plavix and xarelto. -Continue to monitor. -Cardiac cath not indicated at this time. GERD: -Symptomatic this morning, resolved spontaneously after 2-3 seconds and taking rolaids, per patient. -Continue pantoprazole 40 mg BID. Paroxysmal Afib: -EKG 11/14/24: Sinus bradycardia, HR 53 bpm, QTc 441. 1st degree AV block. Sinus bradycardia -Patient asymptomatic at time of exam and denies any symptoms since last examined yesterday. -Continue Metoprolol 50 mg daily (reduced from 100 mg on 11/13/24 d/t bradycardia) -Continue amlodipine 10 mg daily -Continue Xarelto H/o LVH with asymmetric septal hypertrophy -Echo 11/13/24: LVEF 60-65%, moderated concentric LV hypertrophy. Asymmetric LV hypertrophy involving the basal septum. -Patient is scheduled for cardiac MRI on Thursday11/18/24 for further eval. Case discussed with food processing chemist Dr. Daley. Further recommendations pending his evaluation and assessment I spent a total of 35 minutes on the date of service in preparation, delivery, and documentation of the care provided to this patient, excluding any time spent in the performance of separately billed services. Ronald Simms, DIPTIC Department of Cardiology, [facility] This chart was completed in part utilizing Speech Voice Recognition Software. Grammatical errors, random word insertions, pronoun errors, and incomplete sentences are an occasional consequence of this system due to software limitations, ambient noise, and hardware issues. Any formal questions or concerns about the content, text, or information contained within the body of this dictation should be directly addressed to the provider for clarification. Admission and Anticipated Discharge Date Admission Date: November 13, 2024 Supervising Physician Co-Signing Physician Notes I have personally performed a history and physical examination on the patient. I have reviewed the advance practitioner's documentation, and I agree with, and take responsibility for the plan of care. 79-year-old male admitted with atypical chest discomfort. Describes a mild to moderate discomfort lasting 1 to 2 seconds. The discomfort is not provoked with activity or exertion. No evidence of acute coronary syndrome. Blood pressure elevated since admission. Will titrate lisinopril to 10 mg twice daily. Recommend outpatient basic metabolic panel in 1 week. No further inpatient cardiac testing or intervention recommended at this time. Outpatient cardiology follow-up in 2 to 4 weeks. I spent a total of 25 minutes on the date of service in preparation, delivery, and documentation of the care provided to this patient, excluding any time spent in the performance of separately billed services. Romero Daley DO, [facility] Subjective Patient seen and examined today for follow-up. Patient is resting in bed comfortably. Offers no acute cardiac complaints. He notes that this morning at 6:30 a.m. he experienced some chest discomfort. He describes the sensation as burning in quality and a 2/10 in pain severity. He points with one finger to his left chest for the location of the discomfort and states the pain subsided spontaneously after 2-3 seconds. He states he took some rolaids which alleviated any symptoms. He notes that he currently has "really bad allergies" and sinus drainage. Denies any current chest pain, SOB, dizziness, nausea, vomiting, abdominal pain, or any other issues. Labs, diagnostics, vitals, and documentation reviewed. Telemetry reviewed: Sinus bradycardia, HR 50s-60s with PVCs. Review of Systems Review of Systems: All systems reviewed & are unremarkable except as noted in HPI & below Physical Exam Constitutional: WD/WN, vitals as above average body habitus; no acute distress Eyes: PERRL, conjunctivae normal, anicteric sclerae Neck: normal visual inspection Respiratory: normal respiratory effort, lungs clear to auscultation Cardiovascular: Rate/Rhythm: regular rate and regular rhythm Heart Sounds: no murmur Vessels: no JVD Extremities: no edema Musculoskeletal: no cyanosis or clubbing, extremities motor strength 5/5 Skin: no rashes, warm and dry Psychiatric: A+Ox3, euthymic affect Results & Data Vital Signs (Past 12 Hours) Vital Signs Temp Pulse Pulse Resp BP Pulse Ox O2 Del Method 11/14/24 08:09 Room Air 11/14/24 08:00 56 L 158/98 H 94 Room Air 11/14/24 07:44 36.4 C L 54 L 19 159/97 H 93 Room Air 11/14/24 07:38 54 L 11/14/24 07:03 84 153/84 H 94 Room Air 11/14/24 05:30 60 155/87 H 11/13/24 23:42 36.7 C 60 17 166/89 H 91 Room Air 11/13/24 22:49 50 L Laboratory Results Cardiac Enzymes 11/13/24 11/13/24 11/13/24 Range/Units 08:52 09:54 15:40 AST 17 (13-39) U/L Troponin I High Sens 20.7 H 19.2 18.1 (0-20) pg/ml 11/14/24 Range/Units 05:24 AST (13-39) U/L Troponin I High Sens 15.3 (0-20) pg/ml Coagulation 11/14/24 Range/Units 05:24 APTT 43 H (21-31) Seconds CBC 11/13/24 11/14/24 Range/Units 08:52 05:24 WBC 7.86 6.52 (4.8-10.8) K/ul RBC 4.63 L 4.49 L (4.70-6.10) M/uL Hgb 14.4 13.8 L (14.0-18.0) g/dl Hct 41.4 L 40.1 L (42.0-52.0) % Plt Count 259 215 (130-400) K/uL Neut # (Auto) 6.05 4.57 (1.40-6.50) K/uL Lymph # (Auto) 1.19 L 1.26 (1.20-3.40) K/uL [place] # (Auto) 0.45 0.48 (0.11-0.59) K/uL Eos # (Auto) 0.14 0.19 (0.00-0.50) K/uL Baso # (Auto) 0.01 0.01 (0.00-0.20) K/uL Comprehensive Metabolic Panel 11/13/24 11/14/24 Range/Units 08:52 05:24 Sodium 138 139 (136-145) mmol/L Potassium 4.3 4.2 (3.5-5.1) mmol/L Chloride 109 H 108 H (98-107) mmol/L Carbon Dioxide 23 24 (21-32) mmol/L BUN 24 H 21 (6-23) mg/dl Creatinine 1.20 1.37 (0.6-1.4) mg/dl Glucose 165 H 119 H (70-99(Fasting)) mg/dl Calcium 9.4 8.9 (8.6-10.3) mg/dl AST 17 (13-39) U/L ALT 17 (7-52) U/L Alkaline Phosphatase 66 (34-104) U/L Total Protein 6.9 (6.0-8.3) gm/dl Albumin 4.2 (3.4-5.0) gm/dl Intake and Output 11/13/24 11/14/24 11/14/24 22:59 06:59 14:59 Other: # Unmeasured Voids 2 2 Weight 97.521 kg Weight Measurement Method Built in [facility] Diagnostic Findings EKG 11/14/24: Sinus bradycardia, HR 53 bpm, QTc 441. 1st degree AV block. Sinus bradycardia Echo 11/13/24: LVEF 60-65%, moderated concentric LV hypertrophy. Asymmetric LV hypertrophy involving the basal septum. No LVOT gradient. Mild AV sclerosis without stenosis. LA mildly dilated. Aortic root mildly dilated at 4.1 cm. Medications Administered Current Inpatient Medications Acetaminophen (Acetaminophen 325 Mg Tab) 650 mg PO Q4H PRN PRN Reason: Pain or Fever Stop: 12/13/24 13:17 Al Hydrox/Mg Hydrox/Simethicone (Aluminum/Magnesium Susp 30 Ml Udc) 15 ml PO Q4H PRN PRN Reason: Dyspepsia Stop: 12/13/24 13:17 Amlodipine Besylate (Amlodipine Besylate 5 Mg Tab) 10 mg PO QAM [facility] Stop: 12/15/24 08:59 Clopidogrel Bisulfate (Clopidogrel Bisulfate 75 Mg Tab) 75 mg PO DAILY JESSI Stop: 12/13/24 10:59 Last Admin: 11/14/24 08:18 Dose: 75 mg Dextrose (Dextrose 50% 50 Ml Syringe) 25 - 50 ml IV UD PRN; Protocol PRN Reason: Hypoglycemia Protocol Stop: 12/13/24 13:17 Finasteride (Finasteride 5 Mg Tab) 5 mg PO QAM [facility] Stop: 12/14/24 08:59 Last Admin: 11/14/24 08:20 Dose: 5 mg Glucagon (Glucagon For Inj 1 Mg Vial) 1 mg SQ UD PRN; Protocol PRN Reason: Hypoglycemia Protocol Stop: 12/13/24 13:17 Glucose (Glucose 40% Gel 15 Gm Tube) 15 - 30 gm PO UD PRN; Protocol PRN Reason: Hypoglycemia Protocol Stop: 12/13/24 13:17 Glucose (Glucose 10 Tab/Tube) 4 - 8 tab PO UD PRN; Protocol PRN Reason: Hypoglycemia Protocol Stop: 12/13/24 13:17 Insulin Aspart (Insulin Aspart Per Unit Charge) 0 units SC Q6 JESSI Stop: 12/13/24 13:29 Isosorbide Mononitrate (Isosorbide [place] Extended Rel 30 Mg Tabcr) 30 mg PO QAM [facility] Stop: 12/14/24 08:59 Last Admin: 11/14/24 08:20 Dose: 30 mg Lisinopril (Lisinopril 10 Mg Tab) 10 mg PO DAILY JESSI Stop: 12/14/24 08:59 Last Admin: 11/14/24 08:21 Dose: 10 mg Magnesium Hydroxide (Magnesium Hydroxide Susp 30 Ml Udc) 30 ml PO Q12H PRN PRN Reason: Constipation Stop: 12/13/24 13:17 Metoprolol Succinate (Metoprolol Succ 50mg Ext Rel Tab) 50 mg PO QAM [facility] Stop: 12/14/24 08:59 Last Admin: 11/14/24 08:24 Dose: 50 mg Miscellaneous (Carbohydrates For Hypoglycemia ) 15 - 30 gm PO UD PRN PRN Reason: Hypoglycemia Protocol Stop: 12/13/24 13:17 Miscellaneous Information (Pharmacy Glycemic Mgmt Consult) 1 each N/A UD PRN PRN Reason: Consult Stop: 12/13/24 13:17 Nitroglycerin (Nitroglycerin Sl 0.4 Mg/Tab Tab) 0.4 mg SL Q5M PRN PRN Reason: Chest Pain Stop: 12/13/24 13:17 Ondansetron HCl (Ondansetron Inj 2 Mg/Ml 2 Ml Vial) 4 mg IV Q6H PRN PRN Reason: Nausea Stop: 12/13/24 13:17 Pantoprazole Sodium (Pantoprazole 40 Mg Tab) 40 mg PO BID [facility] Stop: 12/13/24 20:59 Last Admin: 11/14/24 08:19 Dose: 40 mg Polyethylene Glycol (Polyethylene (Miralax) 17 Gm Pack) 17 gm PO DAILY PRN PRN Reason: Constipation Stop: 12/13/24 13:17 Rivaroxaban (Rivaroxaban 20 Mg Tab) 20 mg PO TODAY@1730 [facility] Stop: 12/13/24 17:29 Last Admin: 11/13/24 17:30 Dose: 20 mg Rosuvastatin Calcium (Rosuvastatin Calcium 20 Mg Tab) 20 mg PO TODAY@1200 [facility] Stop: 12/13/24 11:59 Last Admin: 11/13/24 11:35 Dose: Not Given Simethicone (Simethicone 80 Mg Chew) 80 mg PO Q6H PRN PRN Reason: Flatulence Stop: 12/13/24 17:10 Last Admin: 11/13/24 17:29 Dose: 80 mg
[2024-11-14] MEDS ORDERED: PANTOprazole 40 MG TAB PO SCH (09:00)
[2024-11-14] MEDS ORDERED: ASPIRIN 81 MG ECTAB PO SCH (09:00)
[2024-11-14] MEDS ORDERED: METOPROLOL SUCC 50MG EXT REL TAB PO SCH (09:00)
[2024-11-14] MEDS ORDERED: amLODIPine BESYLATE 5 MG TAB PO SCH (09:00)
[2024-11-14 11:43] VITALS: RESP 20; TEMP 97.7
[2024-11-14] MEDS: INSULIN ASPART PER UNIT CHARGE SC SCH (11:50)
[2024-11-14] MEDS: ISOSORBIDE MONO EXTENDED REL 30 MG TABCR PO ONE (11:55)
[2024-11-14] MEDS ORDERED: INSULIN ASPART PER UNIT CHARGE SC SCH (12:00)
--- NOTE | 2024-11-14 13:36 | Discharge Summary ---
Discharge Summary Date of Service November 14, 2024 Principal Dx & Hospital Course #1 = Principal Diagnosis (1) Atypical chest pain: (2) Sinus bradycardia: (3) Paroxysmal atrial fibrillation: (4) Dyslipidemia, goal LDL below 70: (5) ASCVD (arteriosclerotic cardiovascular disease): (6) DM (diabetes mellitus), type 2: (7) GERD (gastroesophageal reflux disease): Plan Patient is 79-year-old gentleman presented to the emergency department complaints of chest pain. His initial troponin was minimally elevated. He was referred for further evaluation. Patient was cared for in the hospital. A was placed on telemetry and noted some bradycardia. Cardiology was consultative. They recommended cutting his metoprolol in half. Serial troponins were all negative and within a normal range. He continued to have very fleeting episodes of chest pain. Seem to get better after some Tums/Rolaids indicating that this could be a GI etiology to his chest discomfort. His PPI was increased to 2 times daily. He was also noted to have uncontrolled hypertension. His lisinopril and Imdur dosages were increased to offset the decrease in his metoprolol. On the day of discharge he was feeling significantly improved. Was evaluated by cardiology. There is no indication for any further inpatient investigations. He has a cardiac MRI planned for later this week. And he will follow-up with cardiology outpatient. Notes For Next Care Provider May need to consider outpatient GI consultation Medication Changes From Visit Metoprolol dose decreased in half Lisinopril dose increased to 20 Imdur dose increased to 60 PPI/Protonix increased to 2 times daily Admission HPI Per Admitting Provider Patient is a 79 year old M with a past medical history of CAD s/p stent 03/2024, Afib s/p DCCV 07/05/24, HTN, HLD, non-insulin dependent DM Type II, BPH presenting with chest pain. Chest pain began last evening around 5pm while watching the ball game, characterized as intermittent, lasting a few second, resolved, and then he went to bed without issue overnight. Chest pain returned with same quality this morning. He took his morning meds prior to coming to the hospital. Denies syncope, fever, chills, weight loss, weakness, headache, cognitive changes, vision/hearing changes, SOB, swelling, difficulty breathing, urinary concerns, N/V/D, joint swelling/pain, ambulation difficulty, skin rashes, lesions, bleeding, bruising. In the emergency department, EKG showed sinus eldon with 1st degree A-V block, vent rate 48 bpm, QTc 414. Trop 20.7. Aspirin given in ED. Bradycardia to 40's and asymptomatic at rest. Reports having periodic dizziness at home, but at baseline. No evidence of sepsis. Chest XRay without acute disease. As per external chart review, patient was seen by Cardiology on 10/11/2024. Patient had a ORAL at [facility] 07/05/24 showing EF 55-60%; Normal RV systolic function; No evidence of thrombus in atrial cavity or appendage. New onset Afib on 06/2024, admitted to [facility] s/p DCCV. Also noted have have AAA without rupture, found incidentally on Echo per patient report, sometime last fall. Scheduled to have Cardiac MRI this coming Thursday at [facility]. Most recent Echo completed at [facility] in 04/2024 showing asymmetric left ventricular hypertrophy involving the basal septum. History obtained primarily from the patient and via hospitalization record. The patient's was at the bedside and assisted with past medical history and current illness. External chart review obtained from [facility]. Admission Exam Per Admitting Provider See H&P Discharge Exam Constitutional: Alert HEENT: Mucous membranes moist. Lungs: Clear to auscultation, decreased, no wheezes rales or rhonchi CV: S1-S2, regular Abdomen: Soft, nontender, nondistended Extremities: No significant edema Neuro: No focal deficits Psych: Cooperative, normal mood Updated Medication List Medication Instructions Recorded Confirmed Type aspirin 81 mg tablet,delayed 81 mg PO DAILY 10/15/21 11/13/24 History release amlodipine 10 mg tablet 10 mg PO QAM 04/10/24 11/13/24 History finasteride 5 mg tablet 5 mg PO QAM 04/10/24 11/13/24 History blood-glucose meter (Blood Glucose #1 ea 04/12/24 05/12/24 Rx Monitoring kit) rosuvastatin 10 mg tablet 20 mg PO HS 05/12/24 11/13/24 History Tums 1 tab PO DIRECTED PRN heartburn 11/13/24 11/13/24 History clopidogrel 75 mg tablet 75 mg PO UD 11/13/24 11/13/24 History metformin 500 mg tablet 500 mg PO DAILY 11/13/24 11/13/24 History metoprolol succinate 50 mg 100 mg PO QAM 11/13/24 11/13/24 History tablet,extended release 24 hr rivaroxaban 20 mg tablet (Xarelto) 20 mg PO UD 11/13/24 11/13/24 History isosorbide mononitrate 30 mg 60 mg (2 x 30 mg) PO QAM #60 tabs 11/14/24 Rx tablet,extended release 24 hr lisinopril 10 mg tablet 20 mg (2 x 10 mg) PO DAILY #60 tabs 11/14/24 Rx pantoprazole 40 mg tablet,delayed 40 mg PO BID #60 tabs 11/14/24 Rx release simethicone 80 mg chewable tablet 80 mg PO Q6H PRN abdominal 11/14/24 Rx (Gas Relief (simethicone)) distention/ gas #20 tabs Hospital Stay Data Consultations 11/13/24 09:58 ED Decision to Admit Stat 11/13/24 11:09 Consult Cardiology Routine Diagnostic Imagining Performed Reviewed imaging, laboratory and diagnostic studies. Pertinent findings as below. Hemoglobin 13.8 Electrolytes within normal range Troponins negative times the last 3 sets Echocardiogram showed ejection fraction 60 to 65%, some mild left ventricular hypertrophy, aortic root measured 4.1 cm, this appears to be stable Pending Results Patient Have Any Pending Studies at Discharge: No Discharge Instructions Given to Patient (Per Discharging Provider) Keep your appointment for cardiac MRI as scheduled Continue new dosages of medications as prescribed Follow-up with cardiology as coordinated Total Time Total Time Spent Total Time Spent (In Minutes): 32
[2024-11-14 13:44] VITALS: BP 160/83
[2024-11-14 13:53] VITALS: PULSE 73
[2024-11-14] MEDS ORDERED: lisinopril 10 MG TAB PO SCH (21:00)
[2024-11-15] MEDS ORDERED: ISOSORBIDE MONO EXTENDED REL 60 MG TABCR PO SCH (09:00)
[2024-11-15] MEDS ORDERED: amLODIPine BESYLATE 5 MG TAB PO SCH (09:00)
--- NOTE | 2024-11-15 16:38 | Electrocardiogram Report ---
Test Reason : Blood Pressure : */* mmHG Vent. Rate : 53 BPM Atrial Rate : 53 BPM P-R Int : 234 ms QRS Dur : 112 ms QT Int : 470 ms P-R-T Axes : 11 0 18 degrees QTcB Int : 441 ms Sinus bradycardia with 1st degree A-V block Otherwise normal ECG When compared with ECG of 13-Nov-2024 08:47, (unconfirmed) No significant change was found Confirmed by Pb Grissom ([id number]) on 11/15/2024 4:37:55 PM Referred By: REFERRED SELF Confirmed By: Pb Grissom
--- NOTE | 2024-11-16 12:27 | Electrocardiogram Report ---
Test Reason : Blood Pressure : */* mmHG Vent. Rate : 48 BPM Atrial Rate : 48 BPM P-R Int : 236 ms QRS Dur : 102 ms QT Int : 464 ms P-R-T Axes : 13 22 17 degrees QTcB Int : 414 ms Sinus bradycardia with 1st degree A-V block Otherwise normal ECG When compared with ECG of 13-May-2024 06:00, No significant change was found Confirmed by Pb Grissom ([id number]) on 11/16/2024 12:26:53 PM Referred By: REFERRED SELF Confirmed By: Pb Grissom
== END 2024-11-14 14:19 | disposition home or self-care (01) | DRG 392 ==
LOC: ED 08:40 → SUATTDRO 10:40 → 2E 10:40

== ENCOUNTER 2024-12-08 18:37 | Inpatient (IN) ==
[2024-12-08 19:08] LABS: Hematocrit (blood only) 42.3 % (42.0-52.0); Hemoglobin 14.3 g/dl (14.0-18.0); Immature Granulocytes # (auto) 0.02 K/uL (0.01-0.20); Immature Granulocytes % (auto) 0.2 %; Mean Corpuscular Hemoglobin 30.5 pg (25.0-34.0); Mean Corpuscular Volume 90.2 fL (80.0-100.0); Platelet Count 226 K/uL (130-400); RDW Standard Deviation 44.2 fL (36.4-46.3); Red Blood Count 4.69 M/uL (4.70-6.10); White Blood Count 8.52 K/ul (4.8-10.8)
[2024-12-08 19:32] LABS: Alanine Aminotransferase 23.0 U/L (7-52); Albumin Globulin Ratio 1.3 (0.9-2); Alkaline Phosphatase 70.0 U/L (34-104); Anion Gap 7.0 (3-11); Bilirubin,Total 0.4 mg/dl (0.2-1.0); Blood Urea Nitrogen 24.0 mg/dl (6-23); Calcium 9.1 mg/dl (8.6-10.3); Carbon Dioxide 24.0 mmol/L (21-32); Chloride 107.0 mmol/L (98-107); Creatinine Clr Calc Pharmacy 53.9 ml/min; Globulin 3.1 gm/dl (2.5-4.0); Glucose 198.0 mg/dl (70-99(Fasting)); Lipase 39.0 U/L (11-82); Potassium 4.1 mmol/L (3.5-5.1); Sodium 138.0 mmol/L (136-145); Total Protein 7.1 gm/dl (6.0-8.3)
--- NOTE | 2024-12-08 19:58 | Emergency Department Note ---
Impression & Plan Mobitz (type) II atrioventricular block ED Provider Note NAME: JAGRUTI SNOW AGE: 79 SEX: M : 1945 ARRIVES VIA: Walk-In INFORMANT: Patient, ED PROVIDER(S): Chris Santana MD CHIEF COMPLAINT: Palpitation HPI: This is a 79-year-old male presented for palpitations. Patient states that he felt palpitations over the past 1 day. He notes that he went to an urgent care who found his EKG to be in a second-degree heart block. They sent him here for further evaluation. Patient is he feels short of breath only with exertion. He reports a previous history of atrial fibrillation. Otherwise patient is not any current chest pain. No previous chest pain, nausea, vomiting in the past few weeks. No pleurisy. Does report feeling his heart is racing at this time. ROS: See above HPI for pertinent positives & negatives. A total of 10 systems reviewed and were otherwise negative. PAST MEDICAL HISTORY: See Below PAST SURGICAL HISTORY: See Below FAMILY HISTORY: See Below SOCIAL HISTORY: See Below HOME MEDICATIONS: See Below ALLERGIES: See Below VITALS: See Below PHYSICAL EXAMINATION: General: resting comfortably in no acute distress Head: Normocephalic and atraumatic Eyes: Normal inspection, extraocular muscles intact Ear, nose, throat: Normal external exam Neck: Normal range of motion Respiratory: lungs clear to auscultation bilaterally Cardiovascular: Irregular rate/rhythm, no murmur GI: , soft, nontender, no guarding or rebound Extremities: nontender, moves all extremities Neuro: The patient awake and alert, appropriately conversive, no focal deficits, symmetric faces Skin: Warm, dry, and intact MEDICAL DECISION MAKING: This is a 79-year-old presented for palpitations for patient's EKG appears to be in a second-degree AV block, Mobitz type I, possibly type II. Will repeat EKG to get better evaluation. - bloodwork is reviewed showing no significant leukocytosis, anemia, electrolyte or creatinine abnormality.negative troponin -Chest Xray independently interpreted by me showing no pneumothorax, focal opacity, or pleural effusions. -Bloodwork is reviewed showing no significant leukocytosis, anemia, electrolyte or creatinine abnormality. Negative troponin - ECG independently interpreted by me with possible second-degree, Mobitz type II, ventricular rate 84, QRS 98, QTc [address] segment elevations consistent with STEMI criteria -Chest Xray independently interpreted by me showing cardiomegaly, no pneumothorax, focal opacity, or pleural effusions. - Discussed with Dr. Cano, senior clinical sas programmer who states that this is a somewhat unclear EKG. Could be Mobitz type I versus type II versus atrial flutter. Would recommend admission, holding metoprolol and Xarelto. -Care discussed with Dr. Vazquez for admission Differential diagnosis: Heart block, CHF, ACS Independent History obtained from: Diagnostics interpreted by me: ECG: See above Cardiac Monitoring: An order was placed for continuous cardiac monitoring. The monitor shows a rate of 62 with sinus rhythm. Past Med/Surg History Problem List (Updated 12/09/24 @ 18:25 by Chris Santana MD) Tachycardia-bradycardia syndrome Atypical atrial flutter Mobitz (type) II atrioventricular block (Acute) GERD (gastroesophageal reflux disease) Paroxysmal atrial fibrillation Sinus bradycardia Atypical chest pain History of coronary artery disease (Acute) Dyslipidemia, goal LDL below 70 HTN, goal below 130/80 Indigestion Asymptomatic PVCs ASCVD (arteriosclerotic cardiovascular disease) Elevated troponin (Acute) Chest pain (Acute) Medical History DM (diabetes mellitus), type 2 CAD (coronary artery disease) BPH (benign prostatic hyperplasia) Obesity Urinary retention Carotid stenosis HLD (hyperlipidemia) HTN (hypertension) Surgical History S/P cardiac catheterization [facility] to LAD 04/10/24 @ [facility] Hx of arthroscopy of shoulder History of meniscectomy of left knee Hx laparoscopic cholecystectomy Family History Father Cancer Mother Stroke Sister Stroke Social History Smoking Status: Never smoker Second Hand Exposure: No; Do You Dip or Chew Tobacco: No; Tobacco Cessation Education Requested by Patient: No Hx Alcohol Use: No Hx Substance Use: No Preferred Language: Arabic Communication Ability: Effective 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: No Beliefs That Will Affect Care: None Current Living Situation: Spouse Other Information That Helps Us Care for You: No Feels Safe at Home: Yes Safety Concerns: Feels Safe At This Time Assistive Devices: None Allergies Allergies Allergy/AdvReac Type Severity Reaction Status Date / Time No Known Allergies Allergy Mild Verified 12/08/24 20:44 Home Meds Home Medications Medication Instructions Recorded Confirmed amlodipine 10 mg tablet 10 mg PO QAM 04/10/24 12/08/24 finasteride 5 mg tablet 5 mg PO QAM 04/10/24 12/08/24 clopidogrel 75 mg tablet 75 mg PO QAM 11/13/24 12/08/24 metformin 500 mg tablet 500 mg PO DAILY 11/13/24 12/08/24 rivaroxaban 20 mg tablet (Xarelto) 20 mg PO QAM 11/13/24 12/08/24 calcium carbonate (Tums) 300 mg PO DIRECTED PRN 12/08/24 12/08/24 INDIGESTION/HEARTBURN isosorbide mononitrate 30 mg 30 mg PO QAM 12/08/24 12/08/24 tablet,extended release 24 hr lisinopril 10 mg tablet 10 mg PO DAILY 12/08/24 12/08/24 pantoprazole 40 mg tablet,delayed 40 mg PO QAM 12/08/24 12/08/24 release rosuvastatin 20 mg tablet 20 mg PO QAM 12/08/24 12/08/24 Previous Rx's Medication Instructions Recorded blood-glucose meter (Blood Glucose #1 ea 04/12/24 Monitoring kit) metoprolol succinate 50 mg 50 mg PO QAM #0 tabs 11/14/24 tablet,extended release 24 hr simethicone 80 mg chewable tablet 80 mg PO Q6H PRN abdominal 11/14/24 (Gas Relief (simethicone)) distention/ gas #20 tabs Results & Data (ED) Vital Signs Vital Signs - 24 hr 12/08/24 18:38 12/08/24 18:46 12/08/24 18:46 Temperature 36.5 C Temperature Source Temporal Artery Scan Pulse Rate 55 L Pulse Rate from SpO2 Sensor Respiratory Rate 16 Respiratory Effort / Characteristics Non-Labored Spontaneous Non-Labored Spontaneous Respiratory Depth Normal Normal Respiratory Pattern Regular Blood Pressure 109/76 Blood Pressure Mean 87 Pulse Oximetry 97 93 Oxygen Delivery Method Room Air Room Air Sepsis Recent Fever Within 48 Hours No Sepsis New/Unexplained Change in Mental Status No Sepsis Action Taken by Nursing No Action Required 12/08/24 18:49 12/08/24 18:58 12/08/24 19:01 Temperature Temperature Source Pulse Rate 87 94 H Pulse Rate from SpO2 Sensor Respiratory Rate 20 Respiratory Effort / Characteristics Respiratory Depth Respiratory Pattern Blood Pressure 114/73 Blood Pressure Mean 81 Pulse Oximetry 93 94 Oxygen Delivery Method Room Air Room Air Sepsis Recent Fever Within 48 Hours Sepsis New/Unexplained Change in Mental Status Sepsis Action Taken by Nursing 12/08/24 20:00 12/08/24 20:30 12/08/24 21:00 Temperature Temperature Source Pulse Rate 88 87 Pulse Rate from SpO2 Sensor 62 73 Respiratory Rate 27 H 18 Respiratory Effort / Characteristics Respiratory Depth Respiratory Pattern Blood Pressure 141/83 H 133/92 Blood Pressure Mean 102 102 Pulse Oximetry 91 93 94 Oxygen Delivery Method Room Air Room Air Room Air Sepsis Recent Fever Within 48 Hours Sepsis New/Unexplained Change in Mental Status Sepsis Action Taken by Nursing 12/08/24 21:30 12/08/24 22:00 Temperature Temperature Source Pulse Rate Pulse Rate from SpO2 Sensor 74 63 Respiratory Rate Respiratory Effort / Characteristics Respiratory Depth Respiratory Pattern Blood Pressure Blood Pressure Mean Pulse Oximetry 93 98 Oxygen Delivery Method Room Air Room Air Sepsis Recent Fever Within 48 Hours Sepsis New/Unexplained Change in Mental Status Sepsis Action Taken by Nursing Laboratory Data 12/09/24 08:01 12/09/24 08:01 Lab Results 12/08/24 Range/Units 18:52 WBC 8.52 (4.8-10.8) K/ul RBC 4.69 L (4.70-6.10) M/uL Hgb 14.3 (14.0-18.0) g/dl Hct 42.3 (42.0-52.0) % MCV 90.2 (80.0-100.0) fL MCH 30.5 (25.0-34.0) pg MCHC 33.8 (32.0-36.0) g/dL RDW Std Deviation 44.2 (36.4-46.3) fL RDW Coeff of Yasmine 13.5 (11.5-14.5) % Plt Count 226 (130-400) K/uL MPV 9.6 (9.4-12.4) fL Immature Gran % (Auto) 0.2 % Neut % (Auto) 75.0 % Lymph % (Auto) 14.4 % [place] % (Auto) 8.2 % Eos % (Auto) 2.0 % Baso % (Auto) 0.2 % Neut # (Auto) 6.38 (1.40-6.50) K/uL Lymph # (Auto) 1.23 (1.20-3.40) K/uL [place] # (Auto) 0.70 H (0.11-0.59) K/uL Eos # (Auto) 0.17 (0.00-0.50) K/uL Baso # (Auto) 0.02 (0.00-0.20) K/uL Immature Gran # (Auto) 0.02 (0.01-0.20) K/uL Sodium 138 (136-145) mmol/L Potassium 4.1 (3.5-5.1) mmol/L Chloride 107 (98-107) mmol/L Carbon Dioxide 24 (21-32) mmol/L Anion Gap 7 (3-11) BUN 24 H (6-23) mg/dl Creatinine 1.34 (0.6-1.4) mg/dl Est Cr Clr Drug Dosing 53.9 ml/min eGFR 54.22 BUN/Creatinine Ratio 17.9 (10-20) Glucose 198 H (70-99(Fasting)) mg/dl Calcium 9.1 (8.6-10.3) mg/dl Total Bilirubin 0.4 (0.2-1.0) mg/dl AST 27 (13-39) U/L ALT 23 (7-52) U/L Alkaline Phosphatase 70 (34-104) U/L Troponin I High Sens 9.4 (0-20) pg/ml Total Protein 7.1 (6.0-8.3) gm/dl Albumin 4.0 (3.4-5.0) gm/dl Globulin 3.1 (2.5-4.0) gm/dl Albumin/Globulin Ratio 1.3 (0.9-2) Lipase 39 (11-82) U/L Lyme Disease Screen Negative (Negative) Administered Medications Amlodipine Besylate (Amlodipine Besylate 5 Mg Tab) 10 mg PO [facility] Stop: 01/08/25 08:59 Last Admin: 12/09/24 07:27 Dose: 10 mg Documented By: JESISCA Clopidogrel Bisulfate (Clopidogrel Bisulfate 75 Mg Tab) 75 mg PO [facility] Stop: 01/08/25 08:59 Last Admin: 12/09/24 07:27 Dose: 75 mg Documented By: JESSICA Finasteride (Finasteride 5 Mg Tab) 5 mg PO QAM [facility] Stop: 01/08/25 08:59 Last Admin: 12/09/24 07:27 Dose: 5 mg Documented By: JESSICA Insulin Aspart (Insulin Aspart Per Unit Charge) 0 units SC ACHS [facility] Stop: 01/08/25 01:59 Last Admin: 12/09/24 16:49 Dose: 1 units Documented By: JESSICA Co-signed By: DOUGIE Isosorbide Mononitrate (Isosorbide [place] Extended Rel 30 Mg Tabcr) 30 mg PO QAM [facility] Stop: 01/08/25 08:59 Last Admin: 12/09/24 07:27 Dose: 30 mg Documented By: JESSICA Lisinopril (Lisinopril 10 Mg Tab) 10 mg PO DAILY [facility] Stop: 01/08/25 08:59 Last Admin: 12/09/24 07:28 Dose: 10 mg Documented By: JESSICA Metoprolol Tartrate (Metoprolol Tartrate 25 Mg Tab) 25 mg PO BID [facility] Stop: 01/08/25 11:59 Last Admin: 12/09/24 12:21 Dose: 25 mg Documented By: JESSICA Pantoprazole Sodium (Pantoprazole 40 Mg Tab) 40 mg PO QAM [facility] Stop: 01/08/25 08:59 Last Admin: 12/09/24 07:28 Dose: 40 mg Documented By: JESSICA Rivaroxaban (Rivaroxaban 20 Mg Tab) 20 mg PO QDD [facility] Stop: 01/08/25 16:29 Last Admin: 12/09/24 16:49 Dose: 20 mg Documented By: JESSICA Rosuvastatin Calcium (Rosuvastatin Calcium 20 Mg Tab) 20 mg PO QAM [facility] Stop: 01/08/25 08:59 Last Admin: 12/09/24 07:28 Dose: 20 mg Documented By: JESSICA Discontinued Medications Insulin Aspart (Insulin Aspart Per Unit Charge) 0 units SC Q6 [facility] Stop: 01/08/25 01:59 Last Admin: 12/09/24 12:19 Dose: Not Given Documented By: Admin: 12/09/24 06:29 Dose: Not Given Documented By: Admin: 12/09/24 01:55 Dose: Not Given Documented By: KRT Imaging Data Radiologist's Impression: Chest X-Ray 07/17/25 18:58 EXAM: Portable AP chest radiograph TECHNIQUE: AP portable radiograph of the chest was obtained. INDICATION: Chest pain Comparison: Chest radiograph November 13, 2024 FINDINGS: LINES and TUBES: None CARDIOVASCULAR: Cardiac silhouette is stable enlarged in size. Atherosclerosis of the thoracic aorta. LUNGS/PLEURA: Mild pulmonary vascular congestion is similar to the previous examination. No focal consolidation identified. No significant pleural fluid. No discernible pneumothorax. OSSEOUS/OTHER: No displaced acute osseous process identified. IMPRESSION: Mild congestive changes of the cardiovascular system that are similar to the prior radiograph Electronically signed by Mamadou Ortiz 12-08-2024 8:00 PM Discharge Plan Visit Data Chief Complaint: Cardiac Assessment Stated Complaint: HEART ED Provider: Chris Santana Discharge Problem: Mobitz (type) II atrioventricular block Patient Disposition: Admitted As Inpatient Condition: Fair Discharge Instructions Interventions: ED Discharge Assessment Last Done: 12/08/24 23:51
--- NOTE | 2024-12-08 22:46 | History & Physical Report ---
Date of Service December 08, 2024 Assessment & Plan (1) Mobitz (type) II atrioventricular block: Plan: 79-year-old male with past medical history significant for type 2 diabetes, hyperlipidemia, CKD stage III, history of atrial fibrillation, carotid stenosis nonsymptomatic, history of cerebral microvascular disease, history of aneurysm of ascending aorta without rupture, GERD, osteoarthritis, history of agent orange exposure went to urgent care because of palpitations and found to have heart block and sent here. Patient states around lunchtime he felt palpitations. He felt chilly. Mild dizziness. Mild shortness of breath. Some chest tightness. It lasted for about half hour and subsided. It happened couple of times a week ago. Went to urgent care where EKG was done and found to be in second degree heart block and sent to the ER for further evaluation. Currently resting comfortably. Denies any headache. Vision is okay. No runny nose or sore throat or cough. No fevers. No difficulty swallowing. No abdominal pain. Normal bowel and bladder movements. Lately having some shortness of breath on exertion. Hemodynamics are okay currently. Patient was in the hospital in October with atypical chest pain and at that time he was found to have sinus bradycardia and his metoprolol dose was reduced. Patient also had cardiac MRI done as outpatient on November 18, 2024 for asymmetrical septal hypertrophy on past echo with results showing mostly ischemic cardiomyopathy and hypertrophic cardiomyopathy cannot be ruled out. His left ventricular ejection fraction was 46%. Right ventricular ejection fraction 31%. Mobitz type II heart block Holding metoprolol Holding Xarelto for any procedures Close monitoring on telemetry Hemodynamics are okay We will follow Lyme screen. Will follow echo Cardiology consult A-fib Holding metoprolol and Xarelto Close monitor Diabetes Hold metformin Sliding scale Will monitor GERD Protonix Hypertension Continue amlodipine, isosorbide mononitrate, lisinopril Holding metoprolol Will monitor Hyperlipidemia On statin CKD stage III Present with creatinine 1.3 which is around baseline Will follow labs History of CAD On Plavix and statin Holding beta-ang for heart block DVT prophylaxis SCDs Disposition Telemetry Full code. 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 Patient states around lunchtime he felt palpitations. He felt chilly. Mild dizziness. Mild shortness of breath. Some chest tightness. It lasted for about half hour and subsided. It happened couple of times a week ago. Went to urgent care where EKG was done and found to be in second degree heart block and sent to the ER for further evaluation. Currently resting comfortably. Denies any headache. Vision is okay. No runny nose or sore throat or cough. No fevers. No difficulty swallowing. No abdominal pain. Normal bowel and bladder movements. Lately having some shortness of breath on exertion. Hemodynamics are okay currently. Patient was in the hospital in October with atypical chest pain and at that time he was found to have sinus bradycardia and his metoprolol dose was reduced. Patient also had cardiac MRI done as outpatient on November 18, 2024 for asymmetrical septal hypertrophy on past echo with results showing mostly ischemic cardiomyopathy and hypertrophic cardiomyopathy cannot be ruled out. His left ventricular ejection fraction was 46%. Right ventricular ejection fraction 31%. Past medical history. As mentioned above Past surgical history. Colonoscopy. Cystoscopy. Knee arthroscopy. Prostate laser vaporization. TURP. Cholecystectomy. Knee meniscectomy. Litholapaxy. Shoulder surgery arthroscopic. Social history. . No smoking. Alcohol occasionally. No drug use. Family history. Father had lung cancer. Mother had stroke. Sister had stroke. Allergies Allergy/AdvReac Type Severity Reaction Status Date / Time No Known Allergies Allergy Mild Verified 12/08/24 20:44 Home Medications Medication Instructions Recorded Confirmed Type amlodipine 10 mg tablet 10 mg PO QAM 04/10/24 12/08/24 History finasteride 5 mg tablet 5 mg PO QAM 04/10/24 12/08/24 History blood-glucose meter (Blood Glucose #1 ea 04/12/24 05/12/24 Rx Monitoring kit) clopidogrel 75 mg tablet 75 mg PO QAM 11/13/24 12/08/24 History metformin 500 mg tablet 500 mg PO DAILY 11/13/24 12/08/24 History rivaroxaban 20 mg tablet (Xarelto) 20 mg PO QAM 11/13/24 12/08/24 History metoprolol succinate 50 mg 50 mg PO QAM #0 tabs 11/14/24 12/08/24 Rx tablet,extended release 24 hr simethicone 80 mg chewable tablet 80 mg PO Q6H PRN abdominal 11/14/24 12/08/24 Rx (Gas Relief (simethicone)) distention/ gas #20 tabs calcium carbonate (Tums) 300 mg PO DIRECTED PRN 12/08/24 12/08/24 History INDIGESTION/HEARTBURN isosorbide mononitrate 30 mg 30 mg PO QAM 12/08/24 12/08/24 History tablet,extended release 24 hr lisinopril 10 mg tablet 10 mg PO DAILY 12/08/24 12/08/24 History pantoprazole 40 mg tablet,delayed 40 mg PO QAM 12/08/24 12/08/24 History release rosuvastatin 20 mg tablet 20 mg PO QAM 12/08/24 12/08/24 History Past Med/Surg History Problem List (Updated 12/08/24 @ 22:41 by Mohan Vazquez MD) Mobitz (type) II atrioventricular block GERD (gastroesophageal reflux disease) Paroxysmal atrial fibrillation Sinus bradycardia Atypical chest pain History of coronary artery disease (Acute) Dyslipidemia, goal LDL below 70 HTN, goal below 130/80 Indigestion Asymptomatic PVCs ASCVD (arteriosclerotic cardiovascular disease) Elevated troponin (Acute) Chest pain (Acute) Medical History DM (diabetes mellitus), type 2 CAD (coronary artery disease) BPH (benign prostatic hyperplasia) Obesity Urinary retention Carotid stenosis HLD (hyperlipidemia) HTN (hypertension) Surgical History S/P cardiac catheterization [facility] to [facility]AD 04/10/24 @ [facility] Hx of arthroscopy of shoulder History of meniscectomy of left knee Hx laparoscopic cholecystectomy Family History Father Cancer Mother Stroke Sister Stroke Social History Smoking Status: Never smoker Second Hand Exposure: No; Do You Dip or Chew Tobacco: No; Tobacco Cessation Education Requested by Patient: No Hx Alcohol Use: No Hx Substance Use: No Preferred Language: Arabic Communication Ability: Effective Inventory Coordinator Required: No Beliefs That Will Affect Care: None Current Living Situation: Spouse Other Information That Helps Us Care for You: No Feels Safe at Home: Yes Safety Concerns: Feels Safe At This Time Assistive Devices: None Review of Systems Review of Systems: All systems reviewed & are unremarkable except as noted in HPI & below Physical Exam Physical Exam: General- Not in distress Head- atraumatic Eyes- PERRL. ENT- oropharynx clear Neck- supple, no JVD. Lungs- clear to auscultation no wheezing or crackles. Heart- regular rhythm; no murmur, no gallop. Abdomen- normal bowel sounds, soft, nontender, no distension Extremities- no pretibial edema, no erythema seen Neuro- alert, oriented PERRL, no facial palsy; no dysarthria; moves extremities Results & Data Results & Data Vital Signs (Past 12 Hours) Vital Signs Temp Pulse Resp BP Pulse Ox O2 Del Method 12/08/24 21:30 93 Room Air 12/08/24 21:00 94 Room Air 12/08/24 20:30 87 18 133/92 93 Room Air 12/08/24 20:00 88 27 H 141/83 H 91 Room Air 12/08/24 19:01 94 H 20 114/73 94 Room Air 12/08/24 18:58 93 Room Air 12/08/24 18:49 87 12/08/24 18:46 93 Room Air 12/08/24 18:38 36.5 C 55 L 16 109/76 97 Room Air Diagnostic Findings Laboratory Results WBC 8.52 K/ul (4.8-10.8) 12/08/24 18:52 RBC 4.69 M/uL (4.70-6.10) L 12/08/24 18:52 Hgb 14.3 g/dl (14.0-18.0) 12/08/24 18:52 Hct 42.3 % (42.0-52.0) 12/08/24 18:52 MCV 90.2 fL (80.0-100.0) 12/08/24 18:52 MCH 30.5 pg (25.0-34.0) 12/08/24 18:52 MCHC 33.8 g/dL (32.0-36.0) 12/08/24 18:52 RDW Std Deviation 44.2 fL (36.4-46.3) 12/08/24 18:52 RDW Coeff of Yasmine 13.5 % (11.5-14.5) 12/08/24 18:52 Plt Count 226 K/uL (130-400) 12/08/24 18:52 MPV 9.6 fL (9.4-12.4) 12/08/24 18:52 Immature Gran % (Auto) 0.2 % 12/08/24 18:52 Neut % (Auto) 75.0 % 12/08/24 18:52 Lymph % (Auto) 14.4 % 12/08/24 18:52 [place] % (Auto) 8.2 % 12/08/24 18:52 Eos % (Auto) 2.0 % 12/08/24 18:52 Baso % (Auto) 0.2 % 12/08/24 18:52 Neut # (Auto) 6.38 K/uL (1.40-6.50) 12/08/24 18:52 Lymph # (Auto) 1.23 K/uL (1.20-3.40) 12/08/24 18:52 [place] # (Auto) 0.70 K/uL (0.11-0.59) H 12/08/24 18:52 Eos # (Auto) 0.17 K/uL (0.00-0.50) 12/08/24 18:52 Baso # (Auto) 0.02 K/uL (0.00-0.20) 12/08/24 18:52 Immature Gran # (Auto) 0.02 K/uL (0.01-0.20) 12/08/24 18:52 Sodium 138 mmol/L (136-145) 12/08/24 18:52 Potassium 4.1 mmol/L (3.5-5.1) 12/08/24 18:52 Chloride 107 mmol/L (98-107) 12/08/24 18:52 Carbon Dioxide 24 mmol/L (21-32) 12/08/24 18:52 Anion Gap 7 (3-11) 12/08/24 18:52 BUN 24 mg/dl (6-23) H 12/08/24 18:52 Creatinine 1.34 mg/dl (0.6-1.4) 12/08/24 18:52 Est Cr Clr Drug Dosing 53.9 ml/min 12/08/24 18:52 eGFR 54.22 12/08/24 18:52 BUN/Creatinine Ratio 17.9 (10-20) 12/08/24 18:52 Glucose 198 mg/dl (70-99(Fasting)) H 12/08/24 18:52 Calcium 9.1 mg/dl (8.6-10.3) 12/08/24 18:52 Total Bilirubin 0.4 mg/dl (0.2-1.0) 12/08/24 18:52 AST 27 U/L (13-39) 12/08/24 18:52 ALT 23 U/L (7-52) 12/08/24 18:52 Alkaline Phosphatase 70 U/L (34-104) 12/08/24 18:52 Troponin I High Sens 9.4 pg/ml (0-20) 12/08/24 18:52 Total Protein 7.1 gm/dl (6.0-8.3) 12/08/24 18:52 Albumin 4.0 gm/dl (3.4-5.0) 12/08/24 18:52 Globulin 3.1 gm/dl (2.5-4.0) 12/08/24 18:52 Albumin/Globulin Ratio 1.3 (0.9-2) 12/08/24 18:52 Lipase 39 U/L (11-82) 12/08/24 18:52 Impressions Chest X-Ray 12/08/24 18:58 EXAM: Portable AP chest radiograph TECHNIQUE: AP portable radiograph of the chest was obtained. INDICATION: Chest pain Comparison: Chest radiograph November 13, 2024 FINDINGS: LINES and TUBES: None CARDIOVASCULAR: Cardiac silhouette is stable enlarged in size. Atherosclerosis of the thoracic aorta. LUNGS/PLEURA: Mild pulmonary vascular congestion is similar to the previous examination. No focal consolidation identified. No significant pleural fluid. No discernible pneumothorax. OSSEOUS/OTHER: No displaced acute osseous process identified. IMPRESSION: Mild congestive changes of the cardiovascular system that are similar to the prior radiograph Electronically signed by Mamadou Ortiz 12-08-2024 8:00 PM ECG Additional Comments: ECG. Mobitz type II second-degree heart block with a rate of 84. QTc 444 Code Status & VTE Plan VTE Prophylaxis Plan VTE Prophylaxis will be ordered: Yes
[2024-12-09] MEDS ORDERED: DEXTROSE 50% 50 ML SYRINGE IV PRN (00:40)
[2024-12-09] MEDS ORDERED: ACETAMINOPHEN 325 MG TAB PO PRN (00:40)
[2024-12-09] MEDS ORDERED: SIMETHICONE 80 MG CHEW PO PRN (00:40)
[2024-12-09] MEDS ORDERED: GLUCOSE 40% GEL 15 GM TUBE PO PRN (00:40)
[2024-12-09] MEDS ORDERED: POLYETHYLENE (MIRALAX) 17 GM PACK PO PRN (00:40)
[2024-12-09] MEDS ORDERED: GLUCOSE 10 TAB/TUBE PO PRN (00:40)
[2024-12-09] MEDS ORDERED: NITROGLYCERIN SL 0.4 MG/TAB TAB SL PRN (00:40)
[2024-12-09] MEDS ORDERED: CARBOHYDRATES FOR HYPOGLYCEMIA PO PRN (00:40)
[2024-12-09] MEDS ORDERED: GLUCAGON FOR INJ 1 MG VIAL SQ PRN (00:40)
[2024-12-09] MEDS: INSULIN ASPART PER UNIT CHARGE SC SCH ×2 (01:55→16:49)
[2024-12-09] MEDS: CLOPIDOGREL BISULFATE 75 MG TAB PO SCH (07:27)
[2024-12-09] MEDS: FINASTERIDE 5 MG TAB PO SCH (07:27)
[2024-12-09] MEDS: ISOSORBIDE MONO EXTENDED REL 30 MG TABCR PO SCH (07:27)
[2024-12-09] MEDS: ROSUVASTATIN CALCIUM 20 MG TAB PO SCH (07:28)
[2024-12-09 08:11] LABS: Hematocrit (blood only) 44.2 % (42.0-52.0); Hemoglobin 15.5 g/dl (14.0-18.0); Immature Granulocytes # (auto) 0.03 K/uL (0.01-0.20); Immature Granulocytes % (auto) 0.4 %; Mean Corpuscular Hemoglobin 31.1 pg (25.0-34.0); Mean Corpuscular Volume 88.6 fL (80.0-100.0); Platelet Count 208 K/uL (130-400); RDW Standard Deviation 43.1 fL (36.4-46.3); Red Blood Count 4.99 M/uL (4.70-6.10); White Blood Count 7.79 K/ul (4.8-10.8)
[2024-12-09 08:28] LABS: Anion Gap 6.0 (3-11); Blood Urea Nitrogen 20.0 mg/dl (6-23); Calcium 9.2 mg/dl (8.6-10.3); Carbon Dioxide 27.0 mmol/L (21-32); Chloride 107.0 mmol/L (98-107); Creatinine Clr Calc Pharmacy 62.6 ml/min; Glucose 129.0 mg/dl (70-99(Fasting)); Magnesium 1.9 mg/dl (1.7-2.4); Potassium 4.4 mmol/L (3.5-5.1); Sodium 140.0 mmol/L (136-145)
[2024-12-09 08:53] LABS: Hemoglobin A1C 7.7 % (4.5-5.6)
--- NOTE | 2024-12-09 11:56 | Cardiology Consultation ---
Date of Consultation December 09, 2024 Assessment & Plan (1) Atypical atrial flutter: (2) Tachycardia-bradycardia syndrome: Plan 79-year-old male admitted with atypical atrial flutter with intermittent rapid ventricular response and variable AV block. History of paroxysmal atrial fibrillation dating back to June 2024. He has been compliant with anticoagulation, Xarelto. Findings suggest tachybradycardia syndrome. Risk, benefit, alternatives to pacemaker implantation and direct-current cardioversion reviewed. Xarelto will be placed on hold at this time. Add metoprolol to tartrate 25 mg twice daily with first dose now. I will discuss case further with electrophysiology today determine timing of pacemaker implantation and cardioversion. Thank you for allow me to participate in the care of your patient. I spent a total of 65 minutes on the date of service in preparation, delivery, and documentation of the care provided to this patient, excluding any time spent in the performance of separately billed services. Romero Daley DO, [facility] History of Present Illness Reason for Consultation: Mobitz type II heart block Requesting Physician: Dr. Vazquez Attending Physician: Symone Jerry MD History of Present Illness 79-year-old male referred to the emergency department from urgent care clinic due to palpitations. ECG in urgent care clinic read as second-degree AV block Mobitz type I, however, upon further review the rhythm appears to be atrial flutter/atrial tachycardia with variable AV block. Patient describes working in his yard on Thursday when he became acutely short of breath. He came into his home to rest and symptoms slowly resolved. Overnight he developed tachycardia and palpitations. Urgent care practitioner referred the patient to the ER for further evaluation and treatment. Currently the patient is resting comfortably. Telemetry reveals atrial flutter with variable AV block. Transient one-to-one conduction with ventricular rates up to 160 bpm recorded at approximately 8 AM. Beta-ang was placed on hold on admission. He has been compliant with Xarelto for the past 4 weeks without interruption. Denies any signs/symptoms of GI/ blood loss. No orthopnea, PND, or lower extremity edema. Metoprolol reduced from 100 mg daily to 50 mg daily during recent hospitalization 11/13/2024. History includes: CAD, 70% earlymid LAD. 60-70% proximal small to medium D2. 100% proximal OM 3 [employer]. L-L and R-L collaterals. 50% latemid into distal RCA (IFR negative 0.97) s/p PCI LAD 03/2024 pAF, new dx 06/2024 Dx at cardiac rehab and admitted to [facility] s/p DCCV Mild concentric LVH asymmetric septum? Sigmoid septum versus HOCM - awaiting cardiac MRI. HTN HLD AAA measuring 2.9 cm per duplex in 04/2023 - repeat study in 5 years recommended NICOLASA, nonsymptomatic bilaterally Dilated ascending aorta measuring 4.6 cm Allergies Allergy/AdvReac Type Severity Reaction Status Date / Time No Known Allergies Allergy Mild Verified 12/08/24 20:44 Home Medications Medication Instructions Recorded Confirmed Type amlodipine 10 mg tablet 10 mg PO QAM 04/10/24 12/08/24 History finasteride 5 mg tablet 5 mg PO QAM 04/10/24 12/08/24 History blood-glucose meter (Blood Glucose #1 ea 04/12/24 05/12/24 Rx Monitoring kit) clopidogrel 75 mg tablet 75 mg PO QAM 11/13/24 12/08/24 History metformin 500 mg tablet 500 mg PO DAILY 11/13/24 12/08/24 History simethicone 80 mg chewable tablet 80 mg PO Q6H PRN abdominal 11/14/24 12/08/24 Rx (Gas Relief (simethicone)) distention/ gas #20 tabs calcium carbonate (Tums) 300 mg PO DIRECTED PRN 12/08/24 12/08/24 History INDIGESTION/HEARTBURN isosorbide mononitrate 30 mg 30 mg PO QAM 12/08/24 12/08/24 History tablet,extended release 24 hr lisinopril 10 mg tablet 10 mg PO DAILY 12/08/24 12/08/24 History pantoprazole 40 mg tablet,delayed 40 mg PO QAM 12/08/24 12/08/24 History release rosuvastatin 20 mg tablet 20 mg PO QAM 12/08/24 12/08/24 History amiodarone 200 mg tablet 200 mg PO BIDM #60 tabs 12/12/24 Rx rivaroxaban 15 mg tablet (Xarelto) 15 mg PO QDD #30 tabs 12/12/24 Rx Patient History Medical History DM (diabetes mellitus), type 2 CAD (coronary artery disease) BPH (benign prostatic hyperplasia) Obesity Urinary retention Carotid stenosis HLD (hyperlipidemia) HTN (hypertension) Surgical History S/P cardiac catheterization [facility] to LAD 04/10/24 @ [facility] Hx of arthroscopy of shoulder History of meniscectomy of left knee Hx laparoscopic cholecystectomy Family History Father Cancer Mother Stroke Sister Stroke Social History Smoking Status: Never smoker Second Hand Exposure: No; Do You Dip or Chew Tobacco: No; Hx Alcohol Use: No Hx Substance Use: No Preferred Language: Arabic Communication Ability: Effective Variety Performer Required: No Beliefs That Will Affect Care: None Current Living Situation: Spouse Feels Safe at Home: Yes Assistive Devices: None Review of Systems Review of Systems: All systems reviewed & are unremarkable except as noted in Subjective Physical Exam Constitutional: well nourished; no acute distress Respiratory: no respiratory distress and no labored breathing Auscultation: no crackles, no rales, no rhonchi and no wheezes Cardiovascular: Rate/Rhythm: regular rate and regular rhythm Heart Sounds: normal S1, normal S2 and + murmur (1/6 systolic ejection murmur) Extremities: no edema Gastrointestinal (Abdomen): Inspection/Auscultation: normal bowel sounds; abdomen not distended Percussion/Palpation: abdomen soft; abdomen nontender, no guarding and abdomen not rigid Neurologic: CN's II-XI intact bilaterally and moves all extremities; no focal motor deficits Results & Data Vital Signs (Past 12 Hours) Vital Signs Temp Pulse Pulse Resp BP Pulse Ox O2 Del Method 12/09/24 11:42 132/80 12/09/24 10:49 36.4 C L 71 19 108/80 95 Room Air 12/09/24 07:26 36.5 C 74 18 157/106 H 96 Room Air 12/09/24 07:00 75 12/09/24 03:21 36.6 C 71 17 137/90 96 Room Air 12/09/24 00:08 36.4 C L 16 152/99 H 95 Room Air 12/08/24 23:51 Room Air Laboratory Results Cardiac Enzymes 12/08/24 12/09/24 Range/Units 18:52 08:01 AST 27 (13-39) U/L Troponin I High Sens 9.4 10.1 (0-20) pg/ml CBC 12/08/24 12/09/24 Range/Units 18:52 08:01 WBC 8.52 7.79 (4.8-10.8) K/ul RBC 4.69 L 4.99 (4.70-6.10) M/uL Hgb 14.3 15.5 (14.0-18.0) g/dl Hct 42.3 44.2 (42.0-52.0) % Plt Count 226 208 (130-400) K/uL Neut # (Auto) 6.38 5.66 (1.40-6.50) K/uL Lymph # (Auto) 1.23 1.39 (1.20-3.40) K/uL [place] # (Auto) 0.70 H 0.54 (0.11-0.59) K/uL Eos # (Auto) 0.17 0.15 (0.00-0.50) K/uL Baso # (Auto) 0.02 0.02 (0.00-0.20) K/uL Comprehensive Metabolic Panel 12/08/24 12/09/24 Range/Units 18:52 08:01 Sodium 138 140 (136-145) mmol/L Potassium 4.1 4.4 (3.5-5.1) mmol/L Chloride 107 107 (98-107) mmol/L Carbon Dioxide 24 27 (21-32) mmol/L BUN 24 H 20 (6-23) mg/dl Creatinine 1.34 1.15 (0.6-1.4) mg/dl Glucose 198 H 129 H (70-99(Fasting)) mg/dl Calcium 9.1 9.2 (8.6-10.3) mg/dl AST 27 (13-39) U/L ALT 23 (7-52) U/L Alkaline Phosphatase 70 (34-104) U/L Total Protein 7.1 (6.0-8.3) gm/dl Albumin 4.0 (3.4-5.0) gm/dl Intake and Output 12/08/24 12/09/24 12/09/24 22:59 06:59 14:59 Other: Other Intake Source npo Weight 100.1 kg 99.6 kg Weight Measurement Method Chair Scale Built in [facility] PG Care Time/CCT Total # of Minutes Spent Total Time Spent with Patient: Total time spent is greater than 50% in coordination of care (as documented) at patient's floor/unit and/or counseling patient: Coding Level of Care Code 36603 INT INP/OBS CARE 3/75MIN Diagnoses Atypical atrial flutter I48.4 Tachycardia-bradycardia syndrome I49.5
--- NOTE | 2024-12-09 12:06 | Electrocardiogram Report ---
Test Reason : Blood Pressure : */* mmHG Vent. Rate : 77 BPM Atrial Rate : 77 BPM P-R Int : 248 ms QRS Dur : 104 ms QT Int : 396 ms P-R-T Axes : -15 -10 6 degrees QTcB Int : 448 ms Sinus rhythm with 1st degree A-V block with 2:1 A-V conduction Septal infarct (cited on or before 08-Dec-2024) Abnormal ECG When compared with ECG of 08-Dec-2024 19:55, (unconfirmed) No significant change Confirmed by Messi Ferreira ([id number]) on 12/09/2024 12:06:35 PM Referred By: REFERRED SELF Confirmed By: Messi Ferreira
--- NOTE | 2024-12-09 12:09 | Electrocardiogram Report ---
Test Reason : Blood Pressure : */* mmHG Vent. Rate : 84 BPM Atrial Rate : * BPM P-R Int : * ms QRS Dur : 98 ms QT Int : 376 ms P-R-T Axes : * -15 19 degrees QTcB Int : 444 ms Probable Atrial flutter with variable A-V block Poor R wave progression, consider anterior OK vs. lead placement vs. LVH Abnormal ECG When compared with ECG of 14-Nov-2024 07:05, Atrial flutter has replaced Sinus rhythm Vent. rate has increased by 31 bpm Minimal criteria for Anterior infarct are now Present Confirmed by Messi Ferreira ([id number]) on 12/09/2024 12:09:02 PM Referred By: REFERRED SELF Confirmed By: Messi Ferreira
[2024-12-09] MEDS: METOPROLOL TARTRATE 25 MG TAB PO SCH (12:21)
[2024-12-09] MEDS ORDERED: Nursing to Pharmacy Communication SCH (15:15)
--- NOTE | 2024-12-09 15:16 | Hospitalist Progress Note ---
Date of Service December 09, 2024 Assessment & Plan (1) Atypical atrial flutter: Plan: 79-year-old male with past medical history significant for type 2 diabetes, hyperlipidemia, CKD stage III, history of atrial fibrillation, carotid stenosis nonsymptomatic, history of cerebral microvascular disease, history of aneurysm of ascending aorta without rupture, GERD, osteoarthritis, history of agent orange exposure went to urgent care because of palpitations and found to have heart block and sent here. Patient states around lunchtime he felt palpitations. He felt chilly. Mild dizziness. Mild shortness of breath. Some chest tightness. It lasted for about half hour and subsided. It happened couple of times a week ago. Went to urgent care where EKG was done and found to be in second degree heart block and sent to the ER for further evaluation. Currently resting comfortably. Denies any headache. Vision is okay. No runny nose or sore throat or cough. No fevers. No difficulty swallowing. No abdominal pain. Normal bowel and bladder movements. Lately having some shortness of breath on exertion. Hemodynamics are okay currently. Patient was in the hospital in October with atypical chest pain and at that time he was found to have sinus bradycardia and his metoprolol dose was reduced. Patient also had cardiac MRI done as outpatient on November 18, 2024 for asymmetrical septal hypertrophy on past echo with results showing mostly ischemic cardiomyopathy and hypertrophic cardiomyopathy cannot be ruled out. His left ventricular ejection fraction was 46%. Right ventricular ejection fraction 31%. Tachybradycardia syndrome and presented with atypical atrial flutter Suspected to be Mobitz type II heart block Holding Xarelto for any procedures Close monitoring on telemetry We will follow Lyme screen-Lyme screen has been negative Cardiology consult-appreciate cardiology input and recommendation Has been on metoprolol tartrate 25 mg p.o. twice daily and awaiting further cardiology recommendation and likely pacemaker and/or cardioversion He remains stable A-fib Holding metoprolol and Xarelto Has atypical flutter with tachybradycardia syndrome Further cardiology recommendation for possible pacemaker and or cardioversion Diabetes Hold metformin Sliding scale Will monitor GERD Protonix Hypertension Continue amlodipine, isosorbide mononitrate, lisinopril Holding metoprolol-changed to metoprolol tartrate 55%. Moderately Will monitor Hyperlipidemia On statin CKD stage III Present with creatinine 1.3 which is around baseline Will follow labs History of CAD On Plavix and statin Holding beta-ang for heart block DVT prophylaxis SCDs Disposition Telemetry Full code. (2) Mobitz (type) II atrioventricular block: (3) Tachycardia-bradycardia syndrome: (4) GERD (gastroesophageal reflux disease): (5) Paroxysmal atrial fibrillation: (6) HTN, goal below 130/80: (7) ASCVD (arteriosclerotic cardiovascular disease): (8) Dyslipidemia, goal LDL below 70: Admission and Anticipated Discharge Date Admission Date: December 08, 2024 Subjective 12/09/2024 The patient was seen and examined in telemetry unit He has had episodes of palpitation and shortness of breath for the last 1 to 2 months Noted to have tachybradycardia syndrome in monitor Denies any significant symptoms as of today Review of Systems Review of Systems: All systems reviewed and are unremarkable except as noted below Physical Exam Physical Exam: Lying in bed without any acute distress Constitutional: well developed, well nourished and + ill appearing Eyes: PERRL, conjunctivae normal, anicteric sclerae ENMT: external ear and nose normal, oropharynx normal Neck: trachea midline, no thyromegaly Respiratory: no respiratory distress Auscultation: lungs clear to auscultation bilaterally Cardiovascular: Rate/Rhythm: + irregularly irregular; not tachycardic Heart Sounds: normal S1 and normal S2; no murmur Extremities: no edema Gastrointestinal (Abdomen): Inspection/Auscultation: normal bowel sounds; abdomen not distended Percussion/Palpation: abdomen soft; abdomen nontender Musculoskeletal: No acute arthritis involving any of the joints Neurologic: normal touch/pain/proprioception and moves all extremities; no focal motor deficits Psychiatric: A+Ox3, euthymic affect Lymphatic: no cervical or axillary lymphadenopathy Results & Data Results & Data Vital Signs (Past 12 Hours) Vital Signs Temp Pulse Pulse Resp BP Pulse Ox O2 Del Method 12/09/24 13:37 90 12/09/24 11:42 132/80 12/09/24 10:49 36.4 C L 71 19 108/80 95 Room Air 12/09/24 07:26 36.5 C 74 18 157/106 H 96 Room Air 12/09/24 07:00 75 12/09/24 03:21 36.6 C 71 17 137/90 96 Room Air Laboratory Results Short CBC 07/17/25 07/18/25 Range/Units 18:52 08:01 WBC 8.52 7.79 (4.8-10.8) K/ul Hgb 14.3 15.5 (14.0-18.0) g/dl Hct 42.3 44.2 (42.0-52.0) % Plt Count 226 208 (130-400) K/uL BMP 12/08/24 12/09/24 18:52 08:01 Sodium 138 140 Potassium 4.1 4.4 Chloride 107 107 Carbon Dioxide 24 27 BUN 24 H 20 Creatinine 1.34 1.15 Glucose 198 H 129 H Calcium 9.1 9.2 Liver Function 12/08/24 Range/Units 18:52 Total Bilirubin 0.4 (0.2-1.0) mg/dl AST 27 (13-39) U/L ALT 23 (7-52) U/L Alkaline Phosphatase 70 (34-104) U/L Albumin 4.0 (3.4-5.0) gm/dl Medications Administered Current Inpatient Medications Acetaminophen (Acetaminophen 325 Mg Tab) 650 mg PO Q4H PRN PRN Reason: Pain or Fever Stop: 01/08/25 00:39 Amlodipine Besylate (Amlodipine Besylate 5 Mg Tab) 10 mg PO [facility] Stop: 01/08/25 08:59 Last Admin: 12/09/24 07:27 Dose: 10 mg Clopidogrel Bisulfate (Clopidogrel Bisulfate 75 Mg Tab) [facility] Stop: 01/08/25 08:59 Last Admin: 12/09/24 07:27 Dose: 75 mg Dextrose (Dextrose 50% 50 Ml Syringe) 25 - 50 ml IV UD PRN; Protocol PRN Reason: Hypoglycemia Protocol Stop: 01/08/25 00:39 Finasteride (Finasteride 5 Mg Tab) [facility] Stop: 01/08/25 08:59 Last Admin: 12/09/24 07:27 Dose: 5 mg Glucagon (Glucagon For Inj 1 Mg Vial) 1 mg SQ UD PRN; Protocol PRN Reason: Hypoglycemia Protocol Stop: 01/08/25 00:39 Glucose (Glucose 40% Gel 15 Gm Tube) 15 - 30 gm PO UD PRN; Protocol PRN Reason: Hypoglycemia Protocol Stop: 01/08/25 00:39 Glucose (Glucose 10 Tab/Tube) 4 - 8 tab PO UD PRN; Protocol PRN Reason: Hypoglycemia Protocol Stop: 01/08/25 00:39 Insulin Aspart (Insulin Aspart Per Unit Charge) 0 units SC ACHS [facility] Stop: 01/08/25 01:59 Isosorbide Mononitrate (Isosorbide [place] Extended Rel 30 Mg Tabcr) 30 mg PO QAM [facility] Stop: 01/08/25 08:59 Last Admin: 12/09/24 07:27 Dose: 30 mg Lisinopril (Lisinopril 10 Mg Tab) 10 mg PO DAILY [facility] Stop: 01/08/25 08:59 Last Admin: 12/09/24 07:28 Dose: 10 mg Metoprolol Tartrate (Metoprolol Tartrate 25 Mg Tab) 25 mg PO BID [facility] Stop: 01/08/25 11:59 Last Admin: 12/09/24 12:21 Dose: 25 mg Miscellaneous (Carbohydrates For Hypoglycemia ) 15 - 30 gm PO UD PRN PRN Reason: Hypoglycemia Protocol Stop: 01/08/25 00:39 Nitroglycerin (Nitroglycerin Sl 0.4 Mg/Tab Tab) 0.4 mg SL Q5M PRN PRN Reason: Chest Pain Stop: 01/08/25 00:39 Pantoprazole Sodium (Pantoprazole 40 Mg Tab) 40 mg PO QAM [facility] Stop: 01/08/25 08:59 Last Admin: 12/09/24 07:28 Dose: 40 mg Polyethylene Glycol (Polyethylene (Miralax) 17 Gm Pack) 17 gm PO DAILY PRN PRN Reason: Constipation Stop: 01/08/25 00:39 Rosuvastatin Calcium (Rosuvastatin Calcium 20 Mg Tab) 20 mg PO QAM [facility] Stop: 01/08/25 08:59 Last Admin: 12/09/24 07:28 Dose: 20 mg Simethicone (Simethicone 80 Mg Chew) 80 mg PO Q6H PRN PRN Reason: abdominal distention/ gas Stop: 01/08/25 00:39
[2024-12-09] MEDS: RIVAROXABAN 20 MG TAB PO SCH (16:49)
[2024-12-10 06:46] LABS: Anion Gap 7.0 (3-11); Blood Urea Nitrogen 25.0 mg/dl (6-23); Calcium 8.9 mg/dl (8.6-10.3); Carbon Dioxide 24.0 mmol/L (21-32); Chloride 107.0 mmol/L (98-107); Creatinine Clr Calc Pharmacy 49.6 ml/min; Glucose 147.0 mg/dl (70-99(Fasting)); Magnesium 1.9 mg/dl (1.7-2.4); Potassium 4.3 mmol/L (3.5-5.1); Sodium 138.0 mmol/L (136-145)
[2024-12-10] MEDS: LACTATED RINGER'S 1,000 ML IV SCH (09:20)
[2024-12-10] MEDS ORDERED: STAT IV Infusion **Titration per Protocol STA (09:37)
[2024-12-10] MEDS ORDERED: AMIODARONE IV BOLUS & DRIP IV STA (09:37)
[2024-12-10] MEDS ORDERED: 0.2 MICRON FILTER SET 1 EACH IV STA (09:37)
[2024-12-10] MEDS: AMIODARONE / D5W 150 MG/100 ML BAG IV STA (09:58)
[2024-12-10] MEDS: AMIODARONE / D5W 360 MG/200 ML BAG IV ONE (10:14)
[2024-12-10 10:16] LABS: Alanine Aminotransferase 19.0 U/L (7-52); Alkaline Phosphatase 58.0 U/L (34-104); Bilirubin,Total 0.7 mg/dl (0.2-1.0); Total Protein 6.5 gm/dl (6.0-8.3)
[2024-12-10 10:31] LABS: Thyroid Stimulating Hormone 0.939 uIu/ml (0.300-4.500)
--- NOTE | 2024-12-10 10:57 | Cardiology Progress Note ---
<Statement entered by Karla Zamorano, DO - 12/10/24 16:15> I have reviewed the advanced practitioner's documentation and agree with the plan of care. I accept the responsibility for the associated risk. Pt seen in cardiology f/u due to aypticla atrial flutter/fib with RVR and TBS Pt is more symptomatic with the tachycardia and his slow heart rates are not that terrible recommend starting amiodarone infusion into tomorrow continue xarelto possibly consider cardioversion as an in patient on thursday recommend toprol at this juncture pt does not need a pacemaker I discussed the case and my recommendations with the hospitalist in person and he agreed with my plan Date of Service December 10, 2024 Assessment & Plan (1) Atypical atrial flutter: (2) Tachycardia-bradycardia syndrome: Plan - Heart rate well-controlled but appears to be in atypical atrial flutter - Blood pressure currently well-controlled - Suspect his episodes of dizziness may be due to changing positions too quickly along with being out in the heat for too long a period of time earlier this week - There is evidence of asymmetrical LVH on echo, cardiac MRI completed earlier this week according to radiologist appears more consistent with ischemic cardiomyopathy but cannot rule out HCM - Would pursue rhythm control with antiarrhythmics at this juncture would hold off on pacemaker as the heart rates have stabilized - Recommend amiodarone loading over the next 24 hours - I have requested LFTs and TSH to obtain baseline lab work - Renal function did slightly increase overnight as he had been n.p.o. for several hours yesterday, recommended he liberalize oral fluid intake - Continue amlodipine, clopidogrel, isosorbide, lisinopril, Xarelto, rosuvastatin - recommend Toprol 25 mg daily instead of metoprolol tartrate Case discussed with Dr. Zamorano. Please see attestation for additional recommendations. MONAE Levy Department of Cardiology, [facility] This chart was completed in part utilizing Speech Voice Recognition Software. Grammatical errors, random word insertions, pronoun errors, and incomplete sentences are an occasional consequence of this system due to software limitations, ambient noise, and hardware issues. Any formal questions or con cerns about the content, text, or information contained within the body of this dictation should be directly addressed to the provider for clarification. Admission and Anticipated Discharge Date Admission Date: December 08, 2024 Subjective 79-year-old male seen in cardiology follow-up in regards to atypical atrial flutter, tachybradycardia syndrome, PAF, atypical chest pain. Reported to the emergency room yesterday reporting palpitations, dizziness, shortness of breath and chest tightness that lasted for approximately 30 minutes. He did have an episode like this a few weeks ago which she was also admitted for. He had initially gone to urgent care and was subsequently sent to the ER for concerns of second-degree AV block. Did report earlier this week when he was out in the humidity working in his yard he had an episode of lightheadedness and shortness of breath. He has a known past medical history of type 2 diabetes, hyperlipidemia, PAF, carotid stenosis, microvascular cerebral disease, GERD, osteoarthritis, agent orange exposure. He was initially diagnosed with atrial fibrillation in June at [facility] and underwent DCCV with initiation of anticoagulation at that time. He advises that he has been therapeutic with his anticoagulation and has not missed any doses but may occasionally be a little bit late on timing. Physical Exam Constitutional: WD/WN, vitals as above well developed and well nourished; no acute distress Eyes: PERRL, conjunctivae normal, anicteric sclerae Neck: trachea midline, no thyromegaly Respiratory: normal respiratory effort, lungs clear to auscultation Cardiovascular: Rate/Rhythm: regular rate and regular rhythm Heart Sounds: + murmur Vessels: no JVD and no carotid bruit Gastrointestinal (Abdomen): normal bowel sounds, soft, nontender, no hepatosplenomegaly Musculoskeletal: no cyanosis or clubbing, extremities motor strength 5/5 Skin: no rashes, warm and dry Psychiatric: A+Ox3, euthymic affect Results & Data Vital Signs (Past 12 Hours) Vital Signs Temp Pulse Resp BP Pulse Ox O2 Del Method 12/10/24 10:17 95 H 115/79 12/10/24 09:57 90 132/89 12/10/24 07:17 36.7 C 88 18 129/93 96 Room Air 12/10/24 04:13 36.5 C 72 19 118/84 94 Room Air 12/09/24 22:51 36.6 C 82 18 111/76 95 Room Air Laboratory Results Cardiac Enzymes 12/10/24 Range/Units 06:00 AST 22 (13-39) U/L Comprehensive Metabolic Panel 12/10/24 Range/Units 06:00 Sodium 138 (136-145) mmol/L Potassium 4.3 (3.5-5.1) mmol/L Chloride 107 (98-107) mmol/L Carbon Dioxide 24 (21-32) mmol/L BUN 25 H (6-23) mg/dl Creatinine 1.45 H D (0.6-1.4) mg/dl Glucose 147 H (70-99(Fasting)) mg/dl Calcium 8.9 (8.6-10.3) mg/dl Direct Bilirubin 0.2 (0-0.2) mg/dl AST 22 (13-39) U/L ALT 19 (7-52) U/L Alkaline Phosphatase 58 (34-104) U/L Total Protein 6.5 (6.0-8.3) gm/dl Albumin 3.9 (3.4-5.0) gm/dl Intake and Output 12/09/24 12/10/24 12/10/24 22:59 06:59 14:59 Intake Total 300 / 450 150 / 450 658.333 / 658.333 Balance 300 / 450 150 / 450 658.333 / 658.333 Intake: IV 158.333 / 158.333 Amiodarone / D5w 150 mg In 100 100 / 100 ml @ 600 mls/hr IV NOW STA Rx#: [id number] Lactated Ringer's 1,000 ml @ 58.333 / 58.333 125 mls/hr IV .Q8H [facility] Rx#: [id number] Oral 300 / 450 150 / 450 500 / 500 Other: Weight 99.1 kg Weight Measurement Method Standing Scale Diagnostic Findings Laboratory Results WBC 7.79 K/ul (4.8-10.8) 12/09/24 08:01 RBC 4.99 M/uL (4.70-6.10) 12/09/24 08:01 Hgb 15.5 g/dl (14.0-18.0) 12/09/24 08:01 Hct 44.2 % (42.0-52.0) 12/09/24 08:01 MCV 88.6 fL (80.0-100.0) 12/09/24 08:01 MCH 31.1 pg (25.0-34.0) 12/09/24 08:01 MCHC 35.1 g/dL (32.0-36.0) 12/09/24 08:01 RDW Std Deviation 43.1 fL (36.4-46.3) 12/09/24 08:01 RDW Coeff of Yasmine 13.2 % (11.5-14.5) 12/09/24 08:01 Plt Count 208 K/uL (130-400) 12/09/24 08:01 MPV 9.6 fL (9.4-12.4) 12/09/24 08:01 Immature Gran % (Auto) 0.4 % 12/09/24 08:01 Neut % (Auto) 72.7 % 12/09/24 08:01 Lymph % (Auto) 17.8 % 12/09/24 08:01 [place] % (Auto) 6.9 % 12/09/24 08:01 Eos % (Auto) 1.9 % 12/09/24 08:01 Baso % (Auto) 0.3 % 12/09/24 08:01 Neut # (Auto) 5.66 K/uL (1.40-6.50) 12/09/24 08:01 Lymph # (Auto) 1.39 K/uL (1.20-3.40) 12/09/24 08:01 [place] # (Auto) 0.54 K/uL (0.11-0.59) 12/09/24 08:01 Eos # (Auto) 0.15 K/uL (0.00-0.50) 12/09/24 08:01 Baso # (Auto) 0.02 K/uL (0.00-0.20) 12/09/24 08:01 Immature Gran # (Auto) 0.03 K/uL (0.01-0.20) 12/09/24 08:01 Sodium 138 mmol/L (136-145) 12/10/24 06:00 Potassium 4.3 mmol/L (3.5-5.1) 12/10/24 06:00 Chloride 107 mmol/L (98-107) 12/10/24 06:00 Carbon Dioxide 24 mmol/L (21-32) 12/10/24 06:00 Anion Gap 7 (3-11) 12/10/24 06:00 BUN 25 mg/dl (6-23) H 12/10/24 06:00 Creatinine 1.45 mg/dl (0.6-1.4) H D 12/10/24 06:00 Est Cr Clr Drug Dosing 49.6 ml/min 12/10/24 06:00 eGFR 49.32 12/10/24 06:00 BUN/Creatinine Ratio 17.2 (10-20) 12/10/24 06:00 Glucose 147 mg/dl (70-99(Fasting)) H 12/10/24 06:00 POC Glucose 134 mg/dl (70-99) H 12/10/24 07:10 Estimat Average Glucose 174 mg/dl 12/09/24 08:01 Hemoglobin A1c 7.7 % (4.5-5.6) H 12/09/24 08:01 Calcium 8.9 mg/dl (8.6-10.3) 12/10/24 06:00 Phosphorus 3.2 mg/dl (2.5-4.9) 12/10/24 06:00 Magnesium 1.9 mg/dl (1.7-2.4) 12/10/24 06:00 Total Bilirubin 0.7 mg/dl (0.2-1.0) 12/10/24 06:00 Direct Bilirubin 0.2 mg/dl (0-0.2) 12/10/24 06:00 AST 22 U/L (13-39) 12/10/24 06:00 ALT 19 U/L (7-52) 12/10/24 06:00 Alkaline Phosphatase 58 U/L (34-104) 12/10/24 06:00 Troponin I High Sens 10.1 pg/ml (0-20) 12/09/24 08:01 Total Protein 6.5 gm/dl (6.0-8.3) 12/10/24 06:00 Albumin 3.9 gm/dl (3.4-5.0) 12/10/24 06:00 Globulin 3.1 gm/dl (2.5-4.0) 12/08/24 18:52 Albumin/Globulin Ratio 1.3 (0.9-2) 12/08/24 18:52 Lipase 39 U/L (11-82) 12/08/24 18:52 TSH 0.939 uIu/ml (0.300-4.500) 12/10/24 06:00 Lyme Disease Screen Negative (Negative) 12/08/24 18:52 Impressions Chest X-Ray 12/08/24 18:58 EXAM: Portable AP chest radiograph TECHNIQUE: AP portable radiograph of the chest was obtained. INDICATION: Chest pain Comparison: Chest radiograph November 13, 2024 FINDINGS: LINES and TUBES: None CARDIOVASCULAR: Cardiac silhouette is stable enlarged in size. Atherosclerosis of the thoracic aorta. LUNGS/PLEURA: Mild pulmonary vascular congestion is similar to the previous examination. No focal consolidation identified. No significant pleural fluid. No discernible pneumothorax. OSSEOUS/OTHER: No displaced acute osseous process identified. IMPRESSION: Mild congestive changes of the cardiovascular system that are similar to the prior radiograph Electronically signed by Mamadou Ortiz 12-08-2024 8:00 PM 718/25 Echocardiogram EF 55 to 60% Mild concentric LVH Asymmetric LVH involving the basal septum Aortic valve sclerosis without significant stenosis There is mild mitral annular calcification with mild MR PG Care Time/CCT Total # of Minutes Spent Total Time Spent with Patient: Total time spent is greater than 50% in coordination of care (as documented) at patient's floor/unit and/or counseling patient: Coding Level of Care Code 82398 SUB INP/OBS CARE 2/35MIN Diagnoses Atypical atrial flutter I48.4 Tachycardia-bradycardia syndrome I49.5
--- NOTE | 2024-12-10 12:52 | Hospitalist Progress Note ---
Date of Service December 10, 2024 Assessment & Plan (1) Atypical atrial flutter: Plan: 79-year-old male with past medical history significant for type 2 diabetes, hyperlipidemia, CKD stage III, history of atrial fibrillation, carotid stenosis nonsymptomatic, history of cerebral microvascular disease, history of aneurysm of ascending aorta without rupture, GERD, osteoarthritis, history of agent orange exposure went to urgent care because of palpitations and found to have heart block and sent here. Patient states around lunchtime he felt palpitations. He felt chilly. Mild dizziness. Mild shortness of breath. Some chest tightness. It lasted for about half hour and subsided. It happened couple of times a week ago. Went to urgent care where EKG was done and found to be in second degree heart block and sent to the ER for further evaluation. Currently resting comfortably. Denies any headache. Vision is okay. No runny nose or sore throat or cough. No fevers. No difficulty swallowing. No abdominal pain. Normal bowel and bladder movements. Lately having some shortness of breath on exertion. Hemodynamics are okay currently. Patient was in the hospital in October with atypical chest pain and at that time he was found to have sinus bradycardia and his metoprolol dose was reduced. Patient also had cardiac MRI done as outpatient on November 18, 2024 for asymmetrical septal hypertrophy on past echo with results showing mostly ischemic cardiomyopathy and hypertrophic cardiomyopathy cannot be ruled out. His left ventricular ejection fraction was 46%. Right ventricular ejection fraction 31%. Tachybradycardia syndrome and presented with atypical atrial flutter Suspected to be Mobitz type II heart block Holding Xarelto for any procedures Close monitoring on telemetry We will follow Lyme screen-Lyme screen has been negative Cardiology consult-appreciate cardiology input and recommendation Has been on metoprolol tartrate 25 mg p.o. 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 the vice president financial WILLIAM likely secondary to dehydration Advised to drink more fluid and will monitor BMP and electrolytes A-fib Holding metoprolol and Xarelto Has atypical flutter with tachybradycardia syndrome Further cardiology recommendation for possible pacemaker and or cardioversion Rate is controlled Diabetes Hold metformin Sliding scale Will monitor GERD Protonix Hypertension Continue amlodipine, isosorbide mononitrate, lisinopril Holding metoprolol-changed to metoprolol tartrate 55%. Moderately Will monitor Hyperlipidemia On statin CKD stage III Present with creatinine 1.3 which is around baseline Will follow labs History of CAD On Plavix and statin Holding beta-ang for heart block DVT prophylaxis SCDs Disposition Telemetry Full code. (2) Mobitz (type) II atrioventricular block: (3) Tachycardia-bradycardia syndrome: (4) GERD (gastroesophageal reflux disease): (5) Paroxysmal atrial fibrillation: (6) HTN, goal below 130/80: (7) ASCVD (arteriosclerotic cardiovascular disease): (8) Dyslipidemia, goal LDL below 70: Admission and Anticipated Discharge Date Admission Date: December 08, 2024 Subjective 12/09/2024 The patient was seen and examined in telemetry unit He has had episodes of palpitation and shortness of breath for the last 1 to 2 months Noted to have tachybradycardia syndrome in monitor Denies any significant symptoms as of today 12/10/2024 The patient was seen and examined in telemetry unit He did not have any episodes of palpitation and no slow heart rate He did not eat or drink yesterday and the creatinine was up He will be started with intravenous amiodarone as per the vice president financial Review of Systems Review of Systems: All systems reviewed and are unremarkable except as noted below Physical Exam Physical Exam: Lying in bed without any acute distress Constitutional: well developed, well nourished and + ill appearing Eyes: PERRL, conjunctivae normal, anicteric sclerae ENMT: external ear and nose normal, oropharynx normal Neck: trachea midline, no thyromegaly Respiratory: no respiratory distress Auscultation: lungs clear to auscultation bilaterally Cardiovascular: Rate/Rhythm: + irregularly irregular; not tachycardic Heart Sounds: normal S1 and normal S2; no murmur Extremities: no edema Gastrointestinal (Abdomen): Inspection/Auscultation: normal bowel sounds; abdomen not distended Percussion/Palpation: abdomen soft; abdomen nontender Neurologic: normal touch/pain/proprioception and moves all extremities; no focal motor deficits Psychiatric: A+Ox3, euthymic affect Lymphatic: no cervical or axillary lymphadenopathy Results & Data Results & Data Vital Signs (Past 12 Hours) Vital Signs Temp Pulse Pulse Resp BP Pulse Ox O2 Del Method 12/10/24 11:32 79 12/10/24 11:23 36.7 C 68 18 114/77 95 Room Air 12/10/24 10:17 95 H 115/79 12/10/24 09:57 90 132/89 12/10/24 07:17 36.7 C 88 18 129/93 96 Room Air 12/10/24 04:13 36.5 C 72 19 118/84 94 Room Air Laboratory Results BMP 12/10/24 06:00 Sodium 138 Potassium 4.3 Chloride 107 Carbon Dioxide 24 BUN 25 H Creatinine 1.45 H D Glucose 147 H Calcium 8.9 Liver Function 12/10/24 Range/Units 06:00 Total Bilirubin 0.7 (0.2-1.0) mg/dl Direct Bilirubin 0.2 (0-0.2) mg/dl AST 22 (13-39) U/L ALT 19 (7-52) U/L Alkaline Phosphatase 58 (34-104) U/L Albumin 3.9 (3.4-5.0) gm/dl Medications Administered Current Inpatient Medications Acetaminophen (Acetaminophen 325 Mg Tab) 650 mg PO Q4H PRN PRN Reason: Pain or Fever Stop: 01/08/25 00:39 Amlodipine Besylate (Amlodipine Besylate 5 Mg Tab) 10 mg PO QAM [facility] Stop: 01/08/25 08:59 Last Admin: 12/10/24 08:18 Dose: 10 mg Clopidogrel Bisulfate (Clopidogrel Bisulfate 75 Mg Tab) 75 mg PO QAM [facility] Stop: 01/08/25 08:59 Last Admin: 12/10/24 08:18 Dose: 75 mg Dextrose (Dextrose 50% 50 Ml Syringe) 25 - 50 ml IV UD PRN; Protocol PRN Reason: Hypoglycemia Protocol Stop: 01/08/25 00:39 Finasteride (Finasteride 5 Mg Tab) 5 mg PO QAM [facility] Stop: 01/08/25 08:59 Last Admin: 12/10/24 08:18 Dose: 5 mg Glucagon (Glucagon For Inj 1 Mg Vial) 1 mg SQ UD PRN; Protocol PRN Reason: Hypoglycemia Protocol Stop: 01/08/25 00:39 Glucose (Glucose 40% Gel 15 Gm Tube) 15 - 30 gm PO UD PRN; Protocol PRN Reason: Hypoglycemia Protocol Stop: 01/08/25 00:39 Glucose (Glucose 10 Tab/Tube) 4 - 8 tab PO UD PRN; Protocol PRN Reason: Hypoglycemia Protocol Stop: 01/08/25 00:39 Amiodarone HCl/Dextrose (Nexterone / D5w) 360 mg in 200 mls @ 33.333 mls/hr IV ONE ONE Stop: 12/10/24 15:46 Last Admin: 12/10/24 10:14 Dose: 1 mg/min, 33.3 mls/hr Amiodarone HCl/Dextrose (Nexterone / D5w) 360 mg in 200 mls @ 16.667 mls/hr IV .Q12H JESSI Stop: 01/09/25 15:44 Insulin Aspart (Insulin Aspart Per Unit Charge) 0 units SC ACHS JESSI Stop: 01/08/25 01:59 Last Admin: 12/10/24 12:15 Dose: 1 units Isosorbide Mononitrate (Isosorbide [place] Extended Rel 30 Mg Tabcr) 30 mg PO QAM [facility] Stop: 01/08/25 08:59 Last Admin: 12/10/24 08:18 Dose: 30 mg Lisinopril (Lisinopril 10 Mg Tab) 10 mg PO DAILY [facility] Stop: 01/08/25 08:59 Last Admin: 12/10/24 08:18 Dose: 10 mg Metoprolol Tartrate (Metoprolol Tartrate 25 Mg Tab) 25 mg PO BID [facility] Stop: 01/08/25 11:59 Last Admin: 12/10/24 08:18 Dose: 25 mg Miscellaneous (Carbohydrates For Hypoglycemia ) 15 - 30 gm PO UD PRN PRN Reason: Hypoglycemia Protocol Stop: 01/08/25 00:39 Nitroglycerin (Nitroglycerin Sl 0.4 Mg/Tab Tab) 0.4 mg SL Q5M PRN PRN Reason: Chest Pain Stop: 01/08/25 00:39 Pantoprazole Sodium (Pantoprazole 40 Mg Tab) 40 mg PO QAM [facility] Stop: 01/08/25 08:59 Last Admin: 12/10/24 08:18 Dose: 40 mg Polyethylene Glycol (Polyethylene (Miralax) 17 Gm Pack) 17 gm PO DAILY PRN PRN Reason: Constipation Stop: 01/08/25 00:39 Rivaroxaban (Rivaroxaban 20 Mg Tab) 20 mg PO QDD JESSI Stop: 01/08/25 16:29 Last Admin: 12/09/24 16:49 Dose: 20 mg Rosuvastatin Calcium (Rosuvastatin Calcium 20 Mg Tab) 20 mg PO QAM [facility] Stop: 01/08/25 08:59 Last Admin: 12/10/24 08:18 Dose: 20 mg Simethicone (Simethicone 80 Mg Chew) 80 mg PO Q6H PRN PRN Reason: abdominal distention/ gas Stop: 01/08/25 00:39
[2024-12-10] MEDS: AMIODARONE / D5W 360 MG/200 ML BAG IV SCH (15:54)
[2024-12-11 07:45] LABS: Anion Gap 7.0 (3-11); Blood Urea Nitrogen 21.0 mg/dl (6-23); Calcium 9.3 mg/dl (8.6-10.3); Carbon Dioxide 27.0 mmol/L (21-32); Chloride 104.0 mmol/L (98-107); Creatinine Clr Calc Pharmacy 47.3 ml/min; Glucose 161.0 mg/dl (70-99(Fasting)); Magnesium 1.9 mg/dl (1.7-2.4); Potassium 4.4 mmol/L (3.5-5.1); Sodium 138.0 mmol/L (136-145)
--- NOTE | 2024-12-11 12:03 | Cardiology Progress Note ---
<Statement entered by Karla Zamorano, DO - 12/11/24 13:47> I have reviewed the advanced practitioner's documentation and agree with the plan of care. I accept the responsibility for the associated risk. Pt seen in cardiology f/u due to atypical atrial flutter/fib with RVR and TBS pt is feeling better today; no palpitations or SOB or CP Pt is more symptomatic with the tachycardia and his slow heart rates are not that terrible Continue amiodarone infusion continue xarelto hold toprol as will arrange for a DCCV tomorrow NPO after midnight possibly consider cardioversion as an in patient on thursday recommend toprol at this juncture pt does not need a pacemaker I discussed the case and my recommendations with the hospitalist via TT and he agreed with my plan Date of Service December 11, 2024 Assessment & Plan (1) Atypical atrial flutter: (2) Tachycardia-bradycardia syndrome: Plan - Heart rate well-controlled but appears to be in atypical atrial flutter - Blood pressure currently well-controlled - Suspect his episodes of dizziness may be due to changing positions too quickly along with being out in the heat for too long a period of time earlier this week - There is evidence of asymmetrical LVH on echo, cardiac MRI completed earlier this week according to radiologist appears more consistent with ischemic cardiomyopathy but cannot rule out HCM - continue IV amiodarone - Recommend he be n.p.o. after midnight and coordinate for cardioversion tomorrow - Continue amlodipine, clopidogrel, isosorbide, lisinopril, Xarelto, rosuvastatin - Please hold a.m. dose of Toprol Case discussed with Dr. Zamorano. Please see attestation for additional recommendations. MONAE Levy Department of Cardiology, [facility] This chart was completed in part utilizing Speech Voice Recognition Software. Grammatical errors, random word insertions, pronoun errors, and incomplete sentences are an occasional consequence of this system due to software limitations, ambient noise, and hardware issues. Any formal questions or concerns about the content, text, or information contained within the body of this dictation should be directly addressed to the provider for clarification. Admission and Anticipated Discharge Date Admission Date: December 08, 2024 Subjective 79-year-old male seen in cardiology follow-up in regards to atypical atrial flutter, tachybradycardia syndrome, PAF, atypical chest pain. Has overall been feeling well, No acute events noted overnight. He is feeling somewhat better. Review of Systems Review of Systems: All systems reviewed & are unremarkable except as noted in Subjective Physical Exam Constitutional: WD/WN, vitals as above well developed and well nourished; no acute distress Eyes: PERRL, conjunctivae normal, anicteric sclerae Neck: trachea midline, no thyromegaly Respiratory: normal respiratory effort, lungs clear to auscultation Cardiovascular: Rate/Rhythm: regular rate and regular rhythm Heart Sounds: + murmur Vessels: no JVD and no carotid bruit Gastrointestinal (Abdomen): normal bowel sounds, soft, nontender, no hepatosplenomegaly Musculoskeletal: no cyanosis or clubbing, extremities motor strength 5/5 Skin: no rashes, warm and dry Psychiatric: A+Ox3, euthymic affect Results & Data Vital Signs (Past 12 Hours) Vital Signs Temp Pulse Pulse Resp BP Pulse Ox O2 Del Method 12/11/24 11:25 36.7 C 71 18 112/71 96 Room Air 12/11/24 07:30 93 H 12/11/24 07:06 36.5 C 69 18 125/81 95 Room Air 12/11/24 03:45 36.6 C 74 16 109/74 95 Room Air PG Care Time/CCT Total # of Minutes Spent Total Time Spent with Patient: Total time spent is greater than 50% in coordination of care (as documented) at patient's floor/unit and/or counseling patient: Coding Level of Care Code 63290 SUB INP/OBS CARE 2/35MIN Medical Decision Making Moderate Complexity Diagnoses Atypical atrial flutter I48.4 Tachycardia-bradycardia syndrome I49.5
--- NOTE | 2024-12-11 13:09 | Hospitalist Progress Note ---
Date of Service December 11, 2024 Assessment & Plan (1) Atypical atrial flutter: Plan: 79-year-old male with past medical history significant for type 2 diabetes, hyperlipidemia, CKD stage III, history of atrial fibrillation, carotid stenosis nonsymptomatic, history of cerebral microvascular disease, history of aneurysm of ascending aorta without rupture, GERD, osteoarthritis, history of agent orange exposure went to urgent care because of palpitations and found to have heart block and sent here. Patient states around lunchtime he felt palpitations. He felt chilly. Mild dizziness. Mild shortness of breath. Some chest tightness. It lasted for about half hour and subsided. It happened couple of times a week ago. Went to urgent care where EKG was done and found to be in second degree heart block and sent to the ER for further evaluation. Currently resting comfortably. Denies any headache. Vision is okay. No runny nose or sore throat or cough. No fevers. No difficulty swallowing. No abdominal pain. Normal bowel and bladder movements. Lately having some shortness of breath on exertion. Hemodynamics are okay currently. Patient was in the hospital in October with atypical chest pain and at that time he was found to have sinus bradycardia and his metoprolol dose was reduced. Patient also had cardiac MRI done as outpatient on November 18, 2024 for asymmetrical septal hypertrophy on past echo with results showing mostly ischemic cardiomyopathy and hypertrophic cardiomyopathy cannot be ruled out. His left ventricular ejection fraction was 46%. Right ventricular ejection fraction 31%. Tachybradycardia syndrome and presented with atypical atrial flutter Suspected to be Mobitz type II heart block Holding Xarelto for any procedures Close monitoring on telemetry We will follow Lyme screen-Lyme screen has been negative Cardiology consult-appreciate cardiology input and recommendation Has been on metoprolol tartrate 25 mg p.o. 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 operator He has been getting amiodarone and denies any more cardiac symptoms Likely discharge tomorrow if the rate is controlled with amiodarone WILLIAM likely secondary to dehydration Advised to drink more fluid and will monitor BMP and electrolytes His creatinine is worse today and is strongly advised to drink more fluid Avoid giving any intravenous fluid A-fib Holding metoprolol and Xarelto Has atypical flutter with tachybradycardia syndrome Further cardiology recommendation for possible pacemaker and or cardioversion Rate is controlled Diabetes Hold metformin Sliding scale Will monitor GERD Protonix Hypertension Continue amlodipine, isosorbide mononitrate, lisinopril Holding metoprolol-changed to metoprolol tartrate 55%. Moderately Will monitor Hyperlipidemia On statin CKD stage III Present with creatinine 1.3 which is around baseline Will follow labs History of CAD On Plavix and statin Holding beta-ang for heart block DVT prophylaxis SCDs Disposition Telemetry Full code. (2) Mobitz (type) II atrioventricular block: (3) Tachycardia-bradycardia syndrome: (4) GERD (gastroesophageal reflux disease): (5) Paroxysmal atrial fibrillation: (6) HTN, goal below 130/80: (7) ASCVD (arteriosclerotic cardiovascular disease): (8) Dyslipidemia, goal LDL below 70: Admission and Anticipated Discharge Date Admission Date: December 08, 2024 Subjective 12/09/2024 The patient was seen and examined in telemetry unit He has had episodes of palpitation and shortness of breath for the last 1 to 2 months Noted to have tachybradycardia syndrome in monitor Denies any significant symptoms as of today 12/10/2024 The patient was seen and examined in telemetry unit He did not have any episodes of palpitation and no slow heart rate He did not eat or drink yesterday and the creatinine was up He will be started with intravenous amiodarone as per the invoice machine operator 12/11/2024 The patient was seen and examined in telemetry unit He has had 1 episode of palpitation last night Denies any more cardiac symptoms Review of Systems Review of Systems: All systems reviewed and are unremarkable except as noted below Physical Exam Physical Exam: Lying in bed without any acute distress Constitutional: well developed, well nourished and + ill appearing Eyes: PERRL, conjunctivae normal, anicteric sclerae ENMT: external ear and nose normal, oropharynx normal Neck: trachea midline, no thyromegaly Respiratory: no respiratory distress Auscultation: lungs clear to auscultation bilaterally Cardiovascular: Rate/Rhythm: + irregularly irregular; not tachycardic Heart Sounds: normal S1 and normal S2; no murmur Extremities: no edema Gastrointestinal (Abdomen): Inspection/Auscultation: normal bowel sounds; abdomen not distended Percussion/Palpation: abdomen soft; abdomen nontender Neurologic: normal touch/pain/proprioception and moves all extremities; no focal motor deficits Psychiatric: A+Ox3, euthymic affect Lymphatic: no cervical or axillary lymphadenopathy Results & Data Results & Data Vital Signs (Past 12 Hours) Vital Signs Temp Pulse Pulse Resp BP Pulse Ox O2 Del Method 12/11/24 11:25 36.7 C 71 18 112/71 96 Room Air 12/11/24 07:30 93 H 12/11/24 07:06 36.5 C 69 18 125/81 95 Room Air 12/11/24 03:45 36.6 C 74 16 109/74 95 Room Air Laboratory Results [facility] 12/11/24 07:04 Sodium 138 Potassium 4.4 Chloride 104 Carbon Dioxide 27 BUN 21 Creatinine 1.51 H Glucose 161 H Calcium 9.3 Medications Administered Current Inpatient Medications Acetaminophen (Acetaminophen 325 Mg Tab) 650 mg PO Q4H PRN PRN Reason: Pain or Fever Stop: 01/08/25 00:39 Amlodipine Besylate (Amlodipine Besylate 5 Mg Tab) 10 mg PO QAM JESSI Stop: 01/08/25 08:59 Last Admin: 12/11/24 08:45 Dose: 10 mg Clopidogrel Bisulfate (Clopidogrel Bisulfate 75 Mg Tab) 75 mg PO QAM JESSI Stop: 01/08/25 08:59 Last Admin: 12/11/24 08:45 Dose: 75 mg Dextrose (Dextrose 50% 50 Ml Syringe) 25 - 50 ml IV UD PRN; Protocol PRN Reason: Hypoglycemia Protocol Stop: 01/08/25 00:39 Finasteride (Finasteride 5 Mg Tab) 5 mg PO QAM JESSI Stop: 01/08/25 08:59 Last Admin: 12/11/24 08:45 Dose: 5 mg Glucagon (Glucagon For Inj 1 Mg Vial) 1 mg SQ UD PRN; Protocol PRN Reason: Hypoglycemia Protocol Stop: 01/08/25 00:39 Glucose (Glucose 40% Gel 15 Gm Tube) 15 - 30 gm PO UD PRN; Protocol PRN Reason: Hypoglycemia Protocol Stop: 01/08/25 00:39 Glucose (Glucose 10 Tab/Tube) 4 - 8 tab PO UD PRN; Protocol PRN Reason: Hypoglycemia Protocol Stop: 01/08/25 00:39 Amiodarone HCl/Dextrose (Nexterone / D5w) 360 mg in 200 mls @ 16.667 mls/hr IV .Q12H [facility] Stop: 01/09/25 15:44 Last Infusion: 12/11/24 06:55 Dose: 0.5 mg/min, 16.7 mls/hr Insulin Aspart (Insulin Aspart Per Unit Charge) 0 units SC ACHS [facility] Stop: 01/08/25 01:59 Last Admin: 12/11/24 11:43 Dose: Not Given Isosorbide Mononitrate (Isosorbide [place] Extended Rel 30 Mg Tabcr) 30 mg PO QAM [facility] Stop: 01/08/25 08:59 Last Admin: 12/11/24 08:45 Dose: 30 mg Lisinopril (Lisinopril 10 Mg Tab) 10 mg PO DAILY [facility] Stop: 01/08/25 08:59 Last Admin: 12/11/24 08:46 Dose: 10 mg Metoprolol Tartrate (Metoprolol Tartrate 25 Mg Tab) 25 mg PO BID [facility] Stop: 01/08/25 11:59 Last Admin: 12/11/24 08:46 Dose: 25 mg Miscellaneous (Carbohydrates For Hypoglycemia ) 15 - 30 gm PO UD PRN PRN Reason: Hypoglycemia Protocol Stop: 01/08/25 00:39 Nitroglycerin (Nitroglycerin Sl 0.4 Mg/Tab Tab) 0.4 mg SL Q5M PRN PRN Reason: Chest Pain Stop: 01/08/25 00:39 Pantoprazole Sodium (Pantoprazole 40 Mg Tab) 40 mg PO QAM [facility] Stop: 01/08/25 08:59 Last Admin: 12/11/24 08:46 Dose: 40 mg Polyethylene Glycol (Polyethylene (Miralax) 17 Gm Pack) 17 gm PO DAILY PRN PRN Reason: Constipation Stop: 01/08/25 00:39 Rivaroxaban (Rivaroxaban 15 Mg Tab) 15 mg PO QDD [facility] Stop: 01/10/25 16:29 Rosuvastatin Calcium (Rosuvastatin Calcium 20 Mg Tab) 20 mg PO QAM [facility] Stop: 01/08/25 08:59 Last Admin: 12/11/24 08:46 Dose: 20 mg Simethicone (Simethicone 80 Mg Chew) 80 mg PO Q6H PRN PRN Reason: abdominal distention/ gas Stop: 01/08/25 00:39
--- NOTE | 2024-12-11 15:18 | Communication Note ---
Date of Service: December 11, 2024 Hold Toprol in the morning and continue Xarelto. NPO after MN for DCCV tomorrow. DR Miguelito Jerry
--- NOTE | 2024-12-11 16:12 | Electrocardiogram Report ---
Test Reason : Blood Pressure : */* mmHG Vent. Rate : 78 BPM Atrial Rate : 78 BPM P-R Int : 264 ms QRS Dur : 86 ms QT Int : 382 ms P-R-T Axes : -6 -11 13 degrees QTcB Int : 435 ms Atrial tachycardia with 2:1 A-V conduction Abnormal ECG When compared with ECG of 09-Dec-2024 05:26, No significant change Confirmed by Pb Grissom ([id number]) on 12/11/2024 4:12:12 PM Referred By: REFERRED SELF Confirmed By: Pb Grissom
--- NOTE | 2024-12-11 17:02 | Electrocardiogram Report ---
Test Reason : Blood Pressure : */* mmHG Vent. Rate : 75 BPM Atrial Rate : 300 BPM P-R Int : * ms QRS Dur : 102 ms QT Int : 422 ms P-R-T Axes : -12 -1 40 degrees QTcB Int : 471 ms Atrial tachycardia with 2:1 A-V conduction Abnormal ECG When compared with ECG of 10-Dec-2024 05:39, (unconfirmed) No significant change Confirmed by Pb Grissom ([id number]) on 12/11/2024 5:02:15 PM Referred By: REFERRED SELF Confirmed By: Pb Grissom
[2024-12-11] MEDS: RIVAROXABAN 15 MG TAB PO SCH (17:26)
[2024-12-12] MEDS ORDERED: SODIUM CHLORIDE 0.9% 50 ML BAG IV SCH (00:01)
[2024-12-12] MEDS: SODIUM CHLORIDE 0.9% 1,000 ML IV SCH (00:03)
[2024-12-12 04:47] VITALS: RESP 18
[2024-12-12 06:08] LABS: Anion Gap 4.0 (3-11); Blood Urea Nitrogen 22.0 mg/dl (6-23); Calcium 8.7 mg/dl (8.6-10.3); Carbon Dioxide 29.0 mmol/L (21-32); Chloride 105.0 mmol/L (98-107); Creatinine Clr Calc Pharmacy 45.7 ml/min; Glucose 136.0 mg/dl (70-99(Fasting)); Magnesium 1.8 mg/dl (1.7-2.4); Potassium 4.4 mmol/L (3.5-5.1); Sodium 138.0 mmol/L (136-145)
[2024-12-12 06:17] LABS: Hematocrit (blood only) 42.1 % (42.0-52.0); Hemoglobin 14.1 g/dl (14.0-18.0); Mean Corpuscular Hemoglobin 30.7 pg (25.0-34.0); Mean Corpuscular Volume 91.5 fL (80.0-100.0); Platelet Count 205 K/uL (130-400); RDW Standard Deviation 45.1 fL (36.4-46.3); Red Blood Count 4.60 M/uL (4.70-6.10); White Blood Count 7.01 K/ul (4.8-10.8)
[2024-12-12 06:40] LABS: ALC (manual) 0.77 K/uL (1.2-3.4); ANC (manual) 5.96 K/uL (1.4-6.5); RBC Morphology Unremarkable
--- NOTE | 2024-12-12 06:42 | Anesthesiology Consultation ---
Date of Service December 12, 2024 Assessment & Plan Chart Review Chart Review: Acceptable Risk for Surgery and Patient NOT seen in Pre Admission Testing Consults Requested none History Height/Weight Height: 5 ft 10 in Weight: 99 kg Allergies Allergy/AdvReac Type Severity Reaction Status Date / Time No Known Allergies Allergy Mild Verified 12/08/24 20:44 Medications Home Medications Medication Instructions Recorded Confirmed Last Taken amlodipine 10 mg tablet 10 mg PO QAM 04/10/24 12/08/24 12/08/24 finasteride 5 mg tablet 5 mg PO QAM 04/10/24 12/08/24 12/08/24 blood-glucose meter (Blood Glucose #1 ea 04/12/24 05/12/24 Unknown Monitoring kit) clopidogrel 75 mg tablet 75 mg PO QAM 11/13/24 12/08/24 12/08/24 metformin 500 mg tablet 500 mg PO DAILY 11/13/24 12/08/24 12/08/24 rivaroxaban 20 mg tablet (Xarelto) 20 mg PO QAM 11/13/24 12/08/24 12/08/24 metoprolol succinate 50 mg 50 mg PO QAM #0 tabs 11/14/24 12/08/24 12/08/24 tablet,extended release 24 hr simethicone 80 mg chewable tablet 80 mg PO Q6H PRN abdominal 11/14/24 12/08/24 Unknown (Gas Relief (simethicone)) distention/ gas #20 tabs calcium carbonate (Tums) 300 mg PO DIRECTED PRN 12/08/24 12/08/24 Unknown INDIGESTION/HEARTBURN isosorbide mononitrate 30 mg 30 mg PO QAM 12/08/24 12/08/24 12/08/24 tablet,extended release 24 hr lisinopril 10 mg tablet 10 mg PO DAILY 12/08/24 12/08/24 12/08/24 pantoprazole 40 mg tablet,delayed 40 mg PO QAM 12/08/24 12/08/24 12/08/24 release rosuvastatin 20 mg tablet 20 mg PO QAM 12/08/24 12/08/24 12/08/24 Active Medications Generic Name Dose Route Start Last Admin Trade Name Freq PRN Reason Stop Dose Admin Amlodipine Besylate 10 mg 12/09/24 09:00 12/11/24 08:45 Amlodipine Besylate 5 Mg Tab PO 01/08/25 08:59 10 mg QAM JESSI Administration Clopidogrel Bisulfate 75 mg 12/09/24 09:00 12/11/24 08:45 Clopidogrel Bisulfate 75 Mg Tab PO 01/08/25 08:59 75 mg QAM JESSI Administration Finasteride 5 mg 12/09/24 09:00 12/11/24 08:45 Finasteride 5 Mg Tab PO 01/08/25 08:59 5 mg QAM JESSI Administration Amiodarone HCl/Dextrose 360 mg in 200 mls @ 16.667 mls/hr 12/10/24 15:45 12/12/24 02:15 Nexterone / D5w IV 01/09/25 15:44 0 mg/min .Q12H JESSI 0 mls/hr Infusion 0.5 MG/MIN Sodium Chloride 1,000 mls @ 50 mls/hr 12/12/24 00:00 12/12/24 00:03 Nss IV 12/12/24 19:59 50 mls/hr .Q20H JESSI Administration Insulin Aspart 0 units 12/09/24 16:30 12/12/24 02:02 Insulin Aspart Per Unit Charge SC 01/08/25 01:59 Not Given ACHS JESSI Isosorbide Mononitrate 30 mg 12/09/24 09:00 12/11/24 08:45 Isosorbide [place] Extended Rel 30 Mg Tabcr PO 01/08/25 08:59 30 mg QAM JESSI Administration Lisinopril 10 mg 12/09/24 09:00 12/11/24 08:46 Lisinopril 10 Mg Tab PO 01/08/25 08:59 10 mg DAILY JESSI Administration Pantoprazole Sodium 40 mg 12/09/24 09:00 12/11/24 08:46 Pantoprazole 40 Mg Tab PO 01/08/25 08:59 40 mg QAM JESSI Administration Rivaroxaban 15 mg 12/11/24 16:30 12/11/24 17:26 Rivaroxaban 15 Mg Tab PO 01/10/25 16:29 15 mg QDD JESSI Administration Rosuvastatin Calcium 20 mg 12/09/24 09:00 12/11/24 08:46 Rosuvastatin Calcium 20 Mg Tab PO 01/08/25 08:59 20 mg QAM JESSI Administration Past Medical History Medical History DM (diabetes mellitus), type 2 CAD (coronary artery disease) BPH (benign prostatic hyperplasia) Obesity Urinary retention Carotid stenosis HLD (hyperlipidemia) HTN (hypertension) Past Family History Family History Father Cancer Mother Stroke Sister Stroke Past Surgical History Surgical History S/P cardiac catheterization [facility] to [facility] 04/10/24 @ [facility] Hx of arthroscopy of shoulder History of meniscectomy of left knee Hx laparoscopic cholecystectomy Social History Smoking Status: Never smoker Do You Dip or Chew Tobacco: No Hx Alcohol Use: No Hx Substance Use: No substance use type: does not use Physical Exam Vital Signs Last Vital Signs Temp 36.6 C 12/12/24 04:46 Pulse 60 12/12/24 04:46 Resp 18 12/12/24 04:46 BP 113/68 12/12/24 04:46 Pulse Ox 94 12/12/24 04:46 O2 Del Method Room Air 12/12/24 04:46 Testing Laboratory Results 12/12/24 05:19 12/12/24 05:19 Hemoglobin A1c 7.7 % (4.5-5.6) H 12/09/24 08:01 12/11/24 20:17 POC Glucose 123 H
--- NOTE | 2024-12-12 10:00 | Cardiology Progress Note ---
Date of Service December 12, 2024 Assessment & Plan (1) Atypical atrial flutter: (2) Tachycardia-bradycardia syndrome: Plan - Heart rate well-controlled but appears to be in atypical atrial flutter - Blood pressure currently well-controlled - Suspect his episodes of dizziness may be due to changing positions too quickly along with being out in the heat for too long a period of time earlier this week - There is evidence of asymmetrical LVH on echo, cardiac MRI completed earlier this week according to radiologist appears more consistent with ischemic cardiomyopathy but cannot rule out HCM - continue IV amiodarone - Recommend he be n.p.o. after midnight and coordinate for cardioversion tomorrow - Continue amlodipine, clopidogrel, isosorbide, lisinopril, Xarelto, rosuvastatin - Please hold a.m. dose of Toprol Case discussed with Dr. Zamorano. Please see attestation for additional recommendations. MONAE Levy Department of Cardiology, [facility] This chart was completed in part utilizing Speech Voice Recognition Software. Grammatical errors, random word insertions, pronoun errors, and incomplete sentences are an occasional consequence of this system due to software limitations, ambient noise, and hardware issues. Any formal questions or concerns about the content, text, or information contained within the body of this dictation should be directly addressed to the provider for clarification. 12/12/2024 1. Paroxysmal atrial flutter with spontaneous conversion to sinus rhythm overnight with IV amiodarone EKG sinus bradycardia with first-degree AV block. WV interval 242 QTc 473 Recommendations: Discontinue IV amiodarone Begin amiodarone 200 mg p.o. twice daily Continue previous dosing of antihypertensives Do not restart metoprolol No indications for pacemaker May be discharged today with follow-up with doctors as already 1 to 2 weeks EKG 1 week Admission and Anticipated Discharge Date Admission Date: December 08, 2024 Subjective Patient seen and personally examined. Chart, medications, telemetry reviewed Patient feeling overly well this morning. Spontaneously converted to sinus rhythm approximately 2 AM this morning. No further arrhythmias. No pauses or bradycardia arrhythmias. No chest pain or shortness of breath. Review of Systems Review of Systems: All systems reviewed & are unremarkable except as noted in Subjective Physical Exam Constitutional: WD/WN, vitals as above well developed and well nourished; no acute distress Eyes: PERRL, conjunctivae normal, anicteric sclerae Neck: trachea midline, no thyromegaly Respiratory: normal respiratory effort, lungs clear to auscultation no respiratory distress and no labored breathing Auscultation: no crackles, no rales, no rhonchi and no wheezes Cardiovascular: Rate/Rhythm: regular rate, regular rhythm and + bradycardic Heart Sounds: normal S1, normal S2 and + murmur Vessels: no JVD and no carotid bruit Extremities: no edema Gastrointestinal (Abdomen): normal bowel sounds, soft, nontender, no hepatosplenomegaly Inspection/Auscultation: normal bowel sounds; abdomen not distended Percussion/Palpation: abdomen soft; abdomen nontender, no guarding and abdomen not rigid Musculoskeletal: no cyanosis or clubbing, extremities motor strength 5/5 Skin: no rashes, warm and dry Neurologic: CN's II-XI intact bilaterally and moves all extremities; no focal motor deficits Psychiatric: A+Ox3, euthymic affect Results & Data Vital Signs (Past 12 Hours) Vital Signs Temp Pulse Pulse Resp BP Pulse Ox O2 Del Method 12/12/24 07:28 52 L 12/12/24 07:06 36.7 C 59 L 18 142/90 H 95 Room Air 12/12/24 04:46 36.6 C 60 18 113/68 94 Room Air 12/11/24 23:04 36.7 C 68 19 118/75 93 Laboratory Results Laboratory Results - last 24 hr 12/11/24 12/11/24 12/11/24 11:05 16:16 20:17 WBC RBC Hgb Hct MCV MCH MCHC RDW Std Deviation RDW Coeff of Yasmine Plt Count MPV Neutrophils % (Manual) Lymphocytes % (Manual) Monocytes % (Manual) Eosinophils % (Manual) Neutrophils # (Manual) Total Absolute Neuts Lymphocytes # (Manual) Total Abs Lymphocytes Monocytes # (Manual) Eosinophils # (Manual) RBC Morphology Sodium Potassium Chloride Carbon Dioxide Anion Gap BUN Creatinine Est Cr Clr Drug Dosing eGFR BUN/Creatinine Ratio Glucose POC Glucose 165 H 136 H 123 H Calcium Magnesium 12/12/24 12/12/24 05:19 07:03 WBC 7.01 RBC 4.60 L Hgb 14.1 Hct 42.1 MCV 91.5 MCH 30.7 MCHC 33.5 RDW Std Deviation 45.1 RDW Coeff of Yasmine 13.3 Plt Count 205 MPV 9.6 Neutrophils % (Manual) 85 Lymphocytes % (Manual) 11 Monocytes % (Manual) 2 Eosinophils % (Manual) 2 Neutrophils # (Manual) 5.96 Total Absolute Neuts 5.96 Lymphocytes # (Manual) 0.77 L Total Abs Lymphocytes 0.77 L Monocytes # (Manual) 0.14 Eosinophils # (Manual) 0.14 RBC Morphology Unremarkable Sodium 138 Potassium 4.4 Chloride 105 Carbon Dioxide 29 Anion Gap 4 BUN 22 Creatinine 1.57 H Est Cr Clr Drug Dosing 45.7 eGFR 44.83 BUN/Creatinine Ratio 14.0 Glucose 136 H POC Glucose 115 H Calcium 8.7 Magnesium 1.8 PG Care Time/CCT Total # of Minutes Spent Total Time Spent with Patient: Total time spent is greater than 50% in coordination of care (as documented) at patient's floor/unit and/or counseling patient: Coding Level of Care Code 16218 SUB INP/OBS CARE 3/50MIN Diagnoses Atypical atrial flutter I48.4 Tachycardia-bradycardia syndrome I49.5
--- NOTE | 2024-12-12 15:15 | Hospitalist Progress Note ---
Date of Service December 12, 2024 Assessment & Plan (1) Atypical atrial flutter: Plan: 79-year-old male with past medical history significant for type 2 diabetes, hyperlipidemia, CKD stage III, history of atrial fibrillation, carotid stenosis nonsymptomatic, history of cerebral microvascular disease, history of aneurysm of ascending aorta without rupture, GERD, osteoarthritis, history of agent orange exposure went to urgent care because of palpitations and found to have heart block and sent here. Patient states around lunchtime he felt palpitations. He felt chilly. Mild dizziness. Mild shortness of breath. Some chest tightness. It lasted for about half hour and subsided. It happened couple of times a week ago. Went to urgent care where EKG was done and found to be in second degree heart block and sent to the ER for further evaluation. Currently resting comfortably. Denies any headache. Vision is okay. No runny nose or sore throat or cough. No fevers. No difficulty swallowing. No abdominal pain. Normal bowel and bladder movements. Lately having some shortness of breath on exertion. Hemodynamics are okay currently. Patient was in the hospital in October with atypical chest pain and at that time he was found to have sinus bradycardia and his metoprolol dose was reduced. Patient also had cardiac MRI done as outpatient on November 18, 2024 for asymmetrical septal hypertrophy on past echo with results showing mostly ischemic cardiomyopathy and hypertrophic cardiomyopathy cannot be ruled out. His left ventricular ejection fraction was 46%. Right ventricular ejection fraction 31%. Tachybradycardia syndrome and presented with atypical atrial flutter Suspected to be Mobitz type II heart block Holding Xarelto for any procedures Close monitoring on telemetry We will follow Lyme screen-Lyme screen has been negative Cardiology consult-appreciate cardiology input and recommendation Has been on metoprolol tartrate 25 mg p.o. 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 the oil changer He has been getting amiodarone and denies any more cardiac symptoms Likely discharge tomorrow if the rate is controlled with amiodarone Reverted to sinus rhythm and amiodarone has been restarted at 200 mg twice daily He may be going home this afternoon and beta-ang will be discontinued WILLIAM likely secondary to dehydration Advised to drink more fluid and will monitor BMP and electrolytes His creatinine is worse today and is strongly advised to drink more fluid Avoid giving any intravenous fluid A-fib Holding metoprolol and Xarelto Has atypical flutter with tachybradycardia syndrome Further cardiology recommendation for possible pacemaker and or cardioversion Rate is controlled Reverted to sinus rhythm and the rate is controlled with current dose of amiodarone likely to discharge home this afternoon Diabetes Hold metformin Sliding scale Will monitor GERD Protonix Hypertension Continue amlodipine, isosorbide mononitrate, lisinopril Holding metoprolol-changed to metoprolol tartrate 55%. Moderately Will monitor Hyperlipidemia On statin CKD stage III Present with creatinine 1.3 which is around baseline Will follow labs History of CAD On Plavix and statin Holding beta-ang for heart block DVT prophylaxis SCDs Disposition Telemetry Full code. (2) Mobitz (type) II atrioventricular block: (3) Tachycardia-bradycardia syndrome: (4) GERD (gastroesophageal reflux disease): (5) Paroxysmal atrial fibrillation: (6) HTN, goal below 130/80: (7) ASCVD (arteriosclerotic cardiovascular disease): (8) Dyslipidemia, goal LDL below 70: Admission and Anticipated Discharge Date Admission Date: December 08, 2024 Subjective 12/09/2024 The patient was seen and examined in telemetry unit He has had episodes of palpitation and shortness of breath for the last 1 to 2 months Noted to have tachybradycardia syndrome in monitor Denies any significant symptoms as of today 12/10/2024 The patient was seen and examined in telemetry unit He did not have any episodes of palpitation and no slow heart rate He did not eat or drink yesterday and the creatinine was up He will be started with intravenous amiodarone as per the oil changer 12/11/2024 The patient was seen and examined in telemetry unit He has had 1 episode of palpitation last night Denies any more cardiac symptoms 12/12/2024 The patient was seen and examined in telemetry unit He reverted to sinus rhythm and maintaining rate right now Denies any significant symptoms Review of Systems Review of Systems: All systems reviewed and are unremarkable except as noted below Physical Exam Physical Exam: Lying in bed without any acute distress Constitutional: well developed, well nourished and + ill appearing Eyes: PERRL, conjunctivae normal, anicteric sclerae ENMT: external ear and nose normal, oropharynx normal Neck: trachea midline, no thyromegaly Respiratory: no respiratory distress Auscultation: lungs clear to auscultation bilaterally Cardiovascular: Rate/Rhythm: + irregularly irregular; not tachycardic Heart Sounds: normal S1 and normal S2; no murmur Extremities: no edema Gastrointestinal (Abdomen): Inspection/Auscultation: normal bowel sounds; abdomen not distended Percussion/Palpation: abdomen soft; abdomen nontender Neurologic: normal touch/pain/proprioception and moves all extremities; no focal motor deficits Psychiatric: A+Ox3, euthymic affect Lymphatic: no cervical or axillary lymphadenopathy Results & Data Results & Data Vital Signs (Past 12 Hours) Vital Signs Temp Pulse Pulse Resp BP Pulse Ox O2 Del Method 12/12/24 13:53 75 12/12/24 11:23 36.8 C 72 18 129/82 91 Room Air 12/12/24 07:28 52 L 12/12/24 07:06 36.7 C 59 L 18 142/90 H 95 Room Air 12/12/24 04:46 36.6 C 60 18 113/68 94 Room Air Laboratory Results Short CBC 12/12/24 Range/Units 05:19 WBC 7.01 (4.8-10.8) K/ul Hgb 14.1 (14.0-18.0) g/dl Hct 42.1 (42.0-52.0) % Plt Count 205 (130-400) K/uL BMP 12/12/24 05:19 Sodium 138 Potassium 4.4 Chloride 105 Carbon Dioxide 29 BUN 22 Creatinine 1.57 H Glucose 136 H Calcium 8.7 Medications Administered Current Inpatient Medications Acetaminophen (Acetaminophen 325 Mg Tab) 650 mg PO Q4H PRN PRN Reason: Pain or Fever Stop: 01/08/25 00:39 Amiodarone HCl (Amiodarone 200 Mg Tab) 200 mg PO BIDM [facility] Stop: 01/11/25 16:59 Amlodipine Besylate (Amlodipine Besylate 5 Mg Tab) 10 mg PO QAM JESSI Stop: 01/08/25 08:59 Last Admin: 12/12/24 08:49 Dose: 10 mg Clopidogrel Bisulfate (Clopidogrel Bisulfate 75 Mg Tab) 75 mg PO QAM [facility] Stop: 01/08/25 08:59 Last Admin: 12/12/24 08:50 Dose: 75 mg Dextrose (Dextrose 50% 50 Ml Syringe) 25 - 50 ml IV UD PRN; Protocol PRN Reason: Hypoglycemia Protocol Stop: 01/08/25 00:39 Finasteride (Finasteride 5 Mg Tab) 5 mg PO QAM [facility] Stop: 01/08/25 08:59 Last Admin: 12/12/24 08:49 Dose: 5 mg Glucagon (Glucagon For Inj 1 Mg Vial) 1 mg SQ UD PRN; Protocol PRN Reason: Hypoglycemia Protocol Stop: 01/08/25 00:39 Glucose (Glucose 40% Gel 15 Gm Tube) 15 - 30 gm PO UD PRN; Protocol PRN Reason: Hypoglycemia Protocol Stop: 01/08/25 00:39 Glucose (Glucose 10 Tab/Tube) 4 - 8 tab PO UD PRN; Protocol PRN Reason: Hypoglycemia Protocol Stop: 01/08/25 00:39 Insulin Aspart (Insulin Aspart Per Unit Charge) 0 units SC ACHS [facility] Stop: 01/08/25 01:59 Last Admin: 12/12/24 11:51 Dose: 2 units Isosorbide Mononitrate (Isosorbide Williams Extended Rel 30 Mg Tabcr) 30 mg PO QAM [facility] Stop: 01/08/25 08:59 Last Admin: 12/12/24 08:49 Dose: 30 mg Lisinopril (Lisinopril 10 Mg Tab) 10 mg PO DAILY [facility] Stop: 01/08/25 08:59 Last Admin: 12/12/24 08:49 Dose: 10 mg Miscellaneous (Carbohydrates For Hypoglycemia ) 15 - 30 gm PO UD PRN PRN Reason: Hypoglycemia Protocol Stop: 01/08/25 00:39 Nitroglycerin (Nitroglycerin Sl 0.4 Mg/Tab Tab) 0.4 mg SL Q5M PRN PRN Reason: Chest Pain Stop: 01/08/25 00:39 Pantoprazole Sodium (Pantoprazole 40 Mg Tab) 40 mg PO QAM [facility] Stop: 01/08/25 08:59 Last Admin: 12/12/24 08:49 Dose: 40 mg Polyethylene Glycol (Polyethylene (Miralax) 17 Gm Pack) 17 gm PO DAILY PRN PRN Reason: Constipation Stop: 01/08/25 00:39 Rivaroxaban (Rivaroxaban 15 Mg Tab) 15 mg PO QDD [facility] Stop: 01/10/25 16:29 Last Admin: 12/11/24 17:26 Dose: 15 mg Rosuvastatin Calcium (Rosuvastatin Calcium 20 Mg Tab) 20 mg PO QAM [facility] Stop: 01/08/25 08:59 Last Admin: 12/12/24 08:49 Dose: 20 mg Simethicone (Simethicone 80 Mg Chew) 80 mg PO Q6H PRN PRN Reason: abdominal distention/ gas Stop: 01/08/25 00:39
--- NOTE | 2024-12-12 15:37 | Electrocardiogram Report ---
Test Reason : Blood Pressure : */* mmHG Vent. Rate : 58 BPM Atrial Rate : 58 BPM P-R Int : 242 ms QRS Dur : 104 ms QT Int : 482 ms P-R-T Axes : 11 -7 27 degrees QTcB Int : 473 ms Sinus bradycardia with 1st degree A-V block Otherwise normal ECG When compared with ECG of 11-Dec-2024 06:17, Sinus rhythm has replaced Atrial flutter Confirmed by Pb Grissom ([id number]) on 12/12/2024 3:37:01 PM Referred By: REFERRED SELF Confirmed By: Pb Grissom
[2024-12-12 16:12] VITALS: BP 120/76; PULSE 68; TEMP 97.9; O2SAT 98
[2024-12-12] MEDS ORDERED: AMIODARONE 200 MG TAB PO SCH (17:00)
--- NOTE | 2024-12-12 19:37 | Discharge Summary ---
Date of Service December 12, 2024 Admission HPI Per Admitting Provider 79-year-old male with past medical history significant for type 2 diabetes, hyperlipidemia, CKD stage III, history of atrial fibrillation, carotid stenosis nonsymptomatic, history of cerebral microvascular disease, history of aneurysm of ascending aorta without rupture, GERD, osteoarthritis, history of agent orange exposure went to urgent care because of palpitations and found to have heart block and sent here. Patient states around lunchtime he felt palpitations. He felt chilly. Mild dizziness. Mild shortness of breath. Some chest tightness. It lasted for about half hour and subsided. It happened couple of times a week ago. Went to urgent care where EKG was done and found to be in second degree heart block and sent to the ER for further evaluation. Currently resting comfortably. Denies any headache. Vision is okay. No runny nose or sore throat or cough. No fevers. No difficulty swallowing. No abdominal pain. Normal bowel and bladder movements. Lately having some shortness of breath on exertion. Hemodynamics are okay currently. Patient was in the hospital in October with atypical chest pain and at that time he was found to have sinus bradycardia and his metoprolol dose was reduced. Patient also had cardiac MRI done as outpatient on November 18, 2024 for asymmetrical septal hypertrophy on past echo with results showing mostly ischemic cardiomyopathy and hypertrophic cardiomyopathy cannot be ruled out. His left ventricular ejection fraction was 46%. Right ventricular ejection fraction 31%. Past medical history. As mentioned above Past surgical history. Colonoscopy. Cystoscopy. Knee arthroscopy. Prostate laser vaporization. TURP. Cholecystectomy. Knee meniscectomy. Litholapaxy. Shoulder surgery arthroscopic. Social history. . No smoking. Alcohol occasionally. No drug use. Family history. Father had lung cancer. Mother had stroke. Sister had stroke. Admission Exam Per Admitting Provider Physical Exam: General- Not in distress Head- atraumatic Eyes- PERRL. ENT- oropharynx clear Neck- supple, no JVD. Lungs- clear to auscultation no wheezing or crackles. Heart- regular rhythm; no murmur, no gallop. Abdomen- normal bowel sounds, soft, nontender, no distension Extremities- no pretibial edema, no erythema seen Neuro- alert, oriented PERRL, no facial palsy; no dysarthria; moves extremities Principal Diagnosis Atypical atrial flutter, reverted to sinus rhythm, tachybradycardia syndrome Discharge Exam Lying in bed without any acute distress Constitutional well developed, well nourished and + ill appearing Eyes PERRL, conjunctivae normal, anicteric sclerae ENMT external ear and nose normal, oropharynx normal Neck trachea midline, no thyromegaly Respiratory no respiratory distress Auscultation: lungs clear to auscultation bilaterally Cardiovascular Rate/Rhythm: + irregularly irregular; not tachycardic Heart Sounds: normal S1 and normal S2; no murmur Extremities: no edema Gastrointestinal (Abdomen) Inspection/Auscultation: normal bowel sounds; abdomen not distended Percussion/Palpation: abdomen soft; abdomen nontender Neurologic normal touch/pain/proprioception and moves all extremities; no focal motor deficits Psychiatric A+Ox3, euthymic affect Lymphatic no cervical or axillary lymphadenopathy Discharge Data Allergies Allergy/AdvReac Type Severity Reaction Status Date / Time No Known Allergies Allergy Mild Verified 12/08/24 20:44 Consultations 12/08/24 21:43 ED Decision to Admit Stat 12/09/24 08:00 Consult Cardiology Routine Procedures Performed Operation Date: 12/12/24 07:30 <No data on this case meets the specified criteria> Hospital Course (1) Atypical atrial flutter: 79-year-old male with past medical history significant for type 2 diabetes, hyperlipidemia, CKD stage III, history of atrial fibrillation, carotid stenosis nonsymptomatic, history of cerebral microvascular disease, history of aneurysm of ascending aorta without rupture, GERD, osteoarthritis, history of agent orange exposure went to urgent care because of palpitations and found to have heart block and sent here. Patient states around lunchtime he felt palpitations. He felt chilly. Mild dizziness. Mild shortness of breath. Some chest tightness. It lasted for about half hour and subsided. It happened couple of times a week ago. Went to urgent care where EKG was done and found to be in second degree heart block and sent to the ER for further evaluation. Currently resting comfortably. Denies any headache. Vision is okay. No runny nose or sore throat or cough. No fevers. No difficulty swallowing. No abdominal pain. Normal bowel and bladder movements. Lately having some shortness of breath on exertion. Hemodynamics are okay currently. Patient was in the hospital in October with atypical chest pain and at that time he was found to have sinus bradycardia and his metoprolol dose was reduced. Patient also had cardiac MRI done as outpatient on November 18, 2024 for asymmetrical septal hypertrophy on past echo with results showing mostly ischemic cardiomyopathy and hypertrophic cardiomyopathy cannot be ruled out. His left ventricular ejection fraction was 46%. Right ventricular ejection fraction 31%. Tachybradycardia syndrome and presented with atypical atrial flutter Suspected to be Mobitz type II heart block Holding Xarelto for any procedures Close monitoring on telemetry We will follow Lyme screen-Lyme screen has been negative Cardiology consult-appreciate cardiology input and recommendation Has been on metoprolol tartrate 25 mg p.o. 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 the care team coordinator scheduler He has been getting amiodarone and denies any more cardiac symptoms Likely discharge tomorrow if the rate is controlled with amiodarone Reverted to sinus rhythm and amiodarone has been restarted at 200 mg twice daily He may be going home this afternoon and beta-ang will be discontinued WILLIAM likely secondary to dehydration Advised to drink more fluid and will monitor BMP and electrolytes His creatinine is worse today and is strongly advised to drink more fluid Avoid giving any intravenous fluid A-fib Holding metoprolol and Xarelto Has atypical flutter with tachybradycardia syndrome Further cardiology recommendation for possible pacemaker and or cardioversion Rate is controlled Reverted to sinus rhythm and the rate is controlled with current dose of amiodarone likely to discharge home this afternoon Diabetes Hold metformin Sliding scale Will monitor GERD Protonix Hypertension Continue amlodipine, isosorbide mononitrate, lisinopril Holding metoprolol-changed to metoprolol tartrate 55%. Moderately Will monitor Hyperlipidemia On statin CKD stage III Present with creatinine 1.3 which is around baseline Will follow labs History of CAD On Plavix and statin Holding beta-ang for heart block DVT prophylaxis SCDs Disposition Telemetry Full code. (2) Mobitz (type) II atrioventricular block: (3) Tachycardia-bradycardia syndrome: (4) GERD (gastroesophageal reflux disease): (5) Paroxysmal atrial fibrillation: (6) HTN, goal below 130/80: (7) ASCVD (arteriosclerotic cardiovascular disease): (8) Dyslipidemia, goal LDL below 70: Total Time Total Time Spent Total Time Spent (In Minutes): 35 minutes Discharge Plan Discharge Items Patient Disposition: Home - Self-Care Reason For Visit: MOBITZ TYPE 2 HEART BLOCK Discharge Diagnosis: Atypical atrial flutter, reverted to sinus rhythm, tachybradycardia syndrome Condition on Discharge: Fair Activity: Resume your previous activity Non-emergency contact: Primary Care Provider Call non-emergency contact if: you have any medication questions and your symptoms worsen Follow-up/Referrals: Justin Hanson, [Primary Care Provider] - (Date & Time 12/15/2024 3:00 PM Provider: Joann Maosn CRNP [facility] ) Diet: Heart Healthy Addtl Attending Provider Instructions: Please take precautions to avoid falls Take your medications as advised Do not take metoprolol and your Xarelto dose has been decreased to 15 mg daily adjusted to your renal function Please keep your appointments with your healthcare provider Pending Studies at Discharge: No Stand-Alone Forms: [employer], Smoking Cessation Medications and DC Order Prescriptions: New Xarelto 15 mg Tablet 15 mg PO QDD Qty: 30 0RF amiodarone 200 mg Tablet 200 mg PO BIDM Qty: 60 0RF Continued amlodipine 10 mg tablet 10 mg PO QAM finasteride 5 mg tablet 5 mg PO QAM (DME) blood-glucose meter [Blood Glucose Monitoring] Kit See Rx Instructions .Route Qty: 1 0RF Rx Instructions: 2 times daily- before breakfanst and dinner metformin 500 mg tablet 500 mg PO DAILY clopidogrel 75 mg tablet 75 mg PO QAM simethicone [Gas Relief (simethicone)] 80 mg Tablet,Chewable 80 mg PO Q6H PRN (Reason: abdominal distention/ gas) Qty: 20 0RF Tums 300 mg (750 mg) Tablet,Chewable 300 mg PO DIRECTED PRN (Reason: INDIGESTION/HEARTBURN) rosuvastatin 20 mg tablet 20 mg PO QAM isosorbide mononitrate 30 mg tablet extended release 24 hr 30 mg PO QAM pantoprazole 40 mg tablet,delayed release (DR/EC) 40 mg PO QAM lisinopril 10 mg tablet 10 mg PO DAILY Discontinued Xarelto 20 mg tablet 20 mg PO QAM metoprolol succinate 50 mg tablet extended release 24 hr 50 mg PO QAM Qty: 0 0RF Discharge Orders: Discharge Order (Routine); Ordered 12/12/24 Ordered By: Symone Garcia/Other Patient Handouts: A1C, Managing Type 2 Diabetes Admission Data Admit Date/Time: 12/08/24 22:30 Attending Provider: Symone Jerry Admit Provider: Mohan Vazquez Primary Care Provider: Justin Hanson Other Providers: Mohan Vazquez; Jayme Herrera Other Interventions: Discharge Summary Assessment (RN) Last Done: 12/12/24 16:10
== END 2024-12-12 17:54 | disposition home or self-care (01) | DRG 309 ==
LOC: ED 18:37 → 2S 22:30